=== PATIENT | male | born 1955 | race Caucasian/White ===

== ENCOUNTER 2022-03-12 13:34 | Observation (INO) ==
[2022-03-12] MEDS ORDERED: SODIUM CHLORIDE 0.9% 500 ML IV ONE (14:04)
[2022-03-12 14:09] LABS: Basophils # (auto) 0.02 K/uL (0-0.2); Basophils % (auto) 0.3 %; Eosinophils # (auto) 0.02 K/uL (0-0.50); Eosinophils % (auto) 0.3 %; Hematocrit (blood only) 46.8 % (40.1-51.0); Hemoglobin 16.1 g/dl (14.0-18.0); Immature Granulocytes # (auto) 0.01 K/uL (0.00-0.02); Immature Granulocytes % (auto) 0.2 %; Lymphocytes # (auto) 0.87 K/uL (1.2-3.4); Lymphocytes % (auto) 14.3 %; Mean Corpuscular Hemoglobin 31.1 pg (25.0-34.0); Mean Corpuscular Hgb Conc 34.4 g/dL (32.0-36.0); Mean Corpuscular Volume 90.5 fL (80.0-100.0); Mean Platelet Volume 8.9 fL (9.4-12.4); Monocytes # (auto) 0.75 K/uL (0.24-0.82); Monocytes % (auto) 12.3 %; Neutrophils # (auto) 4.42 K/uL (1.4-6.5); Neutrophils % (auto) 72.6 %; Platelet Count 180 K/uL (130-400); RDW Coefficient of Variation 12.9 % (11.5-14.5); RDW Standard Deviation 43.1 fL (36.4-46.3); Red Blood Count 5.17 M/uL (4.63-6.08); White Blood Count 6.09 K/ul (4.8-10.8)
[2022-03-12 14:43] LABS: Troponin I High Sensitivity 4.8 pg/ml (0-20)
--- NOTE | 2022-03-12 14:47 | Emergency Department Note ---
Impression & Plan Exertional chest pain, Hyperlipidemia, Family history of coronary artery disease ED Provider Note NAME: KOBE KEYES AGE: 66 SEX: M ARRIVES VIA: Walk-In INFORMANT: Patient, ED PROVIDER(S): Daniel Howell MD CHIEF COMPLAINT: Exertional chest pain. PLAN: Disposition: Admit MEDICAL DECISION MAKING: The patient is a pleasant 66-year-old gentleman with a past medical history of hyperlipidemia who presents to the emergency department with increasing pattern of exertional chest pain/heaviness that began approximately 7 weeks ago. He reports he saw his primary care doctor at that time and was not as frequent and had a reassuring EKG and so was scheduled for stress test in April. 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 He reports he felt some chest pressure walking into the hospital today. He denies any cough, congestion, fevers, chills, GI or symptoms. He reports a family history of extensive heart disease. On arrival the patient is no acute distress, afebrile stable vital signs. EKG without overt acute ischemia. CXR negative for acute cardiopulmonary process. WBC, H/H, platelets wnl. Chemistry without acidosis. Electrolytes unremarkable. LFTs without significant abnormality. HS Troponin 4.8, wnl. Lipase wnl. Covid-19 RNA, NAAT negative. Heart score 6, moderate risk. Given patient's worsening pattern of exertional CP agrees with plan for admission for further management. Case was discussed with Shannan YEPEZ with Dr. Lawrence, [facility] hospitalist, who will evaluate the patient for admission. Triage Nursing notes reviewed and agree them. Prior medical records reviewed Vital Signs: reviewed and remarkable for no significant abnormalities Differential diagnosis: Cardiac ischemia, aortic dissection, pulmonary embolism, pneumothorax, pneumonia, pericarditis, myocarditis, esophageal rupture, GERD, cholecystitis, pancreatitis, musculoskeletal, as well as other pathologies. ER treatment provided: See below. Diagnostics interpreted by me: ECG: Normal sinus rhythm, 91 bpm, no ectopy, nonspecific T wave abnormality, no overt ST elevation or depression, QTC 425, qrs 102. Cardiac Monitoring: An order for continuous cardiac monitoring was placed and demonstrated Normal sinus rhythm, 91 bpm, no ectopy. Laboratory studies: See below Imaging studies: See below Consultation(s): Shannan YEPEZ with Dr. Lawrence [facility] hospitalist, HPI: The patient is a pleasant 66-year-old gentleman with a past medical history of hyperlipidemia who presents to the emergency department with increasing pattern of exertional chest pain/heaviness that began approximately 7 weeks ago. He reports he saw his primary care doctor at that time and was not as frequent and had a reassuring EKG and so was scheduled for stress test in April. 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 He reports he felt some chest pressure walking into the hospital today. He denies any cough, congestion, fevers, chills, GI or symptoms. He reports a family history of extensive heart disease. ROS: See above HPI for pertinent positives & negatives. A total of 10 systems reviewed and were otherwise negative. VITALS:See Below PHYSICAL EXAMINATION: GENERAL: Awake, alert, well-appearing, in no distress HENT: Normocephalic, atraumatic. Oropharynx unremarkable. EYES: Normal conjunctiva. Sclera non-icteric. NECK: Supple. No nuchal rigidity. FROM. No JVD. RESPIRATORY: Clear to auscultation. CARDIAC: Regular rate, normal rhythm. Extremities warm and well perfused. Pulses equal. ABDOMEN: Soft, non-distended. No tenderness to palpation. No rebound or guarding. No masses. RECTAL: Deferred. MUSCULOSKELETAL: Chest examination reveals no tenderness. The back is symmetrical on inspection without obvious abnormality. There is no CVA tenderness to palpation. No joint edema. LOWER EXTREMITIES: Calves are equal size bilaterally and non-tender. No edema. No discoloration. NEURO: Normal sensorium. No sensory or motor deficits noted. SKIN: No rash or jaundice noted. Daniel Howell MD Past Med/Surg History Medical History Hx of skin cancer, basal cell S/P SEVERAL MOH'S PROCEDURES Hyperlipidemia Surgical History History of arthroscopic knee surgery R X 2 History of colonoscopy History of inguinal hernia repair pt does not remember having this surgery but does not want me to remove it from his history History of vasectomy Family History Father FHx: diabetes mellitus Mother FHx: heart disease Social History Smoking Status: Never smoker Hx Alcohol Use: No Hx Substance Use: No Preferred Language: Bulgarian Communication Ability: Effective Internal Communications Manager Required: No Beliefs That Will Affect Care: None Current Living Situation: Spouse Other Information That Helps Us Care for You: No Feels Safe at Home: Yes Safety Concerns: Feels Safe At This Time Assistive Devices: None Allergies Allergies Allergy/AdvReac Type Severity Reaction Status Date / Time No Known Allergies Allergy Verified 06/14/20 06:28 Home Meds Home Medications Medication Instructions Recorded Confirmed ascorbic acid (vitamin C) 500 mg 500 mg PO QAM 06/21/18 03/12/22 tablet (Vitamin C) aspirin 81 mg tablet,delayed 81 mg PO HS 06/21/18 03/12/22 release cholecalciferol (vitamin D3) 10 5,000 unit PO QAM 06/21/18 03/12/22 mcg (400 unit) tablet (Vitamin D3) multivitamin 1 tab PO QAM 06/21/18 03/12/22 omega 0-iat-lva-fish oil 1,000 mg 1 cap PO DAILY ##0 06/24/18 03/12/22 (120 mg-180 mg) capsule (Fish Oil) atorvastatin 40 mg tablet 40 mg PO QAM 03/18/20 03/12/22 fluorouracil 5 % topical cream 1 applic topical BID 03/12/22 03/12/22 imiquimod 5 % topical cream packet 1 applic topical DAILY 03/12/22 03/12/22 niacinamide 100 mg tablet 100 mg PO BID 03/12/22 03/12/22 Results & Data (ED) Vital Signs Vital Signs - 24 hr 03/12/22 13:43 03/12/22 13:55 03/12/22 13:55 Temperature 36.5 C Temperature Source Oral Pulse Rate 95 H 87 Pulse Rate [Left Finger] Pulse Rhythm Regular Pulse Rhythm [Left Finger] Pulse Strength Normal Pulse Strength [Left Finger] Respiratory Rate 16 20 Respiratory Effort / Characteristics Non-Labored Spontaneous Respiratory Depth Normal Respiratory Pattern Regular Blood Pressure 136/78 Blood Pressure [Left Arm] Blood Pressure Mean 97 Blood Pressure Mean [Left Arm] Blood Pressure Position Sitting Blood Pressure Position [Left Arm] Pulse Oximetry 94 97 Oxygen Delivery Method Room Air Room Air Room Air Sepsis Recent Fever Within 48 Hours No Sepsis New/Unexplained Change in Mental Status No Sepsis Action Taken by Nursing No Action Required 03/12/22 14:06 03/12/22 14:10 03/12/22 14:20 Temperature Temperature Source Pulse Rate 93 H 93 H 87 Pulse Rate [Left Finger] Pulse Rhythm Pulse Rhythm [Left Finger] Pulse Strength Pulse Strength [Left Finger] Respiratory Rate 20 20 17 Respiratory Effort / Characteristics Respiratory Depth Respiratory Pattern Blood Pressure Blood Pressure [Left Arm] Blood Pressure Mean Blood Pressure Mean [Left Arm] Blood Pressure Position Blood Pressure Position [Left Arm] Pulse Oximetry Oxygen Delivery Method Sepsis Recent Fever Within 48 Hours Sepsis New/Unexplained Change in Mental Status Sepsis Action Taken by Nursing 03/12/22 14:30 03/12/22 14:30 03/12/22 14:40 Temperature Temperature Source Pulse Rate 89 85 Pulse Rate [Left Finger] Pulse Rhythm Pulse Rhythm [Left Finger] Pulse Strength Pulse Strength [Left Finger] Respiratory Rate 20 17 Respiratory Effort / Characteristics Respiratory Depth Respiratory Pattern Blood Pressure 160/93 H Blood Pressure [Left Arm] Blood Pressure Mean 115 Blood Pressure Mean [Left Arm] Blood Pressure Position Blood Pressure Position [Left Arm] Pulse Oximetry Oxygen Delivery Method Sepsis Recent Fever Within 48 Hours Sepsis New/Unexplained Change in Mental Status Sepsis Action Taken by Nursing 03/12/22 14:50 03/12/22 16:00 03/12/22 15:39 Temperature Temperature Source Pulse Rate 87 74 Pulse Rate [Left Finger] 76 Pulse Rhythm Pulse Rhythm [Left Finger] Regular Pulse Strength Pulse Strength [Left Finger] Normal Respiratory Rate 21 20 12 Respiratory Effort / Characteristics Non-Labored Spontaneous Respiratory Depth Normal Respiratory Pattern Regular Blood Pressure Blood Pressure [Left Arm] 134/89 Blood Pressure Mean Blood Pressure Mean [Left Arm] 104 Blood Pressure Position Blood Pressure Position [Left Arm] Sitting Pulse Oximetry 98 Oxygen Delivery Method Room Air Sepsis Recent Fever Within 48 Hours Sepsis New/Unexplained Change in Mental Status Sepsis Action Taken by Nursing 03/12/22 15:40 03/12/22 15:40 03/12/22 15:50 Temperature Temperature Source Pulse Rate 77 78 Pulse Rate [Left Finger] Pulse Rhythm Pulse Rhythm [Left Finger] Pulse Strength Pulse Strength [Left Finger] Respiratory Rate 21 24 Respiratory Effort / Characteristics Respiratory Depth Respiratory Pattern Blood Pressure 140/97 Blood Pressure [Left Arm] Blood Pressure Mean 111 Blood Pressure Mean [Left Arm] Blood Pressure Position Blood Pressure Position [Left Arm] Pulse Oximetry Oxygen Delivery Method Sepsis Recent Fever Within 48 Hours Sepsis New/Unexplained Change in Mental Status Sepsis Action Taken by Nursing 03/12/22 16:00 03/12/22 16:10 Temperature Temperature Source Pulse Rate 76 77 Pulse Rate [Left Finger] Pulse Rhythm Pulse Rhythm [Left Finger] Pulse Strength Pulse Strength [Left Finger] Respiratory Rate 18 18 Respiratory Effort / Characteristics Respiratory Depth Respiratory Pattern Blood Pressure Blood Pressure [Left Arm] Blood Pressure Mean Blood Pressure Mean [Left Arm] Blood Pressure Position Blood Pressure Position [Left Arm] Pulse Oximetry Oxygen Delivery Method Sepsis Recent Fever Within 48 Hours Sepsis New/Unexplained Change in Mental Status Sepsis Action Taken by Nursing Laboratory Data Attestation: I reviewed the patient's lab results. Result diagrams: 03/12/22 13:53 03/12/22 13:53 Lab Results 03/12/22 03/12/22 03/12/22 Range/Units 13:53 13:53 13:53 WBC 6.09 (4.8-10.8) K/ul RBC 5.17 (4.63-6.08) M/uL Hgb 16.1 (14.0-18.0) g/dl Hct 46.8 (40.1-51.0) % MCV 90.5 (80.0-100.0) fL MCH 31.1 (25.0-34.0) pg MCHC 34.4 (32.0-36.0) g/dL RDW Std Deviation 43.1 (36.4-46.3) fL RDW Coeff of Uriel 12.9 (11.5-14.5) % Plt Count 180 (130-400) K/uL MPV 8.9 L (9.4-12.4) fL Immature Gran % (Auto) 0.2 % Neut % (Auto) 72.6 % Lymph % (Auto) 14.3 % Oldham % (Auto) 12.3 % Eos % (Auto) 0.3 % Baso % (Auto) 0.3 % Neut # (Auto) 4.42 (1.4-6.5) K/uL Lymph # (Auto) 0.87 L (1.2-3.4) K/uL Oldham # (Auto) 0.75 (0.24-0.82) K/uL Eos # (Auto) 0.02 (0-0.50) K/uL Baso # (Auto) 0.02 (0-0.2) K/uL Immature Gran # (Auto) 0.01 (0.00-0.02) K/uL D-Dimer (0-500) ug/L FEU Sodium 138 (136-145) mmol/L Potassium 3.7 (3.5-5.1) mmol/L Chloride 104 (98-107) mmol/L Carbon Dioxide 25 (21-32) mmol/L Anion Gap 9 (3-11) BUN 13 (6-23) mg/dl Creatinine 0.94 (0.6-1.4) mg/dl Est Cr Clr Drug Dosing 74.0 ml/min Est GFR ( Amer) 96.2 ml/min Est GFR (Non-Af Amer) 83.0 ml/min BUN/Creatinine Ratio 13.8 (10-20) Glucose 99 (70-99(Fasting)) mg/dl Calcium 9.0 (8.5-10.1) mg/dl Phosphorus 2.8 (2.5-4.9) mg/dl Magnesium 1.9 (1.7-2.4) mg/dl Total Bilirubin 0.7 (0.2-1.0) mg/dl AST 21 (13-39) U/L ALT 26 (7-52) U/L Alkaline Phosphatase 85 (34-104) U/L Troponin I High Sens 4.8 (0-20) pg/ml Total Protein 7.2 (6.0-8.3) gm/dl Albumin 4.1 (3.4-5.0) gm/dl Globulin 3.1 (2.5-4.0) gm/dl Albumin/Globulin Ratio 1.3 (0.9-2) Lipase 41 (11-82) U/L SARS-CoV-2, RNA, NAAT (NEGATIVE) 03/12/22 03/12/22 Range/Units 13:53 14:55 WBC (4.8-10.8) K/ul RBC (4.63-6.08) M/uL Hgb (14.0-18.0) g/dl Hct (40.1-51.0) % MCV (80.0-100.0) fL MCH (25.0-34.0) pg MCHC (32.0-36.0) g/dL RDW Std Deviation (36.4-46.3) fL RDW Coeff of Uriel (11.5-14.5) % Plt Count (130-400) K/uL MPV (9.4-12.4) fL Immature Gran % (Auto) % Neut % (Auto) % Lymph % (Auto) % [place] % (Auto) % Eos % (Auto) % Baso % (Auto) % Neut # (Auto) (1.4-6.5) K/uL Lymph # (Auto) (1.2-3.4) K/uL Oldham # (Auto) (0.24-0.82) K/uL Eos # (Auto) (0-0.50) K/uL Baso # (Auto) (0-0.2) K/uL Immature Gran # (Auto) (0.00-0.02) K/uL D-Dimer 450 (0-500) ug/L FEU Sodium (136-145) mmol/L Potassium (3.5-5.1) mmol/L Chloride (98-107) mmol/L Carbon Dioxide (21-32) mmol/L Anion Gap (3-11) BUN (6-23) mg/dl Creatinine (0.6-1.4) mg/dl Est Cr Clr Drug Dosing ml/min Est GFR ( Amer) ml/min Est GFR (Non-Af Amer) ml/min BUN/Creatinine Ratio (10-20) Glucose (70-99(Fasting)) mg/dl Calcium (8.5-10.1) mg/dl Phosphorus (2.5-4.9) mg/dl Magnesium (1.7-2.4) mg/dl Total Bilirubin (0.2-1.0) mg/dl AST (13-39) U/L ALT (7-52) U/L Alkaline Phosphatase (34-104) U/L Troponin I High Sens (0-20) pg/ml Total Protein (6.0-8.3) gm/dl Albumin (3.4-5.0) gm/dl Globulin (2.5-4.0) gm/dl Albumin/Globulin Ratio (0.9-2) Lipase (11-82) U/L SARS-CoV-2, RNA, NAAT NEGATIVE (NEGATIVE) Administered Medications Enoxaparin Sodium (Enoxaparin Inj 40 Mg/0.4 Ml Syr) 40 mg SQ Q24H JENIFFER Stop: 04/11/22 18:59 Last Admin: 03/12/22 19:24 Dose: 40 mg Documented By: COAL CAGER Discontinued Medications Aspirin (Aspirin Chew 324 Mg) 324 mg PO NOW STA Stop: 03/12/22 14:52 Last Admin: 03/12/22 14:58 Dose: 324 mg Documented By: KIRT Sodium Chloride (Nss) 500 mls @ 999 mls/hr IV .Q31M ONE Stop: 03/12/22 14:34 Last Infusion: 03/12/22 14:47 Dose: 0 mls/hr Documented By: Admin: 03/12/22 14:12 Dose: 999 mls/hr Documented By: KIRT Imaging Data Radiologist's Impression: Chest X-Ray 03/12/22 13:47 XR chest 1V portable CLINICAL HISTORY: Atypical chest pain. COMPARISON STUDY: Chest radiograph February 25, 2010. Chest CT March 18, 2020. FINDINGS: Lung volumes are normal. Lungs are clear. There is no pneumothorax or pleural effusion. Mild cardiomegaly. Mediastinal contours are normal. There is no evidence for pulmonary edema. IMPRESSION: No acute cardiopulmonary findings. ACT 112: Negative or not required by law. Electronically signed by: Servando Bolaños M.D. 03/12/2022 2:45 PM Discharge Plan Visit Data Chief Complaint: Chest Pain Stated Complaint: MILD CHEST PAINS/LIGHTHEADED/TINGLING IN L LEG ED Provider: Daniel Howell Discharge Problem: Exertional chest pain, Hyperlipidemia, Family history of coronary artery disease Patient Disposition: Admitted As Inpatient Discharge Instructions Interventions: ED Discharge Assessment Last Done: 03/12/22 18:08 Risk - HEART Scoring HEART Score for Major Cardiac Events History: Highly Suspicious EKG: Normal Age: > 64 Years of Age Risk Factors: >2 Risk Factors Initial Troponin: Normal Limit Total Points: 6 Risk Level: Moderate Risk for Major Adverse Cardiac Event HEART Score Interpretation: Score interpretation (as per derivation study): HEART Adverse Cardiac Score Event Risk Management 0-3 0.9-1.7% In the HEART Score study, these patients were discharged. 4-6 12-16.6% In the HEART Score study, these patients were admitted to the hospital. 7-10 50-65% In the HEART Score study, these patients were candidates for early invasive measurements. Original Source: 1. Don AJ, Tomasz BE, Ubaldo ELISE. Chest pain in the emergency room: value of the HEART score. Neth Heart J. 2008; 16(6):191-6.
[2022-03-12] MEDS ORDERED: ASPIRIN CHEW 324 MG PO STA (14:51)
[2022-03-12 15:11] LABS: Albumin Globulin Ratio 1.3 (0.9-2); Albumin Level 4.1 gm/dl (3.4-5.0); BUN Creatinine Ratio 13.8 (10-20); Bilirubin,Total 0.7 mg/dl (0.2-1.0); Est GFR (African American) 96.2 ml/min; Globulin 3.1 gm/dl (2.5-4.0); Potassium 3.7 mmol/L (3.5-5.1); Total Protein 7.2 gm/dl (6.0-8.3)
[2022-03-12 15:47] LABS: Magnesium 1.9 mg/dl (1.7-2.4); Phosphorus 2.8 mg/dl (2.5-4.9)
--- NOTE | 2022-03-12 16:17 | History & Physical Report ---
Date of Service March 12, 2022 Assessment & Plan (1) Chest pain: Plan: Admit to telemetry Patient presenting from home with reports of worsening, exertional chest pain, shortness of breath, lightheadedness x 5 weeks CAD risk factors: HLD In the ED, patient is hemodynamically stable. EKG shows T wave flattening in the inferior leads. Initial HS troponin negative. Trend troponin, if remain negative then stress test in the morning Received full dose aspirin in ED, continue with ASA 81 mg daily Check D-dimer Continue home statin (2) Hyperlipidemia: Plan: Continue statin (3) DVT prophylaxis: Plan: SQ Lovenox Plan Attending Addendum: care coordinated with LUCHO Zuñiga please refer to her notes for full details, I agree with her notes patient seen and examined, records reviewed by myself as well Chest pain possible Unstable Angina Troponins x 2 negative EKG no signs of acute ischemia D dimer negative Marketing Services Coordinator consulted continue ASA other diagnoses and plan of care as per LUCOH Zuñiga's notes plan of care discussed with patient in detail and at length all questions answered he is understanding, agreeable, comfortable with the plan of care Lamonte Lawrence MD History of Present Illness Chief Complaint: Chest Pain Primary Care Provider: Jae Denton MD 66 year old male with PMH HLD, skin cancer, and other problems listed below who presents to the ED for evaluation of chest pain. Patient reports chest pain symptoms for the past 5 weeks. Saw PCP last week and had an EKG done that was unremarkable and was schedule for an outpatient stress test for April. Patient describes the pain as mid sternal. States the pain is a mild discomfort. Over the past weeks, discomfort has been happening more frequently and brought on by less activity. Patient also reports associated shortness of breath and lightheadedness. 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 Notes that his exercise tolerance has been reduced since developing chest pain. No abdominal pain, nausea, vomiting, or diarrhea. Denies fever and chills. No urinary symptoms. In the ED, patient is hemodynamically stable. EKG shows T wave flattening in the inferior leads. Initial HS troponin is negative. Patient received full dose aspirin. Allergies Allergy/AdvReac Type Severity Reaction Status Date / Time No Known Allergies Allergy Verified 06/14/20 06:28 Home Medications Medication Instructions Recorded Confirmed Type ascorbic acid (vitamin C) 500 mg 500 mg PO QAM 06/21/18 03/12/22 History tablet (Vitamin C) aspirin 81 mg tablet,delayed 81 mg PO HS 06/21/18 03/12/22 History release cholecalciferol (vitamin D3) 10 5,000 unit PO QAM 06/21/18 03/12/22 History mcg (400 unit) tablet (Vitamin D3) multivitamin 1 tab PO QAM 06/21/18 03/12/22 History omega 5-hwx-llb-fish oil 1,000 mg 1 cap PO DAILY ##0 06/24/18 03/12/22 History (120 mg-180 mg) capsule (Fish Oil) atorvastatin 40 mg tablet 40 mg PO QAM 03/18/20 03/12/22 History fluorouracil 5 % topical cream 1 applic topical BID 03/12/22 03/12/22 History imiquimod 5 % topical cream packet 1 applic topical DAILY 03/12/22 03/12/22 History niacinamide 100 mg tablet 100 mg PO BID 03/12/22 03/12/22 History Past Med/Surg History Medical History Hx of skin cancer, basal cell S/P SEVERAL MOH'S PROCEDURES Hyperlipidemia Surgical History History of arthroscopic knee surgery R X 2 History of colonoscopy History of inguinal hernia repair pt does not remember having this surgery but does not want me to remove it from his history History of vasectomy Family History Father FHx: diabetes mellitus Mother FHx: heart disease Social History Smoking Status: Never smoker Hx Alcohol Use: No Hx Substance Use: No Preferred Language: Prydeinig Communication Ability: Effective Company Marker Required: No Beliefs That Will Affect Care: None Current Living Situation: Spouse Other Information That Helps Us Care for You: No Feels Safe at Home: Yes Safety Concerns: Feels Safe At This Time Assistive Devices: None Review of Systems Review of Systems: ROS per HPI, all other systems reviewed and negative Physical Exam Constitutional: WD/WN, vitals as above Eyes: PERRL, conjunctivae normal, anicteric sclerae ENMT: external ear and nose normal, oropharynx normal Respiratory: normal respiratory effort, lungs clear to auscultation Cardiovascular: Rate/Rhythm: regular rate and regular rhythm Vessels: cammy l peripheral pulses Extremities: no edema Gastrointestinal (Abdomen): normal bowel sounds, soft, nontender, no hepatosplenomegaly Musculoskeletal: no cyanosis or clubbing, extremities motor strength 5/5 Skin: no rashes, warm and dry Neurologic: PERRL, EOMI, accommodation nl, no face palsy, no dysarthria Psychiatric: A+Ox3, euthymic affect Results & Data Results & Data ([facility]) Vital Signs (Past 12 Hours) Vital Signs Temp Pulse Pulse Resp BP BP Pulse Ox 03/12/22 16:00 76 20 134/89 98 03/12/22 14:50 87 21 03/12/22 14:40 85 17 03/12/22 14:30 89 20 03/12/22 14:30 160/93 H 03/12/22 14:20 87 17 03/12/22 14:10 93 H 20 03/12/22 14:06 93 H 20 03/12/22 13:55 87 20 97 03/12/22 13:55 03/12/22 13:43 36.5 C 95 H 16 136/78 94 O2 Del Method 03/12/22 16:00 Room Air 03/12/22 14:50 03/12/22 14:40 03/12/22 14:30 03/12/22 14:30 03/12/22 14:20 03/12/22 14:10 03/12/22 14:06 03/12/22 13:55 Room Air 03/12/22 13:55 Room Air 03/12/22 13:43 Room Air Laboratory Results Short CBC 03/12/22 Range/Units 13:53 WBC 6.09 (4.8-10.8) K/ul Hgb 16.1 (14.0-18.0) g/dl Hct 46.8 (40.1-51.0) % Plt Count 180 (130-400) K/uL BMP 03/12/22 13:53 Sodium 138 Potassium 3.7 Chloride 104 Carbon Dioxide 25 BUN 13 Creatinine 0.94 Glucose 99 Calcium 9.0 Liver Function 03/12/22 Range/Units 13:53 Total Bilirubin 0.7 (0.2-1.0) mg/dl AST 21 (13-39) U/L ALT 26 (7-52) U/L Alkaline Phosphatase 85 (34-104) U/L Albumin 4.1 (3.4-5.0) gm/dl Diagnostic Findings Chest X-Ray 03/12/22 13:47 XR chest 1V portable CLINICAL HISTORY: Atypical chest pain. COMPARISON STUDY: Chest radiograph February 25, 2010. Chest CT March 18, 2020. FINDINGS: Lung volumes are normal. Lungs are clear. There is no pneumothorax or pleural effusion. Mild cardiomegaly. Mediastinal contours are normal. There is no evidence for pulmonary edema. IMPRESSION: No acute cardiopulmonary findings. ACT 112: Negative or not required by law. Electronically signed by: Servando Bolaños M.D. 03/12/2022 2:45 PM Code Status & VTE Plan VTE Prophylaxis Plan VTE Prophylaxis will be ordered: Yes
[2022-03-12 16:57] LABS: D Dimer 450 ug/L FEU (0-500)
[2022-03-12] MEDS ORDERED: ACETAMINOPHEN 325 MG TAB PO PRN (18:40)
[2022-03-12] MEDS ORDERED: NITROGLYCERIN SL 0.4 MG/TAB TAB SL PRN (18:40)
[2022-03-12] MEDS ORDERED: ENOXAPARIN INJ 40 MG/0.4 ML SYR SQ SCH (19:00)
[2022-03-13 02:38] LABS: Hemoglobin 15.2 g/dl (14.0-18.0); Mean Corpuscular Hemoglobin 31.6 pg (25.0-34.0); Mean Corpuscular Hgb Conc 34.5 g/dL (32.0-36.0); Mean Corpuscular Volume 91.5 fL (80.0-100.0); Mean Platelet Volume 8.8 fL (9.4-12.4); Platelet Count 160 K/uL (130-400); RDW Coefficient of Variation 12.9 % (11.5-14.5); RDW Standard Deviation 43.5 fL (36.4-46.3); Red Blood Count 4.81 M/uL (4.63-6.08); White Blood Count 6.78 K/ul (4.8-10.8)
[2022-03-13 02:59] LABS: BUN Creatinine Ratio 19.1 (10-20); Calcium 8.4 mg/dl (8.5-10.1); Chol HDL Ratio 3.4 (0-5); Creatinine Clr Calc Pharmacy 78.1 ml/min; Est GFR (African American) 101.8 ml/min; Est GFR (Non-African American) 87.9 ml/min; Potassium 3.8 mmol/L (3.5-5.1)
[2022-03-13 03:04] LABS: Troponin I High Sensitivity 6.2 pg/ml (0-20)
[2022-03-13] MEDS ORDERED: ATORVASTATIN 40 MG TAB PO SCH (09:00)
[2022-03-13] MEDS ORDERED: ASPIRIN 81 MG ECTAB PO SCH (09:00)
--- NOTE | 2022-03-13 12:35 | Electrocardiogram Report ---
Test Reason : Blood Pressure : / mmHG Vent. Rate : 076 BPM Atrial Rate : 076 BPM P-R Int : 150 ms QRS Dur : 106 ms QT Int : 372 ms P-R-T Axes : 067 026 034 degrees QTc Int : 418 ms Normal sinus rhythm Normal ECG When compared with ECG of 12-MAR-2022 13:39, (unconfirmed) No significant change was found Confirmed by Destin Fowler ([id number]) on 03/13/2022 12:35:30 PM Referred By: REFERRED SELF Confirmed By:Aidan Fowler
--- NOTE | 2022-03-13 12:36 | Cardiology Consultation ---
Date of Consultation March 13, 2022 Assessment & Plan (1) Exertional chest pain: (2) Family history of coronary artery disease: Plan This is a very healthy and athletic 66-year-old patient who has been having some mild chest discomfort with activity. He is concerned because there is a family history of heart disease. He had negative cardiac markers on admission and a normal EKG. This morning he underwent an exercise stress echocardiogram. He was able to complete 3 stages of Joseph protocol without difficulty or symptoms. The EKG and echocardiogram portion of the study was negative for ischemia. Unfortunately, the patient only achieved approximately 79% of his age-predicted maximum heart rate. When I asked him if he could have went further on the treadmill he said yes. He stopped early because he was told that he had to give the nurse and audiovisual lead technician enough time so that they could give IV contrast. He was trying to be helpful. I think this patient can be discharged from the hospital with outpatient follow-up. His chest pain is a little concerning because it does seem to be exertional related. He has been athletic his whole life and he could be 1 of these patients that has a negative study but still has significant coronary artery disease. As an outpatient we can consider a possible cardiac CT angio. I will arrange follow-up with our practice and make sure it is a reasonable timeframe for him to be seen. History of Present Illness Attending Physician: Lamonte Lawrence MD History of Present Illness This is a 66-year-old male patient who has been very active his whole life. 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 Starting about 4 to 5 weeks ago he has noted some mild chest discomfort sometimes with activity sometimes not. He has a family history of heart disease and became concerned and saw his PCP who ordered a stress test. Unfortunately, that study was not scheduled until April. He had some more chest discomfort yesterday and became concerned and decided to come to the hospital. He has had negative cardiac markers and his EKGs are normal. This morning he underwent an exercise stress echocardiogram where he was able to complete 3 stages of a Joseph protocol without difficulty. Unfortunately, the patient only achieved 79% of his age-predicted maximum heart rate. When I asked him if he could have went further he said yes but he was concerned because he was told before the test that he had to notify the tech so they could give him IV contrast. The study was negative including EKG and echocardiogram to that point. Allergies Allergy/AdvReac Type Severity Reaction Status Date / Time No Known Allergies Allergy Verified 06/14/20 06:28 Home Medications Medication Instructions Recorded Confirmed Type ascorbic acid (vitamin C) 500 mg 500 mg PO QAM 06/21/18 03/12/22 History tablet (Vitamin C) aspirin 81 mg tablet,delayed 81 mg PO HS 06/21/18 03/12/22 History release cholecalciferol (vitamin D3) 10 5,000 unit PO QAM 06/21/18 03/12/22 History mcg (400 unit) tablet (Vitamin D3) multivitamin 1 tab PO QAM 06/21/18 03/12/22 History omega 9-qki-vsl-fish oil 1,000 mg 1 cap PO DAILY ##0 06/24/18 03/12/22 History (120 mg-180 mg) capsule (Fish Oil) atorvastatin 40 mg tablet 40 mg PO QAM 03/18/20 03/12/22 History fluorouracil 5 % topical cream 1 applic topical BID 03/12/22 03/12/22 History imiquimod 5 % topical cream packet 1 applic topical DAILY 03/12/22 03/12/22 History niacinamide 100 mg tablet 100 mg PO BID 03/12/22 03/12/22 History Patient History Medical History Hx of skin cancer, basal cell S/P SEVERAL MOH'S PROCEDURES Hyperlipidemia Surgical History History of arthroscopic knee surgery R X 2 History of colonoscopy History of inguinal hernia repair pt does not remember having this surgery but does not want me to remove it from his history History of vasectomy Family History Father FHx: diabetes mellitus Mother FHx: heart disease Social History Smoking Status: Never smoker Hx Alcohol Use: No Hx Substance Use: No Preferred Language: Luxembourger Communication Ability: Effective Heel Curver Required: No Beliefs That Will Affect Care: None Current Living Situation: Spouse Feels Safe at Home: Yes Assistive Devices: None Review of Systems Review of Systems: Review of Systems: See HPI for pertinent positives. All other 10 point review of systems are negative. Physical Exam Physical Exam: General: no acute distress and stated age Head: normocephalic, no masses, lesions, tenderness or abnormalities Eyes: conjunctiva are pink and non-injected, sclera clear Neck: supple, no adenopathy, no bruits, normal jugular venous pulse, no hepatojugular reflux Chest: normal shape and normal respiratory effort Lungs: clear to auscultation and percussion Cardiac Exam: - regular rate & rhythm, no murmurs gallops or rubs - normal S1, normal S2 Pulses: 2(+) throughout Abdomen: abdomen soft, non-tender, no abnormal masses and no hepatosplenomegaly Musculoskeletal: no gait disturbance, no joint inflammation, no deforming arthritis Extremities: no edema and no cyanosis Neuro: grossly normal exam Results & Data ([facility]) Vital Signs (Past 12 Hours) Vital Signs Temp Pulse Pulse Resp BP Pulse Ox O2 Del Method 03/13/22 12:00 36.7 C 74 18 144/88 H 98 Room Air 03/13/22 07:00 82 03/13/22 07:00 37.2 C 77 18 131/75 96 Room Air 03/13/22 04:30 37.5 C 73 19 147/81 H 94 Room Air Laboratory Results Laboratory Results - last 24 hr 03/12/22 03/12/22 03/12/22 13:53 13:53 13:53 WBC 6.09 RBC 5.17 Hgb 16.1 Hct 46.8 MCV 90.5 MCH 31.1 MCHC 34.4 RDW Std Deviation 43.1 RDW Coeff of Uirel 12.9 Plt Count 180 MPV 8.9 L Immature Gran % (Auto) 0.2 Neut % (Auto) 72.6 Lymph % (Auto) 14.3 Upton % (Auto) 12.3 Eos % (Auto) 0.3 Baso % (Auto) 0.3 Neut # (Auto) 4.42 Lymph # (Auto) 0.87 L Upton # (Auto) 0.75 Eos # (Auto) 0.02 Baso # (Auto) 0.02 Immature Gran # (Auto) 0.01 D-Dimer Sodium 138 Potassium 3.7 Chloride 104 Carbon Dioxide 25 Anion Gap 9 BUN 13 Creatinine 0.94 Est Cr Clr Drug Dosing 74.0 Est GFR ( Amer) 96.2 Est GFR (Non-Af Amer) 83.0 BUN/Creatinine Ratio 13.8 Glucose 99 Calcium 9.0 Phosphorus 2.8 Magnesium 1.9 Total Bilirubin 0.7 AST 21 ALT 26 Alkaline Phosphatase 85 Troponin I High Sens 4.8 Total Protein 7.2 Albumin 4.1 Globulin 3.1 Albumin/Globulin Ratio 1.3 Triglycerides Cholesterol LDL Cholesterol, Calc VLDL Cholesterol, Calc HDL Cholesterol Cholesterol/HDL Ratio Lipase 41 SARS-CoV-2, RNA, NAAT 03/12/22 03/12/22 03/12/22 13:53 14:55 19:50 WBC RBC Hgb Hct MCV MCH MCHC RDW Std Deviation RDW Coeff of Uriel Plt Count MPV Immature Gran % (Auto) Neut % (Auto) Lymph % (Auto) Upton % (Auto) Eos % (Auto) Baso % (Auto) Neut # (Auto) Lymph # (Auto) Upton # (Auto) Eos # (Auto) Baso # (Auto) Immature Gran # (Auto) D-Dimer 450 Sodium Potassium Chloride Carbon Dioxide Anion Gap BUN Creatinine Est Cr Clr Drug Dosing Est GFR ( Amer) Est GFR (Non-Af Amer) BUN/Creatinine Ratio Glucose Calcium Phosphorus Magnesium Total Bilirubin AST ALT Alkaline Phosphatase Troponin I High Sens 6.0 Total Protein Albumin Globulin Albumin/Globulin Ratio Triglycerides Cholesterol LDL Cholesterol, Calc VLDL Cholesterol, Calc HDL Cholesterol Cholesterol/HDL Ratio Lipase SARS-CoV-2, RNA, NAAT NEGATIVE 03/13/22 03/13/22 03/13/22 02:29 02:29 02:29 WBC 6.78 RBC 4.81 Hgb 15.2 Hct 44.0 MCV 91.5 MCH 31.6 MCHC 34.5 RDW Std Deviation 43.5 RDW Coeff of Uriel 12.9 Plt Count 160 MPV 8.8 L Immature Gran % (Auto) Neut % (Auto) Lymph % (Auto) Upton % (Auto) Eos % (Auto) Baso % (Auto) Neut # (Auto) Lymph # (Auto) Upton # (Auto) Eos # (Auto) Baso # (Auto) Immature Gran # (Auto) D-Dimer Sodium 135 L Potassium 3.8 Chloride 103 Carbon Dioxide 25 Anion Gap 7 BUN 17 Creatinine 0.89 Est Cr Clr Drug Dosing 78.1 Est GFR ( Amer) 101.8 Est GFR (Non-Af Amer) 87.9 BUN/Creatinine Ratio 19.1 Glucose 98 Calcium 8.4 L Phosphorus Magnesium Total Bilirubin AST ALT Alkaline Phosphatase Troponin I High Sens Cancelled 6.2 Total Protein Albumin Globulin Albumin/Globulin Ratio Triglycerides 104 Cholesterol 141 LDL Cholesterol, Calc 78 VLDL Cholesterol, Calc 21 HDL Cholesterol 42 Cholesterol/HDL Ratio 3.4 Lipase SARS-CoV-2, RNA, NAAT Medications Administered Current Inpatient Medications Acetaminophen (Acetaminophen 325 Mg Tab) 650 mg PO Q4H PRN PRN Reason: Pain or Fever Stop: 04/11/22 18:39 Aspirin (Aspirin 81 Mg Ectab) [facility] Stop: 04/12/22 08:59 Last Admin: 03/13/22 10:35 Dose: 81 mg Atorvastatin Calcium (Atorvastatin 40 Mg Tab) 40 mg PO QAM [facility] Stop: 04/12/22 08:59 Last Admin: 03/13/22 10:35 Dose: 40 mg Enoxaparin Sodium (Enoxaparin Inj 40 Mg/0.4 Ml Syr) 40 mg SQ Q24H [facility] Stop: 04/11/22 18:59 Last Admin: 03/12/22 19:24 Dose: 40 mg Nitroglycerin (Nitroglycerin Sl 0.4 Mg/Tab Tab) 0.4 mg SL UD PRN PRN Reason: Chest Pain Stop: 04/11/22 18:39
--- NOTE | 2022-03-13 12:39 | Electrocardiogram Report ---
Test Reason : Blood Pressure : / mmHG Vent. Rate : 091 BPM Atrial Rate : 091 BPM P-R Int : 148 ms QRS Dur : 102 ms QT Int : 346 ms P-R-T Axes : 075 077 023 degrees QTc Int : 425 ms Normal sinus rhythm Normal ECG When compared with ECG of 18-MAR-2020 10:27, Nonspecific T wave abnormality now evident in Inferior leads Confirmed by Destin Fowler ([id number]) on 03/13/2022 12:39:08 PM Referred By: REFERRED SELF Confirmed By:Aidan Fowler
--- NOTE | 2022-03-13 14:02 | Hospitalist Progress Note ---
Date of Service March 13, 2022 Assessment & Plan (1) Chest pain: Plan: Patient presenting from home with reports of worsening, exertional chest pain, shortness of breath, lightheadedness x 5 weeks CAD risk factors: HLD troponin negative x 2 EKG no signs of acute ischemia D-dimer: negative Dr. Junior- Anesthesiology Technologist consulted s/p Stress Test per Dr. Junior : He was able to complete 3 stages of Joseph protocol without difficulty or symptoms. The EKG and echocardiogram portion of the study was negative for ischemia. Unfortunately, the patient only achieved approximately 79% of his age-predicted maximum heart rate. When I asked him if he could have went further on the treadmill he said yes. He stopped early because he was told that he had to give the nurse and coffee machine technician enough time so that they could give IV contrast. cleared for discharge per Cardiology, ff up with their Clinic in 1-2 weeks, possible outpatient CT angio (2) Hyperlipidemia: Plan: Continue statin (3) DVT prophylaxis: Plan: SQ Lovenox Plan plan of care discussed with patient in detail and at length all questions answered he is understanding, agreeable, comfortable with the plan of care Admission and Anticipated Discharge Date Admission Date: March 12, 2022 Subjective ff up for chest pain, etc seen resting in bed, comfortable states he feels fine overall no recurrence of chest pain while admitted no dyspnea, palpitations, dizziness no other new symptoms states he is ready and would like to be discharged today Review of Systems Review of Systems: all noted and negative except for above Physical Exam Physical Exam: General- oriented x 3, not in distress, speaks in sentences with no effort or accessory muscle use Eyes- anicteric Neck- no JVD Lungs- clear BS BL, no rales/wheezes Heart- normal rate, regular rhythm; no murmurs Abdomen- normal bowel sounds, nondistended, soft, nontender Extremities- no pretibial edema, no calf tenderness Neuro- alert, oriented x 3; no gross focal neurologic deficits Skin- warm & dry Results & Data Results & Data ([facility]) Vital Signs (Past 12 Hours) Vital Signs Temp Pulse Pulse Resp BP Pulse Ox O2 Del Method 03/13/22 12:00 36.7 C 74 18 144/88 H 98 Room Air 03/13/22 07:00 82 03/13/22 07:00 37.2 C 77 18 131/75 96 Room Air 03/13/22 04:30 37.5 C 73 19 147/81 H 94 Room Air all noted and reviewed including below
--- NOTE | 2022-03-13 14:17 | Discharge Summary ---
Date of Service March 13, 2022 Admission HPI Per Admitting Provider 66 year old male with PMH HLD, skin cancer, and other problems listed below who presents to the ED for evaluation of chest pain. Patient reports chest pain symptoms for the past 5 weeks. Saw PCP last week and had an EKG done that was unremarkable and was schedule for an outpatient stress test for April. Patient describes the pain as mid sternal. States the pain is a mild discomfort. Over the past weeks, discomfort has been happening more frequently and brought on by less activity. Patient also reports associated shortness of breath and lightheadedness. 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 Notes that his exercise tolerance has been reduced since developing chest pain. No abdominal pain, nausea, vomiting, or diarrhea. Denies fever and chills. No urinary symptoms. In the ED, patient is hemodynamically stable. EKG shows T wave flattening in the inferior leads. Initial HS troponin is negative. Patient received full dose aspirin. Admission Exam Per Admitting Provider Constitutional: WD/WN, vitals as above Eyes: PERRL, conjunctivae normal, anicteric sclerae ENMT: external ear and nose normal, oropharynx normal Respiratory: normal respiratory effort, lungs clear to auscultation Cardiovascular: Rate/Rhythm: regular rate and regular rhythm Vessels: normal peripheral pulses Extremities: no edema Gastrointestinal (Abdomen): normal bowel sounds, soft, nontender, no hepatosplenomegaly Musculoskeletal: no cyanosis or clubbing, extremities motor strength 5/5 Skin: no rashes, warm and dry Neurologic: PERRL, EOMI, accommodation nl, no face palsy, no dysarthria Psychiatric: A+Ox3, euthymic affect Principal Diagnosis CHEST PAIN Discharge Exam General- oriented x 3, not in distress, speaks in sentences with no effort or accessory muscle use Eyes- anicteric Neck- no JVD Lungs- clear BS BL, no rales/wheezes Heart- normal rate, regular rhythm; no murmurs Abdomen- normal bowel sounds, nondistended, soft, nontender Extremities- no pretibial edema, no calf tenderness Neuro- alert, oriented x 3; no gross focal neurologic deficits Skin- warm & dry Discharge Data Allergies Allergy/AdvReac Type Severity Reaction Status Date / Time No Known Allergies Allergy Verified 06/14/20 06:28 Consultations 03/12/22 15:35 ED Decision to Admit Stat 03/12/22 19:03 Consult Cardiology Routine Hospital Course (1) Chest pain: Patient presenting from home with reports of worsening, exertional chest pain, shortness of breath, lightheadedness x 5 weeks CAD risk factors: HLD troponin negative x 2 EKG no signs of acute ischemia D-dimer: negative Dr. Junior- Certified Income Tax Preparer consulted s/p Stress Test per Dr. Junior : He was able to complete 3 stages of Joseph protocol without diff iculty or symptoms. The EKG and echocardiogram portion of the study was negative for ischemia. Unfortunately, the patient only achieved approximately 79% of his age-predicted maximum heart rate. When I asked him if he could have went further on the treadmill he said yes. He stopped early because he was told that he had to give the nurse and die cast technician enough time so that they could give IV contrast. cleared for discharge per Cardiology, ff up with their Clinic in 1-2 weeks, possible outpatient CT angio (2) Hyperlipidemia: Continue statin (3) DVT prophylaxis: SQ Lovenox Plan plan of care discussed with patient in detail and at length all questions answered he is understanding, agreeable, comfortable with the plan of care Total Time Total Time Spent Total Time Spent (In Minutes): >30 MINUTES Discharge Plan Discharge Items Patient Disposition: Home - Self-Care Reason For Visit: CHEST PAIN Discharge Diagnosis: CHEST PAIN Activity: Resume your previous activity Lifting: Wait until after follow-up appointment Exercise/Sports: Wait until after follow-up appointment Driving/Machine Use: NO DRIVING UNTIL RE-EVALUATED AND ALLOWED BY PRIMARY CARE PHYSICIAN Non-emergency contact: Primary Care Provider Call non-emergency contact if: you have any medication questions, your symptoms worsen, your pain is not controlled, your pain is worsening, your pain is unusual for you, your pain is concerning for you and you have a fever Follow-up/Referrals: Jae Denton MD [Primary Care Provider] - (Date & Time 03/17/2022 11:00 AM Provider Jae Denton III, MD [facility] ) Diet: Heart Healthy Addtl Attending Provider Instructions: YOU CAN TRY MAALOX IF YOU HAVE RECURRENCE OF SYMPTOMS. IF NO IMPROVEMENT, PLEASE CALL YOUR PRIMARY CARE PHYSICIAN IMMEDIATELY. PLEASE CALL YOUR PRIMARY CARE PHYSICIAN OR RETURN TO THE ER IF WITH WORSENING OF SYMPTOMS, INCLUDING CHEST PAIN, SHORTNESS OF BREATH, PALPITATIONS, DIZZINESS, ETC. FOLLOW UP WITH PRIMARY CARE PHYSICIAN OUTLINED. FOLLOW UP WITH [facility] DR. JUNIOR IN 1-2 WEEKS. PLEASE CALL HIS CLINIC FOR AN APPOINTMENT. CONTACT INFORMATION NOTED ABOVE. Pending Studies at Discharge: No Stand-Alone Forms: [facility] [employer], Smoking Cessation Medications and DC Order Prescriptions: Continued atorvastatin 40 mg tablet 40 mg PO QAM multivitamin Tablet 1 tab PO QAM aspirin 81 mg Tablet,Delayed Release (Dr/Ec) 81 mg PO HS ascorbic acid (vitamin C) [Vitamin C] 500 mg Tablet 500 mg PO QAM cholecalciferol (vitamin D3) [Vitamin D3] 400 unit Tablet 5,000 unit PO QAM omega 5-thb-[id number]-fish oil [Fish Oil] 1,000 mg (120 mg-180 mg) Capsule 1 cap PO DAILY Qty: 0 fluorouracil 5 % cream 1 applic TOPICAL BID imiquimod 5 % cream in packet 1 applic TOPICAL DAILY niacinamide 100 mg Tablet 100 mg PO BID Discharge Orders: Discharge Order (Routine); Ordered 03/13/22 Ordered By: Lamonte Lawrence Admission Data Admit Date/Time: 03/12/22 16:13 Attending Provider: Lamonte Lawrence Admit Provider: Lamonte Lawrence Primary Care Provider: Jae Denton Other Providers: Lamonte Lawrence ; Isidro Junior Other Interventions: Discharge Summary Assessment (RN) Last Done: 03/13/22 14:13
== END 2022-03-13 15:25 | disposition home or self-care (01) ==
LOC: ED 13:34 → 2S 13:34

== ENCOUNTER 2022-10-21 09:35 | Inpatient (IN) ==
[2022-10-21] MEDS ORDERED: SODIUM CHLORIDE 0.9% 1000ML 1,000 ML IV SCH ×3 (10:30→17:00)
[2022-10-21] MEDS ORDERED: SODIUM CHLORIDE 0.9% 1000ML 1,000 ML IV ONE (10:36)
[2022-10-21 10:48] LABS: Hematocrit (blood only) 45.5 % (42.0-52.0); Hemoglobin 16.4 g/dl (14.0-18.0); Mean Corpuscular Hemoglobin 31.8 pg (25.0-34.0); Mean Corpuscular Volume 88.2 fL (80.0-100.0); Mean Platelet Volume 9.6 fL (9.4-12.4); Platelet Count 188 K/uL (130-400); RDW Coefficient of Variation 12.6 % (11.5-14.5); RDW Standard Deviation 40.7 fL (36.4-46.3); Red Blood Count 5.16 M/uL (4.70-6.10); White Blood Count 29.74 K/ul (4.8-10.8)
--- NOTE | 2022-10-21 10:54 | XRay Report ---
XR chest 1V portable CLINICAL HISTORY: Sepsis TECHNIQUE: Single frontal radiograph of the chest was obtained. Comparison: Comparison is made to chest radiograph 03/12/2022 FINDINGS: No lines and tubes are seen. The cardiomediastinal silhouette is normal. The lungs are clear. No evid ence of pleural effusion or pneumothorax. IMPRESSION: No acute chest disease. ACT 112: Negative or not required by law. Electronically signed by: Moise Thayer M.D. 10/21/2022 10:52 AM
[2022-10-21] MEDS ORDERED: CEFEPIME 2,000 MG/20 ML VIAL IV STA (10:57)
[2022-10-21 11:04] LABS: Albumin Level 3.6 gm/dl (3.4-5.0); BUN Creatinine Ratio 13.4 (10-20); Bilirubin,Total 2.4 mg/dl (0.2-1.0); Calcium 9.2 mg/dl (8.5-10.1); Creatinine Clr Calc Pharmacy 35.3 ml/min; Est GFR (Non-African American) 34.6 ml/min; Magnesium 1.6 mg/dl (1.7-2.4); Potassium 3.2 mmol/L (3.5-5.1); Total Protein 7.4 gm/dl (6.0-8.3)
[2022-10-21 11:20] LABS: Basophils # (auto) 0.12 K/uL (0-0.2); Basophils % (auto) 0.4 %; Eosinophils % (auto) 0.3 %; Immature Granulocytes % (auto) 3.4 %; Lymphocytes # (auto) 0.77 K/uL (1.2-3.4); Lymphocytes % (auto) 2.6 %; Monocytes # (auto) 0.84 K/uL (0.11-0.59); Monocytes % (auto) 2.8 %; Neutrophils # (auto) 26.91 K/uL (1.40-6.50); Neutrophils % (auto) 90.5 %; Toxic Vacuolation 1+
[2022-10-21 11:39] LABS: Adenovirus PCR Not Detected (NotDetected); Bordetella parapertussis PCR Not Detected (NotDetected); Bordetella pertussis PCR Not Detected (NotDetected); Chlamydia pneumoniae PCR Not Detected (NotDetected); Coronavirus 229E PCR Not Detected (NotDetected); Coronavirus CoV-2 (COVID19)PCR Not Detected (NotDetected); Coronavirus HKU1 PCR Not Detected (NotDetected); Coronavirus NL63 PCR Not Detected (NotDetected); Coronavirus OC43PCR Not Detected (NotDetected); Human Metapneumovirus PCR Not Detected (NotDetected); Influenza A PCR Not Detected (NotDetected); Influenza B PCR Not Detected (NotDetected); Mycoplasma pneumoniae PCR Not Detected (NotDetected); Parainfluenza Virus 1 PCR Not Detected (NotDetected); Parainfluenza Virus 2 PCR Not Detected (NotDetected); Parainfluenza Virus 3 PCR Not Detected (NotDetected); Parainfluenza Virus 4 PCR Not Detected (NotDetected); Respiratory Syncytial VirusPCR Not Detected (NotDetected); Rhinovirus/Enterovirus PCR Not Detected (NotDetected)
--- NOTE | 2022-10-21 11:43 | Emergency Department Note ---
Impression & Plan Sepsis, LOREN (acute kidney injury), Hypomagnesemia, Ureterolithiasis ED Provider Note ED Provider Note NAME: KOBE KEYES AGE:66 SEX: Male : 1955 ARRIVES VIA: Private vehicle INFORMANT: Patient ED PROVIDER(s): Mone Alarcon DO CHIEF COMPLAINT: Fevers and chills HPI: This is a 66-year-old male who presents emergency department due to concern for 5 days of fevers and chills, decreased appetite, increased fatigue and weakness. Patient states he did have 1 mild case of diarrhea. Patient denies any cold-like symptoms. He states he has had some mild intermittent left upper quadrant abdominal pain over the last 2 weeks. He also states 2 weeks ago he had initially noticed some mild dysuria which is unusual for him. No history of urinary tract infections. No known sick contacts. Patient denies any current abdominal pain. No recent vomiting. He denies any blood in his urine or stools. Patient states he has had a difficult time staying hydrated because of feeling so unwell. PAST MEDICAL HISTORY:See Below PAST SURGICAL HISTORY:See Below FAMILY HISTORY:See Below SOCIAL HISTORY:See Below HOME MEDICATIONS:See Below ALLERGIES:See Below VITALS:See Below PHYSICAL EXAMINATION: GENERAL: alert, well appearing, well nourished, no distress, non-toxic EYE EXAM: normal conjunctiva, PERRL and EOM's grossly intact OROPHARYNX: no exudate, no erythema, lips, buccal mucosa, and tongue normal and mucous membranes are moist NECK: supple, no nuchal rigidity, no adenopathy, non-tender, soft c-collar in place due to recent C7 injury LUNGS: Clear to auscultation. Normal chest wall mechanics, no w/r/r HEART: no murmurs, S1 normal and S2 normal ABDOMEN: abdomen soft, non-tender, normo-active bowel sounds, no masses, no rebound or guarding. BACK: Back is symmetrical on inspection and there is no deformity, no midline tenderness, no CVA tenderness. SKIN: no rashes, petechiae, orbruising UPPER EXTREMITIES: upper extremities are grossly normal. FROM, nml pulses b/l. LOWER EXTREMITIES: No pitting edema. FROM, nml pulses b/l. NEURO EXAM: Normal sensorium, cranial nerves II-XII grossly intact, normal speech, no facial droop,nogross weakness of arms, no gross weakness of legs. Gross sensation intact. No ataxia. Vital Signs: reviewed and remarkable Differential Diagnosis: Viral syndrome, otitis, pharyngitis, pneumonia, influenza, meningitis, urinary tract infection, sepsis, bacteremia, as well as other pathologies. MEDICAL DECISION MAKING: This is a 58-year-old male presents emergency department due to concern for 5 days of intermittent fevers and chills, fatigue, decreased appetite, and concern for dehydration. Labs drawn and sent, IV established, EKG performed and interpreted by me at bedside, chest x-ray performed and interpreted initially by me at bedside, patient placed on telemetry. Due to initial hypotension and tachycardia, blood cultures and sepsis evaluation was started. Patient started on IV fluids, and blood pressure did improve. Patient found to have significant leukocytosis and was given empiric IV cefepime while awaiting additional studies. Due to unremarkable chest x-ray and no other accompanying respiratory symptoms, as well as mention of prior dysuria 2 weeks ago and intermittent left upper quadrant abdominal pain, patient was sent for CT of the abdomen pelvis without contrast. CT revealed ureterolithiasis and given finding of accompanying LOREN despite pending UA, case discussed with on-call urology given concern for sepsis and need for urgent intervention. Case discussed with Dr. Mckee and then discussed with the [facility] Hospitalist service. Patient found to have significantly elevated procalcitonin and elevated lactic acid. Patient had no pain during my initial and subsequent exams. Patient and family at bedside updated on all results and plan. Patient did receive greater than 30 mL/KG of IV fluids while in the emergency room in addition to the IV antibiotics. He remained hemodynamically stable. Consultation(s): 1202: Patient updated on results and plan at this time. No prior history of kidney stones or any other kidney injury. No recent increased low back pain. 1228: Discussed with Dr. Mckee. 1245: Discussed with Shannan [facility] Hospitalist service. ER Treatment Provided: See below Diagnostics Interpreted By Me: -ECG: Sinus tachycardia at 107, normal axis, normal intervals, nonspecific ST/T wave changes -Cardiac Monitoring: An order was placed for continuous cardiac monitoring. The monitor shows a rate of 98 with normal sinus rhythm. -Laboratory studies: As stated above and show below. -Imaging studies: X-ray Chest: A single view study of the chest was reviewed and was negative for cardiomegaly, focal infiltrate, effusion, pulmonary edema, or wide mediastinum. Triage Nursing Note Reviewed Prior/Outside Records Reviewed -external records reviewed Procedures: [] Critical Care: Critical care of 48 min performed to assess and manage high likelihood of life- threatening sepsis, involving labs and imaging performed with assessment to lucy luate sepsis diagnosis with frequent reassessment. This time includes bedside time, treatment discussions with patient/family/consultants, documentation time and excludes procedure time. Past Med/Surg History Medical History GERD (gastroesophageal reflux disease) Hx of skin cancer, basal cell S/P SEVERAL MOH'S PROCEDURES Hyperlipidemia Surgical History History of arthroscopic knee surgery R X 2 History of colonoscopy History of inguinal hernia repair pt does not remember having this surgery but does not want me to remove it from his history History of vasectomy Family History Father FHx: diabetes mellitus Mother FHx: heart disease Social History Smoking Status: Never smoker Hx Alcohol Use: Yes Alcohol type: hard liquor Hx Substance Use: No Preferred Language: Ecuadorean Communication Ability: Effective [employer] Supervisor Required: No Beliefs That Will Affect Care: None Current Living Situation: Spouse Feels Safe at Home: Yes Safety Concerns: Feels Safe At This Time Assistive Devices: None Allergies Allergies Allergy/AdvReac Type Severity Reaction Status Date / Time No Known Allergies Allergy Verified 10/21/22 13:00 Home Meds Home Medications Medication Instructions Recorded Confirmed ascorbic acid (vitamin C) 500 mg 500 mg PO QAM 06/21/18 10/21/22 tablet (Vitamin C) aspirin 81 mg tablet,delayed 81 mg PO HS 06/21/18 10/21/22 release cholecalciferol (vitamin D3) 10 5,000 unit PO QAM 06/21/18 10/21/22 mcg (400 unit) tablet (Vitamin D3) multivitamin 1 tab PO QAM 06/21/18 10/21/22 omega 6-ivk-rdq-fish oil 1,000 mg 1 cap PO DAILY ##0 06/24/18 10/21/22 (120 mg-180 mg) capsule (Fish Oil) atorvastatin 40 mg tablet 40 mg PO QAM 03/18/20 10/21/22 fluorouracil 5 % topical cream 1 applic topical BID 03/12/22 10/21/22 imiquimod 5 % topical cream packet 1 applic topical DAILY 03/12/22 10/21/22 niacinamide 100 mg tablet 100 mg PO BID 10/21/22 10/21/22 omeprazole 20 mg capsule,delayed 20 mg PO BID 10/21/22 10/21/22 release vitamins A,C,F-blqc-gnzmbl 2,148 1 tab PO DAILY 10/21/22 10/21/22 mcg-113 mg-45 mg-17.4 mg tablet (PreserVision AREDS) Results & Data (ED) Vital Signs Vital Signs - 24 hr 10/21/22 09:36 10/21/22 09:36 10/21/22 10:12 Temperature 36.7 C 36.7 C Temperature Source Temporal Artery Scan Temporal Artery Scan Pulse Rate 113 H 108 H Pulse Rate [Apical] 113 H Pulse Rate from SpO2 Sensor Respiratory Rate 16 16 Blood Pressure 86/56 L Blood Pressure [Left Arm] 86/56 L Blood Pressure Mean 66 Blood Pressure Mean [Left Arm] 66 Pulse Oximetry 98 96 Sepsis Recent Fever Within 48 Hours No Sepsis New/Unexplained Change in Mental Status N/A Sepsis Action Taken by Nursing Physician Notified 10/21/22 10:06 10/21/22 10:16 10/21/22 10:30 Temperature Temperature Source Pulse Rate 108 H 105 H 99 H Pulse Rate [Apical] Pulse Rate from SpO2 Sensor 108 H 109 H 100 H Respiratory Rate 23 22 Blood Pressure 109/73 102/69 94/68 L Blood Pressure [Left Arm] Blood Pressure Mean 85 80 76 Blood Pressure Mean [Left Arm] Pulse Oximetry 97 96 98 Sepsis Recent Fever Within 48 Hours Sepsis New/Unexplained Change in Mental Status Sepsis Action Taken by Nursing 10/21/22 11:00 10/21/22 11:27 10/21/22 11:27 Temperature Temperature Source Pulse Rate 98 H Pulse Rate [Apical] 98 H Pulse Rate from SpO2 Sensor 95 H Respiratory Rate 22 16 Blood Pressure 97/63 L Blood Pressure [Left Arm] 97/63 L Blood Pressure Mean 74 Blood Pressure Mean [Left Arm] 74 Pulse Oximetry 96 96 96 Sepsis Recent Fever Within 48 Hours Sepsis New/Unexplained Change in Mental Status Sepsis Action Taken by Nursing Laboratory Data 10/21/22 10:08 10/21/22 10:10 Lab Results 10/21/22 10/21/22 10/21/22 Range/Units 10:08 10:08 10:08 WBC 29.74 H (4.8-10.8) K/ul RBC 5.16 (4.70-6.10) M/uL Hgb 16.4 (14.0-18.0) g/dl Hct 45.5 (42.0-52.0) % MCV 88.2 (80.0-100.0) fL MCH 31.8 (25.0-34.0) pg MCHC 36.0 (32.0-36.0) g/dL RDW Std Deviation 40.7 (36.4-46.3) fL RDW Coeff of Uriel 12.6 (11.5-14.5) % Plt Count 188 (130-400) K/uL MPV 9.6 (9.4-12.4) fL Immature Gran % (Auto) 3.4 % Neut % (Auto) 90.5 % Lymph % (Auto) 2.6 % [place] % (Auto) 2.8 % Eos % (Auto) 0.3 % Baso % (Auto) 0.4 % Neut # (Auto) 26.91 H (1.40-6.50) K/uL Lymph # (Auto) 0.77 L (1.2-3.4) K/uL [place] # (Auto) 0.84 H (0.11-0.59) K/uL Eos # (Auto) 0.10 (0-0.50) K/uL Baso # (Auto) 0.12 (0-0.2) K/uL Immature Gran # (Auto) 1.00 H (0.01-0.20) K/uL Toxic Vacuolation 1+ Sodium (136-145) mmol/L Potassium (3.5-5.1) mmol/L Chloride (98-107) mmol/L Carbon Dioxide (21-32) mmol/L Anion Gap (3-11) BUN (6-23) mg/dl Creatinine (0.6-1.4) mg/dl Est Cr Clr Drug Dosing ml/min Est GFR ( Amer) ml/min Est GFR (Non-Af Amer) ml/min BUN/Creatinine Ratio (10-20) Glucose (70-99(Fasting)) mg/dl Lactate (0.4-2.0) mmol/L Calcium (8.5-10.1) mg/dl Magnesium (1.7-2.4) mg/dl Total Bilirubin (0.2-1.0) mg/dl Direct Bilirubin (0-0.2) mg/dl AST (13-39) U/L ALT (7-52) U/L Alkaline Phosphatase (34-104) U/L Troponin I High Sens (0-20) pg/ml Total Protein (6.0-8.3) gm/dl Albumin (3.4-5.0) gm/dl Procalcitonin 60.97 H (0-0.5) ng/ml Urine Color Urine Appearance (Clear) Urine pH (4.5-7.5) Ur Specific Lincoln (1.000-1.030) Urine Protein (Negative) Urine Glucose (UA) (Negative) Urine Ketones (Negative) Urine Blood (Negative) Urine Nitrite (Negative) Urine Bilirubin (Negative) Urine Urobilinogen (Negative) Ur Leukocyte Esterase (Negative) Urine RBC (0-4) /hpf Urine WBC (0-5) /hpf Ur Epithelial Cells (0-5) /lpf Urine Bacteria (Negative) Urine Mucus (None Prsent) Adenovirus (PCR) (NotDetected) B. pertussis DNA (PCR) (NotDetected) B.parapertussis DNA PCR (NotDetected) C. pneumoniae DNA (PCR) (NotDetected) Coronavirus OC43 (PCR) (NotDetected) Coronavirus HKU1 (PCR) (NotDetected) Coronavirus 229E (PCR) (NotDetected) SARS-CoV-2 (PCR) (NotDetected) Coronavirus NL63 (PCR) (NotDetected) Enterobacterales (PCR) DETECTED A (NotDetected) E. coli (PCR) DETECTED A (NotDetected) Human Metapneumovir PCR (NotDetected) Influenza Type A (PCR) (NotDetected) Influenza Type B (PCR) (NotDetected) M. pneumoniae (PCR) (NotDetected) Parainfluenza 1 (PCR) (NotDetected) Parainfluenza 2 (PCR) (NotDetected) Parainfluenza 3 (PCR) (NotDetected) Parainfluenza 4 (PCR) (NotDetected) RSV (PCR) (NotDetected) Entero/Rhino (PCR) (NotDetected) mcr-1 Colistin Res Gene PCR Not Detected (NotDetected) blaIMP Car res Gene PCR Not Detected (NotDetected) KPC-Carbap Res Gene PCR Not Detected (NotDetected) blaNDM Car Res Gene PCR Not Detected (NotDetected) OXA-48 Carbapenem Resis Gene (PCR) Not Detected (NotDetected) blaVIM Car Res Gene PCR Not Detected (NotDetected) CTX-M Gene Resistance (PCR) Not Detected (NotDetected) Bld Cult ID Panel PCR See PCR Comment (NotDetected) 10/21/22 10/21/22 10/21/22 Range/Units 10:10 10:10 10:10 WBC (4.8-10.8) K/ul RBC (4.70-6.10) M/uL Hgb (14.0-18.0) g/dl Hct (42.0-52.0) % MCV (80.0-100.0) fL MCH (25.0-34.0) pg MCHC (32.0-36.0) g/dL RDW Std Deviation (36.4-46.3) fL RDW Coeff of Uriel (11.5-14.5) % Plt Count (130-400) K/uL MPV (9.4-12.4) fL Immature Gran % (Auto) % Neut % (Auto) % Lymph % (Auto) % [place] % (Auto) % Eos % (Auto) % Baso % (Auto) % Neut # (Auto) (1.40-6.50) K/uL Lymph # (Auto) (1.2-3.4) K/uL [place] # (Auto) (0.11-0.59) K/uL Eos # (Auto) (0-0.50) K/uL Baso # (Auto) (0-0.2) K/uL Immature Gran # (Auto) (0.01-0.20) K/uL Toxic Vacuolation Sodium 135 L (136-145) mmol/L Potassium 3.2 L (3.5-5.1) mmol/L Chloride 99 (98-107) mmol/L Carbon Dioxide 23 (21-32) mmol/L Anion Gap 13 H (3-11) BUN 26 H (6-23) mg/dl Creatinine 1.94 H (0.6-1.4) mg/dl Est Cr Clr Drug Dosing 35.3 ml/min Est GFR ( Amer) 40.0 ml/min Est GFR (Non-Af Amer) 34.6 ml/min BUN/Creatinine Ratio 13.4 (10-20) Glucose 137 H (70-99(Fasting)) mg/dl Lactate 3.2 H* (0.4-2.0) mmol/L Calcium 9.2 (8.5-10.1) mg/dl Magnesium 1.6 L (1.7-2.4) mg/dl Total Bilirubin 2.4 H (0.2-1.0) mg/dl Direct Bilirubin 1.0 H (0-0.2) mg/dl AST 87 H (13-39) U/L ALT 85 H (7-52) U/L Alkaline Phosphatase 254 H (34-104) U/L Troponin I High Sens 1273.5 H* (0-20) pg/ml Total Protein 7.4 (6.0-8.3) gm/dl Albumin 3.6 (3.4-5.0) gm/dl Procalcitonin (0-0.5) ng/ml Urine Color Urine Appearance (Clear) Urine pH (4.5-7.5) Ur Specific Lincoln (1.000-1.030) Urine Protein (Negative) Urine Glucose (UA) (Negative) Urine Ketones (Negative) Urine Blood (Negative) Urine Nitrite (Negative) Urine Bilirubin (Negative) Urine Urobilinogen (Negative) Ur Leukocyte Esterase (Negative) Urine RBC (0-4) /hpf Urine WBC (0-5) /hpf Ur Epithelial Cells (0-5) /lpf Urine Bacteria (Negative) Urine Mucus (None Prsent) Adenovirus (PCR) Not Detected (NotDetected) B. pertussis DNA (PCR) Not Detected (NotDetected) B.parapertussis DNA PCR Not Detected (NotDetected) C. pneumoniae DNA (PCR) Not Detected (NotDetected) Coronavirus OC43 (PCR) Not Detected (NotDetected) Coronavirus HKU1 (PCR) Not Detected (NotDetected) Coronavirus 229E (PCR) Not Detected (NotDetected) SARS-CoV-2 (PCR) Not Detected (NotDetected) Coronavirus NL63 (PCR) Not Detected (NotDetected) Enterobacterales (PCR) (NotDetected) E. coli (PCR) (NotDetected) Human Metapneumovir PCR Not Detected (NotDetected) Influenza Type A (PCR) Not Detected (NotDetected) Influenza Type B (PCR) Not Detected (NotDetected) M. pneumoniae (PCR) Not Detected (NotDetected) Parainfluenza 1 (PCR) Not Detected (NotDetected) Parainfluenza 2 (PCR) Not Detected (NotDetected) Parainfluenza 3 (PCR) Not Detected (NotDetected) Parainfluenza 4 (PCR) Not Detected (NotDetected) RSV (PCR) Not Detected (NotDetected) Entero/Rhino (PCR) Not Detected (NotDetected) mcr-1 Colistin Res Gene PCR (NotDetected) blaIMP Car res Gene PCR (NotDetected) KPC-Carbap Res Gene PCR (NotDetected) blaNDM Car Res Gene PCR (NotDetected) OXA-48 Carbapenem Resis Gene (PCR) (NotDetected) blaVIM Car Res Gene PCR (NotDetected) CTX-M Gene Resistance (PCR) (NotDetected) Bld Cult ID Panel PCR (NotDetected) 10/21/22 10/21/22 Range/Units 12:10 12:14 WBC (4.8-10.8) K/ul RBC (4.70-6.10) M/uL Hgb (14.0-18.0) g/dl Hct (42.0-52.0) % MCV (80.0-100.0) fL MCH (25.0-34.0) pg MCHC (32.0-36.0) g/dL RDW Std Deviation (36.4-46.3) fL RDW Coeff of Uriel (11.5-14.5) % Plt Count (130-400) K/uL MPV (9.4-12.4) fL Immature Gran % (Auto) % Neut % (Auto) % Lymph % (Auto) % [place] % (Auto) % Eos % (Auto) % Baso % (Auto) % Neut # (Auto) (1.40-6.50) K/uL Lymph # (Auto) (1.2-3.4) K/uL [place] # (Auto) (0.11-0.59) K/uL Eos # (Auto) (0-0.50) K/uL Baso # (Auto) (0-0.2) K/uL Immature Gran # (Auto) (0.01-0.20) K/uL Toxic Vacuolation Sodium (136-145) mmol/L Potassium (3.5-5.1) mmol/L Chloride (98-107) mmol/L Carbon Dioxide (21-32) mmol/L Anion Gap (3-11) BUN (6-23) mg/dl Creatinine (0.6-1.4) mg/dl Est Cr Clr Drug Dosing ml/min Est GFR ( Amer) ml/min Est GFR (Non-Af Amer) ml/min BUN/Creatinine Ratio (10-20) Glucose (70-99(Fasting)) mg/dl Lactate 2.6 H* (0.4-2.0) mmol/L Calcium (8.5-10.1) mg/dl Magnesium (1.7-2.4) mg/dl Total Bilirubin (0.2-1.0) mg/dl Direct Bilirubin (0-0.2) mg/dl AST (13-39) U/L ALT (7-52) U/L Alkaline Phosphatase (34-104) U/L Troponin I High Sens (0-20) pg/ml Total Protein (6.0-8.3) gm/dl Albumin (3.4-5.0) gm/dl Procalcitonin (0-0.5) ng/ml Urine Color Rhea Urine Appearance Cloudy A (Clear) Urine pH 5.5 (4.5-7.5) Ur Specific Lincoln 1.020 (1.000-1.030) Urine Protein 2+ H (Negative) Urine Glucose (UA) Negative (Negative) Urine Ketones Trace H (Negative) Urine Blood 2+ H (Negative) Urine Nitrite Positive A (Negative) Urine Bilirubin 2+ H (Negative) Urine Urobilinogen Positive H (Negative) Ur Leukocyte Esterase 3+ H (Negative) Urine RBC 5-10 H (0-4) /hpf Urine WBC >30 H (0-5) /hpf Ur Epithelial Cells 20-30 H (0-5) /lpf Urine Bacteria 2+ H (Negative) Urine Mucus Present A (None Prsent) Adenovirus (PCR) (NotDetected) B. pertussis DNA (PCR) (NotDetected) B.parapertussis DNA PCR (NotDetected) C. pneumoniae DNA (PCR) (NotDetected) Coronavirus OC43 (PCR) (NotDetected) Coronavirus HKU1 (PCR) (NotDetected) Coronavirus 229E (PCR) (NotDetected) SARS-CoV-2 (PCR) (NotDetected) Coronavirus NL63 (PCR) (NotDetected) Enterobacterales (PCR) (NotDetected) E. coli (PCR) (NotDetected) Human Metapneumovir PCR (NotDetected) Influenza Type A (PCR) (NotDetected) Influenza Type B (PCR) (NotDetected) M. pneumoniae (PCR) (NotDetected) Parainfluenza 1 (PCR) (NotDetected) Parainfluenza 2 (PCR) (NotDetected) Parainfluenza 3 (PCR) (NotDetected) Parainfluenza 4 (PCR) (NotDetected) RSV (PCR) (NotDetected) Entero/Rhino (PCR) (NotDetected) mcr-1 Colistin Res Gene PCR (NotDetected) blaIMP Car res Gene PCR (NotDetected) KPC-Carbap Res Gene PCR (NotDetected) blaNDM Car Res Gene PCR (NotDetected) OXA-48 Carbapenem Resis Gene (PCR) (NotDetected) blaVIM Car Res Gene PCR (NotDetected) CTX-M Gene Resistance (PCR) (NotDetected) Bld Cult ID Panel PCR (NotDetected) Administered Medications Acetaminophen (Acetaminophen 325 Mg Tab) 650 mg PO Q4H PRN PRN Reason: Pain or Fever Stop: 11/20/22 15:51 Last Admin: 10/22/22 00:05 Dose: 650 mg Documented By: PORTIA Heparin Sodium/Dextrose (Heparin Sodium/Dextrose) 25,000 units in 500 mls @ 26 mls/hr IV .[id number] JENIFFER; Protocol Stop: 11/21/22 12:59 Last Admin: 10/22/22 14:39 Dose: 1,300 units/hr, 26 mls/hr Documented By: MAGDALENO Co-signed By: DANIEL Pantoprazole Sodium (Pantoprazole 40 Mg Tab) 40 mg PO BID JENIFFER Stop: 11/20/22 20:59 Last Admin: 10/22/22 08:27 Dose: 40 mg Documented By: Admin: 10/21/22 20:44 Dose: 40 mg Documented By: CLC Discontinued Medications Acetaminophen (Acetaminophen 1000 Mg/100 Ml Iv) Confirm Administered Dose 1,000 mg IV .STK-MED ONE Stop: 10/21/22 13:10 Last Admin: 10/21/22 13:20 Dose: 1,000 mg Documented By: EDWARD Aspirin (Aspirin 81 Mg Chew) 324 mg PO ONE ONE Stop: 10/22/22 13:32 Last Admin: 10/22/22 14:41 Dose: 324 mg Documented By: MAGDALENO Furosemide (Furosemide Inj 20 Mg/2 Ml Vial) 20 mg IV ONE ONE Stop: 10/22/22 13:30 Last Admin: 10/22/22 14:41 Dose: 20 mg Documented By: MAGDALENO Heparin Sodium/Dextrose (Heparin Iv Adult Wt-Based Standard *No* Bolus Protocol) 1 each IV ONE ONE; Protocol Stop: 10/22/22 12:44 Last Admin: 10/22/22 13:04 Dose: 1 each Documented By: MAGDALENO Sodium Chloride (Nss 1000ml) 1,000 mls @ 999 mls/hr IV .Q1H1M JENIFFER Stop: 10/21/22 11:30 Last Infusion: 10/21/22 15:00 Dose: 0 mls/hr Documented By: Admin: 10/21/22 10:35 Dose: 999 mls/hr Documented By: MARQUIS Sodium Chloride (Nss 1000ml) 1,000 mls @ 999 mls/hr IV .Q1H1M ONE Stop: 10/21/22 11:36 Last Infusion: 10/21/22 15:00 Dose: 0 mls/hr Documented By: Admin: 10/21/22 11:03 Dose: 999 mls/hr Documented By: MARQUIS Cefepime HCl (Maxipime) 2,000 mg in 20 mls @ 5 mls/min IV NOW STA; Protocol Stop: 10/21/22 11:00 Last Admin: 10/21/22 11:03 Dose: 5 mls/min Documented By: MARQUIS Sodium Chloride (Nss 1000ml) 1,000 mls @ 200 mls/hr IV .Q5H JENIFFER Stop: 10/21/22 17:14 Last Infusion: 10/21/22 21:16 Dose: 0 mls/hr Documented By: Admin: 10/21/22 16:05 Dose: 200 mls/hr Documented By: MAGDALENO Magnesium Sulfate/Dextrose (Magnesium Sulfate / D5w) 1 gm in 100 mls @ 100 mls/hr IV NOW STA Stop: 10/21/22 13:04 Last Infusion: 10/21/22 15:00 Dose: 0 mls/hr Documented By: Admin: 10/21/22 12:24 Dose: 100 mls/hr Documented By: EDWARD Acetaminophen (Ofirmev) 1,000 mg in 100 mls @ 400 mls/hr IV NOW STA Stop: 10/21/22 13:16 Last Admin: 10/21/22 17:41 Dose: Not Given Documented By: MAGDALENO Potassium Chloride (K Tony / Wtr) 10 meq in 100 mls @ 100 mls/hr IV Q1H JENIFFER Stop: 10/21/22 17:14 Last Infusion: 10/21/22 20:35 Dose: 0 mls/hr Documented By: Admin: 10/21/22 19:26 Dose: 100 mls/hr Documented By: Infusion: 10/21/22 19:19 Dose: 100 mls/hr Documented By: Admin: 10/21/22 18:19 Dose: 100 mls/hr Documented By: Infusion: 10/21/22 18:05 Dose: 100 mls/hr Documented By: Admin: 10/21/22 17:05 Dose: 100 mls/hr Documented By: Infusion: 10/21/22 17:05 Dose: 100 mls/hr Documented By: Admin: 10/21/22 16:05 Dose: 100 mls/hr Documented By: MAGDALENO Sodium Chloride (Nss 1000ml) 1,000 mls @ 125 mls/hr IV .Q8H JENIFFER Stop: 11/20/22 16:59 Last Admin: 10/21/22 21:48 Dose: Not Given Documented By: CLC Cefepime HCl 1,000 mg/ Syringe 10 mls @ 5 mls/min IV Q12H JENIFFER Stop: 10/31/22 19:59 Last Admin: 10/22/22 08:27 Dose: 5 mls/min Documented By: Admin: 10/21/22 22:40 Dose: 5 mls/min Documented By: CLC Lactated Ringer's (Lr) 1,000 mls @ 250 mls/hr IV .Q4H ONE Stop: 10/22/22 00:49 Last Infusion: 10/22/22 01:16 Dose: 0 mls/hr Documented By: Admin: 10/21/22 21:14 Dose: 250 mls/hr Documented By: CLC Magnesium Sulfate/Dextrose (Magnesium Sulfate / D5w) 1 gm in 100 mls @ 50 mls/hr IV Q2H JENIFFER Stop: 10/21/22 22:59 Last Infusion: 10/22/22 00:01 Dose: 0 mls/hr Documented By: Admin: 10/21/22 21:57 Dose: 50 mls/hr Documented By: CLC Lactated Ringer's (Lr) 1,000 mls @ 100 mls/hr IV .Q10H ONE Stop: 10/22/22 10:59 Last Infusion: 10/22/22 03:47 Dose: 0 mls/hr Documented By: Admin: 10/22/22 01:16 Dose: 100 mls/hr Documented By: PORTIA Ipratropium Superior (Ipratropium Superior Neb Soln 0.02% 2.5 Ml Vial) 0.5 mg INH ONE STA Stop: 10/22/22 03:52 Last Admin: 10/22/22 04:23 Dose: 0.5 mg Documented By: DONNIE Levalbuterol HCl (Levalbuterol 1.25mg/0.5ml Neb) 1.25 mg INH ONE STA Stop: 10/22/22 03:52 Last Admin: 10/22/22 04:23 Dose: 1.25 mg Documented By: MA Potassium Chloride (Potassium Chloride Pwd 20 Meq Pack) 40 meq PO NOW STA Stop: 10/21/22 20:53 Last Admin: 10/21/22 21:55 Dose: 40 meq Documented By: CLC Potassium Chloride (Potassium Chloride Pwd 20 Meq Pack) 40 meq PO ONE ONE Stop: 10/21/22 23:01 Last Admin: 10/21/22 22:40 Dose: 40 meq Documented By: CLC Imaging Data Radiologist's Impression: Chest X-Ray 10/21/22 10:25 XR chest 1V portable CLINICAL HISTORY: Sepsis TECHNIQUE: Single frontal radiograph of the chest was obtained. Comparison: Comparison is made to chest radiograph 03/12/2022 FINDINGS: No lines and tubes are seen. The cardiomediastinal silhouette is normal. The lungs are clear. No evidence of pleural effusion or pneumothorax. IMPRESSION: No acute chest disease. ACT 112: Negative or not required by law. Electronically signed by: Moise Thayer M.D. 10/21/2022 10:52 AM Abdomen/Pelvis CT 10/21/22 11:07 CT abd pelvis wo con CLINICAL HISTORY: fever, LUQ pain TECHNIQUE: Helical axial images of the abdomen and pelvis were obtained. Automated dose lowering techniques and/or adjustment according to patient size were utilized for this exam. This exam was performed without intravenous contrast. CT DOSE: 327.08 mGy.cm COMPARISON: Comparison is made to CT abdomen pelvis 03/18/2020 FINDINGS: Lower chest: Bibasilar atelectasis versus scarring is seen. Liver: Unremarkable. No focal lesions are seen. Gallbladder and biliary tree: No calcified gallstones. Normal caliber wall. No intra- or extrahepatic biliary ductal dilation. Pancreas: Unremarkable, no focal lesions. Spleen: Unremarkable. Adrenals: Unremarkable. Kidneys and ureters: Nonobstructive nephrolithiasis is seen. Obstructive stone is in the right mid ureter with hydronephrosis/hydroureter. Partial visualization of a right renal cyst. Bladder: Unremarkable. Reproductive organs: Prostatic calcifications are seen which may represent prior hemorrhage or granulomatous disease. Bowel: Unremarkable. Lymph nodes Retroperitoneal: Unremarkable. Pelvic: Unremarkable. Mesenteric: Unremarkable. Peritoneum: Normal. Vessels: Unremarkable. Abdominal wall: Unremarkable. Bones: Degenerative changes in the visualized spine. IMPRESSION: Obstructive stone in the right mid ureter with resulting hydronephrosis/hydroureter. ACT 112: Negative or not required by law. Electronically signed by: Moise Thayer M.D. 10/21/2022 12:[address] 10/21/22 11:43 CT chest diagnostic wo con CLINICAL HISTORY: fever TECHNIQUE: Multidetector row helical CT of the chest was performed. Coronal and sagittal reformations were obtained. Automated dose lowering techniques and/or adjustment according to patient size were utilized for this exam. CT DOSE: 288.37 mGy.cm Comparison: Comparison is made to chest radiograph 10/21/2022 FINDINGS: Lungs and pleura: There is minimal atelectasis in the right lower lung. No consolidation is in. There is an 8 mm nodule in the right lower lobe superior segment containing intralesional fat compatible with hamartoma. Heart and pericardium: Heart size is normal. No pericardial effusion. Vessels: Severe atherosclerotic changes in the aorta and coronary arteries. Mediastinum and faby: Unremarkable. Chest wall and lower neck: Unremarkable. Abdomen: A hiatal hernia is seen. Partial visualization of nonobstructive stones. Bones: Degenerative changes are seen in the spine. 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 IMPRESSION: No acute abnormalities. In particular no evidence of pneumonia. Stable hamartoma. ACT 112: Negative or not required by law. Electronically signed by: Moise Thayer M.D. 10/21/2022 12:16 PM Discharge Plan Visit Data Chief Complaint: Illness Stated Complaint: FEVER,VOMITING,CHILLS ED Provider: Mone Alarcon Discharge Problem: Sepsis, LOREN (acute kidney injury), Hypomagnesemia, Ureterolithiasis Patient Disposition: Admitted As Inpatient Discharge Instructions Interventions: ED Discharge Assessment Last Done: 10/21/22 13:32
[2022-10-21 11:44] LABS: Troponin I High Sensitivity 1273.5 pg/ml (0-20)
[2022-10-21] MEDS ORDERED: MAGNESIUM SULFATE / D5W 1 GM/100 ML BAG IV STA (12:05)
--- NOTE | 2022-10-21 12:07 | CT Scan Report ---
CT abd pelvis wo con CLINICAL HISTORY: fever, LUQ pain TECHNIQUE: Helical axial images of the abdomen and pelvis were obtained. Automated dose lowering tech niques and/or adjustment according to patient size were utilized for this exam. This exam was perfor med without intravenous contrast. CT DOSE: 327.08 mGy.cm COMPARISON: Comparison is made to CT abdomen pelvis 03/18/2020 FINDINGS: Lower chest: Bibasilar atelectasis versus scarring is seen. Liver: Unremarkable. No focal lesions are seen. Gallbladder and biliary tree: No calcified gallstones. Normal caliber wall. No intra- or extrahepatic biliary ductal dilation. Pancreas: Unremarkable, no focal lesions. Spleen: Unremarkable. Adrenals: Unremarkable. Kidneys and ureters: Nonobstructive nephrolithiasis is seen. Obstructive stone is in the right mid ur eter with hydronephrosis/hydroureter. Partial visualization of a right renal cyst. Bladder: Unremarkable. Reproductive organs: Prostatic calcifications are seen which may represent prior hemorrhage or granul omatous disease. Bowel: Unremarkable. Lymph nodes Retroperitoneal: Unremarkable. Pelvic: Unremarkable. Mesenteric: Unremarkable. Peritoneum: Normal. Vessels: Unremarkable. Abdominal wall: Unremarkable. Bones: Degenerative changes in the visualized spine. IMPRESSION: Obstructive stone in the right mid ureter with resulting hydronephrosis/hydroureter. ACT 112: Negative or not required by law. Electronically signed by: Moise Thayer M.D. 10/21/2022 12:05 PM
--- NOTE | 2022-10-21 12:18 | CT Scan Report ---
CT chest diagnostic wo con CLINICAL HISTORY: fever TECHNIQUE: Multidetector row helical CT of the chest was performed. Coronal and sagittal reformations were obtained. Automated dose lowering techniques and/or adjustment according to patient size were u tilized for this exam. CT DOSE: 288.37 mGy.cm Comparison: Comparison is made to chest radiograph 10/21/2022 FINDINGS: Lungs and pleura: There is minimal atelectasis in the right lower lung. No consolidation is in. There is an 8 mm nodule in the right lower lobe superior segment containing intralesional fat compatible w ith hamartoma. Heart and pericardium: Heart size is normal. No pericardial effusion. Vessels: Severe atherosclerotic changes in the aorta and coronary arteries. Mediastinum and faby: Unremarkable. Chest wall and lower neck: Unremarkable. Abdomen: A hiatal hernia is seen. Partial visualization of nonobstructive stones. Bones: Degenerative changes are seen in the spine. 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 IMPRESSION: No acute abnormalities. In particular no evidence of pneumonia. Stable hamartoma. ACT 112: Negative or not required by law. Electronically signed by: Moise Thayer M.D. 10/21/2022 12:16 PM
--- NOTE | 2022-10-21 12:51 | Anesthesiology Consultation ---
Date of Service October 21, 2022 Assessment & Plan Chart Review Chart Review: Acceptable Risk for Surgery and Patient NOT seen in Pre Admission Testing Consults Requested none ASA [id number] Proposed Anesthesia Anesthesia Type: MAC History Surgery Operation Date: 10/21/22 13:30 Proposed Procedures p Cystoscopy, left ureteral stent insertion, retrograde pyelogram - Destin Mckee MD Height/Weight Height: 5 ft 8 in Weight: 74.6 kg Allergies Allergy/AdvReac Type Severity Reaction Status Date / Time No Known Allergies Allergy Verified 06/14/20 06:28 Medications Home Medications Medication Instructions Recorded Confirmed Last Taken ascorbic acid (vitamin C) 500 mg 500 mg PO QAM 06/21/18 03/12/22 06/13/20 tablet (Vitamin C) aspirin 81 mg tablet,delayed 81 mg PO HS 06/21/18 03/12/22 06/13/20 release cholecalciferol (vitamin D3) 10 5,000 unit PO QAM 06/21/18 03/12/22 06/13/20 mcg (400 unit) tablet (Vitamin D3) multivitamin 1 tab PO QAM 06/21/18 03/12/22 06/13/20 omega 7-yys-vnm-fish oil 1,000 mg 1 cap PO DAILY ##0 06/24/18 03/12/22 06/13/20 (120 mg-180 mg) capsule (Fish Oil) atorvastatin 40 mg tablet 40 mg PO QAM 03/18/20 03/12/22 06/13/20 fluorouracil 5 % topical cream 1 applic topical BID 03/12/22 03/12/22 Unknown imiquimod 5 % topical cream packet 1 applic topical DAILY 03/12/22 03/12/22 Unknown niacinamide 100 mg tablet 100 mg PO BID 03/12/22 03/12/22 Unknown Active Medications Generic Name Dose Route Start Last Admin Trade Name Freq PRN Reason Stop Dose Admin Magnesium Sulfate/Dextrose 1 gm in 100 mls @ 100 mls/hr 10/21/22 12:05 10/21/22 12:24 Magnesium Sulfate / D5w IV 10/21/22 13:04 100 mls/hr NOW STA Administration Past Medical History Medical History Hx of skin cancer, basal cell S/P SEVERAL MOH'S PROCEDURES Hyperlipidemia Exercise / Class Metabolic Activity II 4-5 Yardwork/Stairs/Walk up hill Past Family History Family History Father FHx: diabetes mellitus Mother FHx: heart disease Past Surgical History Surgical History History of arthroscopic knee surgery R X 2 History of colonoscopy History of inguinal hernia repair pt does not remember having this surgery but does not want me to remove it from his history History of vasectomy Past Anesthesia History No Hx of Anesthesia Complications and No Family Hx of Anesthesia Complications History of PONV No Hx of PONV and No Hx of Motion Sickness Social History Smoking Status: Never smoker Hx Alcohol Use: No Hx Substance Use: No substance use type: does not use Physical Exam Vital Signs Last Vital Signs Temp 36.7 C 10/21/22 09:36 Pulse 98 H 10/21/22 11:27 Resp 16 10/21/22 11:27 BP 97/63 L 10/21/22 11:27 Pulse Ox 96 10/21/22 11:27 Testing Laboratory Results 10/21/22 10:08 10/21/22 10:10 Electrocardiogram Date: 03/13/22 Findings: + NSR @ (@ 76) Chest X-Ray Date: 10/21/22 Findings: + NAD Echocardiogram Date: 03/13/22 EF: 55% LV Function: normal RWMA: + none Other Findings: + diastolic dysfunction (grade 1) Valvular Disease: + no significant valvular disease
--- NOTE | 2022-10-21 13:00 | Urology Consultation ---
Date of Consultation October 21, 2022 Assessment & Plan (1) Ureterolithiasis: Obstructing right ureteral calculus with suspected urosepsis Currently afebrile but was substantially hypotensive on arrival Tachycardic Substantial leukocytosis Cultures pending Cefepime delivered in the ER CT performed and reviewed personally I recommended immediate intervention in the form of cystoscopy right ureteral stent placement We will require an overnight hospital stay at least as we await culture results Discussed alternatives, expectations, consent on the chart, patient marked (2) Sepsis: History of Present Illness History of Present Illness Healthy 66-year-old male who has had several days of intermittent chills, fevers, nausea Presented to the emergency room today and had a CT which shows a 3 mm obstructing right proximal ureteral calculus with substantial leukocytosis of 29,000 and acute kidney injury with a creatinine of 1.9 He has not had classical symptoms of severe right flank pain or back pain He was hypotensive on arrival but has improved with resuscitation No prior history of kidney stones Currently wearing a neck brace secondary to a recent neck injury but no fractures 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 Allergies Allergy/AdvReac Type Severity Reaction Status Date / Time No Known Allergies Allergy Verified 06/14/20 06:28 Home Medications Medication Instructions Recorded Confirmed Type ascorbic acid (vitamin C) 500 mg 500 mg PO QAM 06/21/18 03/12/22 History tablet (Vitamin C) aspirin 81 mg tablet,delayed 81 mg PO HS 06/21/18 03/12/22 History release cholecalciferol (vitamin D3) 10 5,000 unit PO QAM 06/21/18 03/12/22 History mcg (400 unit) tablet (Vitamin D3) multivitamin 1 tab PO QAM 06/21/18 03/12/22 History omega 4-mhg-wxr-fish oil 1,000 mg 1 cap PO DAILY ##0 06/24/18 03/12/22 History (120 mg-180 mg) capsule (Fish Oil) atorvastatin 40 mg tablet 40 mg PO QAM 03/18/20 03/12/22 History fluorouracil 5 % topical cream 1 applic topical BID 03/12/22 03/12/22 History imiquimod 5 % topical cream packet 1 applic topical DAILY 03/12/22 03/12/22 History omeprazole 20 mg capsule,delayed 20 mg PO BID 10/21/22 10/21/22 History release Patient History Medical History Hx of skin cancer, basal cell S/P SEVERAL MOH'S PROCEDURES Hyperlipidemia Surgical History History of arthroscopic knee surgery R X 2 History of colonoscopy History of inguinal hernia repair pt does not remember having this surgery but does not want me to remove it from his history History of vasectomy Family History Father FHx: diabetes mellitus Mother FHx: heart disease Social History Smoking Status: Never smoker Hx Alcohol Use: No Hx Substance Use: No Preferred Language: Mauritanian Communication Ability: Effective Senior Backup Administrator Required: No Beliefs That Will Affect Care: None Current Living Situation: Spouse Feels Safe at Home: Yes Assistive Devices: None Review of Systems Constitutional: + fever, + chills and + fatigue Eyes: no worsening vision Ear, Nose, Mouth, Throat: no facial pain and no pain with swallowing Respiratory: no cough and no dyspnea Cardiovascular: no chest pain and no palpitations Gastrointestinal: no abdominal pain, no nausea and no vomiting Genitourinary: + as per Subjective / HPI Musculoskeletal: no back pain Integumentary: no rash and no urticaria Neurologic: no gait abnormality and no unsteadiness Psychiatric: no behavioral changes and no depression Endocrine: no fatigue Physical Exam Physical Exam: Padded neck collar in place No severe CVA tenderness to palpation Constitutional: well developed and well nourished Neck: neck nontender Respiratory: normal respiratory effort; no respiratory distress and does not use accessory muscles Cardiovascular: Rate/Rhythm: regular rate Vessels: radial pulses present Extremities: no edema Gastrointestinal (Abdomen): Inspection/Auscultation: abdomen normal to inspection Percussion/Palpation: abdomen soft; abdomen nontender and no guarding Musculoskeletal: Head/Neck/Chest: normocephalic and head atraumatic Extremities: extremities normal to inspection Skin: no rashes and no lesions Trauma: no evidence of skin trauma Neurologic: awake; not obtunded Speech / Cognition: normal speech Motor/Sensory: no tremor Psychiatric: Orientation: alert and oriented x 3 Genitourinary: no CVA tenderness Lymphatic: no lymphadenopathy Results & Data ([facility]) Vital Signs (Past 12 Hours) Vital Signs Temp Pulse Pulse Resp BP BP Pulse Ox 10/21/22 11:27 96 10/21/22 11:27 98 H 16 97/63 L 96 10/21/22 11:00 98 H 22 97/63 L 96 10/21/22 10:30 99 H 22 94/68 L 98 10/21/22 10:16 105 H 23 102/69 96 10/21/22 10:06 108 H 22 109/73 97 10/21/22 10:12 108 H 10/21/22 09:36 36.7 C 113 H 16 86/56 L 96 10/21/22 09:36 36.7 C 113 H 16 86/56 L 98 PG Care Time/CCT Total # of Minutes Spent Total Time Spent with Patient: Total time spent is greater than 50% in coordination of care (as documented) at patient's floor/unit and/or counseling patient: Coding Level of Care Code 43522 OFFICE CONSULT LVL Diagnoses Ureterolithiasis N20.1 Sepsis A41.9
[2022-10-21] MEDS ORDERED: ACETAMINOPHEN 1,000 MG/100 ML VIAL IV STA (13:02)
[2022-10-21] MEDS ORDERED: ACETAMINOPHEN 1000 MG/100 ML IV IV ONE (13:09)
[2022-10-21] MEDS ORDERED: fentaNYL citrate 100 MCG/2 ML VIAL ONE (13:21)
[2022-10-21] MEDS ORDERED: LIDOCAINE 2% MPF LOCAL 5 ML VIAL INFIL ONE (13:21)
[2022-10-21] MEDS ORDERED: ONDANSETRON INJ 2 MG/ML 2 ML VIAL ONE (13:21)
[2022-10-21] MEDS ORDERED: PROPOFOL IV EMULSION 10 MG/ML 20 ML VIAL IV ONE ×2 (13:21→13:45)
[2022-10-21] MEDS ORDERED: MIDAZOLAM HCL 1 MG/ML 2ML VIAL ONE ×2 (13:21→13:45)
[2022-10-21 13:55] LABS: Appearance Urine Cloudy (Clear); Bilirubin Urine 2+ (Negative); Blood Urine 2+ (Negative); Color Urine Amber; Glucose Urine UA Negative (Negative); Ketones Urine Trace (Negative); Leukocyte Esterase Urine 3+ (Negative); Nitrite Urine Positive (Negative); Protein Urine 2+ (Negative); Urobilinogen Urine Positive (Negative); pH Urine 5.5 (4.5-7.5)
[2022-10-21 13:57] LABS: Mucus Urine Present (None Prsent)
[2022-10-21 13:58] LABS: Bacteria Urine 2+ (Negative); WBC Urine >30 /hpf (0-5)
--- NOTE | 2022-10-21 13:58 | Operative Report ---
PG Post Operative Report Pre & Post Diagnosis Operation Date: 10/21/22 13:30 <No data on this case meets the specified criteria> Pre: Right ureteral calculus Post: Right ureteral calculus I identified the patient and participated in the time-out.: Yes Procedure Operation Date: 10/21/22 13:30 Actual Procedures p Cystoscopy, left ureteral stent insertion, retrograde pyelogram(Left) - Destin Mckee MD Surgeon Destin Mckee MD Director Hematology none Estimated Blood Loss 0 Findings Consistent with Post-Op Diagnosis Specimens none Description of Procedure The patient was identified in the preoperative holding area, appropriate informed consents were reviewed and completed and the patient was transferred to the operative suite. Upon arrival, appropriate antibiotics and anesthesia were administered and the patient was placed in dorsal lithotomy position and prepped and draped in sterile fashion. Of note, the patient has a distal hypospadias but a widely patent urethra there is no difficulty passing the scope. He has a moderate size prostate with a relatively high bladder neck. Inspection of the bladder was unremarkable. He did have Pyridium stained urine. Ureteral orifices were in orthotopic position after my attention to the right UO which was cannulated with a sensor wire and a 5 Syrian open-ended catheter. The wire advanced the kidney without difficulty and I proceeded to place a 6 Syrian by 26 cm double-J stent. There was good drainage through and around the stent of murky/cloudy urine. The case was concluded and he was reversed of anesthesia and taken to the recovery room in stable condition. There were no complications. I attest to the content of the Intraoperative Record and any orders documented therein. Any exceptions are noted below.
[2022-10-21] MEDS ORDERED: LABETALOL HCL IV 5 MG/ML 20ML IV PRN (14:01)
[2022-10-21] MEDS ORDERED: PROMETHAZINE HCL 12.5 MG in SODIUM CHLORIDE 0.9% 50 ML IV PRN (14:01)
[2022-10-21] MEDS ORDERED: ePHEDrine sulfate 50 MG/ML AMP IV PRN (14:01)
[2022-10-21] MEDS ORDERED: ONDANSETRON INJ 2 MG/ML 2 ML VIAL IV PRN ×2 (14:01→15:52)
[2022-10-21] MEDS ORDERED: NALOXONE HCL 0.4 MG/1 ML VIAL/CARP IV PRN (14:01)
[2022-10-21] MEDS ORDERED: ATROPINE SULFATE 0.1 MG/ML 10ML SYR IV PRN (14:01)
[2022-10-21] MEDS ORDERED: FLUMAZENIL 0.1 MG/1 ML 10 ML VIAL IV PRN (14:01)
[2022-10-21] MEDS ORDERED: fentaNYL citrate 100 MCG/2 ML VIAL IV PRN (14:01)
[2022-10-21 14:06] LABS: Epithelial Cell Urine 20-30 /lpf (0-5)
--- NOTE | 2022-10-21 14:33 | Electrocardiogram Report ---
Test Reason : Blood Pressure : / mmHG Vent. Rate : 107 BPM Atrial Rate : 107 BPM P-R Int : 146 ms QRS Dur : 106 ms QT Int : 352 ms P-R-T Axes : 067 024 063 degrees QTc Int : 469 ms Sinus tachycardia Possible Left atrial enlargement Ede Septal infarct , age undetermined Abnormal ECG When compared with ECG of 13-MAR-2022 05:57, Ede Septal infarct is now Present vs lead placement Confirmed by Joe Porter ([id number]) on 10/21/2022 2:33:34 PM Referred By: REFERRED SELF Confirmed By:Joe Porter
--- NOTE | 2022-10-21 14:41 | Anesthesiology Progress Note ---
Date of Service October 21, 2022 Anesthesia Post Procedure Vital Signs Vital Signs: Temp Pulse Pulse Resp BP BP Pulse Ox 10/21/22 14:20 37.0 C 96 H 34 H 93/57 L 96 10/21/22 14:10 96 H 27 H 91/58 L 92 10/21/22 14:03 36.9 C 99 H 12 93/58 L 90 10/21/22 11:27 96 10/21/22 11:27 98 H 16 97/63 L 96 10/21/22 11:00 98 H 22 97/63 L 96 10/21/22 10:30 99 H 22 94/68 L 98 10/21/22 10:16 105 H 23 102/69 96 10/21/22 10:06 108 H 22 109/73 97 10/21/22 10:12 108 H 10/21/22 09:36 36.7 C 113 H 16 86/56 L 96 10/21/22 09:36 36.7 C 113 H 16 86/56 L 98 O2 Del Method O2 Flow Rate 10/21/22 14:20 Oxymask 5 10/21/22 14:10 Oxymask 7 10/21/22 14:03 Oxymask 9 10/21/22 11:27 10/21/22 11:27 10/21/22 11:00 10/21/22 10:30 10/21/22 10:16 10/21/22 10:06 10/21/22 10:12 10/21/22 09:36 10/21/22 09:36 Transfer of Care Handoff Completed per policy Notes Mental Status: alert / awake / arousable Patient Amnestic to Procedure: Yes Nausea / Vomiting: adequately controlled Pain: adequately controlled Airway Patency, RR, SpO2: stable & adequate BP & HR: stable & adequate Hydration State: stable & adequate Anesthetic Complications: no major complications apparent
--- NOTE | 2022-10-21 15:32 | History & Physical Report ---
Date of Service October 21, 2022 Assessment & Plan (1) Severe sepsis: (2) Hydronephrosis with renal calculous obstruction: (3) UTI (urinary tract infection): Plan: Admit to telemetry Patient presenting from home with reports of fever, chills, nausea, vomiting, lower abdominal pain x 5 days. Upon arrival to the ED, patient was hypotensive with systolic BPs in the 80s and tachycardic. Labs show WBC 29 K, procalcitonin 60, LOREN with creatinine 1.9. Lactate 3.2 --> 2.6. BP improved with IVF resuscitation. CT ABD/pelvis shows obstructive stone in the right mid ureter with resulting hydronephrosis/hydroureter. Urology has evaluated the patient in the ED and will be taking him emergently to the OR S/p cefepime in the ED, continue with Continue to trend lactate Continue IVF Follow urine and blood cultures (4) Elevated troponin: Plan: HS trop 1200, no reports of chest pain EKG shows sinus tachycardia without acute ST changes Likely demand ischemia in the setting of severe sepsis Continue to trend troponin (5) LOREN (acute kidney injury): Plan: Creatinine 1.9 (baseline ~0.8) Multifactorial due to severe sepsis and obstructing renal calculi IVF resuscitation, follow renal functions (6) Elevated LFTs: Plan: Likely shock liver due to severe sepsis and hypotension Continue to trend (7) Hypomagnesemia: (8) Hypokalemia: Plan: K+ 3.2, Mg+ 1.6 Replace, follow electrolytes (9) GERD (gastroesophageal reflux disease): Plan: Continue PPI (10) Hyperlipidemia: Plan: Hold statin due to elevated LFTs (11) DVT prophylaxis: Plan: SCDs due to invasive procedure I spent a total of 75 minutes coordinating, documenting, and providing care for this patient excluding time spent in the performance of separately billed services. This included personally reviewing all current laboratories and imaging studies, medication reconciliation, outpatient chart review, and discussion with specialists. History of Present Illness Chief Complaint: Fever, chills, nausea Primary Care Provider: Jae Denton MD 66-year-old male with PMH hyperlipidemia, prediabetes, GERD, basal cell carcinoma s/p multiple MOHs procedures, and other problems listed below who presents the ED for evaluation of fever, chills, nausea. History obtained from the patient by Dr. Nolen and my personal review of outpatient PCP records. Patient reports he has been feeling sick for the past 5 days. Reports ongoing episodes of fevers, chills, nausea, vomiting, lower abdominal pain. Patient denies dysuria and hematuria. No chest pain or shortness of breath. Denies lightheadedness, dizziness, diaphoresis, syncopal events. In the ED, patient was hypotensive with systolic BPs in the 80s and tachycardic. Labs show WBC 29 K, creatinine 1.9, initial lactate 3.2 --> 2.6, elevated LFTs, HS troponin 1200, procalcitonin 60, UA suggestive of UTI. CT ABD/pelvis shows obstructive stone in the right mid ureter with resulting hydronephrosis/hydroureter. Patient's BP improved with IVF. He also received IV cefepime. Urology urgently evaluated the patient in the ED and will be taking him to the OR emergently. Allergies Allergy/AdvReac Type Severity Reaction Status Date / Time No Known Allergies Allergy Verified 10/21/22 13:00 Home Medications Medication Instructions Recorded Confirmed Type ascorbic acid (vitamin C) 500 mg 500 mg PO QAM 06/21/18 10/21/22 History tablet (Vitamin C) aspirin 81 mg tablet,delayed 81 mg PO HS 06/21/18 10/21/22 History release cholecalciferol (vitamin D3) 10 5,000 unit PO QAM 06/21/18 10/21/22 History mcg (400 unit) tablet (Vitamin D3) multivitamin 1 tab PO QAM 06/21/18 10/21/22 History omega 2-oyb-mfm-fish oil 1,000 mg 1 cap PO DAILY ##0 06/24/18 10/21/22 History (120 mg-180 mg) capsule (Fish Oil) atorvastatin 40 mg tablet 40 mg PO QAM 03/18/20 10/21/22 History fluorouracil 5 % topical cream 1 applic topical BID 03/12/22 10/21/22 History imiquimod 5 % topical cream packet 1 applic topical DAILY 03/12/22 10/21/22 History niacinamide 100 mg tablet 100 mg PO BID 10/21/22 10/21/22 History omeprazole 20 mg capsule,delayed 20 mg PO BID 10/21/22 10/21/22 History release vitamins A,C,P-ljbe-nfgcxo 2,148 1 tab PO DAILY 10/21/22 10/21/22 History mcg-113 mg-45 mg-17.4 mg tablet (PreserVision AREDS) Past Med/Surg History Medical History GERD (gastroesophageal reflux disease) Hx of skin cancer, basal cell S/P SEVERAL MOH'S PROCEDURES Hyperlipidemia Surgical History History of arthroscopic knee surgery R X 2 History of colonoscopy History of inguinal hernia repair pt does not remember having this surgery but does not want me to remove it from his history History of vasectomy Family History Father FHx: diabetes mellitus Mother FHx: heart disease Social History Smoking Status: Never smoker Hx Alcohol Use: Yes Alcohol type: hard liquor Hx Substance Use: No Preferred Language: Spanish Communication Ability: Effective Communications Intern Required: No Beliefs That Will Affect Care: None Current Living Situation: Spouse Feels Safe at Home: Yes Safety Concerns: Feels Safe At This Time Assistive Devices: None Review of Systems Review of Systems: ROS per HPI, all other systems reviewed and negative Physical Exam Physical Exam: please refer to Dr. Nolen's addendum for physical exam Results & Data Results & Data ([facility]) Vital Signs (Past 12 Hours) Vital Signs Temp Pulse Pulse Resp BP BP Pulse Ox 10/21/22 14:20 37.0 C 96 H 34 H 93/57 L 96 10/21/22 14:10 96 H 27 H 91/58 L 92 10/21/22 14:03 36.9 C 99 H 12 93/58 L 90 10/21/22 11:27 96 10/21/22 11:27 98 H 16 97/63 L 96 10/21/22 11:00 98 H 22 97/63 L 96 10/21/22 10:30 99 H 22 94/68 L 98 10/21/22 10:16 105 H 23 102/69 96 10/21/22 10:06 108 H 22 109/73 97 10/21/22 10:12 108 H 10/21/22 09:36 36.7 C 113 H 16 86/56 L 96 10/21/22 09:36 36.7 C 113 H 16 86/56 L 98 O2 Del Method O2 Flow Rate 10/21/22 14:20 Oxymask 5 10/21/22 14:10 Oxymask 7 10/21/22 14:03 Oxymask 9 10/21/22 11:27 10/21/22 11:27 10/21/22 11:00 10/21/22 10:30 10/21/22 10:16 10/21/22 10:06 10/21/22 10:12 10/21/22 09:36 10/21/22 09:36 Laboratory Results Short CBC 10/21/22 Range/Units 10:08 WBC 29.74 H (4.8-10.8) K/ul Hgb 16.4 (14.0-18.0) g/dl Hct 45.5 (42.0-52.0) % Plt Count 188 (130-400) K/uL BMP 10/21/22 10:10 Sodium 135 L Potassium 3.2 L Chloride 99 Carbon Dioxide 23 BUN 26 H Creatinine 1.94 H Glucose 137 H Calcium 9.2 Liver Function 10/21/22 Range/Units 10:10 Total Bilirubin 2.4 H (0.2-1.0) mg/dl Direct Bilirubin 1.0 H (0-0.2) mg/dl AST 87 H (13-39) U/L ALT 85 H (7-52) U/L Alkaline Phosphatase 254 H (34-104) U/L Albumin 3.6 (3.4-5.0) gm/dl Urine 10/21/22 Range/Units 12:14 Urine Color Rhea Urine Appearance Cloudy A (Clear) Urine pH 5.5 (4.5-7.5) Ur Specific [place] 1.020 (1.000-1.030) Urine Protein 2+ H (Negative) Urine Glucose (UA) Negative (Negative) Diagnostic Findings Chest X-Ray 10/21/22 10:25 XR chest 1V portable CLINICAL HISTORY: Sepsis TECHNIQUE: Single frontal radiograph of the chest was obtained. Comparison: Comparison is made to chest radiograph 03/12/2022 FINDINGS: No lines and tubes are seen. The cardiomediastinal silhouette is normal. The lungs are clear. No evidence of pleural effusion or pneumothorax. IMPRESSION: No acute chest disease. ACT 112: Negative or not required by law. Electronically signed by: Moise Thayer M.D. 10/21/2022 10:52 AM Abdomen/Pelvis CT 10/21/22 11:07 CT abd pelvis wo con CLINICAL HISTORY: fever, LUQ pain TECHNIQUE: Helical axial images of the abdomen and pelvis were obtained. Automated dose lowering techniques and/or adjustment according to patient size were utilized for this exam. This exam was performed without intravenous contrast. CT DOSE: 327.08 mGy.cm COMPARISON: Comparison is made to CT abdomen pelvis 03/18/2020 FINDINGS: Lower chest: Bibasilar atelectasis versus scarring is seen. Liver: Unremarkable. No focal lesions are seen. Gallbladder and biliary tree: No calcified gallstones. Normal caliber wall. No intra- or extrahepatic biliary ductal dilation. Pancreas: Unremarkable, no focal lesions. Spleen: Unremarkable. Adrenals: Unremarkable. Kidneys and ureters: Nonobstructive nephrolithiasis is seen. Obstructive stone i s in the right mid ureter with hydronephrosis/hydroureter. Partial visualization of a right renal cyst. Bladder: Unremarkable. Reproductive organs: Prostatic calcifications are seen which may represent prior hemorrhage or granulomatous disease. Bowel: Unremarkable. Lymph nodes Retroperitoneal: Unremarkable. Pelvic: Unremarkable. Mesenteric: Unremarkable. Peritoneum: Normal. Vessels: Unremarkable. Abdominal wall: Unremarkable. Bones: Degenerative changes in the visualized spine. IMPRESSION: Obstructive stone in the right mid ureter with resulting hydronephrosis/hydroureter. ACT 112: Negative or not required by law. Electronically signed by: Moise Thayer M.D. 10/21/2022 12:[address] 10/21/22 11:43 CT chest diagnostic wo con CLINICAL HISTORY: fever TECHNIQUE: Multidetector row helical CT of the chest was performed. Coronal and sagittal reformations were obtained. Automated dose lowering techniques and/or adjustment according to patient size were utilized for this exam. CT DOSE: 288.37 mGy.cm Comparison: Comparison is made to chest radiograph 10/21/2022 FINDINGS: Lungs and pleura: There is minimal atelectasis in the right lower lung. No consolidation is in. There is an 8 mm nodule in the right lower lobe superior segment containing intralesional fat compatible with hamartoma. Heart and pericardium: Heart size is normal. No pericardial effusion. Vessels: Severe atherosclerotic changes in the aorta and coronary arteries. Mediastinum and faby: Unremarkable. Chest wall and lower neck: Unremarkable. Abdomen: A hiatal hernia is seen. Partial visualization of nonobstructive stones. Bones: Degenerative changes are seen in the spine. 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 IMPRESSION: No acute abnormalities. In particular no evidence of pneumonia. Stable hamartoma. ACT 112: Negative or not required by law. Electronically signed by: Moise Thayer M.D. 10/21/2022 12:16 PM Code Status & VTE Plan Code Status Patient is a full code as per Dr. Nolen's discussion with him. VTE Prophylaxis Plan VTE Prophylaxis will be ordered: Yes Supervising Physician Co-Signing Physician Notes Pt is a 66y/o M with hx of HLD, prediabetes, GERD, BCC admitted for sepsis 2/2 Obstructive uropathy causing potential pyelonephritis. PE: In acute distress due to pain, well developed HEENT: dry oral mucus membrane Cardiac: Normal S1/S2, no murmur Lungs: CTA, no wheezing or crackles Abd: ND, diffuse TTP, soft MSK: no edema Psych: AAOx3, normal affect A/P: Sepsis 2/2 obstructive uropathy with ?pyelo: -pt was started on cefepime -urology consulted: sched to undergo urological procedure -will continue cefepime after the procedure - CT abd: Obstructive stone in the right mid ureter with resulting hydronephrosis/hydroureter. LOREN with hydronephrosis: -s/p 2L bolus and receiving maintenance fluids -will monitor BMP Elevated trop: -likely demand ischemia - cardiac stress test from 2021: no ischemic changes -will admit to tele - trend trop Agree with A/P by LUCHO Willams
[2022-10-21] MEDS ORDERED: CEFEPIME 2,000 MG in SYRINGE 0 ML IV SCH (15:52)
[2022-10-21] MEDS ORDERED: ACETAMINOPHEN 325 MG TAB PO PRN (15:52)
[2022-10-21] MEDS: POTASSIUM CHLORIDE / WTR 10 MEQ/100 ML PLCT IV SCH ×4 (16:05→19:26)
--- NOTE | 2022-10-21 18:52 | Fluoroscopy Report ---
SEKOU DAVEY CLINICAL HISTORY: STENT PLACEMENT TECHNIQUE: 2 views were obtained with the C-arm in the OR with the above procedure. Total fluoroscopy time was 2.9 seconds. Radiation dose was 0.53 mGy. Comparison: Comparison is made to CT abdomen pelvis 10/21/2022 FINDINGS/IMPRESSION: Intraoperative images were obtained of right stent insertion. Please correlate with intraoperative fluoroscopy and operative report. ACT 112: Negative or not required by law. Electronically signed by: Moise Thayer M.D. 10/21/2022 6:50 PM
[2022-10-21] MEDS ORDERED: CEFEPIME 1,000 MG in SYRINGE 0 ML IV SCH (19:00)
[2022-10-21] MEDS: PANTOprazole 40 MG TAB PO SCH (20:44)
[2022-10-21] MEDS ORDERED: LACTATED RINGER'S 1,000 ML IV ONE (20:50)
[2022-10-21] MEDS ORDERED: POTASSIUM CHLORIDE PWD 20 MEQ PACK PO STA (20:52)
[2022-10-21] MEDS ORDERED: MAGNESIUM SULFATE / D5W 1 GM/100 ML BAG IV SCH (21:00)
[2022-10-21 21:22] LABS: A calco-baum cmplx NotReported Not Detected (NotDetected); Bact fragilis Not Reported Not Detected (NotDetected); C auris Not Reported Not Detected (NotDetected); CTX-M Resistant Gene Not Detected (NotDetected); Calbicans Not Reported Not Detected (NotDetected); Candida glabrata Not Reported Not Detected (NotDetected); Candida krusei Not Reported Not Detected (NotDetected); Cneoformans/gatti Not Reported Not Detected (NotDetected); Cparapsilosis Not Reported Not Detected (NotDetected); Ctropicalis Not Reported Not Detected (NotDetected); E cloacae compx Not Reported Not Detected (NotDetected); Efaecalis Not Reported Not Detected (NotDetected); Efaecium Not Reported Not Detected (NotDetected); Enterobacterales DETECTED (NotDetected); Enterobacterales Not Reported DETECTED (NotDetected); Escherichia coli Not Reported DETECTED (NotDetected); H influenzae Not Reported Not Detected (NotDetected); IMP Resistant Gene Not Detected (NotDetected); K aerogenes Not Reported Not Detected (NotDetected); KPC Resistant Gene Not Detected (NotDetected); Koxytoca Not Reported Not Detected (NotDetected); Kpneumoniae grp Not Reported Not Detected (NotDetected); Lmonocyt Not Reported Not Detected (NotDetected); N meningitidis Not Reported Not Detected (NotDetected); NDM Resistant Gene Not Detected (NotDetected); OXA 48 Like Resistant Gene Not Detected (NotDetected); P aeruginosa Not Reported Not Detected (NotDetected); Proteus spp Not Reported Not Detected (NotDetected); Salmonella spp Not Reported Not Detected (NotDetected); Smarcescens Not Reported Not Detected (NotDetected); Staph lugdunensis Not Reported Not Detected (NotDetected); Staph spp. Not Reported Not Detected (NotDetected); Staphaureus Not Reported Not Detected (NotDetected); Staphepi Not Reported Not Detected (NotDetected); Stenmaltophilia Not Reported Not Detected (NotDetected); Strep agal(GrpB) Not Reported Not Detected (NotDetected); Strep pneum Not Reported Not Detected (NotDetected); Strep pyog (GrpA) Not Reported Not Detected (NotDetected); Strep spp Not Reported Not Detected (NotDetected); VIM Resistant Gene Not Detected (NotDetected); mcr-1 Colistin Resistant Gene Not Detected (NotDetected)
[2022-10-21] MEDS: CEFEPIME 1,000 MG in SYRINGE 0 ML IV SCH (22:40)
[2022-10-21] MEDS ORDERED: POTASSIUM CHLORIDE PWD 20 MEQ PACK PO ONE (23:00)
[2022-10-22] MEDS ORDERED: LACTATED RINGER'S 1,000 ML IV ONE (01:00)
[2022-10-22] MEDS ORDERED: XOPENEX/ATROVENT 1.25mg/0.5MG NEB COMBO NEB STA (03:43)
[2022-10-22] MEDS ORDERED: IPRATROPIUM BROMIDE NEB SOLN 0.02% 2.5 ML VIAL INH STA (03:51)
[2022-10-22] MEDS ORDERED: LEVALBUTEROL 1.25MG/0.5ML NEB INH STA (03:51)
[2022-10-22 04:36] LABS: Albumin Globulin Ratio 0.9 (0.9-2); Albumin Level 2.7 gm/dl (3.4-5.0); BUN Creatinine Ratio 18.7 (10-20); Bilirubin,Total 2.9 mg/dl (0.2-1.0); Calcium 7.8 mg/dl (8.5-10.1); Est GFR (African American) 62.6 ml/min; Est GFR (Non-African American) 54.1 ml/min; Globulin 3.1 gm/dl (2.5-4.0); Hematocrit (blood only) 37.8 % (42.0-52.0); Hemoglobin 13.1 g/dl (14.0-18.0); Magnesium 2.2 mg/dl (1.7-2.4); Mean Corpuscular Hemoglobin 31.9 pg (25.0-34.0); Mean Corpuscular Hgb Conc 34.7 g/dL (32.0-36.0); Mean Platelet Volume 9.9 fL (9.4-12.4); Platelet Count 143 K/uL (130-400); Potassium 5.2 mmol/L (3.5-5.1); RDW Coefficient of Variation 13.3 % (11.5-14.5); RDW Standard Deviation 44.9 fL (36.4-46.3); Red Blood Count 4.11 M/uL (4.70-6.10); Total Protein 5.8 gm/dl (6.0-8.3); White Blood Count 39.03 K/ul (4.8-10.8)
[2022-10-22] MEDS: PANTOprazole 40 MG TAB PO SCH ×2 (08:27→20:55)
[2022-10-22] MEDS: CEFEPIME 1,000 MG in SYRINGE 0 ML IV SCH (08:27)
--- NOTE | 2022-10-22 08:53 | XRay Report ---
SINGLE VIEW CHEST CLINICAL HISTORY: Wheezing FINDINGS: An AP, portable, upright chest radiograph is compared to chest x-ray and chest CT dated 10/11. The heart is enlarged noting atherosclerotic calcification of the thoracic aorta. There is pu lmonary vascular congestion. Increasing opacities at both lung bases likely represent atelectasis. Tr samir right pleural effusion is suspected. No pneumothorax is seen. The skeletal structures appear oste openic. The bony thorax is grossly intact. Surgical clips project over the stomach. IMPRESSION: 1. Cardiomegaly with pulmonary vascular congestion. This is new from yesterday. 2. Suspect a small right pleural effusion. 3. Increasing bibasilar opacities likely represent atelectasis. Correlate clinically for evidence of a superimposed infectious/inflammatory pneumonitis. Radiographic follow-up to resolution is recommend ed. ACT 112: Negative or not required by law. Electronically signed by: Kenton Bailon M.D. 10/22/2022 8:52 AM
--- NOTE | 2022-10-22 11:06 | Urology Progress Note ---
Date of Service October 22, 2022 Assessment & Plan (1) Hydronephrosis with renal calculous obstruction: (2) Severe sepsis: Plan Urosepsis; obstructing right ureteral calculus Now status post stent Afebrile Leukocytosis worsened Cultures still pending Overall, hemodynamics have improved Hope to see improvement in leukocytosis overnight Hope for discharge home on 14 days of antibioticsoutpatient follow-up for stone treatment Admission and Anticipated Discharge Date Admission Date: October 21, 2022 Subjective Challenging night last night Continues to have intermittent feelings of chills and fevers Did not demonstrate fevers objectively Did not sleep well White blood cell count elevated further overnight Pulse has improved, blood pressure stable Now off of oxygen supplementation Had 3 bowel movements yesterdayno diarrhea Still some shortness of breath and tachypnea Physical Exam Constitutional: well developed and well nourished Respiratory: no respiratory distress Cardiovascular: Extremities: no pedal edema Gastrointestinal (Abdomen): Inspection/Auscultation: abdomen normal to inspection Results & Data ([facility]) Vital Signs (Past 12 Hours) Vital Signs Temp Pulse Pulse Resp BP Pulse Ox O2 Del Method 10/22/22 10:51 82 10/22/22 09:54 Nasal Cannula 10/22/22 07:51 36.6 C 79 20 123/78 97 Nasal Cannula 10/22/22 04:23 91 H 16 92 Room Air 10/22/22 03:19 36.6 C 90 18 117/80 92 Nasal Cannula 10/22/22 01:17 92 H 10/21/22 22:36 36.5 C 99 H 18 102/70 94 Nasal Cannula 10/22/22 00:04 36.6 C O2 Flow Rate 10/22/22 10:51 10/22/22 09:54 2.5 10/22/22 07:51 4.0 10/22/22 04:23 10/22/22 03:19 10/22/22 01:17 10/21/22 22:36 10/22/22 00:04 PG Care Time/CCT Total # of Minutes Spent Total Time Spent with Patient: Total time spent is greater than 50% in coordination of care (as documented) at patient's floor/unit and/or counseling patient: Coding Level of Care Code 75384 SUB INP/OBS CARE 09/06MIN Diagnoses Hydronephrosis with renal calculous obstruction N13.2 Severe sepsis A41.9; R65.20
[2022-10-22] MEDS ORDERED: Heparin IV Adult Wt-Based Standard *NO* Bolus Protocol IV ONE (12:43)
[2022-10-22] MEDS ORDERED: FUROSEMIDE INJ 20 MG/2 ML VIAL IV ONE (13:29)
[2022-10-22] MEDS ORDERED: ASPIRIN 81 MG CHEW PO ONE (13:31)
--- NOTE | 2022-10-22 13:52 | Cardiology Consultation ---
Date of Consultation October 22, 2022 Assessment & Plan (1) Left ventricular thrombus: (2) Acute heart failure with reduced ejection fraction and diastolic dysfunction: (3) Non-ST elevation (NSTEMI) myocardial infarction: (4) Severe sepsis: (5) Hydronephrosis with renal calculous obstruction: (6) UTI (urinary tract infection): Plan I had a long discussion with the patient regarding echocardiographic findings of moderate LV dysfunction and apical thrombus. Findings suggests underlying ischemic heart disease with evidence of myocardial infarction. Elevated troponin on admission possibly related to demand ischemia versus recent plaque rupture event. Recommend intravenous heparin and antiplatelet therapy with aspirin. Ultimately patient will require cardiac catheterization when he is stabilized medically and sepsis has resolved. Currently volume overloaded secondary to appropriately treated sepsis/hypotension with more than 5 L of IVF. Recommend furosemide 20 mg x 1 now. He may receive an additional dose this evening to improve respiratory status pending review of urinary output and follow-up lab studies. Other evidence-based heart failure therapy is limited at this time due to hypotension. Consider addition of low-dose beta-tashi in the next 24 to 48 hours pending ongoing assessment of blood pressure. History of Present Illness Reason for Consultation: Left ventricular thrombus Requesting Physician: Dr. Hawk Attending Physician: Flo Hawk MD History of Present Illness 66-year-old patient presented to the emergency department with abdominal discomfort, fever, chills, and dysuria. Diagnosed with nephrolithiasis and septicemia (blood cultures positive for gram-negative bacilli). He was taken for ureteral stent yesterday. Volume resuscitated with more than 5 L of intravenous fluids due to hypotension related to sepsis. An echocardiogram was performed today demonstrating moderate reduced LV systolic function and evidence of left ventricular apical thrombus. Patient reports episode of chest discomfort on Sunday. Discomfort lasted nearly 1 hour. He took 2 ibuprofen which seemed to improve his symptoms. He had been previously evaluated in the cardiology clinic regarding exertional chest pain, coronary calcifications, family history of coronary disease, and dyslipidemia. Stress testing performed in March 2022 negative for inducible ischemia. Patient seen and examined at the bedside. Denies any chest discomfort since admission. Notes orthopnea and shortness of breath with minimal exertion. No edema. Telemetry reveals sinus rhythm and sinus tachycardia. No dysrhythmias. Allergies Allergy/AdvReac Type Severity Reaction Status Date / Time No Known Allergies Allergy Verified 10/21/22 13:00 Home Medications Medication Instructions Recorded Confirmed Type ascorbic acid (vitamin C) 500 mg 500 mg PO QAM 06/21/18 10/21/22 History tablet (Vitamin C) aspirin 81 mg tablet,delayed 81 mg PO HS 06/21/18 10/21/22 History release cholecalciferol (vitamin D3) 10 5,000 unit PO QAM 06/21/18 10/21/22 History mcg (400 unit) tablet (Vitamin D3) multivitamin 1 tab PO QAM 06/21/18 10/21/22 History omega 2-fsw-smp-fish oil 1,000 mg 1 cap PO DAILY ##0 06/24/18 10/21/22 History (120 mg-180 mg) capsule (Fish Oil) atorvastatin 40 mg tablet 40 mg PO QAM 03/18/20 10/21/22 History fluorouracil 5 % topical cream 1 applic topical BID 03/12/22 10/21/22 History imiquimod 5 % topical cream packet 1 applic topical DAILY 03/12/22 10/21/22 History niacinamide 100 mg tablet 100 mg PO BID 10/21/22 10/21/22 History omeprazole 20 mg capsule,delayed 20 mg PO BID 10/21/22 10/21/22 History release vitamins A,C,L-aiod-noupga 2,148 1 tab PO DAILY 10/21/22 10/21/22 History mcg-113 mg-45 mg-17.4 mg tablet (PreserVision AREDS) Patient History Medical History GERD (gastroesophageal reflux disease) Hx of skin cancer, basal cell S/P SEVERAL MOH'S PROCEDURES Hyperlipidemia Surgical History History of arthroscopic knee surgery R X 2 History of colonoscopy History of inguinal hernia repair pt does not remember having this surgery but does not want me to remove it from his history History of vasectomy Family History Father FHx: diabetes mellitus Mother FHx: heart disease Social History Smoking Status: Never smoker Hx Alcohol Use: Yes Alcohol type: hard liquor Hx Substance Use: No Preferred Language: Macedonian Communication Ability: Effective Reading Aide Required: No Beliefs That Will Affect Care: None Current Living Situation: Spouse Feels Safe at Home: Yes Safety Concerns: Feels Safe At This Time Assistive Devices: None Review of Systems Review of Systems: All systems reviewed & are unremarkable except as noted in Subjective Physical Exam Constitutional: + ill appearing; no acute distress Respiratory: + labored breathing; no retractions Auscultation: + rales (Base and midlung riley bilaterally); no rhonchi and no wheezes Cardiovascular: Rate/Rhythm: regular rate and regular rhythm Heart Sounds: normal S1 and normal S2; no murmur Vessels: + JVD and radial pulses present; no carotid bruit Extremities: no edema Gastrointestinal (Abdomen): Inspection/Auscultation: abdomen normal to inspection and normal bowel sounds; abdomen not distended Percussion/Palpation: abdomen soft; abdomen nontender, no guarding and abdomen not rigid Neurologic: CN's II-XI intact bilaterally and moves all extremities; no focal motor deficits Psychiatric: A+Ox3, euthymic affect Results & Data ([facility]) Vital Signs (Past 12 Hours) Vital Signs Temp Pulse Pulse Resp BP Pulse Ox O2 Del Method 10/22/22 11:46 36.5 C 85 19 118/76 96 Nasal Cannula 10/22/22 10:51 82 10/22/22 09:54 Nasal Cannula 10/22/22 07:51 36.6 C 79 20 123/78 97 Nasal Cannula 10/22/22 04:23 91 H 16 92 Room Air 10/22/22 03:19 36.6 C 90 18 117/80 92 Nasal Cannula 10/22/22 01:17 92 H O2 Flow Rate 10/22/22 11:46 2.0 10/22/22 10:51 10/22/22 09:54 2.5 10/22/22 07:51 4.0 10/22/22 04:23 10/22/22 03:19 10/22/22 01:17
[2022-10-22 14:09] LABS: Hematocrit (blood only) 40.7 % (42.0-52.0); Hemoglobin 14.3 g/dl (14.0-18.0); Mean Corpuscular Hgb Conc 35.1 g/dL (32.0-36.0); Mean Corpuscular Volume 91.1 fL (80.0-100.0); Mean Platelet Volume 10.1 fL (9.4-12.4); Platelet Count 155 K/uL (130-400); RDW Coefficient of Variation 13.2 % (11.5-14.5); RDW Standard Deviation 44.8 fL (36.4-46.3); Red Blood Count 4.47 M/uL (4.70-6.10); White Blood Count 30.89 K/ul (4.8-10.8)
[2022-10-22 14:12] LABS: Basophils # (auto) 0.09 K/uL (0-0.2); Basophils % (auto) 0.3 %; Eosinophils # (auto) 0.04 K/uL (0-0.50); Eosinophils % (auto) 0.1 %; Immature Granulocytes # (auto) 1.41 K/uL (0.01-0.20); Immature Granulocytes % (auto) 4.6 %; Lymphocytes # (auto) 1.04 K/uL (1.2-3.4); Lymphocytes % (auto) 3.4 %; Monocytes # (auto) 0.82 K/uL (0.11-0.59); Monocytes % (auto) 2.7 %; Neutrophils # (auto) 27.49 K/uL (1.40-6.50); Neutrophils % (auto) 88.9 %
[2022-10-22 14:13] LABS: INR 1.3 (0.9-1.1); Partial Thromboplastin Time 28.6 Seconds (21.0-31.0); Prothrombin Time 13.6 Seconds (9.0-12.0)
[2022-10-22] MEDS: HEPARIN SODIUM/DEXTROSE 25,000 UNITS/500 ML BAG IV SCH (14:39)
[2022-10-22 15:07] LABS: BUN Creatinine Ratio 24.4 (10-20); Calcium 8.3 mg/dl (8.5-10.1); Creatinine Clr Calc Pharmacy 55.6 ml/min; Est GFR (African American) 69.5 ml/min; Est GFR (Non-African American) 59.9 ml/min; Magnesium 2.3 mg/dl (1.7-2.4); Potassium 4.2 mmol/L (3.5-5.1)
--- NOTE | 2022-10-22 15:37 | Hospitalist Progress Note ---
Date of Service October 22, 2022 Assessment & Plan (1) Severe sepsis: Plan: Severe sepsis Complicated urinary tract infection Gram-negative bacteremia Hydronephrosis with renal calculus obstruction --CT ABD:Obstructive stone in the right mid ureter with resulting hydronephrosis/hydroureter -- Blood, urine culture growing gram-negative bacilli --S/P cystoscopy, left ureteral stent insertion, retrograde pyelogram by on 10/21/2022 --Lactic acidosis: Lactic acid levels normalized with IV twice --Received aggressive IV fluids --Continue cefepime --Appreciate Urology Input Acute systolic heart failure NSTEMI-POA Hypoxia--secondary to above --CXR:Cardiomegaly with pulmonary vascular congestion. This is new from yesterday. Suspect a small right pleural effusion. Increasing bibasilar opacities likely represent atelectasis. Correlate clinically for evidence of a superimposed infectious/inflammatory pneumonitis. Radiographic follow-up to resolution is recommended. --Elevated troponin --ECHO: Moderate size apical thrombus. Left ventricle systolic function is moderately reduced. EF 35 to 40%. Diffuse moderate hypokinesis with severe hypokinesis to akinesis of the apex. Mild mitral regurgitation. -- Received IV Lasix Closely monitor volume status in setting of severe sepsis, CHF Appreciate cardiology input Monitor I's and O's, daily weight Started on aspirin Will need cardiac catheterization eventually Consider beta-tashi when blood pressure more stable Resume Lipitor when LFTs improve Continue IV heparin for now Apical Thrombus-POA --ECHO as above Started on IV heparin Patient understands the risk for anticoagulation in setting of recent ureteral stent. Agrees with current management LOREN (acute kidney injury): Secondary to obstructive uropathy Cr 1.9>> 1.2 Received IV fluids Monitor renal function Avoid nephrotoxic agents as able Hypokalemia Hypomagnesemia Replace electrolytes as needed Monitor Pulmonary nodule Incidental finding on CT No known history of smoking --CT chest:There is minimal atelectasis in the right lower lung. No consolidation is in. There is an 8 mm nodule in the right lower lobe superior segment containing intralesional fat compatible with hamartoma. -- Advised to follow-up with pulmonology as outpatient H/O hyperlipidemia Resume statin as able Transaminitis Likely secondary to sepsis Monitor LFTs Recent C7 Fracture Continue neck collar Scheduled for orthopedic follow-up as outpatient H/O Prediabetes Check HbA1C GERD (gastroesophageal reflux disease): Continue PPI Follows with GI as outpatient DVT Px: IV Heparin Code Status Full code Admission and Anticipated Discharge Date Admission Date: October 21, 2022 Subjective Patient is seen and examined at bedside States having dyspnea, dysuria and generalized weakness Denies any chest pain, hematuria, dizziness, abdominal pain No other complaints Discussed with cardiology today Review of Systems Review of Systems: All systems reviewed & are unremarkable except as noted in Subjective Physical Exam Physical Exam: Physical Exam: Vitals signs as noted above General Appearance:Moderately built and nourished, no apparent distress, + ill- appearing Head: normocephalic, Atraumatic, + neck collar Eyes: normal inspection, EOMI Neck: supple, Trachea midline Respiratory/Chest: Normal breath sounds, basal rales, No accessory muscle use Cardiovascular: S1, S2, No murmur Abdomen/GI:Soft, Non tender, Bowel sounds present Extremities/Musculoskeletal:normal inspection, no edema Neurologic/Psych:AAOX3, grossly no focal neurological deficits Skin: normal color, warm Results & Data Results & Data ([facility]) Vital Signs (Past 12 Hours) Vital Signs Temp Pulse Pulse Resp BP Pulse Ox O2 Del Method 10/22/22 11:46 36.5 C 85 19 118/76 96 Nasal Cannula 10/22/22 10:51 82 10/22/22 09:54 Nasal Cannula 10/22/22 07:51 36.6 C 79 20 123/78 97 Nasal Cannula 10/22/22 04:23 91 H 16 92 Room Air 10/22/22 03:19 36.6 C 90 18 117/80 92 Nasal Cannula O2 Flow Rate 10/22/22 11:46 2.0 10/22/22 10:51 10/22/22 09:54 2.5 10/22/22 07:51 4.0 10/22/22 04:23 10/22/22 03:19 Laboratory Results Short CBC 10/22/22 10/22/22 Range/Units 03:48 13:33 WBC 39.03 H* 30.89 H* (4.8-10.8) K/ul Hgb 13.1 L D 14.3 (14.0-18.0) g/dl Hct 37.8 L 40.7 L (42.0-52.0) % Plt Count 143 155 (130-400) K/uL BMP 10/22/22 10/22/22 03:48 14:17 Sodium 137 137 Potassium 5.2 H D 4.2 Chloride 110 H 109 H Carbon Dioxide 21 23 BUN 25 H 30 H Creatinine 1.34 D 1.23 Glucose 125 H 146 H Calcium 7.8 L 8.3 L Liver Function 10/22/22 Range/Units 03:48 Total Bilirubin 2.9 H (0.2-1.0) mg/dl AST 62 H (13-39) U/L ALT 62 H (7-52) U/L Alkaline Phosphatase 181 H (34-104) U/L Albumin 2.7 L (3.4-5.0) gm/dl
[2022-10-22] MEDS: CEFEPIME 2,000 MG in SYRINGE 0 ML IV SCH (20:55)
[2022-10-22 21:55] LABS: Partial Thromboplastin Ratio 1.4; Partial Thromboplastin Time 39.3 Seconds (21.0-31.0)
[2022-10-23 04:16] LABS: Hematocrit (blood only) 38.2 % (42.0-52.0); Hemoglobin 13.3 g/dl (14.0-18.0); Mean Corpuscular Hemoglobin 31.1 pg (25.0-34.0); Mean Corpuscular Hgb Conc 34.8 g/dL (32.0-36.0); Mean Corpuscular Volume 89.5 fL (80.0-100.0); Mean Platelet Volume 10.2 fL (9.4-12.4); Platelet Count 155 K/uL (130-400); RDW Coefficient of Variation 13.3 % (11.5-14.5); RDW Standard Deviation 43.6 fL (36.4-46.3); Red Blood Count 4.27 M/uL (4.70-6.10); White Blood Count 25.61 K/ul (4.8-10.8)
[2022-10-23 04:54] LABS: Basophils # (auto) 0.04 K/uL (0-0.2); Basophils % (auto) 0.2 %; Echinocytes 2+; Eosinophils # (auto) 0.05 K/uL (0-0.50); Eosinophils % (auto) 0.2 %; Immature Granulocytes # (auto) 0.45 K/uL (0.01-0.20); Immature Granulocytes % (auto) 1.8 %; Lymphocytes % (auto) 4.3 %; Monocytes # (auto) 1.01 K/uL (0.11-0.59); Monocytes % (auto) 3.9 %; Neutrophils # (auto) 22.96 K/uL (1.40-6.50); Neutrophils % (auto) 89.6 %
[2022-10-23 04:56] LABS: Albumin Level 2.6 gm/dl (3.4-5.0); Bilirubin Direct 0.5 mg/dl (0-0.2); Bilirubin,Total 1.3 mg/dl (0.2-1.0)
[2022-10-23 05:28] LABS: Partial Thromboplastin Ratio 1.7
[2022-10-23 06:01] LABS: Partial Thromboplastin Time 47.5 Seconds (21.0-31.0)
[2022-10-23 06:33] LABS: Estimated Average Glucose 123 mg/dl; Hemoglobin A1C 5.9 % (4.5-5.6)
--- NOTE | 2022-10-23 09:03 | Urology Progress Note ---
Date of Service October 23, 2022 Assessment & Plan (1) Ureterolithiasis: (2) Sepsis: Plan: Sepsis; obstructing right ureteral calculus Pt POD #2 status post right ureteral stent Afebrile, hemodynamically stable Labs reviewed - Leukocytosis trending down (25.61) Urine culture no growth; Blood cultures prelim E. coli Continue antibiotics and supportive care per primary service Plan for discharge home on 14 days of antibiotics when medically stable Recommend Tamsulosin, prn Pyridium, prn Oxybutynin for stent management Will arrange outpatient follow-up with our service for definitive stone management will sign off Admission and Anticipated Discharge Date Admission Date: October 21, 2022 Subjective Patient seen and examined at bedside this morning. He is awake and resting in bed. No acute issues overnight. Reports he slept better last night. Reports mild right flank discomfort with voiding. Notes some urinary frequency, dysuria, and intermittent hematuria. No fever or chills. No nausea or vomiting. Reports dyspnea. Review of Systems Constitutional: as per Subjective / HPI Gastrointestinal: as per Subjective / HPI Genitourinary: + as per Subjective / HPI Physical Exam Constitutional: no acute distress Respiratory: no respiratory distress and no labored breathing Gastrointestinal (Abdomen): Inspection/Auscultation: abdomen normal to inspection; abdomen not distended Musculoskeletal: brace on neck Neurologic: moves all extremities and awake Psychiatric: Orientation: alert and oriented x 3 Results & Data ([facility]) Vital Signs (Past 12 Hours) Vital Signs Temp Pulse Pulse Resp BP Pulse Ox O2 Del Method 10/23/22 08:04 37.0 C 88 18 117/78 96 Nasal Cannula 10/23/22 02:25 36.9 C 88 18 109/72 94 Nasal Cannula 10/22/22 22:05 98 H 10/22/22 22:03 36.9 C 96 H 18 117/79 97 Nasal Cannula O2 Flow Rate 10/23/22 08:04 2.0 10/23/22 02:25 10/22/22 22:05 10/22/22 22:03 PG Care Time/CCT Total # of Minutes Spent Total Time Spent with Patient: Total time spent is greater than 50% in coordination of care (as documented) at patient's floor/unit and/or counseling patient: Coding Level of Care Code 03209 SUB INP/OBS CARE 2/35MIN Diagnoses Ureterolithiasis N20.1 Sepsis A41.9
[2022-10-23] MEDS: HEPARIN SODIUM/DEXTROSE 25,000 UNITS/500 ML BAG IV SCH (09:07)
[2022-10-23] MEDS: CEFEPIME 2,000 MG in SYRINGE 0 ML IV SCH (09:07)
[2022-10-23] MEDS: PANTOprazole 40 MG TAB PO SCH ×2 (09:08→21:42)
[2022-10-23] MEDS: ASPIRIN 81 MG CHEW PO SCH (09:08)
[2022-10-23 10:25] LABS: BUN Creatinine Ratio 22.1 (10-20); Calcium 8.7 mg/dl (8.5-10.1); Creatinine Clr Calc Pharmacy 60.5 ml/min; Est GFR (Non-African American) 66.4 ml/min; Potassium 4.1 mmol/L (3.5-5.1)
[2022-10-23] MEDS: FUROSEMIDE INJ 20 MG/2 ML VIAL IV SCH ×2 (10:59→21:42)
[2022-10-23] MEDS: METOPROLOL TARTRATE 25 MG TAB PO SCH ×2 (10:59→21:42)
--- NOTE | 2022-10-23 11:37 | Cardiology Progress Note ---
Date of Service October 23, 2022 Assessment & Plan (1) Left ventricular thrombus: (2) Acute heart failure with reduced ejection fraction and diastolic dysfunction: (3) Non-ST elevation (NSTEMI) myocardial infarction: (4) Severe sepsis: (5) Hydronephrosis with renal calculous obstruction: (6) UTI (urinary tract infection): Plan I had a long discussion with the patient regarding natural history and pathophysiology of ischemic heart disease, left ventricular apical thrombus, and acute decompensated heart failure. Recommend furosemide, 20 mg IV x1 now then an additional dose this afternoon. Blood pressure improved. Will initiate low- dose beta-tashi therapy today. Elevated troponin related to demand ischemia versus recent plaque rupture event. Continue intravenous heparin and antiplatelet therapy with aspirin. Ultimately patient will require cardiac catheterization when he is stabilized medically and sepsis has resolved. Case discussed with urologist who believes dual antiplatelet therapy can be continued uninterrupted for upcoming urologic procedures (stent/stone removal). Admission and Anticipated Discharge Date Admission Date: October 21, 2022 Subjective Patient seen examined the bedside. Respiratory status improved, however, orthopnea persist. No conversational dyspnea. Oxygen saturation 96% on 2 L. Fluid balance negative with 20 mg of intravenous Lasix yesterday. Renal function continues to improve. Patient denies chest discomfort or heaviness. Has many questions today regarding his complex cardiovascular issues as well as urologic concerns. Review of Systems Review of Systems: All systems reviewed & are unremarkable except as noted in Subjective Physical Exam Constitutional: + ill appearing; no acute distress Respiratory: + labored breathing; no retractions Auscultation: + rales (Bases bilaterally); no rhonchi and no wheezes Cardiovascular: Rate/Rhythm: regular rate and regular rhythm Heart Sounds: normal S1 and normal S2; no murmur Vessels: + JVD and radial pulses present; no carotid bruit Extremities: no edema Gastrointestinal (Abdomen): Inspection/Auscultation: abdomen normal to inspection and normal bowel sounds; abdomen not distended Percussion/Palpation: abdomen soft; abdomen nontender, no guarding and abdomen not rigid Neurologic: CN's II-XI intact bilaterally and moves all extremities; no focal motor deficits Psychiatric: A+Ox3, euthymic affect Results & Data ([facility]) Vital Signs (Past 12 Hours) Vital Signs Temp Pulse Pulse Resp BP Pulse Ox O2 Del Method 10/23/22 09:34 Nasal Cannula 10/23/22 09:29 89 10/23/22 08:04 37.0 C 88 18 117/78 96 Nasal Cannula 10/23/22 02:25 36.9 C 88 18 109/72 94 Nasal Cannula O2 Flow Rate 10/23/22 09:34 2 10/23/22 09:29 10/23/22 08:04 2.0 10/23/22 02:25
--- NOTE | 2022-10-23 14:39 | Hospitalist Progress Note ---
Date of Service October 23, 2022 Assessment & Plan (1) Severe sepsis: Plan: Severe sepsis Complicated urinary tract infection E. coli bacteremia Hydronephrosis with renal calculus obstruction --CT ABD:Obstructive stone in the right mid ureter with resulting hydronephrosis/hydroureter -- Blood, urine culture growing E. coli --S/P cystoscopy, left ureteral stent insertion, retrograde pyelogram by on 10/21/2022 --Lactic acidosis: Lactic acid levels normalized with IV twice --Received aggressive IV fluids --Continue cefepime>> transition to Rocephin --Appreciate Urology Input Needs follow-up with urology upon discharge Acute systolic heart failure NSTEMI-POA Hypoxia--secondary to above --CXR:Cardiomegaly with pulmonary vascular congestion. This is new from yesterday. Suspect a small right pleural effusion. Increasing bibasilar opa cities likely represent atelectasis. Correlate clinically for evidence of a superimposed infectious/inflammatory pneumonitis. Radiographic follow-up to resolution is recommended. --Elevated troponin --ECHO: Moderate size apical thrombus. Left ventricle systolic function is moderately reduced. EF 35 to 40%. Diffuse moderate hypokinesis with severe hypokinesis to akinesis of the apex. Mild mitral regurgitation. Closely monitor volume status in setting of severe sepsis, CHF Appreciate cardiology input Monitor I's and O's, daily weight Continue aspirin, Metoprolol Will need cardiac catheterization eventually Resume Lipitor when LFTs improve Continue IV heparin Started on Lasix 20 mg IV twice daily Apical Thrombus-POA --ECHO as above Patient understands the risk for anticoagulation in setting of recent ureteral stent. Agrees with current management Continue IV heparin LOREN (acute kidney injury): Secondary to obstructive uropathy Cr 1.9>> 1.2>1.1 Received IV fluids Monitor renal function Avoid nephrotoxic agents as able Hypokalemia Hypomagnesemia Replace electrolytes as needed Monitor Pulmonary nodule Incidental finding on CT No known history of smoking --CT chest:There is minimal atelectasis in the right lower lung. No consolidation is in. There is an 8 mm nodule in the right lower lobe superior segment containing intralesional fat compatible with hamartoma. -- Advised to follow-up with pulmonology as outpatient H/O hyperlipidemia Resume statin as able Transaminitis Likely secondary to sepsis Monitor LFTs Recent C7 Fracture Continue neck collar Scheduled for orthopedic follow-up as outpatient H/O Prediabetes HbA1C: 5.9 GERD (gastroesophageal reflux disease): Continue PPI Follows with GI as outpatient DVT Px: IV Heparin Code Status Full code Admission and Anticipated Discharge Date Admission Date: October 21, 2022 Subjective Patient is seen and examined at bedside States feeling better today Still has dyspnea, orthopnea Also reports blood-tinged urine intermittently Had mild flank pain with micturition Denies any chest pain, hematuria, dizziness, abdominal pain Review of Systems Review of Systems: All systems reviewed & are unremarkable except as noted in Subjective Physical Exam Physical Exam: Physical Exam: Vitals signs as noted above General Appearance:Moderately built and nourished, no apparent distress, + ill- appearing Head: normocephalic, Atraumatic, + neck collar Eyes: normal inspection, EOMI Neck: supple, Trachea midline Respiratory/Chest: Normal breath sounds, basal rales, No accessory muscle use Cardiovascular: S1, S2, No murmur Abdomen/GI:Soft, Non tender, Bowel sounds present Extremities/Musculoskeletal:normal inspection, no edema Neurologic/Psych:AAOX3, grossly no focal neurological deficits Skin: normal color, warm Results & Data Results & Data ([facility]) Vital Signs (Past 12 Hours) Vital Signs Temp Pulse Pulse Resp BP Pulse Ox O2 Del Method 10/23/22 11:58 37.0 C 93 H 18 115/77 94 Room Air 10/23/22 09:34 Nasal Cannula 10/23/22 09:29 89 10/23/22 08:04 37.0 C 88 18 117/78 96 Nasal Cannula O2 Flow Rate 10/23/22 11:58 10/23/22 09:34 2 10/23/22 09:29 10/23/22 08:04 2.0 Laboratory Results Short CBC 10/23/22 Range/Units 03:59 WBC 25.61 H (4.8-10.8) K/ul Hgb 13.3 L (14.0-18.0) g/dl Hct 38.2 L (42.0-52.0) % Plt Count 155 (130-400) K/uL BMP 10/22/22 10/23/22 14:17 09:52 Sodium 137 136 Potassium 4.2 4.1 Chloride 109 H 104 Carbon Dioxide 23 27 BUN 30 H 25 H Creatinine 1.23 1.13 Glucose 146 H 132 H Calcium 8.3 L 8.7 Liver Function 10/23/22 Range/Units 03:59 Total Bilirubin 1.3 H D (0.2-1.0) mg/dl Direct Bilirubin 0.5 H (0-0.2) mg/dl AST 39 (13-39) U/L ALT 48 (7-52) U/L Alkaline Phosphatase 218 H (34-104) U/L Albumin 2.6 L (3.4-5.0) gm/dl
[2022-10-23] MEDS ORDERED: PHENAZOPYRIDINE HCL 100 MG TAB PO PRN (15:05)
[2022-10-23] MEDS: cefTRIAXone SODIUM 2,000 MG in DEXTROSE 5% 50 ML IV SCH (17:24)
[2022-10-24] MEDS: HEPARIN SODIUM/DEXTROSE 25,000 UNITS/500 ML BAG IV SCH ×4 (03:40→21:59)
[2022-10-24 07:20] LABS: Basophils % (auto) 0.2 %; Eosinophils % (auto) 0.5 %; Hematocrit (blood only) 38.3 % (42.0-52.0); Hemoglobin 13.4 g/dl (14.0-18.0); Immature Granulocytes % (auto) 1.5 %; Lymphocytes % (auto) 9.1 %; Mean Corpuscular Volume 88.7 fL (80.0-100.0); Mean Platelet Volume 10.8 fL (9.4-12.4); Monocytes % (auto) 6.9 %; Neutrophils % (auto) 81.8 %; Platelet Count 190 K/uL (130-400); RDW Coefficient of Variation 13.1 % (11.5-14.5); RDW Standard Deviation 42.6 fL (36.4-46.3); Red Blood Count 4.32 M/uL (4.70-6.10)
[2022-10-24 07:21] LABS: Basophils # (auto) 0.04 K/uL (0-0.2); Eosinophils # (auto) 0.09 K/uL (0-0.50); Immature Granulocytes # (auto) 0.24 K/uL (0.01-0.20); Monocytes # (auto) 1.14 K/uL (0.11-0.59); Neutrophils # (auto) 13.49 K/uL (1.40-6.50)
[2022-10-24 07:35] LABS: BUN Creatinine Ratio 23.6 (10-20); Calcium 8.2 mg/dl (8.5-10.1); Creatinine Clr Calc Pharmacy 64.5 ml/min; Est GFR (African American) 83.2 ml/min; Est GFR (Non-African American) 71.8 ml/min; Potassium 3.5 mmol/L (3.5-5.1)
[2022-10-24 08:16] LABS: Partial Thromboplastin Ratio 1.3; Partial Thromboplastin Time 35.6 Seconds (21.0-31.0)
[2022-10-24] MEDS: METOPROLOL TARTRATE 25 MG TAB PO SCH ×2 (08:18→20:56)
[2022-10-24] MEDS: PANTOprazole 40 MG TAB PO SCH ×2 (08:18→20:50)
[2022-10-24] MEDS: FUROSEMIDE INJ 20 MG/2 ML VIAL IV SCH (08:18)
[2022-10-24] MEDS: ASPIRIN 81 MG CHEW PO SCH (08:18)
[2022-10-24] MEDS ORDERED: Nursing to Pharmacy Communication SCH (09:00)
[2022-10-24] MEDS ORDERED: HEPARIN IV BOLUS 3,000 UNITS in SYRINGE 0 ML IV ONE (09:30)
[2022-10-24] MEDS: POTASSIUM CHLORIDE CRTAB 20 MEQ TABCR PO SCH ×2 (11:17→20:50)
[2022-10-24] MEDS ORDERED: POLYETHYLENE (MIRALAX) 17 GM PACK PO PRN (11:58)
--- NOTE | 2022-10-24 12:39 | Cardiology Progress Note ---
Date of Service October 24, 2022 Assessment & Plan (1) Left ventricular thrombus: (2) Acute heart failure with reduced ejection fraction and diastolic dysfunction: (3) Non-ST elevation (NSTEMI) myocardial infarction: (4) Severe sepsis: (5) Hydronephrosis with renal calculous obstruction: (6) UTI (urinary tract infection): Plan Natural history and pathophysiology of ischemic heart disease, left ventricular apical thrombus, and acute decompensated heart failure discussed. Recommend 40 mg of IV furosemide this afternoon with repeat basic metabolic panel in a.m. If patient appears compensated and renal function is stable, will proceed with cardiac catheterization in a.m. Risk, benefits, alternatives to procedure discussed. Case discussed with urologist who believes dual antiplatelet therapy can be continued uninterrupted for upcoming urologic procedures (stent/stone r emoval). Titrate metoprolol to 25 mg twice daily. Consider addition of angiotensin receptor tashi in the next 24-48 hours. Continue intravenous heparin and antiplatelet therapy with aspirin. Add statin therapy. Admission and Anticipated Discharge Date Admission Date: October 21, 2022 Subjective Patient seen and examined at the bedside. Respiratory status improved. No conversational dyspnea. Denies lightheadedness or dizziness. Telemetry demonstrates sinus rhythm. Tolerating low-dose beta-tashi therapy. Renal function improving. Anxious for discharge when possible. No recurrent fevers or chills. Review of Systems Review of Systems: All systems reviewed & are unremarkable except as noted in Subjective Physical Exam Constitutional: + ill appearing; no acute distress Respiratory: + labored breathing; no retractions Auscultation: + rales (Bas es bilaterally); no rhonchi and no wheezes Cardiovascular: Rate/Rhythm: regular rate and regular rhythm Heart Sounds: normal S1 and normal S2; no murmur Vessels: + JVD and radial pulses present; no carotid bruit Extremities: no edema Gastrointestinal (Abdomen): Inspection/Auscultation: abdomen normal to inspection and normal bowel sounds; abdomen not distended Percussion/Palpation: abdomen soft; abdomen nontender, no guarding and abdomen not rigid Neurologic: CN's II-XI intact bilaterally and moves all extremities; no focal motor deficits Psychiatric: A+Ox3, euthymic affect Results & Data ([facility]) Vital Signs (Past 12 Hours) Vital Signs Temp Pulse Pulse Resp BP Pulse Ox O2 Del Method 10/24/22 08:27 36.6 C 85 16 117/75 93 Room Air 10/24/22 07:00 81 10/24/22 03:27 37.1 C 89 20 122/79 92 Room Air
[2022-10-24] MEDS: ATORVASTATIN 40 MG TAB PO SCH (14:33)
--- NOTE | 2022-10-24 14:34 | Hospitalist Progress Note ---
Date of Service October 24, 2022 Assessment & Plan (1) Severe sepsis: Plan: Severe sepsis Complicated urinary tract infection E. coli bacteremia Hydronephrosis with renal calculus obstruction --CT ABD:Obstructive stone in the right mid ureter with resulting hydronephrosis/hydroureter -- Blood Culture: E. coli --Urine Culture:No growth --S/P cystoscopy, left ureteral stent insertion, retrograde pyelogram by on 10/21/2022 --Lactic acidosis: Lactic acid levels normalized with IV twice --Received aggressive IV fluids --Continue cefepime>> transition to Rocephin --Appreciate Urology Input Needs follow-up with urology upon discharge Leukocytosis trending down Clinically improving Acute systolic heart failure NSTEMI-POA Hypoxia--secondary to above --CXR:Cardiomegaly with pulmonary vascular congestion. This is new from yesterday. Suspect a small right pleural effusion. Increasing bibasilar opacities likely represent atelectasis. Correlate clinically for evidence of a superimposed infectious/inflammatory pneumonitis. Radiographic follow-up to resolution is recommended. --Elevated troponin --ECHO: Moderate size apical thrombus. Left ventricle systolic function is moderately reduced. EF 35 to 40%. Diffuse moderate hypokinesis with severe hypokinesis to akinesis of the apex. Mild mitral regurgitation. Closely monitor volume status in setting of severe sepsis, CHF Appreciate cardiology input Monitor I's and O's, daily weight Continue aspirin, Metoprolol Resumed Lipitor Continue IV heparin IV Lasix per Cardiology Plan to start on AGUSTÍN inhibitor when blood pressure more stable N.p.o. after midnight for cardiac cath tomorrow Apical Thrombus-POA --ECHO as above Patient understands the risk for anticoagulation in setting of recent ureteral stent. Agrees with current management Continue IV heparin LOREN (acute kidney injury): Secondary to obstructive uropathy Cr 1.9>> 1.2>1.06 Received IV fluids Monitor renal function Avoid nephrotoxic agents as able Hypokalemia Hypomagnesemia Replace electrolytes as needed Monitor Pulmonary nodule Incidental finding on CT No known history of smoking --CT chest:There is minimal atelectasis in the right lower lung. No consolidation is in. There is an 8 mm nodule in the right lower lobe superior segment containing intralesional fat compatible with hamartoma. -- Advised to follow-up with pulmonology as outpatient H/O hyperlipidemia on statin Transaminitis Likely secondary to sepsis Monitor LFTs Recent C7 Fracture--As perorted by Patient Continue neck collar Scheduled for orthopedic follow-up as outpatient H/O Prediabetes HbA1C: 5.9 GERD (gastroesophageal reflux disease): Continue PPI Follows with GI as outpatient DVT Px: IV Heparin Code Status Full code Admission and Anticipated Discharge Date Admission Date: October 21, 2022 Subjective Patient is seen and examined at bedside Less dyspnea today Intermittent dysuria No new complaints Blood-tinged urine resolved Denies any chest pain, hematuria, dizziness, abdominal pain On IV heparin Review of Systems Review of Systems: All systems reviewed & are unremarkable except as noted in Subjective Physical Exam Physical Exam: Physical Exam: Vitals signs as noted above General Appearance:Moderately built and nourished, no apparent distress, + ill- appearing Head: normocephalic, Atraumatic, + neck collar Eyes: normal inspection, EOMI Neck: supple, Trachea midline Respiratory/Chest: Normal breath sounds,CTA, No accessory muscle use Cardiovascular: S1, S2, No murmur Abdomen/GI:Soft, Non tender, Bowel sounds present Extremities/Musculoskeletal:normal inspection, no edema Neurologic/Psych:AAOX3, grossly no focal neurological deficits Skin: normal color, warm Results & Data Results & Data ([facility]) Vital Signs (Past 12 Hours) Vital Signs Temp Pulse Pulse Resp BP Pulse Ox O2 Del Method 10/24/22 13:05 36.9 C 78 18 111/72 95 Room Air 10/24/22 08:27 36.6 C 85 16 117/75 93 Room Air 10/24/22 07:00 81 10/24/22 03:27 37.1 C 89 20 122/79 92 Room Air Laboratory Results Short CBC 10/24/22 Range/Units 06:29 WBC 16.50 H (4.8-10.8) K/ul Hgb 13.4 L (14.0-18.0) g/dl Hct 38.3 L (42.0-52.0) % Plt Count 190 (130-400) K/uL BMP 10/24/22 06:29 Sodium 136 Potassium 3.5 Chloride 101 Carbon Dioxide 27 BUN 25 H Creatinine 1.06 Glucose 111 H Calcium 8.2 L
[2022-10-24 15:47] LABS: Partial Thromboplastin Ratio 1.5; Partial Thromboplastin Time 41.9 Seconds (21.0-31.0)
[2022-10-24] MEDS ORDERED: FUROSEMIDE 40 MG/4 ML VIAL IV ONE (16:00)
[2022-10-24] MEDS: cefTRIAXone SODIUM 2,000 MG in DEXTROSE 5% 50 ML IV SCH (16:05)
[2022-10-25] LABS: Partial Thromboplastin Ratio 1.4; Partial Thromboplastin Time 37.3 Seconds (21.0-31.0)
[2022-10-25] MEDS ORDERED: HEPARIN SOD (PORCINE) 1000 UNIT/ML IV ONE (00:04)
[2022-10-25] MEDS: HEPARIN SODIUM/DEXTROSE 25,000 UNITS/500 ML BAG IV SCH ×3 (00:41→20:49)
[2022-10-25 06:59] LABS: Basophils # (auto) 0.05 K/uL (0-0.2); Basophils % (auto) 0.4 %; Eosinophils # (auto) 0.12 K/uL (0-0.50); Hematocrit (blood only) 39.2 % (42.0-52.0); Hemoglobin 13.6 g/dl (14.0-18.0); Immature Granulocytes # (auto) 0.17 K/uL (0.01-0.20); Immature Granulocytes % (auto) 1.4 %; Lymphocytes # (auto) 1.58 K/uL (1.2-3.4); Lymphocytes % (auto) 12.7 %; Mean Corpuscular Hemoglobin 31.1 pg (25.0-34.0); Mean Corpuscular Hgb Conc 34.7 g/dL (32.0-36.0); Mean Corpuscular Volume 89.7 fL (80.0-100.0); Mean Platelet Volume 10.2 fL (9.4-12.4); Monocytes # (auto) 1.28 K/uL (0.11-0.59); Monocytes % (auto) 10.3 %; Neutrophils # (auto) 9.26 K/uL (1.40-6.50); Neutrophils % (auto) 74.2 %; Platelet Count 235 K/uL (130-400); RDW Coefficient of Variation 13.1 % (11.5-14.5); RDW Standard Deviation 42.9 fL (36.4-46.3); Red Blood Count 4.37 M/uL (4.70-6.10); White Blood Count 12.46 K/ul (4.8-10.8)
[2022-10-25 07:05] LABS: BUN Creatinine Ratio 25.2 (10-20); Calcium 8.3 mg/dl (8.5-10.1); Creatinine Clr Calc Pharmacy 66.4 ml/min; Est GFR (African American) 86.1 ml/min; Est GFR (Non-African American) 74.3 ml/min; Magnesium 1.7 mg/dl (1.7-2.4); Potassium 3.8 mmol/L (3.5-5.1)
[2022-10-25] MEDS ORDERED: MAGNESIUM SULFATE / D5W 1 GM/100 ML BAG IV ONE (07:14)
[2022-10-25 07:27] LABS: Partial Thromboplastin Ratio 2.1
[2022-10-25] MEDS: ASPIRIN 81 MG CHEW PO SCH (07:39)
[2022-10-25] MEDS: METOPROLOL TARTRATE 25 MG TAB PO SCH ×2 (07:40→22:01)
[2022-10-25] MEDS: PANTOprazole 40 MG TAB PO SCH ×2 (07:40→22:01)
[2022-10-25] MEDS: ATORVASTATIN 40 MG TAB PO SCH (07:40)
[2022-10-25] MEDS: POTASSIUM CHLORIDE CRTAB 20 MEQ TABCR PO SCH ×2 (07:40→21:59)
[2022-10-25] MEDS ORDERED: HEPARIN (PORCINE) 1000 UNIT/ML 10 ML (CATH LAB USE ONLY) ONE ×2 (07:52→09:53)
[2022-10-25] MEDS ORDERED: MIDAZOLAM HCL 1 MG/ML 2ML VIAL ONE ×2 (07:52→09:42)
[2022-10-25] MEDS ORDERED: fentaNYL citrate 100 MCG/2 ML VIAL ONE (07:52)
[2022-10-25] MEDS ORDERED: niCARdipine HCL INJ 2.5 MG/ML 10 ML AMP ONE (07:52)
[2022-10-25] MEDS ORDERED: NITROGLYCERIN/D5W 100MCG/ML 20ML SYR ONE (07:53)
--- NOTE | 2022-10-25 08:11 | Pre Anesthesia Assessment ---
Date of Service October 25, 2022 Pre Sedation Assessment Vital Signs Temp Pulse Pulse Pulse Resp BP Pulse Ox 10/25/22 07:50 80 16 125/83 98 10/25/22 06:21 36.8 C 77 18 115/70 94 10/25/22 03:01 36.9 C 82 16 111/74 94 10/24/22 22:03 88 10/24/22 19:15 10/24/22 22:34 37.0 C 84 18 117/75 94 10/24/22 20:55 90 115/77 10/24/22 19:00 36.9 C 87 18 130/81 95 10/24/22 15:00 10/24/22 15:38 37.0 C 80 18 117/71 93 10/24/22 13:05 36.9 C 78 18 111/72 95 Pulse Ox O2 Del Method O2 Del Method 10/25/22 07:50 Room Air 10/25/22 06:21 Room Air 10/25/22 03:01 Room Air 10/24/22 22:03 10/24/22 19:15 Room Air 10/24/22 22:34 Room Air 10/24/22 20:55 10/24/22 19:00 Room Air 10/24/22 15:00 95 Room Air 10/24/22 15:38 Room Air 10/24/22 13:05 Room Air Cardiovascular + regular rate and + regular rhythm + S1 normal and + S2 normal; no murmur + femoral pulses present and + radial pulses present; no JVD Respiratory no respiratory distress no crackles, no rhonchi and no wheezes Pre-Sedation Airway Assessment Smoking Status: Never smoker Thyromental Distance: > or= 3.5 Finger Breadths Mallampati Class: II ASA: ASA3 NPO Status Date of Last Intake of Fluids: 10/24/22 Date of Last Intake of Solid Food: 10/24/22 Procedure Planning Contraindications for Sedation: none Current Medications Reviewed: Yes Notes The planned sedation has been discussed with the patient. Informed Consent was obtained. I have identified the patient, determined the appropriateness of sedation and have assessed the patient immediately prior to the procedure. All medicine(s) and interventions are by my order.
--- NOTE | 2022-10-25 09:09 | Post Anesthesia Assessment ---
Date of Service October 25, 2022 Post Sedation Assessment Vital Signs Temp Pulse Pulse Pulse Resp BP BP 10/25/22 11:25 36.9 C 73 16 128/77 10/25/22 11:04 86 20 108/77 10/25/22 10:50 82 20 114/75 10/25/22 07:50 80 16 125/83 10/25/22 06:21 36.8 C 77 18 115/70 10/25/22 03:01 36.9 C 82 16 111/74 10/24/22 22:03 88 10/24/22 19:15 10/24/22 22:34 37.0 C 84 18 117/75 10/24/22 20:55 90 115/77 10/24/22 19:00 36.9 C 87 18 130/81 10/24/22 15:00 10/24/22 15:38 37.0 C 80 18 117/71 10/24/22 13:05 36.9 C 78 18 111/72 Pulse Ox Pulse Ox O2 Del Method O2 Del Method 10/25/22 11:25 97 Room Air 10/25/22 11:04 96 Room Air 10/25/22 10:50 92 Room Air 10/25/22 07:50 98 Room Air 10/25/22 06:21 94 Room Air 10/25/22 03:01 94 Room Air 10/24/22 22:03 10/24/22 19:15 Room Air 10/24/22 22:34 94 Room Air 10/24/22 20:55 10/24/22 19:00 95 Room Air 10/24/22 15:00 95 Room Air 10/24/22 15:38 93 Room Air 10/24/22 13:05 95 Room Air Recovery Score Activity: Moves 4 extremities Respiration: Deep Breath/Cough Circulation: +/-20% PreAnes Value Consciousness: Arouseable (by name) Oxygen Saturation: <90% w/ supp O2 Post Anesthesia Score: 8 Discharge Sedation Level of Care: Phase I Post Sedation Plan On clinical assessment, the patient appears to have tolerated the sedation without complications. Patient is recovering as anticipated. Patient will continue to be monitored by nursing and may be discharged when sedation discharge criteria are met per below protocol. Upon Completions of procedure up to 15 minutes continue every 5 minute vital signs and the P.A.R. score; then discharge to a Phase I or Fast Track to Phase II per the following guidelines: * Discharge Patient to appropriate Phase II area if PAR is 8 or greater or return to pre- procedure baseline. The post - procedure orders will be as directed. * If PAR score is less than 8 or not return to pre-procedure baseline then patient will follow Phase I monitoring till PAR is reached for Phase II. The Phase I may be done in procedure room or may call to secure a Phase I area. * If naloxone or flumazenil are used for reversal, hold in Phase I for continued monitoring from when last reversal dose was given for a minimum of 60 minutes or longer pending the nurse and/or physician discretion of patient condition before discharge to Phase II. Please call the Sedation Physician to re-evaluate and complete post-note for discharge to Phase II area. Do NOT discharge from procedure sedation or Phase 1 until post- sedation evaluation note is complete by procedure /sedation MD Sedation Discharge Instructions to be given to the patient at discharge to home.
--- NOTE | 2022-10-25 09:22 | Cardiac Catheterization ---
Cardiac Cath Procedure Full Procedure Date October 25, 2022 Pre-Procedure Diagnosis Pre-Procedure Diagnosis: Non STEMI, CHF and Cardiomyopathy AUC Score AUC Score: 8 Post-Procedure Diagnosis Post-Procedure Diagnosis: Severe CAD Procedure(s) Performed Procedure(s) Performed: Coronary Angiography Tromper Mo Milton DO Police Guard(s) Memo CARPENTRY FOREMAN Estimated Blood Loss Estimated Blood Loss: 3cc Medication(s) Medication(s): Heparin, Lidocaine 1%, Nicardipine, Nitroglycerin and Versed Summary of Findings 95% proximal LAD 80% ostial OM1 Hemodynamics Rest Ao:: 104//88 Final Ao: 117/62/83 LV: N/A Recommendations Recommendations: PCI without planned CABG Specimens Specimens: None Radiation Exposure (mGy) 673 Contrast (mls) 35 Fluids (cc crystalloids) Fluids (cc crystalloids): 200 nss Drains Drains: N/A Anesthesia Moderate sedation. Start 0839. End 0855. Sedation monitor: Bushra MENJIVAR Disposition Patient remained in Garage Door Technician for PCI I attest to the content of the Intraoperative Record and any orders documented therein. Any exceptions are noted below. [facility] Data: Garage Door Technician Cardiac Status Clinical evaluation leading to the procedure 66-year-old male presented to the hospital with urosepsis, E. coli bacteremia. Echocardiogram demonstrating moderate LV systolic dysfunction with ejection fraction 35-40%, apical LV thrombus, apical wall motion abnormality. Elevated troponin suggesting NSTEMI. CAD Presenation: Non STEMI Anginal Classification: CCS III Heart Failure: NYHA Class: CCS III Cardiogenic Shock within 24 Hours: No Cardiac Arrest within 24 Hours: No Imaging Studies Past 6 Months: Yes Stress Studies Past 6 Months: No STEMI OR Non-STEMI Symptom Onset Date: 10/21/22 Thrombolytics: No Coronary Anatomy Dominant: Right Left Main (% Stenosis): Ostial (30%) and Mid (30%) LAD (% Stenosis): Ostial (30%), Proximal (95%) and Mid (50%) D1 (% Stenosis): Proximal (10%) D2 (% Stenosis): Proximal (20%) D3 (% Stenosis): Normal (small vessel) Circumflex (% Stenosis): Ostial (20%) and Proximal (10%) OM1 (% Stenosis): Ostial (80%) and Proximal (30%) L PL1 (% Stenosis): Normal RCA (% Stenosis): Proximal (20%), Mid (Diffuse luminal irregularities, 20%) and Distal (40%) R PDA (% Stenosis): Ostial (30%), Proximal (10%), Mid (Luminal irregularities, 20-30%) and Distal (right to left collaterals supplying LAD territory.) R PL1 (% Stenosis): Proximal (30%) Diagnostic Physicians Name: Mo Milton DO Closure Device Percutaneous Entry Location: Radial Closure Device: Radial Band Recommendations: PCI without planned CABG Intraprocedure Events Significant Disection: No Perforation: No
--- NOTE | 2022-10-25 09:41 | Cardiology Progress Note ---
Date of Service October 25, 2022 Assessment & Plan (1) Acute heart failure with reduced ejection fraction and diastolic dys function: (2) Non-ST elevation (NSTEMI) myocardial infarction: (3) Left ventricular thrombus: (4) Severe sepsis: (5) Hydronephrosis with renal calculous obstruction: (6) UTI (urinary tract infection): Plan Natural history and pathophysiology of ischemic heart disease, left ventricular apical thrombus, and acute decompensated heart failure discussed. Recommend coronary angiography. Risk, benefits, alternatives to procedure discussed. Patient agreeable. Case discussed with urologist who believes dual antiplatelet therapy can be continued uninterrupted for upcoming urologic procedures (stent/stone removal). Continue metoprolol 25 mg twice daily, aspirin and statin therapy. Add losartan 25 mg daily. IV heparin held at 7 AM. Further recommendations pending result of cardiac catheterization. Admission and Anticipated Discharge Date Admission Date: October 21, 2022 Subjective Patient seen and examined at the bedside. Fluid balance negative approximately 1 L. Renal function remains stable. Orthopnea has resolved. Denies chest discomfort. Mild dyspnea on exertion. No dysrhythmias on telemetry. Review of Systems Review of Systems: All systems reviewed & are unremarkable except as noted in Subjective Physical Exam Constitutional: + ill appearing; no acute distress ENMT: Mallampati Class: II Respiratory: no respiratory distress, no labored breathing and no retractions Auscultation: no crackles, no rales (Bases bilaterally), no rhonchi and no wheezes Cardiovascular: Rate/Rhythm: regular rate and regular rhythm Heart Sounds: normal S1 and normal S2; no murmur Vessels: femoral pulses present and radial pulses present; no JVD and no carotid bruit Extremities: no edema Gastrointestinal (Abdomen): Inspection/Auscultation: abdomen normal to inspection and normal bowel sounds; abdomen not distended Percussion/Palpation: abdomen soft; abdomen nontender, no guarding and abdomen not rigid Neurologic: CN's II-XI intact bilaterally and moves all extremities; no focal motor deficits Psychiatric: A+Ox3, euthymic affect Results & Data ([facility]) Vital Signs (Past 12 Hours) Vital Signs Temp Pulse Pulse Resp BP Pulse Ox O2 Del Method 10/25/22 07:50 80 16 125/83 98 Room Air 10/25/22 06:21 36.8 C 77 18 115/70 94 Room Air 10/25/22 03:01 36.9 C 82 16 111/74 94 Room Air 10/24/22 22:03 88 10/24/22 22:34 37.0 C 84 18 117/75 94 Room Air Laboratory Results Laboratory Results - last 24 hr 10/22/22 10/24/22 10/24/22 03:48 15:03 22:49 WBC RBC Hgb Hct MCV MCH MCHC RDW Std Deviation RDW Coeff of Uriel Plt Count MPV Immature Gran % (Auto) Neut % (Auto) Lymph % (Auto) Schley % (Auto) Eos % (Auto) Baso % (Auto) Neut # (Auto) Lymph # (Auto) Schley # (Auto) Eos # (Auto) Baso # (Auto) Immature Gran # (Auto) APTT 41.9 H 37.3 H PTT Ratio 1.5 1.4 Sodium Potassium Chloride Carbon Dioxide Anion Gap BUN Creatinine Est Cr Clr Drug Dosing Est GFR ( Amer) Est GFR (Non-Af Amer) BUN/Creatinine Ratio Glucose Calcium Magnesium Hepatitis C Ab (EIA) NON-REACTIVE Hep C Ab Signal/Cutoff <0.02 10/25/22 10/25/22 10/25/22 06:30 06:30 06:30 WBC 12.46 H RBC 4.37 L Hgb 13.6 L Hct 39.2 L MCV 89.7 MCH 31.1 MCHC 34.7 RDW Std Deviation 42.9 RDW Coeff of Uriel 13.1 Plt Count 235 MPV 10.2 Immature Gran % (Auto) 1.4 Neut % (Auto) 74.2 Lymph % (Auto) 12.7 Schley % (Auto) 10.3 Eos % (Auto) 1.0 Baso % (Auto) 0.4 Neut # (Auto) 9.26 H Lymph # (Auto) 1.58 Schley # (Auto) 1.28 H Eos # (Auto) 0.12 Baso # (Auto) 0.05 Immature Gran # (Auto) 0.17 APTT 57.0 H* PTT Ratio 2.1 Sodium 137 Potassium 3.8 Chloride 101 Carbon Dioxide 30 Anion Gap 6 BUN 26 H Creatinine 1.03 Est Cr Clr Drug Dosing 66.4 Est GFR ( Amer) 86.1 Est GFR (Non-Af Amer) 74.3 BUN/Creatinine Ratio 25.2 H Glucose 112 H Calcium 8.3 L Magnesium 1.7 Hepatitis C Ab (EIA) Hep C Ab Signal/Cutoff
[2022-10-25] MEDS ORDERED: CLOPIDOGREL BISULFATE 300 MG TAB ONE (10:44)
--- NOTE | 2022-10-25 11:18 | Post Anesthesia Assessment ---
Date of Service October 25, 2022 Post Sedation Assessment Vital Signs Temp Pulse Pulse Pulse Resp BP BP 10/25/22 11:04 86 20 108/77 10/25/22 10:50 82 20 114/75 10/25/22 07:50 80 16 125/83 10/25/22 06:21 98.2 F 77 18 115/70 10/25/22 03:01 98.4 F 82 16 111/74 10/24/22 22:03 88 10/24/22 19:15 10/24/22 22:34 98.6 F 84 18 117/75 10/24/22 20:55 90 115/77 10/24/22 19:00 98.4 F 87 18 130/81 10/24/22 15:00 10/24/22 15:38 98.6 F 80 18 117/71 10/24/22 13:05 98.4 F 78 18 111/72 Pulse Ox Pulse Ox O2 Del Method O2 Del Method 10/25/22 11:04 96 Room Air 10/25/22 10:50 92 Room Air 10/25/22 07:50 98 Room Air 10/25/22 06:21 94 Room Air 10/25/22 03:01 94 Room Air 10/24/22 22:03 10/24/22 19:15 Room Air 10/24/22 22:34 94 Room Air 10/24/22 20:55 10/24/22 19:00 95 Room Air 10/24/22 15:00 95 Room Air 10/24/22 15:38 93 Room Air 10/24/22 13:05 95 Room Air Recovery Score Activity: Moves 4 extremities Respiration: Deep Breath/Cough Circulation: +/-20% PreAnes Value Consciousness: Fully Awake Oxygen Saturation: > 92% On Room Air Post Anesthesia Score: 10 Discharge Sedation Level of Care: Fast Track Phase II Post Sedation Plan On clinical assessment, the patient appears to have tolerated the sedation without complications. Patient is recovering as anticipated. Patient will continue to be monitored by nursing and may be discharged when sedation discharge criteria are met per below protocol. Upon Completions of procedure up to 15 minutes continue every 5 minute vital signs and the P.A.R. score; then discharge to a Phase I or Fast Track to Phase II per the following guidelines: * Discharge Patient to appropriate Phase II area if PAR is 8 or greater or return to pre- procedure baseline. The post - procedure orders will be as directed. * If PAR score is less than 8 or not return to pre-procedure baseline then patient will follow Phase I monitoring till PAR is reached for Phase II. The Phase I may be done in procedure room or may call to secure a Phase I area. * If naloxone or flumazenil are used for reversal, hold in Phase I for continued monitoring from when last reversal dose was given for a minimum of 60 minutes or longer pending the nurse and/or physician discretion of patient condition before discharge to Phase II. Please call the Sedation Physician to re-evaluate and complete post-note for discharge to Phase II area. Do NOT discharge from procedure sedation or Phase 1 until post- sedation evaluation note is complete by procedure /sedation MD Sedation Discharge Instructions to be given to the patient at discharge to home.
--- NOTE | 2022-10-25 11:24 | Cardiac Catheterization ---
[facility] Data: Tour Agent Cardiac Status Clinical evaluation leading to the procedure CAD Presenation: Non STEMI Anginal Classification: CCS IV Diagnostic Physicians Name: Destin Aguirre MD Closure Device Recommendations: PCI without planned CABG Cardiac Cath Procedure Full Procedure Date October 25, 2022 Pre-Procedure Diagnosis Pre-Procedure Diagnosis: Non STEMI and Cardiomyopathy AUC Score AUC Score: 8 Post-Procedure Diagnosis Post-Procedure Diagnosis: Severe CAD and Successful PCI Procedure(s) Performed Procedure(s) Performed: Coronary Angiography, Drug Eluting Stent and IVUS Disc Pad Knockout Worker Destin Aguirre MD Innovation Analyst(s) Memo MORALES Estimated Blood Loss Estimated Blood Loss: None Medication(s) Medication(s): Clopidogrel, Fentanyl, Heparin, Nicardipine, Nitroglycerin and Versed Summary of Findings Indication: NSTEMI, cardiomyopathy Access: 6 Fr right radial artery Catheters: EBU 3.5 guide Findings: For full details of patient's coronary angiography please see cath report dictated by Dr. Milton. Briefly, patient found to have severe calcified mid LAD disease up to 95%. Decision to proceed with PCI. -- PCI -- Antithrombotic therapy: Heparin, clopidogrel Procedure: Left main cannulated with EBU 3.5 guide Pre-procedure flow DOMINIQUE 2 Slat Basket Maker 50 wire passed across lesion into distal LAD Mid LAD dilated with 2.5 balloon Second fuel pilot engineer 50 wire placed into second diagonal [place] IVUS catheter placed into mid LAD. Pullback revealed severe heavily calcified disease extending across mid segment with moderate disease back to LAD ostium. Patient also with moderate, calcified mid/distal left main disease (MLA 6.7 mm). Eccentric calcified plaque at left main ostium. LAD stented from ostium to mid segment with 3.0 x 23 mm Xience drug-eluting stent Stent post-dilated with 3.5 noncompliant balloon After post dilation sluggish flow in D2. Multiple attempts made to rewire across stent struts into D2 but unable to pass wire. IC vasodilators administered for spasm With time, additional IC vasodilators improved flow in D2 with DOMINIQUE II-III flow at completion of case Post procedure DOMINIQUE 3 flow in stent, LAD. Stent well expanded with minimal residual stenosis. Jailed D2 with severe ostial disease but DOMINIQUE II-III flow. Patient chest pain free. Arterial Closure: TR band Summary: 1. Successful PCI of ostial to mid LAD with single drug-eluting stent (3.0 x 23 mm Xience; postdilated with 3.5 NC). 2. Moderate, diffuse, calcified left main disease by IVUS (MLA 6.7 mm) Recommendations: To PCU for continued monitoring Loaded with clopidogrel 600 mg in Tour Agent Continue P2 Y12 for at least 1 year. Dual therapy with anticoagulation for at least 3 months in the setting of LV thrombus Continue statin, and ASCVD risk factor modification Consult cardiac Rehab Hemodynamics Rest Ao:: 103/62/83 Final Ao: 100/63/79 LV: -- Recommendations Recommendations: PCI without planned CABG Specimens Specimens: None Radiation Exposure (mGy) 5369 Contrast (mls) 160 Anesthesia Moderate sedation. Start 09. End 1043. Sedation monitor: Bushra MENJIVAR Procedural Complication(s) None Disposition PCU I attest to the content of the Intraoperative Record and any orders documented therein. Any exceptions are noted below. [facility] Card Cath Procedure Codes Therapeutic Services & Ancillary Procedure 1: Cardiovascular Tx and Anc Procedures: 25577 IV Ultrasound (Coronary or Graft) Moderate Sedation Procedure 1: Sedation/Anesthesia: 15759 Mod Sedation by the same physician; Ea [id number] Minutes Stenting Procedure 1: Cardiovascular Stent Procedures: 92253 Perc transcatheter placement of intracoronary stent(s), with ang PG Care Time/CCT Total # of Minutes Spent Total Time Spent with Patient: Total time spent is greater than 50% in coordination of care (as documented) at patient's floor/unit and/or counseling patient:
[2022-10-25] MEDS: LOSARTAN POTASSIUM 25 MG TAB PO SCH (12:14)
[2022-10-25] MEDS: cefTRIAXone SODIUM 2,000 MG in DEXTROSE 5% 50 ML IV SCH (16:00)
--- NOTE | 2022-10-25 21:19 | Hospitalist Progress Note ---
Date of Service October 25, 2022 Assessment & Plan (1) Non-ST elevation (NSTEMI) myocardial infarction: (2) Acute heart failure with reduced ejection fraction and diastolic dysfunction: (3) Left ventricular thrombus: (4) Elevated LFTs: (5) UTI (urinary tract infection): (6) Hydronephrosis with renal calculous obstruction: (7) Severe sepsis: (8) LOREN (acute kidney injury): Plan Severe sepsis Complicated urinary tract infection with E. coli bacteremia Hydronephrosis with renal calculus obstruction s/p right ureteral stent --S/P cystoscopy, left ureteral stent insertion, retrograde pyelogram by on 10/21/2022 --Received aggressive IV fluids --Continue cefepime>> transition to Rocephin Leukocytosis trending down Clinically improved Acute systolic heart failure NSTEMI-POA Hypoxia--secondary to above --Elevated troponin --ECHO: Moderate size apical thrombus. Left ventricle systolic function is moderately reduced. EF 35 to 40%. Diffuse moderate hypokinesis with severe hypokinesis to akinesis of the apex. Mild mitral regurgitation. Closely monitor volume status in setting of severe sepsis, CHF Appreciate cardiology input Monitor I's and O's, daily weight Continue aspirin, Metoprolol Resumed Lipitor Continue IV heparin with transition to apixaban at discharge. IV Lasix per Cardiology-held at this time and no standing diuretic being given He appears euvlemic and want to avoid diuretics wt recent IV contrast administration. Cont metoprolol. ASA and statin therapy. Losartan 25mg PO daily started. Apical Thrombus-POA Continue IV heparin with transition to apixaban in am. LOREN (acute kidney injury): Secondary to obstructive uropathy-resolved with IVF Pulmonary nodule Incidental finding on CT No known history of smoking --CT chest:There is minimal atelectasis in the right lower lung. No consolidation is in. There is an 8 mm nodule in the right lower lobe superior segment containing intralesional fat compatible with hamartoma. -- Advised to follow-up with pulmonology/PCP as outpatient Transaminitis Likely secondary to sepsis-improved/resolved Recent C7 Fracture 2/2 trauma from tree branch hitting back of nex 1- Managed conservatively with a collar No neurologic deficits present Follow-up [facility] orthopedics in a couple of weeks as planned. H/O Prediabetes HbA1C: 5.9 GERD (gastroesophageal reflux disease): Continue PPI Follows with GI as outpatient DVT Px: IV Heparin Code Status Full code Dispo-to home in am. Moriah Rico DO [facility] Hospitalist Admission and Anticipated Discharge Date Admission Date: October 21, 2022 Subjective 66-year-old man admitted with severe sepsis secondary to a urinary tract infection complicated with renal calculus obstruction. Urology took him emergently to the OR to place a right ureteral stent on 10/21. He was continued on IV antibiotics that were broad-spectrum. Demand ischemia was suspected given elevated troponin without evidence of ACS. This was likely secondary to severe sepsis. Renal failure was present with a creatinine of 1.9 and LFTs were elevated likely related to sepsis and hypotension. Cardiology was consulted given the elevated troponin and an echo revealed an ejection fraction of 35 to 40% with diffuse moderate hypokinesis. There was a moderate-sized apical thrombus present. The findings suggested underlying ischemic heart disease with evidence of myocardial infarction. Therefore the elevated troponin on admission may have been related to recent plaque rupture event. Intravenous heparin was started along with antiplatelet therapy and aspirin. Intravenous Lasix was also started for hypervolemia. Continues on antibiotics for gram-negative bacteremia with E. coli. He has been afebrile and leukocytosis has resolved to almost normal. He underwent cardiac catheterization today receiving drug-eluting stent to the mid LAD. Moderate diffuse calcified left main disease by IVUS was also seen. Cardiac rehabilitation is recommended in addition with dual antiplatelet therapy with anticoagulation for at least 3 months in the setting of LV thrombus. The patient was able to verbalize back the plan for all active issues. He also has a soft collar in place after sustaining a cervical spine fracture several weeks ago. He is doing well despite multiple active issues. Review of Systems Review of Systems: All systems reviewed negative except as indicated above. Physical Exam Physical Exam: CONSTITUTIONAL: WNWD, vitals as above, generally well-appearing, NAD EYES: normal conjunctivae, no scleral icterus ENT: external ear and nose normal, MMM NECK: trachea midline RESPIRATORY: clear to auscultation bilaterally, no crackles, rales or wheezes, normal respiratory effort CARDIOVASCULAR: regular rate and rhythm, S1 and 2 heard without murmurs, gallops or rubs, no JVD, no peripheral edema CHEST: inspection of chest was normal GASTROINTESTINAL: soft, nontender, ND, no guarding MUSCULOSKELETAL: strength 5/5 throughout, head is normocephalic and atraumatic, right wrist arterial puncture is wrapped and right hand is warm and well perfused. No complications of the right wrist site. SKIN: warm and dry NEUROLOGIC: CN 2-12 grossly intact, no sensory deficit, normal cognition, normal speech, no tremor PSYCHIATRIC: alert cooperative and oriented to person, place and time. Results & Data Results & Data Vital Signs (Past 12 Hours) Vital Signs Temp Pulse Pulse Resp BP BP Pulse Ox 10/25/22 20:32 36.8 C 81 18 119/75 94 10/25/22 17:37 37.1 C 10/25/22 16:37 37 C 10/25/22 15:37 37 C 70 14 138/71 10/25/22 15:00 10/25/22 14:37 37 C 10/25/22 13:37 36.8 C 68 14 10/25/22 13:07 37.1 C 70 16 127/71 95 10/25/22 12:37 37 C 72 140/77 10/25/22 12:22 37 C 10/25/22 12:05 36.9 C 72 10/25/22 11:52 36.9 C 73 16 10/25/22 11:49 36.6 C 74 20 121/81 94 10/25/22 11:25 36.9 C 73 16 128/77 97 10/25/22 11:04 86 20 108/77 96 10/25/22 10:50 82 20 114/75 92 Pulse Ox O2 Del Method O2 Del Method 10/25/22 20:32 Room Air 10/25/22 17:37 10/25/22 16:37 10/25/22 15:37 10/25/22 15:00 95 Room Air 10/25/22 14:37 10/25/22 13:37 10/25/22 13:07 Room Air 10/25/22 12:37 10/25/22 12:22 10/25/22 12:05 10/25/22 11:52 10/25/22 11:49 Room Air 10/25/22 11:25 Room Air 10/25/22 11:04 Room Air 10/25/22 10:50 Room Air Laboratory Results Short CBC 10/25/22 Range/Units 06:30 WBC 12.46 H (4.8-10.8) K/ul Hgb 13.6 L (14.0-18.0) g/dl Hct 39.2 L (42.0-52.0) % Plt Count 235 (130-400) K/uL [facility] 10/25/22 06:30 Sodium 137 Potassium 3.8 Chloride 101 Carbon Dioxide 30 BUN 26 H Creatinine 1.03 Glucose 112 H Calcium 8.3 L Medications Administered Current Inpatient Medications Acetaminophen (Acetaminophen 325 Mg Tab) 650 mg PO Q4H PRN PRN Reason: Pain or Fever Stop: 11/20/22 15:51 Last Admin: 10/22/22 00:05 Dose: 650 mg Aspirin (Aspirin 81 Mg Chew) 81 mg PO DAILY [facility] Stop: 11/22/22 08:59 Last Admin: 10/25/22 07:39 Dose: 81 mg Atorvastatin Calcium ([facility]vastatin 40 Mg Tab) [facility] Stop: 11/23/22 12:44 Last Admin: 10/25/22 07:40 Dose: 80 mg Clopidogrel Bisulfate (Clopidogrel Bisulfate 75 Mg Tab) 75 [facility] Stop: 11/25/22 08:59 Heparin Sodium/Dextrose (Heparin Sodium/Dextrose) 25,000 units in 500 mls @ 34 mls/hr IV .[id number] [facility]; Protocol Stop: 11/21/22 12:59 Last Admin: 10/25/22 20:49 Dose: 1,700 units/hr, 34 mls/hr Ceftriaxone Sodium 2,000 mg/ (Dextrose) 70 mls @ 140 mls/hr IV Q24H [facility]; Protocol Stop: 11/06/22 15:59 Last Infusion: 10/25/22 17:54 Dose: Infused Losartan Potassium (Losartan Potassium 25 Mg Tab) 25 mg PO QAM [facility] Stop: 11/24/22 09:44 Last Admin: 10/25/22 12:14 Dose: 25 mg Metoprolol Tartrate (Metoprolol Tartrate 25 Mg Tab) 25 mg PO BID [facility] Stop: 11/23/22 20:59 Last Admin: 10/25/22 07:40 Dose: 25 mg Ondansetron HCl (Ondansetron Inj 2 Mg/Ml 2 Ml Vial) 4 mg IV Q6H PRN PRN Reason: Nausea And Vomiting Stop: 11/20/22 15:51 Pantoprazole Sodium (Pantoprazole 40 Mg Tab) 40 mg PO BID [facility] Stop: 11/20/22 20:59 Last Admin: 10/25/22 07:40 Dose: 40 mg Phenazopyridine HCl (Phenazopyridine Hcl 100 Mg Tab) 100 mg PO TID PRN PRN Reason: Dysuria Stop: 11/22/22 15:04 Polyethylene Glycol (Polyethylene (Miralax) 17 Gm Pack) 17 gm PO DAILY PRN PRN Reason: Constipation Stop: 11/23/22 11:57 Potassium Chloride (Potassium Chloride Crtab 20 Meq Tabcr) 20 meq PO BID [facility] Stop: 11/23/22 09:29 Last Admin: 10/25/22 07:40 Dose: 20 meq
[2022-10-25 22:37] LABS: Partial Thromboplastin Ratio 1.5; Partial Thromboplastin Time 41.4 Seconds (21.0-31.0)
[2022-10-25] MEDS: APIXABAN 5 MG TABLET PO SCH (23:04)
[2022-10-26 06:58] LABS: Hematocrit (blood only) 39.6 % (42.0-52.0); Hemoglobin 13.6 g/dl (14.0-18.0); Mean Corpuscular Hgb Conc 34.3 g/dL (32.0-36.0); Mean Corpuscular Volume 90.2 fL (80.0-100.0); Mean Platelet Volume 10.2 fL (9.4-12.4); Platelet Count 268 K/uL (130-400); RDW Coefficient of Variation 13.2 % (11.5-14.5); RDW Standard Deviation 43.8 fL (36.4-46.3); Red Blood Count 4.39 M/uL (4.70-6.10); White Blood Count 13.87 K/ul (4.8-10.8)
[2022-10-26 07:26] LABS: BUN Creatinine Ratio 29.8 (10-20); Calcium 8.3 mg/dl (8.5-10.1); Creatinine Clr Calc Pharmacy 81.4 ml/min; Est GFR (African American) 104.3 ml/min; Potassium 4.3 mmol/L (3.5-5.1)
[2022-10-26] MEDS ORDERED: SPIRONOLACTONE 12.5 MG TAB PO SCH (09:00)
[2022-10-26] MEDS ORDERED: CLOPIDOGREL BISULFATE 75 MG TAB PO SCH (09:00)
[2022-10-26] MEDS: APIXABAN 5 MG TABLET PO SCH (09:12)
[2022-10-26] MEDS: ATORVASTATIN 40 MG TAB PO SCH (09:12)
[2022-10-26] MEDS: ASPIRIN 81 MG CHEW PO SCH (09:12)
[2022-10-26] MEDS: PANTOprazole 40 MG TAB PO SCH (09:12)
[2022-10-26] MEDS: METOPROLOL TARTRATE 25 MG TAB PO SCH (09:13)
[2022-10-26] MEDS: LOSARTAN POTASSIUM 25 MG TAB PO SCH (09:13)
[2022-10-26] MEDS: POTASSIUM CHLORIDE CRTAB 20 MEQ TABCR PO SCH (09:13)
[2022-10-26] MEDS ORDERED: FUROSEMIDE 20 MG TAB PO SCH (09:30)
--- NOTE | 2022-10-26 10:11 | Cardiology Progress Note ---
Date of Service October 26, 2022 Assessment & Plan (1) Acute heart failure with reduced ejection fraction and diastolic dys function: (2) Non-ST elevation (NSTEMI) myocardial infarction: (3) Left ventricular thrombus: (4) Severe sepsis: (5) Hydronephrosis with renal calculous obstruction: (6) UTI (urinary tract infection): Plan Natural history and pathophysiology of ischemic heart disease, left ventricular apical thrombus, and ischemic cardiomyopathy, and chronic heart failure discussed. Discontinue IV heparin. Transition to Eliquis. Aspirin may be discontinued at this time. Continue oral anticoagulant and single antiplatelet therapy with clopidogrel. Add low-dose spironolactone and oral furosemide 20 mg daily. Discontinue potassium supplementation. Transition metoprolol to tartrate to succinate formulation. Continue losartan 25 mg daily. Patient will ambulate with assistance today. Potential discharge later today or in 24 hours pending reassessment. Close outpatient cardiology follow-up in 1 week. Repeat echocardiogram in 8 to 12 weeks after evidence-based heart failure therapy optimized. Admission and Anticipated Discharge Date Admission Date: October 21, 2022 Subjective Patient seen and examined at the bedside. Reports fatigue today. Denies orthopnea or PND, however, sleeping with the bed at approximately 20 degrees. Does not lie completely flat. Tolerated cardiac catheterization yesterday. PCI implanted to the proximal LAD without complication. Ostial obtuse marginal branch vessel disease, and left main disease managed medically. Denies palpitations, lightheadedness, or dizziness. Blood pressure remains borderline hypotensive. Offers no other concerns/complaints. Review of Systems Review of Systems: All systems reviewed & are unremarkable except as noted in Subjective Physical Exam Constitutional: + ill appearing; no acute distress ENMT: Mallampati Class: II Respiratory: no respiratory distress, no labored breathing and no retractions Auscultation: no crackles, no rales, no rhonchi and no wheezes Cardiovascular: Rate/Rhythm: regular rate and regular rhythm Heart Sounds: normal S1 and normal S2; no murmur Vessels: femoral pulses present and radial pulses present; no JVD and no carotid bruit Extremities: no edema Gastrointestinal (Abdomen): Inspection/Auscultation: abdomen normal to inspection and normal bowel sounds; abdomen not distended Percussion/Palpation: abdomen soft; abdomen nontender, no guarding and abdomen not rigid Neurologic: CN's II-XI intact bilaterally and moves all extremities; no focal motor deficits Psychiatric: A+Ox3, euthymic affect Results & Data Vital Signs (Past 12 Hours) Vital Signs Temp Pulse Pulse Resp BP BP Pulse Ox 10/26/22 09:14 87 111/74 10/26/22 07:56 78 10/26/22 07:06 37.2 C 67 18 107/69 92 10/26/22 04:31 37.2 C 76 18 108/74 92 10/25/22 22:09 90 10/25/22 23:00 36.9 C 80 18 112/74 96 O2 Del Method 10/26/22 09:14 10/26/22 07:56 10/26/22 07:06 Room Air 10/26/22 04:31 Room Air 10/25/22 22:09 10/25/22 23:00 Room Air
--- NOTE | 2022-10-26 12:28 | Discharge Summary ---
Discharge Summary Date of Service October 26, 2022 Principal Dx & Hospital Course #1 = Principal Diagnosis (1) Non-ST elevation (NSTEMI) myocardial infarction: (2) Acute heart failure with reduced ejection fraction and diastolic dysfunction: (3) Left ventricular thrombus: (4) Elevated LFTs: (5) UTI (urinary tract infection): (6) Hydronephrosis with renal calculous obstruction: (7) Severe sepsis: (8) LOREN (acute kidney injury): Plan Severe sepsis Complicated urinary tract infection with E. coli bacteremia Hydronephrosis with renal calculus obstruction s/p right ureteral stent --S/P cystoscopy, left ureteral stent insertion, retrograde pyelogram by on 10/21/2022 --Received aggressive IV fluids --Continue cefepime>> transition to Rocephin Leukocytosis trending down Clinically improved Acute systolic heart failure NSTEMI-POA Hypoxia--secondary to above --Elevated troponin --ECHO: Moderate size apical thrombus. Left ventricle systolic function is moderately reduced. EF 35 to 40%. Diffuse moderate hypokinesis with severe hypokinesis to akinesis of the apex. Mild mitral regurgitation. Closely monitor volume status in setting of severe sepsis, CHF Appreciate cardiology input Monitor I's and O's, daily weight Continue aspirin, Metoprolol Resumed Lipitor Continue IV heparin with transition to apixaban at discharge. IV Lasix per Cardiology-held at this time and no standing diuretic being given He appears euvlemic and want to avoid diuretics wt recent IV contrast administration. Cont metoprolol. ASA and statin therapy. Losartan 25mg PO daily started. Apical Thrombus-POA Continue IV heparin with transition to apixaban in am. LOREN (acute kidney injury): Secondary to obstructive uropathy-resolved with IVF Pulmonary nodule Incidental finding on CT No known history of smoking --CT chest:There is minimal atelectasis in the right lower lung. No consolidation is in. There is an 8 mm nodule in the right lower lobe superior segment containing intralesional fat compatible with hamartoma. -- Advised to follow-up with pulmonology/PCP as outpatient Transaminitis Likely secondary to sepsis-improved/resolved Recent C7 Fracture 2/2 trauma from tree branch hitting back of nex 1- Managed conservatively with a collar No neurologic deficits present Follow-up [facility] orthopedics in a couple of weeks as planned. H/O Prediabetes HbA1C: 5.9 GERD (gastroesophageal reflux disease): Continue PPI Follows with GI as outpatient DVT Px: IV Heparin Code Status Full code Dispo-to home in am. DO Adelso Zeng Hospitalist Discharge Exam CONSTITUTIONAL: WNWD, vitals as above, generally well-appearing, NAD EYES: normal conjunctivae, no scleral icterus ENT: external ear and nose normal, MMM NECK: trachea midline RESPIRATORY: clear to auscultation bilaterally, no crackles, rales or wheezes, normal respiratory effort CARDIOVASCULAR: regular rate and rhythm, S1 and 2 heard without murmurs, gallops or rubs, no JVD, no peripheral edema CHEST: inspection of chest was normal GASTROINTESTINAL: soft, nontender, ND, no guarding MUSCULOSKELETAL: strength 5/5 throughout, head is normocephalic and atraumatic, right wrist arterial puncture is wrapped and right hand is warm and well perfused. No complications of the right wrist site. SKIN: warm and dry NEUROLOGIC: CN 2-12 grossly intact, no sensory deficit, normal cognition, normal speech, no tremor PSYCHIATRIC: alert cooperative and oriented to person, place and time. Updated Medication List Medication Instructions Recorded Confirmed Type ascorbic acid (vitamin C) 500 mg 500 mg PO QAM 06/21/18 10/21/22 History tablet (Vitamin C) aspirin 81 mg tablet,delayed 81 mg PO HS 06/21/18 10/21/22 History release cholecalciferol (vitamin D3) 10 5,000 unit PO QAM 06/21/18 10/21/22 History mcg (400 unit) tablet (Vitamin D3) multivitamin 1 tab PO QAM 06/21/18 10/21/22 History omega 8-nie-vdx-fish oil 1,000 mg 1 cap PO DAILY ##0 06/24/18 10/21/22 History (120 mg-180 mg) capsule (Fish Oil) atorvastatin 40 mg tablet 40 mg PO QAM 03/18/20 10/21/22 History fluorouracil 5 % topical cream 1 applic topical BID 03/12/22 10/21/22 History imiquimod 5 % topical cream packet 1 applic topical DAILY 03/12/22 10/21/22 History niacinamide 100 mg tablet 100 mg PO BID 10/21/22 10/21/22 History omeprazole 20 mg capsule,delayed 20 mg PO BID 10/21/22 10/21/22 History release vitamins A,C,Q-vboi-hkbmln 2,148 1 tab PO DAILY 10/21/22 10/21/22 History mcg-113 mg-45 mg-17.4 mg tablet (PreserVision AREDS) apixaban 5 mg tablet (Eliquis) 10 mg PO BID #74 tabs 10/26/22 Rx atorvastatin 80 mg tablet (Lipitor) 80 mg PO DAILY #30 tabs 10/26/22 Rx cefdinir 300 mg capsule 300 mg PO BID 10 days #20 caps 10/26/22 Rx clopidogrel 75 mg tablet 75 mg PO QAM #30 tabs 10/26/22 Rx furosemide 20 mg tablet 20 mg PO QAM #30 tabs 10/26/22 Rx losartan 25 mg tablet 25 mg PO QAM #30 tabs 10/26/22 Rx metoprolol succinate 25 mg 25 mg PO BID #60 tabs 10/26/22 Rx tablet,extended release 24 hr phenazopyridine 100 mg tablet 100 mg PO TID PRN bladder pain #30 10/26/22 Rx (Pyridium) tabs spironolactone 25 mg tablet 12.5 mg PO DAILY #30 tabs 10/26/22 Rx Hospital Stay Data Consultations 10/21/22 12:36 Consult Urology Stat 10/21/22 12:46 ED Decision to Admit Stat 10/22/22 12:44 Consult Cardiology Routine 10/25/22 07:00 Consult Cardiac Catheterization Routine Procedures Performed Operation Date: 10/25/22 08:00 Actual Procedures s Cineradiography w/Routine Exam - Mo Milton DO p Cath, Coronaries ONLY (no LV) - Mo Milton, DO s IVUS Coronary Single Vessel - Jovani Aguirre MD s Drug Eluting Stent SGl Vessel - Jovani Aguirre MD Diagnostic Imagining Performed 10/21/22 FL KUB Routine 10/21/22 11:07 CT abd pelvis wo con Stat 10/21/22 11:43 CT chest diagnostic wo con Stat 10/25/22 06:31 CL Cath Imgs for PACS use only Routine Pending Results Patient Have Any Pending Studies at Discharge: Yes Discharge Instructions Given to Patient (Per Discharging Provider) UPCOMING APPOINTMENTS: 10/31/22 @ 1300 LUCHO Moreno [facility] Urology (discuss indwelling stent and next steps) 10/27/22 @ 1300 Asuncion Buchanan PA-C Orthopedics Spine Surgery, [facility] [place] (follow-up for spine fracure) 10/31 @ 1100 Jae Denton MD [facility] office (follow-up of your hospitalization; obtain refills for new meds; check labs) Please follow all patient instructions per discharge list below. Please stop aspirin and continue Plavix and apixaban for at least 3 months. You will continue with these meds as directed per cardiology after this time. Please note your atorvastatin dose has been doubled. You are being given an additional 10 days of antibiotics to take to complete the course of your blood infection. You have new medications that will require follow-up lab work to check your kidney function and electrolytes in the next couple of weeks. This can be ordered by your primary care doctor on follow-up in the next week. Please follow-up with [facility] cardiology in 1 week's time. You will need an echocardiogram to follow-up on your heart function as a response to the new medications in 8 to 12 weeks. Please ensure appropriate follow-up with urology regarding your stone and with orthopedic spine regarding your cervical fracture. Appointments are listed above. Activity restrictions are spelled out below postprocedure after heart catheterization. Please be advised that your heart pump function is decreased. As a result you need to monitor your weight daily and follow the "CHF instructions" as listed below. Please ensure to keep your salt (sodium) intake to a minimum, ideally around 2000 mg or less daily. It was a pleasure taking care of you! Please call if you have any questions or problems. You can reach a [facility] hospitalist on duty at [facility] 24 hours a day by calling [phone]. Take care of yourself. Moriah Rico, [facility]
[2022-10-26] MEDS ORDERED: METOPROLOL SUCC 25MG EXT REL TAB PO SCH (21:00)
--- NOTE | 2022-10-27 23:30 | Electrocardiogram Report ---
Test Reason : Blood Pressure : / mmHG Vent. Rate : 072 BPM Atrial Rate : 072 BPM P-R Int : 148 ms QRS Dur : 098 ms QT Int : 416 ms P-R-T Axes : 067 007 039 degrees QTc Int : 455 ms Normal sinus rhythm Anterior infarct (cited on or before 21-OCT-2022) Abnormal ECG When compared with ECG of 21-OCT-2022 10:02, Vent. rate has decreased BY 35 BPM Questionable change in initial forces of Septal leads Confirmed by Miky Figueroa ([id number]) on 10/27/2022 11:29:37 PM Referred By: REFERRED SELF Confirmed By:Miky Figueroa
== END 2022-10-26 14:52 | disposition home or self-care (01) | DRG 853 ==
LOC: ED 09:35 → 2S 13:02 → SUATTDRO 13:02 → 2S 13:32
PROC: CLB.CCO (2022-10-25 08:00)
DX: I82.90 Acute embolism and thrombosis of unspecified vein; R74.01 Elevation of levels of liver transaminase levels; B96.20 Unspecified Escherichia coli [E. coli] as the cause of diseases classified elsewhere; R65.20 Severe sepsis without septic shock; A41.9 Sepsis, unspecified organism; I21.4 Non-ST elevation (NSTEMI) myocardial infarction; K72.00 Acute and subacute hepatic failure without coma; I50.41 Acute combined systolic (congestive) and diastolic (congestive) heart failure; I24.8 Other forms of acute ischemic heart disease; K21.9 Gastro-esophageal reflux disease without esophagitis; E87.20 Acidosis, unspecified; E87.6 Hypokalemia; J18.9 Pneumonia, unspecified organism; Z79.899 Other long term (current) drug therapy; N13.2 Hydronephrosis with renal and ureteral calculous obstruction; Z79.82 Long term (current) use of aspirin; N13.9 Obstructive and reflux uropathy, unspecified; E83.42 Hypomagnesemia; N39.0 Urinary tract infection, site not specified; N17.9 Acute kidney failure, unspecified

== ENCOUNTER 2022-11-04 14:06 | Observation (INO) ==
[2022-11-04] MEDS ORDERED: ASPIRIN CHEW 324 MG PO STA (14:35)
--- NOTE | 2022-11-04 14:40 | Emergency Department Note ---
Impression & Plan Chest pain, Abnormal EKG ED Provider Note NAME: KOBE KEYES AGE: 66 SEX: M : 1955 ARRIVES VIA: Walk-In INFORMANT: Patient, ED PROVIDER(S): Scott Smith DO CHIEF COMPLAINT: Chest pain HPI: The patient is a 66-year-old male who presented to the emergency department for an evaluation of chest pain. The patient noticed tingling in his left arm as well as chest pain over the course the last few days. The patient was recently at our facility for sepsis. This was complicated by an NSTEMI. The patient went to the [facility] and was found to have a coronary lesion which required a stent. He had a drug-eluting stent placed. The patient states he was sent home and was doing much better. He has been taking all his medications the way they have been prescribed. The patient states that he was supposed to have a follow-up appointment with cardiology this upcoming week. He denies having any shortness of breath or leg swelling. He states has been compliant with his outpatient medications. He states the chest discomfort is intermittent and mild but does appear to be worsened with exertion. ROS: See above HPI for pertinent positives & negatives. A total of 10 systems reviewed and were otherwise negative. PAST MEDICAL HISTORY: See Below PAST SURGICAL HISTORY: See Below FAMILY HISTORY: See Below SOCIAL HISTORY: See Below HOME MEDICATIONS: See Below ALLERGIES: See Below VITALS: See Below PHYSICAL EXAMINATION: GENERAL: Patient is awake alert in no acute distress patient is resting comfortably and showing no signs of anxiety EYES: The conjunctivae are clear. The pupils are round and reactive. EARS, NOSE, MOUTH AND THROAT: The nose is without any evidence of any deformity. NECK: Soft cervical collar was in place. The patient wears this on his own volition RESPIRATORY: Normal respiratory effort is noted there is no evidence of wheezing rhonchi or rales CARDIOVASCULAR: Regular rate and rhythm noted there no murmurs rubs or gallops normal S1 normal S2. GASTROINTESTINAL: The abdomen is soft. Abdomen is nontender. MUSCULOSKELETAL/EXTREMITIES: There is no evidence of gross deformity full range of motion is noted in the hips and shoulders. SKIN: There is no obvious evidence of any rash. There is no significant pedal edema. NEUROLOGIC: Patient is awake alert and oriented x3 MEDICAL DECISION MAKING: The patient is a 66-year-old male who presented to the emergency department for an evaluation of chest pain. The patient describes anterior chest pain with some tingling in his left arm. The patient was recently in our facility and had cardiac catheterization which resulted in a stent. The patient presented back to the emergency department today because of the symptoms. Initial troponin was elevated but only slightly so. CK was negative. The patient was treated with aspirin in the emergency department. I discussed the patient's laboratory and radiographic studies with him. I also discussed the limitations of the [facility] department work-up for chest pain with him. The patient was found to have nonspecific changes on his EKG compared to previous. Ultimately I discussed his condition with the on-call [facility] afloat cryptologic manager. Given his recent cardiac catheterization, they recommended inpatient management. I discussed the patient's condition with the on-call [facility] hospitalist. Triage Nursing notes reviewed. Prior medical records reviewed Vital Signs: reviewed and remarkable for no significant abnormalities Differential diagnosis: Cardiac ischemia, aortic dissection, pulmonary embolism, pneumothorax, pneumo varun, pericarditis, myocarditis, esophageal rupture, GERD, cholecystitis, pancreatitis, musculoskeletal, as well as other pathologies. ER treatment provided: See below Diagnostics interpreted by me: ECG: EKG was obtained in the emergency department. My interpretation is normal sinus rhythm at 80 bpm. There is no ectopy. Poor R wave progression with anterior Q waves were noted. High lateral T wave inversions were noted. This was compared to a tracing from October 25, 2022. The lateral changes are new compared to the previous tracing. Cardiac Monitoring: An order was placed for continuous cardiac monitoring. The monitor shows a rate of 72 bpm with sinus rhythm. Laboratory studies: As stated above and show below. Imaging studies: See below. Radiographic imaging was reviewed by myself Consultation(s): I discussed this case with Dr. Self who is on-call for the [place] [facility]. 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 S/P cystoscopy, left ureteral stent insertion, retrograde pyelogram by on 10/21/2022 UTI (urinary tract infection) being treated for at present Surgical History History of adenoidectomy History of arthroscopic knee surgery R X 2 History of cardiac cath 10/25/22 [facility] > with drug-eluting stent History of colonoscopy History of cystoscopy Cystoscopy, left ureteral stent insertion, retrograde pyelogram History of esophagogastroduodenoscopy (EGD) History of heart artery stent 10/25/22 [facility] > drug-eluting stent History of inguinal hernia repair History of tonsillectomy History of vasectomy Family History Father FHx: diabetes mellitus Mother FHx: heart disease Social History Smoking Status: Never smoker Second Hand Exposure: No; Hx Alcohol Use: No Hx Substance Use: No Preferred Language: Chadian Communication Ability: Effective Election Clerk Required: No Beliefs That Will Affect Care: None Current Living Situation: Spouse Feels Safe at Home: Yes Assistive Devices: Glasses Allergies Allergies Allergy/AdvReac Type Severity Reaction Status Date / Time No Known Allergies Allergy Verified 11/03/22 14:36 Home Meds Home Medications Medication Instructions Recorded Confirmed multivitamin 1 tab PO QAM 06/21/18 11/03/22 omega 5-jhn-str-fish oil 1,000 mg 1 cap PO QAM ##0 06/24/18 11/03/22 (120 mg-180 mg) capsule (Fish Oil) fluorouracil 5 % topical cream 1 applic topical BID 03/12/22 11/03/22 imiquimod 5 % topical cream packet 1 applic topical DAILY 03/12/22 11/03/22 niacinamide 100 mg tablet 100 mg PO BID 10/21/22 11/03/22 omeprazole 20 mg capsule,delayed 20 mg PO BID 10/21/22 11/03/22 release vitamins A,C,V-cpaj-sbmlkl 2,148 1 tab PO QAM 10/21/22 11/03/22 mcg-113 mg-45 mg-17.4 mg tablet (PreserVision AREDS) apixaban 5 mg tablet (Eliquis) 5 mg PO BID 11/03/22 11/03/22 atorvastatin 80 mg tablet (Lipitor) 80 mg PO QAM 11/03/22 11/03/22 spironolactone 25 mg tablet 25 mg PO QAM 11/03/22 11/03/22 Previous Rx's Medication Instructions Recorded cefdinir 300 mg capsule 300 mg PO BID 10 days #20 caps 10/26/22 clopidogrel 75 mg tablet 75 mg PO QAM #30 tabs 10/26/22 furosemide 20 mg tablet 20 mg PO QAM #30 tabs 10/26/22 losartan 25 mg tablet 25 mg PO QAM #30 tabs 10/26/22 metoprolol succinate 25 mg 25 mg PO BID #60 tabs 10/26/22 tablet,extended release 24 hr phenazopyridine 100 mg tablet 100 mg PO TID PRN bladder pain #30 10/26/22 (Pyridium) tabs Results & Data (ED) Vital Signs Vital Signs - 24 hr 11/04/22 14:23 11/04/22 14:47 11/04/22 15:58 Temperature 36.7 C Temperature Source Temporal Artery Scan Pulse Rate 84 81 Pulse Rate [Right Finger] 76 Pulse Rate from SpO2 Sensor Pulse Rhythm [Right Finger] Regular Pulse Strength [Right Finger] Normal Respiratory Rate 18 14 Respiratory Effort / Characteristics Non-Labored Spontaneous Non-Labored Spontaneous Respiratory Depth Normal Normal Respiratory Pattern Regular Regular Blood Pressure 102/71 Blood Pressure [Left Arm] 102/71 Blood Pressure Mean 81 Blood Pressure Mean [Left Arm] 81 Blood Pressure Position Sitting Blood Pressure Position [Left Arm] Lying Pulse Oximetry 97 96 Oxygen Delivery Method Room Air Room Air Sepsis Recent Fever Within 48 Hours No Sepsis New/Unexplained Change in Mental Status No Sepsis Action Taken by Nursing No Action Required 11/04/22 14:47 11/04/22 14:48 11/04/22 14:48 Temperature Temperature Source Pulse Rate 83 78 Pulse Rate [Right Finger] Pulse Rate from SpO2 Sensor 77 Pulse Rhythm [Right Finger] Pulse Strength [Right Finger] Respiratory Rate 17 23 Respiratory Effort / Characteristics Respiratory Depth Respiratory Pattern Blood Pressure 101/67 Blood Pressure [Left Arm] Blood Pressure Mean 78 Blood Pressure Mean [Left Arm] Blood Pressure Position Blood Pressure Position [Left Arm] Pulse Oximetry 98 Oxygen Delivery Method Sepsis Recent Fever Within 48 Hours Sepsis New/Unexplained Change in Mental Status Sepsis Action Taken by Nursing 11/04/22 14:50 11/04/22 15:00 11/04/22 15:00 Temperature Temperature Source Pulse Rate 80 76 Pulse Rate [Right Finger] Pulse Rate from SpO2 Sensor 81 77 Pulse Rhythm [Right Finger] Pulse Strength [Right Finger] Respiratory Rate 17 16 Respiratory Effort / Characteristics Respiratory Depth Respiratory Pattern Blood Pressure 94/67 L Blood Pressure [Left Arm] Blood Pressure Mean 76 Blood Pressure Mean [Left Arm] Blood Pressure Position Blood Pressure Position [Left Arm] Pulse Oximetry 98 95 Oxygen Delivery Method Sepsis Recent Fever Within 48 Hours Sepsis New/Unexplained Change in Mental Status Sepsis Action Taken by Nursing 11/04/22 15:10 11/04/22 15:20 11/04/22 15:30 Temperature Temperature Source Pulse Rate 79 79 Pulse Rate [Right Finger] Pulse Rate from SpO2 Sensor 79 79 Pulse Rhythm [Right Finger] Pulse Strength [Right Finger] Respiratory Rate 21 19 Respiratory Effort / Characteristics Respiratory Depth Respiratory Pattern Blood Pressure 96/65 L Blood Pressure [Left Arm] Blood Pressure Mean 75 Blood Pressure Mean [Left Arm] Blood Pressure Position Blood Pressure Position [Left Arm] Pulse Oximetry 94 95 Oxygen Delivery Method Sepsis Recent Fever Within 48 Hours Sepsis New/Unexplained Change in Mental Status Sepsis Action Taken by Nursing 11/04/22 15:30 11/04/22 15:40 11/04/22 15:50 Temperature Temperature Source Pulse Rate 78 76 76 Pulse Rate [Right Finger] Pulse Rate from SpO2 Sensor 78 76 76 Pulse Rhythm [Right Finger] Pulse Strength [Right Finger] Respiratory Rate 15 20 19 Respiratory Effort / Characteristics Respiratory Depth Respiratory Pattern Blood Pressure Blood Pressure [Left Arm] Blood Pressure Mean Blood Pressure Mean [Left Arm] Blood Pressure Position Blood Pressure Position [Left Arm] Pulse Oximetry 93 94 94 Oxygen Delivery Method Sepsis Recent Fever Within 48 Hours Sepsis New/Unexplained Change in Mental Status Sepsis Action Taken by Nursing 11/04/22 15:58 11/04/22 15:58 11/04/22 16:00 Temperature Temperature Source Pulse Rate 97 H Pulse Rate [Right Finger] Pulse Rate from SpO2 Sensor 76 Pulse Rhythm [Right Finger] Pulse Strength [Right Finger] Respiratory Rate 13 Respiratory Effort / Characteristics Respiratory Depth Respiratory Pattern Blood Pressure 102/71 112/72 Blood Pressure [Left Arm] Blood Pressure Mean 81 85 Blood Pressure Mean [Left Arm] Blood Pressure Position Blood Pressure Position [Left Arm] Pulse Oximetry 96 Oxygen Delivery Method Sepsis Recent Fever Within 48 Hours Sepsis New/Unexplained Change in Mental Status Sepsis Action Taken by Nursing 11/04/22 16:00 11/04/22 16:10 11/04/22 18:43 Temperature Temperature Source Pulse Rate 76 76 75 Pulse Rate [Right Finger] Pulse Rate from SpO2 Sensor 75 76 Pulse Rhythm [Right Finger] Pulse Strength [Right Finger] Respiratory Rate 18 20 Respiratory Effort / Characteristics Respiratory Depth Respiratory Pattern Blood Pressure Blood Pressure [Left Arm] Blood Pressure Mean Blood Pressure Mean [Left Arm] Blood Pressure Position Blood Pressure Position [Left Arm] Pulse Oximetry 97 98 Oxygen Delivery Method Sepsis Recent Fever Within 48 Hours Sepsis New/Unexplained Change in Mental Status Sepsis Action Taken by Nursing 11/04/22 16:20 11/04/22 16:30 11/04/22 16:30 Temperature Temperature Source Pulse Rate 75 72 Pulse Rate [Right Finger] Pulse Rate from SpO2 Sensor 76 73 Pulse Rhythm [Right Finger] Pulse Strength [Right Finger] Respiratory Rate 19 16 Respiratory Effort / Characteristics Respiratory Depth Respiratory Pattern Blood Pressure 95/63 L Blood Pressure [Left Arm] Blood Pressure Mean 73 Blood Pressure Mean [Left Arm] Blood Pressure Position Blood Pressure Position [Left Arm] Pulse Oximetry 95 96 Oxygen Delivery Method Sepsis Recent Fever Within 48 Hours Sepsis New/Unexplained Change in Mental Status Sepsis Action Taken by Nursing 11/04/22 16:40 11/04/22 16:50 11/04/22 17:00 Temperature Temperature Source Pulse Rate 76 75 Pulse Rate [Right Finger] Pulse Rate from SpO2 Sensor 76 74 Pulse Rhythm [Right Finger] Pulse Strength [Right Finger] Respiratory Rate 15 18 Respiratory Effort / Characteristics Respiratory Depth Respiratory Pattern Blood Pressure 95/63 L Blood Pressure [Left Arm] Blood Pressure Mean 73 Blood Pressure Mean [Left Arm] Blood Pressure Position Blood Pressure Position [Left Arm] Pulse Oximetry 95 95 Oxygen Delivery Method Sepsis Recent Fever Within 48 Hours Sepsis New/Unexplained Change in Mental Status Sepsis Action Taken by Nursing 11/04/22 17:00 11/04/22 17:10 11/04/22 17:20 Temperature Temperature Source Pulse Rate 71 74 69 Pulse Rate [Right Finger] Pulse Rate from SpO2 Sensor 72 74 70 Pulse Rhythm [Right Finger] Pulse Strength [Right Finger] Respiratory Rate 17 15 14 Respiratory Effort / Characteristics Respiratory Depth Respiratory Pattern Blood Pressure Blood Pressure [Left Arm] Blood Pressure Mean Blood Pressure Mean [Left Arm] Blood Pressure Position Blood Pressure Position [Left Arm] Pulse Oximetry 95 96 96 Oxygen Delivery Method Sepsis Recent Fever Within 48 Hours Sepsis New/Unexplained Change in Mental Status Sepsis Action Taken by Nursing 11/04/22 17:30 11/04/22 17:30 11/04/22 17:40 Temperature Temperature Source Pulse Rate 73 71 Pulse Rate [Right Finger] Pulse Rate from SpO2 Sensor 74 72 Pulse Rhythm [Right Finger] Pulse Strength [Right Finger] Respiratory Rate 19 16 Respiratory Effort / Characteristics Respiratory Depth Respiratory Pattern Blood Pressure 101/65 Blood Pressure [Left Arm] Blood Pressure Mean 77 Blood Pressure Mean [Left Arm] Blood Pressure Position Blood Pressure Position [Left Arm] Pulse Oximetry 95 99 Oxygen Delivery Method Sepsis Recent Fever Within 48 Hours Sepsis New/Unexplained Change in Mental Status Sepsis Action Taken by Nursing 11/04/22 17:50 11/04/22 18:00 11/04/22 18:00 Temperature Temperature Source Pulse Rate 73 73 Pulse Rate [Right Finger] Pulse Rate from SpO2 Sensor 73 73 Pulse Rhythm [Right Finger] Pulse Strength [Right Finger] Respiratory Rate 18 17 Respiratory Effort / Characteristics Respiratory Depth Respiratory Pattern Blood Pressure 104/69 Blood Pressure [Left Arm] Blood Pressure Mean 80 Blood Pressure Mean [Left Arm] Blood Pressure Position Blood Pressure Position [Left Arm] Pulse Oximetry 99 97 Oxygen Delivery Method Sepsis Recent Fever Within 48 Hours Sepsis New/Unexplained Change in Mental Status Sepsis Action Taken by Nursing 11/04/22 18:10 11/04/22 18:20 11/04/22 18:30 Temperature Temperature Source Pulse Rate 74 74 Pulse Rate [Right Finger] Pulse Rate from SpO2 Sensor 73 73 Pulse Rhythm [Right Finger] Pulse Strength [Right Finger] Respiratory Rate 16 21 Respiratory Effort / Characteristics Respiratory Depth Respiratory Pattern Blood Pressure 97/69 L Blood Pressure [Left Arm] Blood Pressure Mean 78 Blood Pressure Mean [Left Arm] Blood Pressure Position Blood Pressure Position [Left Arm] Pulse Oximetry 97 100 Oxygen Delivery Method Sepsis Recent Fever Within 48 Hours Sepsis New/Unexplained Change in Mental Status Sepsis Action Taken by Nursing 11/04/22 18:30 11/04/22 18:40 11/04/22 18:50 Temperature Temperature Source Pulse Rate 73 73 72 Pulse Rate [Right Finger] Pulse Rate from SpO2 Sensor 73 75 73 Pulse Rhythm [Right Finger] Pulse Strength [Right Finger] Respiratory Rate 19 19 17 Respiratory Effort / Characteristics Respiratory Depth Respiratory Pattern Blood Pressure Blood Pressure [Left Arm] Blood Pressure Mean Blood Pressure Mean [Left Arm] Blood Pressure Position Blood Pressure Position [Left Arm] Pulse Oximetry 96 97 97 Oxygen Delivery Method Sepsis Recent Fever Within 48 Hours Sepsis New/Unexplained Change in Mental Status Sepsis Action Taken by Nursing 11/04/22 19:00 11/04/22 19:00 11/04/22 19:10 Temperature Temperature Source Pulse Rate 74 72 Pulse Rate [Right Finger] Pulse Rate from SpO2 Sensor 72 73 Pulse Rhythm [Right Finger] Pulse Strength [Right Finger] Respiratory Rate 16 18 Respiratory Effort / Characteristics Respiratory Depth Respiratory Pattern Blood Pressure 107/68 Blood Pressure [Left Arm] Blood Pressure Mean 81 Blood Pressure Mean [Left Arm] Blood Pressure Position Blood Pressure Position [Left Arm] Pulse Oximetry 97 98 Oxygen Delivery Method Sepsis Recent Fever Within 48 Hours Sepsis New/Unexplained Change in Mental Status Sepsis Action Taken by Nursing 11/04/22 19:20 11/04/22 19:30 11/04/22 19:30 Temperature Temperature Source Pulse Rate 71 74 Pulse Rate [Right Finger] Pulse Rate from SpO2 Sensor 72 74 Pulse Rhythm [Right Finger] Pulse Strength [Right Finger] Respiratory Rate 17 17 Respiratory Effort / Characteristics Respiratory Depth Respiratory Pattern Blood Pressure 103/68 Blood Pressure [Left Arm] Blood Pressure Mean 79 Blood Pressure Mean [Left Arm] Blood Pressure Position Blood Pressure Position [Left Arm] Pulse Oximetry 97 96 Oxygen Delivery Method Sepsis Recent Fever Within 48 Hours Sepsis New/Unexplained Change in Mental Status Sepsis Action Taken by Nursing 11/04/22 19:40 Temperature Temperature Source Pulse Rate 72 Pulse Rate [Right Finger] Pulse Rate from SpO2 Sensor 72 Pulse Rhythm [Right Finger] Pulse Strength [Right Finger] Respiratory Rate 19 Respiratory Effort / Characteristics Respiratory Depth Respiratory Pattern Blood Pressure Blood Pressure [Left Arm] Blood Pressure Mean Blood Pressure Mean [Left Arm] Blood Pressure Position Blood Pressure Position [Left Arm] Pulse Oximetry 96 Oxygen Delivery Method Sepsis Recent Fever Within 48 Hours Sepsis New/Unexplained Change in Mental Status Sepsis Action Taken by [facility] Medications Current Medication List: was personally reviewed by me Laboratory Data Attestation: I reviewed the patient's lab results. 11/04/22 14:39 11/04/22 14:39 Lab Results 11/04/22 11/04/22 11/04/22 Range/Units 14:39 14:39 14:39 WBC 8.11 (4.8-10.8) K/ul RBC 4.72 (4.70-6.10) M/uL Hgb 14.7 (14.0-18.0) g/dl Hct 43.7 (42.0-52.0) % MCV 92.6 (80.0-100.0) fL MCH 31.1 (25.0-34.0) pg MCHC 33.6 (32.0-36.0) g/dL RDW Std Deviation 44.0 (36.4-46.3) fL RDW Coeff of Uriel 13.1 (11.5-14.5) % Plt Count 392 (130-400) K/uL MPV 9.0 L (9.4-12.4) fL Immature Gran % (Auto) 0.2 % Neut % (Auto) 68.5 % Lymph % (Auto) 22.6 % Routt % (Auto) 7.2 % Eos % (Auto) 0.6 % Baso % (Auto) 0.9 % Neut # (Auto) 5.56 (1.40-6.50) K/uL Lymph # (Auto) 1.83 (1.2-3.4) K/uL Routt # (Auto) 0.58 (0.11-0.59) K/uL Eos # (Auto) 0.05 (0-0.50) K/uL Baso # (Auto) 0.07 (0-0.2) K/uL Immature Gran # (Auto) 0.02 (0.01-0.20) K/uL PT 11.8 (9.0-12.0) Seconds INR 1.1 (0.9-1.1) APTT 26.4 (21.0-31.0) Seconds PTT Ratio 1.0 Sodium 138 (136-145) mmol/L Potassium 4.1 (3.5-5.1) mmol/L Chloride 103 (98-107) mmol/L Carbon Dioxide 27 (21-32) mmol/L Anion Gap 8 (3-11) BUN 27 H (6-23) mg/dl Creatinine 1.02 (0.6-1.4) mg/dl Est Cr Clr Drug Dosing 67.1 ml/min Est GFR ( Amer) 87.1 ml/min Est GFR (Non-Af Amer) 75.2 ml/min BUN/Creatinine Ratio 26.5 H (10-20) Glucose 98 (70-99(Fasting)) mg/dl Calcium 9.4 (8.6-10.3) mg/dl Total Bilirubin 0.8 (0.2-1.0) mg/dl AST 25 (13-39) U/L ALT 54 H (7-52) U/L Alkaline Phosphatase 136 H (34-104) U/L Total Creatine Kinase 33 (30-223) U/L Troponin I High Sens 31.8 H (0-20) pg/ml Total Protein 7.7 (6.0-8.3) gm/dl Albumin 3.8 (3.4-5.0) gm/dl Globulin 3.9 (2.5-4.0) gm/dl Albumin/Globulin Ratio 1.0 (0.9-2) SARS-CoV-2, RNA, NAAT (NEGATIVE) 11/04/22 Range/Units Unknown WBC (4.8-10.8) K/ul RBC (4.70-6.10) M/uL Hgb (14.0-18.0) g/dl Hct (42.0-52.0) % MCV (80.0-100.0) fL MCH (25.0-34.0) pg MCHC (32.0-36.0) g/dL RDW Std Deviation (36.4-46.3) fL RDW Coeff of Uriel (11.5-14.5) % Plt Count (130-400) K/uL MPV (9.4-12.4) fL Immature Gran % (Auto) % Neut % (Auto) % Lymph % (Auto) % Routt % (Auto) % Eos % (Auto) % Baso % (Auto) % Neut # (Auto) (1.40-6.50) K/uL Lymph # (Auto) (1.2-3.4) K/uL Routt # (Auto) (0.11-0.59) K/uL Eos # (Auto) (0-0.50) K/uL Baso # (Auto) (0-0.2) K/uL Immature Gran # (Auto) (0.01-0.20) K/uL PT (9.0-12.0) Seconds INR (0.9-1.1) APTT (21.0-31.0) Seconds PTT Ratio Sodium (136-145) mmol/L Potassium (3.5-5.1) mmol/L Chloride (98-107) mmol/L Carbon Dioxide (21-32) mmol/L Anion Gap (3-11) BUN (6-23) mg/dl Creatinine (0.6-1.4) mg/dl Est Cr Clr Drug Dosing ml/min Est GFR ( Amer) ml/min Est GFR (Non-Af Amer) ml/min BUN/Creatinine Ratio (10-20) Glucose (70-99(Fasting)) mg/dl Calcium (8.6-10.3) mg/dl Total Bilirubin (0.2-1.0) mg/dl AST (13-39) U/L ALT (7-52) U/L Alkaline Phosphatase (34-104) U/L Total Creatine Kinase (30-223) U/L Troponin I High Sens (0-20) pg/ml Total Protein (6.0-8.3) gm/dl Albumin (3.4-5.0) gm/dl Globulin (2.5-4.0) gm/dl Albumin/Globulin Ratio (0.9-2) SARS-CoV-2, RNA, NAAT NEGATIVE (NEGATIVE) Administered Medications Discontinued Medications Aspirin (Aspirin Chew 324 Mg) 324 mg PO NOW STA Stop: 11/04/22 14:36 Last Admin: 11/04/22 16:01 Dose: 324 mg Documented By: WASTEWATER ANALYST Imaging Data Attestation: I personally reviewed and interpreted this imaging study as follows: My Impression: 1 view chest x-ray was obtained in the emergency department. My interpretation is no definite infiltrate, no free air, final report below Radiologist's Impression: Chest X-Ray 11/04/22 14:28 SINGLE VIEW CHEST CLINICAL HISTORY: Atypical chest pain FINDINGS: An AP, portable, upright chest radiograph is compared to study dated 10/22/2022 and correlated with chest CT dated 10/21/2022. The heart is enlarged noting atherosclerotic calcification of the thoracic aorta. The pulmonary vasculature is noncongested. Chronic interstitial thickening similar to previous. The lungs and pleural spaces are clear. No pneumothorax is seen. The skeletal structures are osteopenic. The bony thorax is grossly intact. A surgical clip projects over the stomach. IMPRESSION: Cardiomegaly with no acute cardiopulmonary abnormality. ACT 112: Negative or not required by law. Electronically signed by: Kenton Bailon M.D. 11/04/2022 3:45 PM Discharge Plan Visit Data Chief Complaint: Chest Pain Stated Complaint: TINGLY LEFT ARM, CHEST PAINS ED Provider: Scott Smiht Discharge Problem: Chest pain, Abnormal EKG Patient Disposition: Being Evaluated by Hospitalist Forms Stand Alone Forms: My [facility] Prescriptions Prescriptions: No Action multivitamin Tablet 1 tab PO QAM omega 7-mgp-elh-fish oil [Fish Oil] 1,000 mg (120 mg-180 mg) Capsule 1 cap PO QAM Qty: 0 fluorouracil 5 % cream 1 applic TOPICAL BID imiquimod 5 % cream in packet 1 applic TOPICAL DAILY omeprazole 20 mg capsule,delayed release(DR/EC) 20 mg PO BID niacinamide 100 mg Tablet 100 mg PO BID PreserVision AREDS 2,148 mcg-113 mg-45 mg-17.4mg Tablet 1 tab PO QAM clopidogrel 75 mg Tablet 75 mg PO QAM Qty: 30 0RF losartan 25 mg Tablet 25 mg PO QAM Qty: 30 0RF metoprolol succinate 25 mg Tablet Extended Release 24 Hr 25 mg PO BID Qty: 60 0RF furosemide 20 mg Tablet 20 mg PO QAM Qty: 30 0RF phenazopyridine [Pyridium] 100 mg Tablet 100 mg PO TID PRN (Reason: bladder pain) Qty: 30 0RF cefdinir 300 mg capsule 300 mg PO BID 10 Days Qty: 20 0RF atorvastatin [Lipitor] 80 mg tablet 80 mg PO QAM spironolactone 25 mg tablet 25 mg PO QAM Eliquis 5 mg tablet 5 mg PO BID Rx Instructions: Take 10mg (2 tabs) twice daily x 7 days, then cont with 5mg (1 tab) twice daily. Referrals Referrals: Kobe Denton MD [Primary Care Provider] -
[2022-11-04 15:08] LABS: Basophils # (auto) 0.07 K/uL (0-0.2); Basophils % (auto) 0.9 %; Eosinophils # (auto) 0.05 K/uL (0-0.50); Eosinophils % (auto) 0.6 %; Hematocrit (blood only) 43.7 % (42.0-52.0); Hemoglobin 14.7 g/dl (14.0-18.0); Immature Granulocytes # (auto) 0.02 K/uL (0.01-0.20); Immature Granulocytes % (auto) 0.2 %; Lymphocytes # (auto) 1.83 K/uL (1.2-3.4); Lymphocytes % (auto) 22.6 %; Mean Corpuscular Hemoglobin 31.1 pg (25.0-34.0); Mean Corpuscular Hgb Conc 33.6 g/dL (32.0-36.0); Mean Corpuscular Volume 92.6 fL (80.0-100.0); Monocytes # (auto) 0.58 K/uL (0.11-0.59); Monocytes % (auto) 7.2 %; Neutrophils # (auto) 5.56 K/uL (1.40-6.50); Neutrophils % (auto) 68.5 %; Platelet Count 392 K/uL (130-400); RDW Coefficient of Variation 13.1 % (11.5-14.5); Red Blood Count 4.72 M/uL (4.70-6.10); White Blood Count 8.11 K/ul (4.8-10.8)
[2022-11-04 15:18] LABS: Albumin Level 3.8 gm/dl (3.4-5.0); BUN Creatinine Ratio 26.5 (10-20); Bilirubin,Total 0.8 mg/dl (0.2-1.0); Calcium 9.4 mg/dl (8.6-10.3); Creatinine Clr Calc Pharmacy 67.1 ml/min; Est GFR (African American) 87.1 ml/min; Est GFR (Non-African American) 75.2 ml/min; Globulin 3.9 gm/dl (2.5-4.0); Potassium 4.1 mmol/L (3.5-5.1); Total Protein 7.7 gm/dl (6.0-8.3)
[2022-11-04 15:27] LABS: Troponin I High Sensitivity 31.8 pg/ml (0-20)
[2022-11-04 15:39] LABS: INR 1.1 (0.9-1.1); Partial Thromboplastin Time 26.4 Seconds (21.0-31.0); Prothrombin Time 11.8 Seconds (9.0-12.0)
--- NOTE | 2022-11-04 15:46 | XRay Report ---
SINGLE VIEW CHEST CLINICAL HISTORY: Atypical chest pain FINDINGS: An AP, portable, upright chest radiograph is compared to study dated 10/22/2022 and correlat ed with chest CT dated 10/21/2022. The heart is enlarged noting atherosclerotic calcification of the t horacic aorta. The pulmonary vasculature is noncongested. Chronic interstitial thickening similar to previous. The lungs and pleural spaces are clear. No pneumothorax is seen. The skeletal structures ar e osteopenic. The bony thorax is grossly intact. A surgical clip projects over the stomach. IMPRESSION: Cardiomegaly with no acute cardiopulmonary abnormality. ACT 112: Negative or not required by law. Electronically signed by: Kenton Bailon M.D. 11/04/2022 3:45 PM
--- NOTE | 2022-11-04 21:18 | History and Physical Report ---
DATE OF ADMISSION: 11/04/2022. CHIEF COMPLAINT: Chest pain. HISTORY OF PRESENT ILLNESS: This is a 66-year-old male with past medical history significant for hyperlipidemia, prediabetes, GERD, basal cell carcinoma, status post multiple Mohs procedures who was recently in the hospital and was discharged on 10/26/2022 and during the hospitalization, he was admitted for severe sepsis with E. coli bacteremia, hydronephrosis with status post right ureteral stent and was discharged on Omnicef to finish a 10-day course, which should be done by tomorrow. The hospitalization was also complicated by non-ST elevated CO, acute CHF. Echo showing moderate size apical thrombosis and ef 30- 35%, status post cardiac cath and successful single drug-eluting stent to the mid LAD and also moderate diffuse calcified left main disease was found. The patient was discharged on cardiac medications to have a close followup with cardiology. The patient was seen by cardiology a couple of days ago He was advised to slowly increase his daily activities and the patient is also planing to do cardiac rehab.Patient today comes because since yesterday, he has on and off chest pains, mild to moderate in nature and some numbness in the left hand. In the ER, after he took aspirin, his chest pain resolved, but still has some numbness in the hand. The ER also spoke to cardiology on-call and advised to observe him in the hospital. His troponin is 31. Currently, resting comfortably and hemodynamically stable. Denies any headache. No blurred visions, no earache, no runny nose, no sore throat, no cough, no fevers, no nausea, no abdominal pain. Normal bowel and bladder movements. Denies any blood in the stools or black stools, no hematuria. Says he is not ambulating much, he is just walking and getting around the house, but not going outside since discharge. ALLERGIES: No known drug allergies. PAST MEDICAL HISTORY: As mentioned above. PAST SURGICAL HISTORY: Colonoscopy, EGDs, right knee arthroscopy, laparoscopic inguinal hernia repair, Mohs surgery, left Achilles tendon repair, tympanostomy tubes, vasectomy. MEDICATIONS: The patient is on Eliquis 5 mg p.o. b.i.d., Lipitor 80 mg p.o. a.m., cefdinir 300 mg p.o. b.i.d., Plavix 75 mg p.o. a.m., Lasix 20 mg p.o. a.m., losartan 25 mg p.o. a.m., metoprolol succinate 25 mg p.o. b.i.d., multivitamin 1 tablet p.o. daily, niacinamide 100 mg p.o. b.i.d., omega fish oil 1 capsule a.m., PreserVision Areds 1 tablet p.o. daily, spironolactone 25 mg p.o. a.m. FAMILY HISTORY: Significant for brother has diabetes; father has pulmonary embolus, diabetes; mother has eye problems, mother had bypass surgery. SOCIAL HISTORY: . No smoking, no alcohol, no drug use. REVIEW OF SYSTEMS: As per HPI. Rest of the review of systems is negative. PHYSICAL EXAMINATION: GENERAL: The patient is of moderate build, not in acute distress. VITAL SIGNS: Temperature 36.7, pulse 75, respiratory rate 20, blood pressure 112/72, oxygen 98% on room air. HEENT: Pupils equal, round and reactive to light. Oral mucosa moist. NECK: No JVD, no neck masses. CARDIOVASCULAR: S1 and S2 heard. Regular rate and rhythm. No murmur, no gallop. RESPIRATORY SYSTEM: Normal AP diameter. No accessory muscle use. No wheezing, no crackles. ABDOMEN: Soft, bowel sounds present, nontender, no distention. CENTRAL NERVOUS SYSTEM: Cranial nerves II-XII grossly intact, nonfocal. EXTREMITIES: No edema, no erythema. LABORATORY DATA: WBC 8.1, hemoglobin 14.7, hematocrit 43.7, platelets 392. PT 11.8, INR 1.1, APTT 26.4. Sodium 138, potassium 4.1, chloride 103, bicarbonate 27, BUN 27, creatinine 1.02, serum glucose 98, calcium 9.4, total bilirubin 0.8, AST 25, ALT 54, alkaline phosphatase 136. Total creatine kinase 33. Troponin I high sensitivity 31.8. IMAGING: Chest x-ray: No acute findings. ELECTROCARDIOGRAM: Normal sinus rhythm at a rate of 80, Q-waves in anterior leads. Poor R-wave progression. ASSESSMENT AND PLAN: This is a 66-year-old male who recently had a cardiac catheterization and stent placement, presents with chest pain. 1. Chest pain. Currently, pain is almost resolved with aspirin. Still has some numbness in the left hand. His troponin is 31, it looks like on EKG, some nonspecific ST changes. Cardiology was notified by the Emergency Room. We will admit to observe in the hospital with serial cardiac enzymes. N.p.o. after midnight. Consult cardiology in the a.m. Further recommendations as per Cardiology. If the patient gets worse or any changes, we will notify cardiology. 2. History of coronary artery disease, status post stent to mid left anterior descending and also has moderate left main disease: Continue on aspirin, Plavix, high-dose statin and beta tashi. 3. History of chronic systolic congestive heart failure. Continue his metoprolol succinate, losartan and Lasix. We will monitor for any volume overload. 4. Apical mural thrombus, on Eliquis. 5. Hypertension, on metoprolol, Lasix, spironolactone. We will monitor the blood pressure. 6. Hyperlipidemia, on statin. 7. Recent urinary tract infection, status post right ureteral stent placed.h Escherichia coli, on Omnicef, to complete the 10-day course tomorrow. 8. Deep venous thrombosis prophylaxis, on Eliquis. DISPOSITION: Closely monitor in the tele floor. Level 1, full code. PT/OT prior to discharge. Social service to help with discharge planning. Job ID: [id number] MTDD
[2022-11-04] MEDS ORDERED: NITROGLYCERIN SL 0.4 MG/TAB TAB SL PRN (22:03)
[2022-11-04] MEDS ORDERED: POLYETHYLENE (MIRALAX) 17 GM PACK PO PRN (22:03)
[2022-11-04] MEDS ORDERED: ACETAMINOPHEN 325 MG TAB PO PRN (22:03)
[2022-11-04] MEDS: APIXABAN 5 MG TABLET PO SCH (22:50)
[2022-11-04] MEDS: CEFDINIR 300 MG CAP PO SCH (22:51)
[2022-11-04] MEDS: METOPROLOL SUCC 25MG EXT REL TAB PO SCH (22:51)
[2022-11-05 05:56] LABS: Basophils # (auto) 0.07 K/uL (0-0.2); Basophils % (auto) 0.9 %; Eosinophils % (auto) 1.2 %; Hematocrit (blood only) 39.8 % (42.0-52.0); Hemoglobin 13.4 g/dl (14.0-18.0); Immature Granulocytes # (auto) 0.03 K/uL (0.01-0.20); Immature Granulocytes % (auto) 0.4 %; Lymphocytes # (auto) 1.69 K/uL (1.2-3.4); Mean Corpuscular Hemoglobin 31.2 pg (25.0-34.0); Mean Corpuscular Hgb Conc 33.7 g/dL (32.0-36.0); Mean Corpuscular Volume 92.6 fL (80.0-100.0); Mean Platelet Volume 8.9 fL (9.4-12.4); Monocytes # (auto) 0.69 K/uL (0.11-0.59); Monocytes % (auto) 8.6 %; Neutrophils # (auto) 5.46 K/uL (1.40-6.50); Neutrophils % (auto) 67.9 %; Platelet Count 324 K/uL (130-400); RDW Coefficient of Variation 13.2 % (11.5-14.5); RDW Standard Deviation 44.5 fL (36.4-46.3); White Blood Count 8.04 K/ul (4.8-10.8)
[2022-11-05 06:08] LABS: BUN Creatinine Ratio 22.9 (10-20); Calcium 9.1 mg/dl (8.6-10.3); Creatinine Clr Calc Pharmacy 65.1 ml/min; Est GFR (African American) 84.1 ml/min; Est GFR (Non-African American) 72.6 ml/min; Magnesium 1.9 mg/dl (1.7-2.4); Potassium 4.1 mmol/L (3.5-5.1)
[2022-11-05 06:15] LABS: Troponin I High Sensitivity 28.7 pg/ml (0-20)
[2022-11-05] MEDS ORDERED: LOSARTAN POTASSIUM 25 MG TAB PO SCH (09:00)
[2022-11-05] MEDS ORDERED: CLOPIDOGREL BISULFATE 75 MG TAB PO SCH (09:00)
[2022-11-05] MEDS ORDERED: CEROVITE ADV FORMULA TAB PO SCH (09:00)
[2022-11-05] MEDS ORDERED: ATORVASTATIN 40 MG TAB PO SCH (09:00)
[2022-11-05] MEDS ORDERED: NON-FORMULARY MEDICATION (Multivitamin Tablet) PO SCH (09:00)
[2022-11-05] MEDS ORDERED: FUROSEMIDE 20 MG TAB PO SCH (09:00)
[2022-11-05] MEDS ORDERED: SPIRONOLACTONE 25 MG TAB PO SCH (09:00)
--- NOTE | 2022-11-05 11:43 | Electrocardiogram Report ---
Test Reason : Blood Pressure : / mmHG Vent. Rate : 065 BPM Atrial Rate : 065 BPM P-R Int : 160 ms QRS Dur : 106 ms QT Int : 424 ms P-R-T Axes : 064 019 058 degrees QTc Int : 440 ms Normal sinus rhythm Anteroseptal infarct (cited on or before 21-OCT-2022) Abnormal ECG When compared with ECG of 04-NOV-2022 14:30, (unconfirmed) No significant change Confirmed by Scott Garcia ([id number]) on 11/05/2022 11:43:26 AM Referred By: Jae Denton Confirmed By:Scott Garcia
--- NOTE | 2022-11-05 11:51 | Electrocardiogram Report ---
Test Reason : Blood Pressure : / mmHG Vent. Rate : 080 BPM Atrial Rate : 080 BPM P-R Int : 150 ms QRS Dur : 102 ms QT Int : 372 ms P-R-T Axes : 000 062 143 degrees QTc Int : 429 ms Normal sinus rhythm Anterolateral infarct (cited on or before 25-OCT-2022) Abnormal ECG When compared with ECG of 25-OCT-2022 10:58, No significant change Confirmed by Scott Garcia ([id number]) on 11/05/2022 11:50:54 AM Referred By: Jae Denton Confirmed By:Scott Garcia
--- NOTE | 2022-11-05 12:43 | Cardiology Consultation ---
Date of Consultation November 05, 2022 Assessment & Plan (1) Chest pain: (2) Left ventricular thrombus: (3) CAD (coronary artery disease): Plan The patient was counseled that his ischemic work-up is unremarkable and there does not appear to be any cardiac source for his symptoms. I do suspect that he is suffering from radiculopathy given his recent cervical fracture. 2D echocardiogram showed slightly improved LV systolic function with a stable apical thrombus. Okay to discharge to home from a cardiac standpoint Continue current outpatient medical regimen Follow-up with cardiology as recommended Patient is currently awaiting a call from cardiac rehab History of Present Illness Reason for Consultation: Chest pain Requesting Physician: [facility] hospital[facility] Attending Physician: Flo Hawk MD History of Present Illness The patient is a 66-year-old male who recently underwent PCI to his LAD 10 days ago. He presented to [facility] on 11/04/2022 with complaints of vague chest discomfort and left arm numbness. He states that the chest discomfort was not similar to any previous complaints and his main concern was that of numbness and tingling in his left arm. Of note, the patient recently had a tree fall on his neck and fractured C7. He states he has been compliant with his dual antiplatelet regimen since discharge. He is also been on Eliquis for LV apical thrombus. Currently, he denies any chest pain at rest but still is tingling in his left arm. Past medical history: 1. ASCVD a. NSTEMI (dx in the setting of urosepsis), 95% proximal LAD stenosis, status post PCI (3.0 x 23 mm Xience KEL), Ostial obtuse marginal branch vessel disease, and left main disease managed medically. 10/25/2022 b. Ischemic cardiomyopathy, LVEF 35-40% c. Left ventricular apical thrombus- on Eliquis (started 10/2022) 2. Hospitalization 10/2022 due to nephrolithiasis septicemia, blood cultures positive for Gram-negative bacilli. S/P cystoscopy, left ureteral stent insertion, retrograde pyelogram by on 10/21/2022 Allergies Allergy/AdvReac Type Severity Reaction Status Date / Time No Known Allergies Allergy Verified 11/03/22 14:36 Home Medications Medication Instructions Recorded Confirmed Type multivitamin 1 tab PO QAM 06/21/18 11/03/22 History omega 9-eoe-glh-fish oil 1,000 mg 1 cap PO QAM ##0 06/24/18 11/03/22 History (120 mg-180 mg) capsule (Fish Oil) fluorouracil 5 % topical cream 1 applic topical BID 03/12/22 11/03/22 History imiquimod 5 % topical cream packet 1 applic topical DAILY 03/12/22 11/03/22 History niacinamide 100 mg tablet 100 mg PO BID 10/21/22 11/03/22 History omeprazole 20 mg capsule,delayed 20 mg PO BID 10/21/22 11/03/22 History release vitamins A,C,Z-mcra-vhoctl 2,148 1 tab PO QAM 10/21/22 11/03/22 History mcg-113 mg-45 mg-17.4 mg tablet (PreserVision AREDS) cefdinir 300 mg capsule 300 mg PO BID 10 days #20 caps 10/26/22 11/03/22 Rx clopidogrel 75 mg tablet 75 mg PO QAM #30 tabs 10/26/22 11/03/22 Rx furosemide 20 mg tablet 20 mg PO QAM #30 tabs 10/26/22 11/03/22 Rx losartan 25 mg tablet 25 mg PO QAM #30 tabs 10/26/22 11/03/22 Rx metoprolol succinate 25 mg 25 mg PO BID #60 tabs 10/26/22 11/03/22 Rx tablet,extended release 24 hr phenazopyridine 100 mg tablet 100 mg PO TID PRN bladder pain #30 10/26/22 11/03/22 Rx (Pyridium) tabs apixaban 5 mg tablet (Eliquis) 5 mg PO BID 11/03/22 11/03/22 History atorvastatin 80 mg tablet (Lipitor) 80 mg PO QAM 11/03/22 11/03/22 History spironolactone 25 mg tablet 25 mg PO QAM 11/03/22 11/03/22 History Patient History Medical History (Updated 11/05/22 @ 15:07 by Kilo Self DO) CAD (coronary artery disease) KEL to mid LAD 10/25/22 Ostial obtuse marginal branch vessel disease, and left main disease managed medically per cardio records GERD (gastroesophageal reflux disease) Hx of skin cancer, basal cell S/P SEVERAL MOH'S PROCEDURES Hyperlipidemia Hypertension Ischemic cardiomyopathy EF 35-40% per 10/2022 ECHO Kidney stones Left ventricular thrombosis 10/2022- put on Eliquis during recent hospitalization Nausea and vomiting after administration of anesthetic agent Non-STEMI (non-ST elevated myocardial infarction) During recent hospitalization [facility] 10/2022 NSTEMI (dx in the setting of urosepsis) Poor circulation of extremity bilat feet per pt Prediabetes Sepsis Admitted to [facility] 10/21/22-10/26/22 - due to nephrolithiasis septicemia, blood cultures positive for Gram-negative bacilli. S/P cystoscopy, left ureteral stent insertion, retrograde pyelogram by on 10/21/2022 UTI (urinary tract infection) being treated for at present Surgical History History of adenoidectomy History of arthroscopic knee surgery R X 2 History of cardiac cath 10/25/22 [facility] > with drug-eluting stent History of colonoscopy History of cystoscopy Cystoscopy, left ureteral stent insertion, retrograde pyelogram History of esophagogastroduodenoscopy (EGD) History of heart artery stent 10/25/22 [facility] > drug-eluting stent History of inguinal hernia repair History of tonsillectomy History of vasectomy Family History Father FHx: diabetes mellitus Mother FHx: heart disease Social History Smoking Status: Never smoker Second Hand Exposure: No; Do You Dip or Chew Tobacco: No; Hx Alcohol Use: No Hx Substance Use: No Preferred Language: Montenegrin Communication Ability: Effective [employer] Operator Required: No Beliefs That Will Affect Care: None Current Living Situation: Spouse Other Information That Helps Us Care for You: No Feels Safe at Home: Yes Safety Concerns: Feels Safe At This Time Assistive Devices: None Review of Systems Review of Systems: All systems reviewed & are unremarkable except as noted in HPI & below Physical Exam Physical Exam: General: Awake, alert and oriented x 3. No acute distress. HEENT: Normocephalic, atraumatic. Pupils equal, round and reactive to light and accommodation. Extraocular muscles are intact. Anicteric sclera. Moist mucous membranes. Neck: Deferred, soft neck brace in place. Cardiovascular: Regular. Positive S-4. Normal S-1 and S-2. No S-3. No murmurs or rubs. Pulmonary: Clear to auscultation B/L. No rales, rhonchi or wheezing Abdomen: Bowel sounds x 4, soft. No rebound, guarding or tenderness. No organomegaly. Extremities: No clubbing, cyanosis or edema. +2 pedal pulses bilaterally. Skin: Warm and dry. Results & Data Vital Signs (Past 12 Hours) Vital Signs Temp Pulse Pulse Resp BP Pulse Ox O2 Del Method 11/05/22 11:20 36.9 C 73 18 102/66 96 Room Air 11/05/22 07:48 36.8 C 68 16 112/69 96 Room Air 11/05/22 04:14 36.9 C 69 14 101/65 96 Room Air
[2022-11-05] MEDS: APIXABAN 5 MG TABLET PO SCH (13:37)
[2022-11-05] MEDS: METOPROLOL SUCC 25MG EXT REL TAB PO SCH (13:37)
[2022-11-05] MEDS: CEFDINIR 300 MG CAP PO SCH (13:37)
--- NOTE | 2022-11-05 13:58 | Hospitalist Progress Note ---
Date of Service November 05, 2022 Assessment & Plan (1) Chest pain: Plan: Patient is a 66 yr male who recently had a cardiac catheterization and stent placement, presents with chest pain. Chest Pain --H/O NSTEMI S/P Stent to mid LAD with KEL on 10/25/22 --ECHO from 10/22/22:Moderate size apical thrombus. Left ventricle systolic function is moderately reduced. EF 35 to 40%. Diffuse moderate hypokinesis with severe hypokinesis to akinesis of the apex. Mild mitral regurgitation. --CXR:Cardiomegaly with no acute cardiopulmonary abnormality. -Troponin: mild elevation Continue Plavix, Lipitor, metoprolol Also on Eliquis for apical thrombus Update echo Cardiology consulted H/O Chronic systolic congestive heart failure No signs of volume overload Continue Lasix, Aldactone, losartan,BB Monitor volume status Apical mural thrombus on Eliquis Hypertension on metoprolol Hyperlipidemia on statin Recent E.Coli Bacteremia S/P Right ureteral stent placement for obstructive uropathy We will complete antibiotic course with Omnicef DVT Px: Eliquis Code Status Full Code Admission and Anticipated Discharge Date Admission Date: November 04, 2022 Subjective Patient is seen and examined at bedside States having left arm numbness Chest pain resolved Denies any nausea, abd pain, dizziness Offers no other complaints Review of Systems Review of Systems: All systems reviewed & are unremarkable except as noted in Subjective Physical Exam Physical Exam: Physical Exam: Vitals signs as noted above General Appearance:Moderately built and nourished, no apparent distress Head: normocephalic, Atraumatic, + neck collar Eyes: normal inspection, EOMI Neck: supple, Trachea midline Respiratory/Chest: Normal breath sounds, basal rales, No accessory muscle use Cardiovascular: S1, S2, No murmur Abdomen/GI:Soft, Non tender, Bowel sounds present Extremities/Musculoskeletal:normal inspection, no edema Neurologic/Psych:AAOX3, grossly no focal neurological deficits Skin: normal color, warm Results & Data Results & Data Vital Signs (Past 12 Hours) Vital Signs Temp Pulse Pulse Resp BP Pulse Ox O2 Del Method 11/05/22 11:20 36.9 C 73 18 102/66 96 Room Air 11/05/22 07:48 36.8 C 68 16 112/69 96 Room Air 11/05/22 04:14 36.9 C 69 14 101/65 96 Room Air Laboratory Results Short CBC 11/04/22 11/05/22 Range/Units 14:39 05:24 WBC 8.11 8.04 (4.8-10.8) K/ul Hgb 14.7 13.4 L (14.0-18.0) g/dl Hct 43.7 39.8 L (42.0-52.0) % Plt Count 392 324 (130-400) K/uL BMP 11/04/22 11/05/22 14:39 05:24 Sodium 138 138 Potassium 4.1 4.1 Chloride 103 104 Carbon Dioxide 27 28 BUN 27 H 24 H Creatinine 1.02 1.05 Glucose 98 105 H Calcium 9.4 9.1 Cardiac Enzymes 11/04/22 Range/Units 14:39 Total Creatine Kinase 33 (30-223) U/L Liver Function 11/04/22 Range/Units 14:39 Total Bilirubin 0.8 (0.2-1.0) mg/dl AST 25 (13-39) U/L ALT 54 H (7-52) U/L Alkaline Phosphatase 136 H (34-104) U/L Albumin 3.8 (3.4-5.0) gm/dl
--- NOTE | 2022-11-05 16:24 | CT Scan Report ---
CT cervical spine wo con CLINICAL HISTORY: Left arm Numbness TECHNIQUE: Multidetector row helical CT of the cervical spine was performed without administration of intravenous contrast. Coronal and sagittal reformations were obtained. Automated dose lowering techn iques and/or adjustment according to patient size were utilized for this exam. Comparison: None available at the time of this dictation. FINDINGS: No acute fractures or subluxations are identified. Degenerative changes are seen in the visualized sp ine. The alignment is normal. Soft tissues are unremarkable. IMPRESSION: Degenerative changes without evidence of acute bony injury. ACT 112: Negative or not required by law. Electronically signed by: Moise Thayer M.D. 11/05/2022 4:22 PM
--- NOTE | 2022-11-05 16:24 | CT Scan Report ---
CT head/brain wo con CLINICAL HISTORY: Left arm Numbness Technique: Contiguous axial CT images of the head were acquired from the base of the skull to the keyshawn melissa without intravenous contrast administration. Images were viewed in brain, subdural and bone [facility]. Automated dose lowering techniques and/or adjustment according to patient size were utilized for this exam. Comparison: Comparison is made to CT head 03/18/2020 Findings: Areas of decreased attenuation are present in the periventricular and subcortical white matter bilate rally consistent with small vessel ischemic disease. Generalized cerebral atrophy with commensurate e nlargement of the ventricles, sulci, and cisterns is also present. There is no acute intracranial hem orrhage or evidence of acute territorial infarction. No shift of the midline structures, mass effect, or extra-axial abnormalities are shown. Atherosclerotic calcifications are present in the intracran ial segments of the internal carotid arteries. Imaged portions of the paranasal sinuses and mastoid air cells are clear. The orbits appear normal. There are no acute fractures of the calvaria or scalp swelling. Impression: No acute intracranial hemorrhage, no evidence of acute territorial infarction or other acute intracra nial disease process. ACT 112: Negative or not required by law. Electronically signed by: Moise Thayer M.D. 11/05/2022 4:23 PM
--- NOTE | 2022-11-05 16:41 | Discharge Summary ---
Date of Service November 05, 2022 Admission HPI Per Admitting Provider CHIEF COMPLAINT: Chest pain. HISTORY OF PRESENT ILLNESS: This is a 66-year-old male with past medical history significant for hyperlipidemia, prediabetes, GERD, basal cell carcinoma, status post multiple Mohs procedures who was recently in the hospital and was discharged on 10/26/2022 and during the hospitalization, he was admitted for severe sepsis with E. coli bacteremia, hydronephrosis with status post right ur eteral stent and was discharged on Omnicef to finish a 10-day course, which should be done by tomorrow. The hospitalization was also complicated by non-ST elevated SD, acute CHF. Echo showing moderate size apical thrombosis and ef 30- 35%, status post cardiac cath and successful single drug-eluting stent to the mid LAD and also moderate diffuse calcified left main disease was found. The patient was discharged on cardiac medications to have a close followup with cardiology. The patient was seen by cardiology a couple of days ago He was advised to slowly increase his daily activities and the patient is also planing to do cardiac rehab.Patient today comes because since yesterday, he has on and off chest pains, mild to moderate in nature and some numbness in the left hand. In the ER, after he took aspirin, his chest pain resolved, but still has some numbness in the hand. The ER also spoke to cardiology on-call and advised to observe him in the hospital. His troponin is 31. Currently, resting comfortably and hemodynamically stable. Denies any headache. No blurred visions, no earache, no runny nose, no sore throat, no cough, no fevers, no nausea, no abdominal pain. Normal bowel and bladder movements. Denies any blood in the stools or black stools, no hematuria. Says he is not ambulating much, he is just walking and getting around the house, but not going outside since discharge. Admission Exam Per Admitting Provider PHYSICAL EXAMINATION: GENERAL: The patient is of moderate build, not in acute distress. VITAL SIGNS: Temperature 36.7, pulse 75, respiratory rate 20, blood pressure 112/72, oxygen 98% on room air. HEENT: Pupils equal, round and reactive to light. Oral mucosa moist. NECK: No JVD, no neck masses. CARDIOVASCULAR: S1 and S2 heard. Regular rate and rhythm. No murmur, no gallop. RESPIRATORY SYSTEM: Normal AP diameter. No accessory muscle use. No wheezing, no crackles. ABDOMEN: Soft, bowel sounds present, nontender, no distention. CENTRAL NERVOUS SYSTEM: Cranial nerves II-XII grossly intact, nonfocal. EXTREMITIES: No edema, no erythema. Principal Diagnosis Chest Pain Suspected cervical radiculopathy Discharge Data Allergies Allergy/AdvReac Type Severity Reaction Status Date / Time No Known Allergies Allergy Verified 11/03/22 14:36 Consultations 11/04/22 17:26 ED Decision to Admit Stat 11/05/22 08:00 Consult Cardiology Routine Procedures Performed Laboratory Results WBC 8.04 K/ul (4.8-10.8) 11/05/22 05:24 RBC 4.30 M/uL (4.70-6.10) L 11/05/22 05:24 Hgb 13.4 g/dl (14.0-18.0) L 11/05/22 05:24 Hct 39.8 % (42.0-52.0) L 11/05/22 05:24 MCV 92.6 fL (80.0-100.0) 11/05/22 05:24 MCH 31.2 pg (25.0-34.0) 11/05/22 05:24 MCHC 33.7 g/dL (32.0-36.0) 11/05/22 05:24 RDW Std Deviation 44.5 fL (36.4-46.3) 11/05/22 05:24 RDW Coeff of Uriel 13.2 % (11.5-14.5) 11/05/22 05:24 Plt Count 324 K/uL (130-400) 11/05/22 05:24 MPV 8.9 fL (9.4-12.4) L 11/05/22 05:24 Immature Gran % (Auto) 0.4 % 11/05/22 05:24 Neut % (Auto) 67.9 % 11/05/22 05:24 Lymph % (Auto) 21.0 % 11/05/22 05:24 [place] % (Auto) 8.6 % 11/05/22 05:24 Eos % (Auto) 1.2 % 11/05/22 05:24 Baso % (Auto) 0.9 % 11/05/22 05:24 Neut # (Auto) 5.46 K/uL (1.40-6.50) 11/05/22 05:24 Lymph # (Auto) 1.69 K/uL (1.2-3.4) 11/05/22 05:24 [place] # (Auto) 0.69 K/uL (0.11-0.59) H 11/05/22 05:24 Eos # (Auto) 0.10 K/uL (0-0.50) 11/05/22 05:24 Baso # (Auto) 0.07 K/uL (0-0.2) 11/05/22 05:24 Immature Gran # (Auto) 0.03 K/uL (0.01-0.20) 11/05/22 05:24 PT 11.8 Seconds (9.0-12.0) 11/04/22 14:39 INR 1.1 (0.9-1.1) 11/04/22 14:39 APTT 26.4 Seconds (21.0-31.0) 11/04/22 14:39 PTT Ratio 1.0 11/04/22 14:39 Sodium 138 mmol/L (136-145) 11/05/22 05:24 Potassium 4.1 mmol/L (3.5-5.1) 11/05/22 05:24 Chloride 104 mmol/L (98-107) 11/05/22 05:24 Carbon Dioxide 28 mmol/L (21-32) 11/05/22 05:24 Anion Gap 6 (3-11) 11/05/22 05:24 BUN 24 mg/dl (6-23) H 11/05/22 05:24 Creatinine 1.05 mg/dl (0.6-1.4) 11/05/22 05:24 Est Cr Clr Drug Dosing 65.1 ml/min 11/05/22 05:24 Est GFR ( Amer) 84.1 ml/min 11/05/22 05:24 Est GFR (Non-Af Amer) 72.6 ml/min 11/05/22 05:24 BUN/Creatinine Ratio 22.9 (10-20) H 11/05/22 05:24 Glucose 105 mg/dl (70-99(Fasting)) H 11/05/22 05:24 Calcium 9.1 mg/dl (8.6-10.3) 11/05/22 05:24 Magnesium 1.9 mg/dl (1.7-2.4) 11/05/22 05:24 Total Bilirubin 0.8 mg/dl (0.2-1.0) 11/04/22 14:39 AST 25 U/L (13-39) 11/04/22 14:39 ALT 54 U/L (7-52) H 11/04/22 14:39 Alkaline Phosphatase 136 U/L (34-104) H 11/04/22 14:39 Total Creatine Kinase 33 U/L (30-223) 11/04/22 14:39 Troponin I High Sens 32.6 pg/ml (0-20) H 11/05/22 09:58 Total Protein 7.7 gm/dl (6.0-8.3) 11/04/22 14:39 Albumin 3.8 gm/dl (3.4-5.0) 11/04/22 14:39 Globulin 3.9 gm/dl (2.5-4.0) 11/04/22 14:39 Albumin/Globulin Ratio 1.0 (0.9-2) 11/04/22 14:39 SARS-CoV-2, RNA, NAAT NEGATIVE (NEGATIVE) 11/04/22 Unknown Impressions Chest X-Ray 11/04/22 14:28 SINGLE VIEW CHEST CLINICAL HISTORY: Atypical chest pain FINDINGS: An AP, portable, upright chest radiograph is compared to study dated 10/22/2022 and correlated with chest CT dated 10/21/2022. The heart is enlarged noting atherosclerotic calcification of the thoracic aorta. The pulmonary vasculature is noncongested. Chronic interstitial thickening similar to previous. The lungs and pleural spaces are clear. No pneumothorax is seen. The skeletal structures are osteopenic. The bony thorax is grossly intact. A surgi eugene clip projects over the stomach. IMPRESSION: Cardiomegaly with no acute cardiopulmonary abnormality. ACT 112: Negative or not required by law. Electronically signed by: Kenton Bailon M.D. 11/04/2022 3:[address] 11/05/22 15:01 CT head/brain wo con CLINICAL HISTORY: Left arm Numbness Technique: Contiguous axial CT images of the head were acquired from the base of the skull to the vertex without intravenous contrast administration. Images were viewed in brain, subdural and bone windows. Automated dose lowering techniques and/or adjustment according to patient size were utilized for this exam. Comparison: Comparison is made to CT head 03/18/2020 Findings: Areas of decreased attenuation are present in the periventricular and subcort ical white matter bilaterally consistent with small vessel ischemic disease. Generalized cerebral atrophy with commensurate enlargement of the ventricles, sulci, and cisterns is also present. There is no acute intracranial hemorrhage or evidence of acute territorial infarction. No shift of the midline structures, mass effect, or extra-axial abnormalities are shown. Atherosclerotic calcifications are present in the intracranial segments of the internal carotid arteries. Imaged portions of the paranasal sinuses and mastoid air cells are clear. The orbits appear normal. There are no acute fractures of the calvaria or scalp swelling. Impression: No acute intracranial hemorrhage, no evidence of acute territorial infarction or other acute intracranial disease process. ACT 112: Negative or not required by law. Electronically signed by: Moise Thayer M.D. 11/05/2022 4:[address] 11/05/22 15:11 CT cervical spine wo con CLINICAL HISTORY: Left arm Numbness TECHNIQUE: Multidetector row helical CT of the cervical spine was performed without administration of intravenous contrast. Coronal and sagittal reformations were obtained. Automated dose lowering techniques and/or adjustment according to patient size were utilized for this exam. Comparison: None available at the time of this dictation. FINDINGS: No acute fractures or subluxations are identified. Degenerative changes are seen in the visualized spine. The alignment is normal. Soft tissues are unremarkable. IMPRESSION: Degenerative changes without evidence of acute bony injury. ACT 112: Negative or not required by law. Electronically signed by: Moise Thayer M.D. 11/05/2022 4:22 PM Ordered Studies 11/05/22 15:01 CT head/brain wo con Urgent 11/05/22 15:11 CT cervical spine wo con Urgent Hospital Course (1) Chest pain: Patient is a 66 yr male who recently had a cardiac catheterization and stent placement, presents with chest pain. Chest Pain --H/O NSTEMI S/P Stent to mid LAD with KEL on 10/25/22 --ECHO from 10/22/22:Moderate size apical thrombus. Left ventricle systolic function is moderately reduced. EF 35 to 40%. Diffuse moderate hypokinesis with severe hypokinesis to akinesis of the apex. Mild mitral regurgitation. --CXR:Cardiomegaly with no acute cardiopulmonary abnormality. -Troponin: mild elevation Continue Plavix, Lipitor, metoprolol Also on Eliquis for apical thrombus Updated echo: Compared to prior study, LV systolic function slightly improved. Normal LV chamber size and wall thickness. Moderate hypokinesis of the anterior septal, anteroseptal and apical soni, EF 45 to 50%, moderate sized LV apical thrombus unchanged. Appreciate Cardiology Input Suspected cervical radiculopathy Head CT:No acute intracranial hemorrhage, no evidence of acute territorial infa rction or other acute intracranial disease process. Neck CT:Degenerative changes without evidence of acute bony injury. 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 Hypertension on metoprolol Hyperlipidemia on statin Recent E.Coli Bacteremia S/P Right ureteral stent placement for obstructive uropathy We will complete antibiotic course with Omnicef DVT Px: Eliquis Code Status Full Code Total Time Total Time Spent Total Time Spent (In Minutes): 67 minutes Discharge Plan Discharge Items Patient Disposition: Home - Self-Care Reason For Visit: TINGLY LEFT ARM, CHEST PAINS Discharge Diagnosis: Chest Pain Suspected cervical radiculopathy Activity: Per Instructions section Exercise/Sports: Wait until after follow-up appointment Non-emergency contact: Primary Care Provider, Surgeon and District Representative Call non-emergency contact if: you have any medication questions, your symptoms worsen, your pain is concerning for you and you have a fever Follow-up/Referrals: Jae Denton MD [Primary Care Provider] - Diet: Heart Healthy Addtl Attending Provider Instructions: Follow-up with your primary care physician in 1 week Follow up with your woodwork teacher as advised Follow-up with your orthopedic spine surgeon for further evaluation of left arm numbness as advised for possible EMG as outpatient Seek immediate medical attention if your symptoms reoccur or worsen Please take all medications as instructed on discharge list below. Please call if you have any questions or problems. You can reach a [facility] hospitalist on duty at [facility] 24 hours a day by calling [phone] Pending Studies at Discharge: No Stand-Alone Forms: My [facility], Smoking Cessation Medications and DC Order Prescriptions: Continued multivitamin Tablet 1 tab PO QAM omega 4-[id number]-fish oil [Fish Oil] 1,000 mg (120 mg-180 mg) Capsule 1 cap PO QAM Qty: 0 fluorouracil 5 % cream 1 applic TOPICAL BID imiquimod 5 % cream in packet 1 applic TOPICAL DAILY omeprazole 20 mg capsule,delayed release(DR/EC) 20 mg PO BID niacinamide 100 mg Tablet 100 mg PO BID PreserVision AREDS 2,148 mcg-113 mg-45 mg-17.4mg Tablet 1 tab PO QAM clopidogrel 75 mg Tablet 75 mg PO QAM Qty: 30 0RF losartan 25 mg Tablet 25 mg PO QAM Qty: 30 0RF metoprolol succinate 25 mg Tablet Extended Release 24 Hr 25 mg PO BID Qty: 60 0RF furosemide 20 mg Tablet 20 mg PO QAM Qty: 30 0RF phenazopyridine [Pyridium] 100 mg Tablet 100 mg PO TID PRN (Reason: bladder pain) Qty: 30 0RF cefdinir 300 mg capsule 300 mg PO BID 10 Days Qty: 20 0RF atorvastatin [Lipitor] 80 mg tablet 80 mg PO QAM spironolactone 25 mg tablet 25 mg PO QAM Eliquis 5 mg tablet 5 mg PO BID Rx Instructions: Take 10mg (2 tabs) twice daily x 7 days, then cont with 5mg (1 tab) twice daily. Discharge Orders: Discharge Order (Routine); Ordered 11/05/22 Ordered By: Flo Hawk Admission Data Admit Date/Time: 11/04/22 18:47 Attending Provider: Flo Hawk Admit Provider: Dante Terrell Primary Care Provider: Jae Denton Other Providers: Dante Terrell ; Asuncion Gomze ; Kilo Self ; Power Riley ; Alf Morse ; Mo Milton ; Isidro Junior ; Alex Fernandez ; Katya Leos ; Joceline Mina ; Asuncion Wolff ; Sky Guido ; Nancy Molina
== END 2022-11-05 18:02 | disposition home or self-care (01) | DRG 73 ==
LOC: ED 14:06 → 2S 18:47 → INTOOBSV 18:47 → SUATTDRO 18:47 → 2S 21:35

== ENCOUNTER 2022-11-14 07:35 | Observation (INO) ==
[2022-11-14] MEDS ORDERED: SODIUM CHLORIDE 0.9% 1000ML 1,000 ML IV ONE (07:44)
[2022-11-14] MEDS ORDERED: MECLIZINE HCL 25 MG TAB PO STA (07:46)
--- NOTE | 2022-11-14 07:46 | Emergency Department Note ---
Impression & Plan Dizziness, Weakness ED Provider Note NAME: KOBE KEYES AGE: 66 SEX: M : 1955 ARRIVES VIA: Walk-In INFORMANT: Patient ED PROVIDER(S): Bear Johnson DO CHIEF COMPLAINT: dizzy HPI: Patient is a 66-year-old male with a recent admission for septicemia secondary to infected kidney stone who was found to have an NSTEMI who had multiple stents placed and then later had a cardiac thrombus. He presents to the ER today as he was in the PACU and became dizzy. He has been having dizzy episodes for the past 48 hours. Worse with movement of his head. Denies any focal weakness or numbness in the arms or legs. Vision does feel little blurry bilaterally. Denies any chest pain or pressure. No shortness of breath. Does admit to some nausea and vomiting. Denies any dysuria, urgency, or frequency currently. PAST MEDICAL HISTORY:See Below PAST SURGICAL HISTORY:See Below FAMILY HISTORY:See Below SOCIAL HISTORY:See Below HOME MEDICATIONS:See Below ALLERGIES:See Below VITALS:See Below PHYSICAL EXAMINATION: GENERAL: Sitting up in bed, alert, well appearing, well nourished, no distress, non-toxic EYE EXAM: normal conjunctiva. OROPHARYNX: no exudate, no erythema, lips, buccal mucosa, and tongue normal and mucous membranes are moist NECK: supple, no nuchal rigidity, no adenopathy, non-tender LUNGS: Clear to auscultation. Normal chest wall mechanics HEART: no murmurs, S1 normal and S2 normal ABDOMEN: abdomen soft, non-tender, normo-active bowel sounds, no masses, no rebound or guarding. UPPER EXTREMITIES: upper extremities are grossly normal. LOWER EXTREMITIES: No pitting edema. NEURO EXAM: Normal sensorium, cranial nerves II-XII intact, normal speech, no weakness of arms, no weakness of legs. No drift. Finger to nose intact. Gross sensation intact. MEDICAL DECISION MAKING: Patient is a 66-year-old male who presents ER with above-stated complaint he was brought in from PACU. IV was established blood work was obtained. Neurologic intact. External records reviewed. Labs show no significant leukocytosis or anemia. BMP on LFTs bilirubin and lipase is unremarkable. COVID was negative. CT angios of the head and neck were negative. With his known thrombus and vertiginous symptoms and recent cardiac thrombus did favor additional work-up from the hospital service. With this I discussed with the hospitalist for further evaluation by and monitoring although I do favor that this peripheral vertigo but cannot be certain and he has extensive risk factors. Discussed with Pt concerning signs and symptoms to watch out for. Pt was instructed to follow up with their PCP and discussed with the patient their option to return to the ED at anytime for persistent or worsening symptoms. The appropriate anticipatory guidance and out-patient management, including indications for return to the emergency department, were explained at length to the patient and understood. Triage Nursing notes reviewed. Limited review of prior medical records performed Vital Signs: reviewed and remarkable for HTN Differential diagnosis: Differential diagnosis includes etiologies such as benign positional vertigo, dehydration, hypovolemia, anemia, tumor, infection, hypoglycemia, electrolyte abnormalities, cardiac sources, intracerebral event, toxicologic, neurological, as well as others were entertained. ER treatment provided: See below Diagnostics interpreted by me include EKG and cardiac monitoring as listed below: -Cardiac Monitoring: An order was placed for continuous cardiac monitoring. The monitor shows a rate of 70 with sinus rhythm. -ECG: Sinus rhythm rate of 71 Poor baseline Normal axis T wave inversion in aVL Septal Q waves QTc 445 -Laboratory studies:Interpreted by me as stated above in MDM and shown below. Imaging studies: Xrays: As interpreted by me: Portable AP upright 1 view of the chest shows no pneumonia CTs show: CT images of the head and neck were unremarkable. Consultation(s): Discussed with hospitalist for further evaluation management and treatment Procedures:none Critical Care: None Past Med/Surg History Medical History (Updated 11/14/22 @ 12:41 by Bear Johnson DO) CAD (coronary artery disease) KEL to mid LAD 10/25/22 Ostial obtuse marginal branch vessel disease, and left main disease managed medically per cardio records GERD (gastroesophageal reflux disease) Hx of skin cancer, basal cell S/P SEVERAL MOH'S PROCEDURES Hyperlipidemia Hypertension Ischemic cardiomyopathy EF 35-40% per 10/22/2022 ECHO EF mildly improved to 45-50% on 11/05/22 ECHO Kidney stones 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 S/P cystoscopy, left ureteral stent insertion, retrograde pyelogram by on 10/21/2022 UTI (urinary tract infection) being treated for at present Surgical History History of adenoidectomy History of arthroscopic knee surgery R X 2 History of cardiac cath 10/25/22 [facility] > with drug-eluting stent History of colonoscopy History of cystoscopy Cystoscopy, left ureteral stent insertion, retrograde pyelogram History of esophagogastroduodenoscopy (EGD) History of heart artery stent 10/25/22 [facility] > drug-eluting stent History of inguinal hernia repair History of tonsillectomy History of vasectomy Family History Father FHx: diabetes mellitus Mother FHx: heart disease Social History Smoking Status: Never smoker Second Hand Exposure: No; Hx Alcohol Use: No Hx Substance Use: No Preferred Language: Mongolian Communication Ability: Effective [employer] Required: No Beliefs That Will Affect Care: None Current Living Situation: Spouse Feels Safe at Home: Yes Assistive Devices: None Allergies Allergies Allergy/AdvReac Type Severity Reaction Status Date / Time No Known Allergies Allergy Verified 11/14/22 06:58 Home Meds Home Medications Medication Instructions Recorded Confirmed multivitamin 1 tab PO QAM 06/21/18 11/14/22 omega 8-lcg-[id number]-fish oil 1,000 mg 1 cap PO QAM ##0 06/24/18 11/14/22 (120 mg-180 mg) capsule (Fish Oil) imiquimod 5 % topical cream packet 1 applic topical DAILY 03/12/22 11/14/22 niacinamide 100 mg tablet 100 mg PO BID 10/21/22 11/14/22 omeprazole 20 mg capsule,delayed 20 mg PO BID 10/21/22 11/14/22 release vitamins A,C,C-lqpb-dsagfm 2,148 1 tab PO QAM 10/21/22 11/14/22 mcg-113 mg-45 mg-17.4 mg tablet (PreserVision AREDS) apixaban 5 mg tablet (Eliquis) 5 mg PO BID 11/03/22 11/14/22 atorvastatin 80 mg tablet (Lipitor) 80 mg PO QAM 11/03/22 11/14/22 spironolactone 25 mg tablet 12.5 mg PO QAM 11/03/22 11/14/22 Previous Rx's Medication Instructions Recorded clopidogrel 75 mg tablet 75 mg PO QAM #30 tabs 10/26/22 furosemide 20 mg tablet 20 mg PO QAM #30 tabs 10/26/22 losartan 25 mg tablet 25 mg PO QAM #30 tabs 10/26/22 metoprolol succinate 25 mg 25 mg PO BID #60 tabs 10/26/22 tablet,extended release 24 hr Results & Data (ED) Vital Signs Vital Signs - 24 hr 11/14/22 07:41 11/14/22 07:32 11/14/22 07:32 Temperature 36.5 C Temperature Source Oral Pulse Rate 72 66 Pulse Rate [Apical] 66 Respiratory Rate 16 Blood Pressure 136/91 Blood Pressure [Left Arm] Blood Pressure Mean 106 Blood Pressure Mean [Left Arm] Pulse Oximetry 99 Oxygen Delivery Method Oxygen Flow Rate Sepsis Recent Fever Within 48 Hours No Sepsis New/Unexplained Change in Mental Status N/A Sepsis Action Taken by Nursing No Action Required 11/14/22 07:44 11/14/22 08:32 11/14/22 08:52 Temperature Temperature Source Pulse Rate Pulse Rate [Apical] 81 63 Respiratory Rate 16 16 Blood Pressure Blood Pressure [Left Arm] 122/59 L 118/71 Blood Pressure Mean Blood Pressure Mean [Left Arm] 80 86 Pulse Oximetry 98 96 98 Oxygen Delivery Method Oxymask Oxygen Flow Rate 4 Sepsis Recent Fever Within 48 Hours Sepsis New/Unexplained Change in Mental Status Sepsis Action Taken by Nursing 11/14/22 09:50 Temperature Temperature Source Pulse Rate Pulse Rate [Apical] 67 Respiratory Rate 18 Blood Pressure Blood Pressure [Left Arm] 140/81 Blood Pressure Mean Blood Pressure Mean [Left Arm] 100 Pulse Oximetry 99 Oxygen Delivery Method Oxygen Flow Rate Sepsis Recent Fever Within 48 Hours Sepsis New/Unexplained Change in Mental Status Sepsis Action Taken by Nursing Laboratory Data 11/14/22 07:44 11/14/22 07:44 Lab Results 11/14/22 11/14/22 11/14/22 Range/Units 07:44 07:44 07:50 WBC 9.14 (4.8-10.8) K/ul RBC 4.48 L (4.70-6.10) M/uL Hgb 14.1 (14.0-18.0) g/dl Hct 40.0 L (42.0-52.0) % MCV 89.3 (80.0-100.0) fL MCH 31.5 (25.0-34.0) pg MCHC 35.3 (32.0-36.0) g/dL RDW Std Deviation 42.9 (36.4-46.3) fL RDW Coeff of Uriel 13.2 (11.5-14.5) % Plt Count 195 (130-400) K/uL MPV 9.5 (9.4-12.4) fL Immature Gran % (Auto) 0.2 % Neut % (Auto) 70.7 % Lymph % (Auto) 19.8 % [place] % (Auto) 7.3 % Eos % (Auto) 1.6 % Baso % (Auto) 0.4 % Neut # (Auto) 6.45 (1.40-6.50) K/uL Lymph # (Auto) 1.81 (1.2-3.4) K/uL Charlotte # (Auto) 0.67 H (0.11-0.59) K/uL Eos # (Auto) 0.15 (0-0.50) K/uL Baso # (Auto) 0.04 (0-0.2) K/uL Immature Gran # (Auto) 0.02 (0.01-0.20) K/uL Sodium 141 (136-145) mmol/L Potassium 4.0 (3.5-5.1) mmol/L Chloride 106 (98-107) mmol/L Carbon Dioxide 26 (21-32) mmol/L Anion Gap 9 (3-11) BUN 21 (6-23) mg/dl Creatinine 0.92 (0.6-1.4) mg/dl Est Cr Clr Drug Dosing 74.3 ml/min Est GFR ( Amer) 98.7 ml/min Est GFR (Non-Af Amer) 85.2 ml/min BUN/Creatinine Ratio 22.8 H (10-20) Glucose 116 H (70-99(Fasting)) mg/dl Calcium 9.3 (8.6-10.3) mg/dl Total Bilirubin 0.7 (0.2-1.0) mg/dl AST 26 (13-39) U/L ALT 55 H (7-52) U/L Alkaline Phosphatase 92 (34-104) U/L Troponin I High Sens 15.1 (0-20) pg/ml Total Protein 7.2 (6.0-8.3) gm/dl Albumin 3.8 (3.4-5.0) gm/dl Globulin 3.4 (2.5-4.0) gm/dl Albumin/Globulin Ratio 1.1 (0.9-2) Lipase 66 (11-82) U/L SARS-CoV-2, RNA, NAAT NEGATIVE (NEGATIVE) Administered Medications Discontinued Medications Sodium Chloride (Nss 1000ml) 1,000 mls @ 999 mls/hr IV .Q1H1M ONE Stop: 11/14/22 08:44 Last Infusion: 11/14/22 09:50 Dose: 0 mls/hr Documented By: Admin: 11/14/22 07:52 Dose: 999 mls/hr Documented By: EDWARD Ioversol (Optiray 320 500ml) 112 ml IV ONCE ONE Stop: 11/14/22 09:21 Last Admin: 11/14/22 09:08 Dose: 112 ml Documented By: SARANYA Meclizine HCl (Meclizine Hcl 25 Mg Tab) 25 mg PO NOW STA Stop: 11/14/22 07:47 Last Admin: 11/14/22 07:51 Dose: 25 mg Documented By: EDWARD Imaging Data Radiologist's Impression: Chest X-Ray 11/14/22 07:44 XR chest 1V portable CLINICAL HISTORY: Chest pain, nonspecific COMPARISON STUDY: Chest radiograph November 04, 2022. Chest CT October 21, 2022. FINDINGS: Lungs are clear. There is no pneumothorax or pleural effusion. Cardiac size is stable. Mediastinal contours are normal. There is no evidence for pulmonary edema. IMPRESSION: No acute cardiopulmonary findings. ACT 112: Negative or not required by law. Electronically signed by: Servando Bolaños M.D. 11/14/2022 8:[address] 11/14/22 07:44 CT angio head w con, CT angio neck with con, CT head/brain wo con CLINICAL HISTORY: 66 years-old Male with ?tia. Acute strokelike symptoms COMPARISON STUDY: Head CT 11/05/2022 TECHNIQUE: Unenhanced axial CT scan of the brain is performed. Subsequently, following the IV administration of 112 cc of Optiray, CT angiogram of the head and neck was performed from the aortic arch to the skull apex. Images are reviewed in the axial, sagittal, and coronal planes. 3-D MIPS images are created and assessed. IV contrast was administered without complication. All measurements were obtained according to NASCET criteria. A dose lowering technique was utilized adhering to the principles of ALARA. FINDINGS: CT BRAIN: There is no acute intracranial hemorrhage, midline shift, hydrocephalus, intracranial mass, territorial ischemia or abnormal extra-axial collections. No abnormal intra-axial or extra-axial enhancement. Mastoid air cells and middle ear cavities are clear. No calvarial fracture. Paranasal sinuses are clear. CT ANGIOGRAM OF THE HEAD AND NECK: Three-vessel morphology of the thoracic aortic arch. There is patency of innominate and imaged subclavian arteries. The common carotid arteries are widely patent. There is atherosclerotic plaque of the right greater left carotid bulbs and proximal cervical segments of the internal carotid arteries. The left internal carotid artery is widely patent. There is stenosis measuring up to 50% within the proximal cervical segment right ICA. The bilateral anterior and mi ddle cerebral arteries are also patent. The right A1 segment is developmentally diminutive. The vertebrobasilar system and posterior cerebral arteries are widely patent. origin of the right posterior cerebral artery. There is no aneurysm, high-grade stenosis, or proximal branch occlusion identified. Dural sinuses appear patent. Lung apices are clear. There is no pneumothorax identified. Unremarkable soft tissues. There is no acute fracture identified. Degenerative changes of the cervical spine. IMPRESSION: 1. No acute intracranial abnormality. 2. Atherosclerotic plaque of the right carotid bulb results in approximately 50% stenosis of the proximal cervical segment right ICA. 3. Otherwise unremarkable CTA of the head and neck. ACT 112: Negative or not required by law. The above report was generated using voice recognition software. It may contain grammatical, syntax or spelling errors. Electronically signed by: Jesus James M.D. 11/14/2022 9:28 AM Head CTA 11/14/22 07:46 CT angio head w con, CT angio neck with con, CT head/brain wo con CLINICAL HISTORY: 66 years-old Male with ?tia. Acute strokelike symptoms COMPARISON STUDY: Head CT 11/05/2022 TECHNIQUE: Unenhanced axial CT scan of the brain is performed. Subsequently, following the IV administration of 112 cc of Optiray, CT angiogram of the head and neck was performed from the aortic arch to the skull apex. Images are reviewed in the axial, sagittal, and coronal planes. 3-D MIPS images are created and assessed. IV contrast was administered without complication. All measurements were obtained according to NASCET criteria. A dose lowering technique was utilized adhering to the principles of ALARA. FINDINGS: CT BRAIN: There is no acute intracranial hemorrhage, midline shift, hydrocephalus, intracranial mass, territorial ischemia or abnormal extra-axial collections. No abnormal intra-axial or extra-axial enhancement. Mastoid air cells and middle ear cavities are clear. No calvarial fracture. Paranasal sinuses are clear. CT ANGIOGRAM OF THE HEAD AND NECK: Three-vessel morphology of the thoracic aortic arch. There is patency of innominate and imaged subclavian arteries. The common carotid arteries are wi mickey patent. There is atherosclerotic plaque of the right greater left carotid bulbs and proximal cervical segments of the internal carotid arteries. The left internal carotid artery is widely patent. There is stenosis measuring up to 50% within the proximal cervical segment right ICA. The bilateral anterior and middle cerebral arteries are also patent. The right A1 segment is developmentally diminutive. The vertebrobasilar system and posterior cerebral arteries are widely patent. origin of the right posterior cerebral artery. There is no aneurysm, high-grade stenosis, or proximal branch occlusion identified. Dural sinuses appear patent. Lung apices are clear. There is no pneumothorax identified. Unremarkable soft tissues. There is no acute fracture identified. Degenerative changes of the cervical spine. IMPRESSION: 1. No acute intracranial abnormality. 2. Atherosclerotic plaque of the right carotid bulb results in approximately 50% stenosis of the proximal cervical segment right ICA. 3. Otherwise unremarkable CTA of the head and neck. ACT 112: Negative or not required by law. The above report was generated using voice recognition software. It may contain grammatical, syntax or spelling errors. Electronically signed by: Jesus James M.D. 11/14/2022 9:28 AM Neck CTA 11/14/22 07:46 CT angio head w con, CT angio neck with con, CT head/brain wo con CLINICAL HISTORY: 66 years-old Male with ?tia. Acute strokelike symptoms COMPARISON STUDY: Head CT 11/05/2022 TECHNIQUE: Unenhanced axial CT scan of the brain is performed. Subsequently, following the IV administration of 112 cc of Optiray, CT angiogram of the head and neck was performed from the aortic arch to the skull apex. Images are reviewed in the axial, sagittal, and coronal planes. 3-D MIPS images are created and assessed. IV contrast was administered without complication. All measurements were obtained according to NASCET criteria. A dose lowering technique was utilized adhering to the principles of ALARA. FINDINGS: CT BRAIN: There is no acute intracranial hemorrhage, midline shift, hydrocephalus, intracranial mass, territorial ischemia or abnormal extra-axial collections. No abnormal intra-axial or extra-axial enhancement. Mastoid air cells and middle ear cavities are clear. No calvarial fracture. Paranasal sinuses are clear. CT ANGIOGRAM OF THE HEAD AND NECK: Three-vessel morphology of the thoracic aortic arch. There is patency of innominate and imaged subclavian arteries. The common carotid arteries are widely patent. There is atherosclerotic plaque of the right greater left carotid bulbs and proximal cervical segments of the internal carotid arteries. The left internal carotid artery is widely patent. There is stenosis measuring up to 50% within the proximal cervical segment right ICA. The bilateral anterior and middle cerebral arteries are also patent. The right A1 segment is deve lopmentally diminutive. The vertebrobasilar system and posterior cerebral arteries are widely patent. origin of the right posterior cerebral artery. There is no aneurysm, high-grade stenosis, or proximal branch occlusion identified. Dural sinuses appear patent. Lung apices are clear. There is no pneumothorax identified. Unremarkable soft tissues. There is no acute fracture identified. Degenerative changes of the cervical spine. IMPRESSION: 1. No acute intracranial abnormality. 2. Atherosclerotic plaque of the right carotid bulb results in approximately 50% stenosis of the proximal cervical segment right ICA. 3. Otherwise unremarkable CTA of the head and neck. ACT 112: Negative or not required by law. The above report was generated using voice recognition software. It may contain grammatical, syntax or spelling errors. Electronically signed by: Jesus James M.D. 11/14/2022 9:28 AM Discharge Plan Visit Data Chief Complaint: Chest Pain Stated Complaint: CHEST PAIN, DIZZINESS ED Provider: Bear Johnson Discharge Problem: Dizziness, Weakness Discharge Instructions Interventions: ED Discharge Assessment Last Done: 11/14/22 11:26
[2022-11-14 08:01] LABS: Basophils # (auto) 0.04 K/uL (0-0.2); Basophils % (auto) 0.4 %; Eosinophils # (auto) 0.15 K/uL (0-0.50); Eosinophils % (auto) 1.6 %; Hemoglobin 14.1 g/dl (14.0-18.0); Immature Granulocytes # (auto) 0.02 K/uL (0.01-0.20); Immature Granulocytes % (auto) 0.2 %; Lymphocytes # (auto) 1.81 K/uL (1.2-3.4); Lymphocytes % (auto) 19.8 %; Mean Corpuscular Hemoglobin 31.5 pg (25.0-34.0); Mean Corpuscular Hgb Conc 35.3 g/dL (32.0-36.0); Mean Corpuscular Volume 89.3 fL (80.0-100.0); Mean Platelet Volume 9.5 fL (9.4-12.4); Monocytes # (auto) 0.67 K/uL (0.11-0.59); Monocytes % (auto) 7.3 %; Neutrophils # (auto) 6.45 K/uL (1.40-6.50); Neutrophils % (auto) 70.7 %; Platelet Count 195 K/uL (130-400); RDW Coefficient of Variation 13.2 % (11.5-14.5); RDW Standard Deviation 42.9 fL (36.4-46.3); Red Blood Count 4.48 M/uL (4.70-6.10); White Blood Count 9.14 K/ul (4.8-10.8)
[2022-11-14 08:18] LABS: Albumin Globulin Ratio 1.1 (0.9-2); Albumin Level 3.8 gm/dl (3.4-5.0); BUN Creatinine Ratio 22.8 (10-20); Bilirubin,Total 0.7 mg/dl (0.2-1.0); Calcium 9.3 mg/dl (8.6-10.3); Creatinine Clr Calc Pharmacy 74.3 ml/min; Est GFR (African American) 98.7 ml/min; Est GFR (Non-African American) 85.2 ml/min; Globulin 3.4 gm/dl (2.5-4.0); Total Protein 7.2 gm/dl (6.0-8.3)
[2022-11-14 08:23] LABS: Troponin I High Sensitivity 15.1 pg/ml (0-20)
--- NOTE | 2022-11-14 08:24 | XRay Report ---
XR chest 1V portable CLINICAL HISTORY: Chest pain, nonspecific COMPARISON STUDY: Chest radiograph November 04, 2022. Chest CT October 21, 2022. FINDINGS: Lungs are clear. There is no pneumothorax or pleural effusion. Cardiac size is stable. Medi astinal contours are normal. There is no evidence for pulmonary edema. IMPRESSION: No acute cardiopulmonary findings. ACT 112: Negative or not required by law. Electronically signed by: Servando Bolaños M.D. 11/14/2022 8:23 AM
--- NOTE | 2022-11-14 08:46 | History & Physical Report ---
Date of Service November 14, 2022 Assessment & Plan (1) Dizziness: Plan: - Admit to tele for observation - CT head reviewed and is negative - MRI brain wo contrast ordered - Possible that this is stemming from cervical spine? Pt is wearing soft collar. 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 Consult ortho spine. - Pt is already anticoagulated due to previous cardiac stent with eliquis 5 mg BID and plavix - Pt did not take all his routine morning medications due to being here for cystoscopy with Dr. Mckee this morning - Neurology consulted for dizziness - PT/OT consults placed - Check orthostatics, pt states good po intake, consider gentle fluids if positive (2) CAD (coronary artery disease): (3) Hyperlipidemia: Plan: - Hx of such, s/p cath, can consider cardiology consultation pending course Status post NSTEMI in the setting of urosepsis, 95% proximal LAD stenosis s/p PCI - Cont cardiac medications - Inital CXR and trop negative - Last echo from 11/05/2022 showing EF of 45 to 50%, moderately sized LV apical thrombus unchanged - EKG reviewed (4) Hydronephrosis with renal calculous obstruction: Plan: -Right ureteral stent insertion on 10/21/[address] Mckee -Ureteral calculus removal, cystoscopy, laser lithotripsy/stone treatment and right stent exchange was due to happen this morning however was canceled secondary to the above - Will need follow up on discharge for such (5) GERD (gastroesophageal reflux disease): Plan: -Continue omeprazole DVT PPx: - teds, scds CODE: Full code Dispo: From home, likely to remain in the hospital x 1-2 days A total of 78 minutes were spent with greater than 50% of that time face to face with the patient, personally reviewing all current laboratories, imaging studies, past medication reconciliation, outpatient chart review, and discussion with specialists to collaborate care for the patient with attending. Please see attending documentation for corrections and/or additions. History of Present Illness Primary Care Provider: Jae Denton MD This is a 66 yo M with PMhx of NSTEMI s/p cardiac stent, and ureteral stent and kidney stone and bacteremia who was admitted last month for such. He reports developing dizziness 2 nights ago night when he got up to go to the bathroom. he was able to go back to bed a little, but it was still there this morning. He vomited x 1 and felt diaphoretic, however his temperature was normal. Pt had a good rest of the day, ate normally and did ADLs. He again last night got up to the bathroom last night around 3 am, and again got dizzy. Last Sunday night he was seen here for left sided chest pain and numbness tingling into his L arm but the ER workup was negative and sent home. 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 Patient presented this morning to have routine cystoscopy done for kidney stone extraction with Dr. Mckee. Prior to having the procedure done he started to feel ill again with worsening dizziness, nausea and vomited in the preop area. Surgery was cancelled. Currently still has some nausea and dizziness. He admits to double vision and blurred vision when he goes from a sitting to standing position. he also notices this whenever he moves his head. Pt also notices worsening vision in the past 1-2 months specifically. He also notes numbness and tingling in his feel since all his other recent medical issues in the past 1-2 months. Allergies Allergy/AdvReac Type Severity Reaction Status Date / Time No Known Allergies Allergy Verified 11/14/22 06:58 Home Medications Medication Instructions Recorded Confirmed Type multivitamin 1 tab PO QAM 06/21/18 11/14/22 History omega 9-brl-gel-fish oil 1,000 mg 1 cap PO QAM ##0 06/24/18 11/14/22 History (120 mg-180 mg) capsule (Fish Oil) imiquimod 5 % topical cream packet 1 applic topical DAILY 03/12/22 11/14/22 History niacinamide 100 mg tablet 100 mg PO BID 10/21/22 11/14/22 History omeprazole 20 mg capsule,delayed 20 mg PO BID 10/21/22 11/14/22 History release vitamins A,C,T-zfoy-hglfzq 2,148 1 tab PO QAM 10/21/22 11/14/22 History mcg-113 mg-45 mg-17.4 mg tablet (PreserVision AREDS) clopidogrel 75 mg tablet 75 mg PO QAM #30 tabs 10/26/22 11/14/22 Rx furosemide 20 mg tablet 20 mg PO QAM #30 tabs 10/26/22 11/14/22 Rx losartan 25 mg tablet 25 mg PO QAM #30 tabs 10/26/22 11/14/22 Rx metoprolol succinate 25 mg 25 mg PO BID #60 tabs 10/26/22 11/14/22 Rx tablet,extended release 24 hr apixaban 5 mg tablet (Eliquis) 5 mg PO BID 11/03/22 11/14/22 History atorvastatin 80 mg tablet (Lipitor) 80 mg PO QAM 11/03/22 11/14/22 History spironolactone 25 mg tablet 12.5 mg PO QAM 11/03/22 11/14/22 History Past Med/Surg History Medical History (Updated 11/14/22 @ 12:41 by Bear Johnson DO) CAD (coronary artery disease) KEL to mid LAD 10/25/22 Ostial obtuse marginal branch vessel disease, and left main disease managed medically per cardio records GERD (gastroesophageal reflux disease) Hx of skin cancer, basal cell S/P SEVERAL MOH'S PROCEDURES Hyperlipidemia Hypertension Ischemic cardiomyopathy EF 35-40% per 10/22/2022 ECHO EF mildly improved to 45-50% on 11/05/22 ECHO Kidney stones 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 S/P cystoscopy, left ureteral stent insertion, retrograde pyelogram by on 10/21/2022 UTI (urinary tract infection) being treated for at present Surgical History History of adenoidectomy History of arthroscopic knee surgery R X 2 History of cardiac cath 10/25/22 [facility] > with drug-eluting stent History of colonoscopy History of cystoscopy Cystoscopy, left ureteral stent insertion, retrograde pyelogram History of esophagogastroduodenoscopy (EGD) History of heart artery stent 10/25/22 [facility] > drug-eluting stent History of inguinal hernia repair History of tonsillectomy History of vasectomy Family History Father FHx: diabetes mellitus Mother FHx: heart disease Social History Smoking Status: Never smoker Second Hand Exposure: No; Hx Alcohol Use: No Hx Substance Use: No Preferred Language: Turkish Communication Ability: Effective [employer] Required: No Beliefs That Will Affect Care: None Current Living Situation: Spouse Feels Safe at Home: Yes Assistive Devices: None Review of Systems Review of Systems: Constitutional:As per HPI, No fever, sweats or chills other than per HPI. Eyes: No diplopia, no worsening or blurred vision ENT: normal hearing, no trouble swallowing Respiratory: No cough, sputum, dyspnea at rest or on exertion Cardiovascular: No chest pain, tightness or palpitations Abdomen: No pain, + nausea, +vomiting, overall adequate diet, no diarrhea or constipation Musculoskeletal: No joint pain, calf pain, swelling Neurologic: No weakness, chronic Left arm numbness/tingling s/p injury as per HPI, no balance problems Psychiatric: No anxiety or depression Skin: No rash or itch Physical Exam Physical Exam: General: awake, alert, no apparent distress Head: Normocephalic, atraumatic ENT: PERRL, EOMI, no pharyngeal exudate, mucous membranes moist Neck: wearing soft collar around neck Chest: Clear to auscultation, on 2 L via NC, no adventitious breath sounds Cardiac: Regular rate and rhythm, no murmur, no JVD, normal peripheral pulses, good capillary refill Abdominal: NABS x 4 quadrants, soft, nondistended, nontender to palpation, no rebound or guarding Extremities: Normal inspection, no peripheral edema or erythema, calfs nontender to palpation Psych: Normal mood and affect Neuro: AAO x 3, strength intact bilaterally and rated 5/5, no motor deficits, speech is clear, no peripheral sensory deficits Results & Data Results & Data Vital Signs (Past 12 Hours) Vital Signs Temp Pulse Pulse Resp BP Pulse Ox 11/14/22 07:44 98 11/14/22 07:32 66 11/14/22 07:32 36.5 C 66 16 136/91 99 11/14/22 07:41 72 Laboratory Results 11/14/22 11/14/22 11/14/22 07:50 07:44 07:44 WBC 9.14 RBC 4.48 L Hgb 14.1 Hct 40.0 L MCV 89.3 MCH 31.5 MCHC 35.3 RDW Std Deviation 42.9 RDW Coeff of Uriel 13.2 Plt Count 195 MPV 9.5 Immature Gran % (Auto) 0.2 Neut % (Auto) 70.7 Lymph % (Auto) 19.8 Gaston % (Auto) 7.3 Eos % (Auto) 1.6 Baso % (Auto) 0.4 Neut # (Auto) 6.45 Lymph # (Auto) 1.81 Gaston # (Auto) 0.67 H Eos # (Auto) 0.15 Baso # (Auto) 0.04 Immature Gran # (Auto) 0.02 Sodium 141 Potassium 4.0 Chloride 106 Carbon Dioxide 26 Anion Gap 9 BUN 21 Creatinine 0.92 Est Cr Clr Drug Dosing 74.3 Est GFR ( Amer) 98.7 Est GFR (Non-Af Amer) 85.2 BUN/Creatinine Ratio 22.8 H Glucose 116 H Calcium 9.3 Total Bilirubin 0.7 AST 26 ALT 55 H Alkaline Phosphatase 92 Troponin I High Sens 15.1 Total Protein 7.2 Albumin 3.8 Globulin 3.4 Albumin/Globulin Ratio 1.1 Lipase 66 SARS-CoV-2, RNA, NAAT NEGATIVE Diagnostic Findings Chest X-Ray 11/14/22 07:44 XR chest 1V portable CLINICAL HISTORY: Chest pain, nonspecific COMPARISON STUDY: Chest radiograph November 04, 2022. Chest CT October 21, 2022. FINDINGS: Lungs are clear. There is no pneumothorax or pleural effusion. Cardiac size is stable. Mediastinal contours are normal. There is no evidence for pulmonary edema. IMPRESSION: No acute cardiopulmonary findings. ACT 112: Negative or not required by law. Electronically signed by: Servando Bolaños M.D. 11/14/2022 8:[address] 11/14/22 07:44 CT angio head w con, CT angio neck with con, CT head/brain wo con CLINICAL HISTORY: 66 years-old Male with ?tia. Acute strokelike symptoms COMPARISON STUDY: Head CT 11/05/2022 TECHNIQUE: Unenhanced axial CT scan of the brain is performed. Subsequently, following the IV administration of 112 cc of Optiray, CT angiogram of the head and neck was performed from the aortic arch to the skull apex. Images are reviewed in the axial, sagittal, and coronal planes. 3-D MIPS images are created and assessed. IV contrast was administered without complication. All measurements were obtained according to NASCET criteria. A dose lowering technique was utilized adhering to the principles of ALARA. FINDINGS: CT BRAIN: There is no acute intracranial hemorrhage, midline shift, hydrocephalus, intracranial mass, territorial ischemia or abnormal extra-axial collections. No abnormal intra-axial or extra-axial enhancement. Mastoid air cells and middle ear cavities are clear. No calvarial fracture. Paranasal sinuses are clear. CT ANGIOGRAM OF THE HEAD AND NECK: Three-vessel morphology of the thoracic aortic arch. There is patency of innominate and imaged subclavian arteries. The common carotid arteries are widely patent. There is atherosclerotic plaque of the right greater left carotid bulbs and proximal cervical segments of the internal carotid arteries. The left internal carotid artery is widely patent. There is stenosis measuring up to 50% within the proximal cervical segment right ICA. The bilateral anterior and middle cerebral arteries are also patent. The right A1 segment is developmentally diminutive. The vertebrobasilar system and posterior cerebral arteries are widely patent. origin of the right posterior cerebral artery. There is no aneurysm, high-grade stenosis, or proximal branch occlusion identified. Dural sinuses appear patent. Lung apices are clear. There is no pneumothorax identified. Unremarkable soft tissues. There is no acute fracture identified. Degenerative changes of the cervical spine. IMPRESSION: 1. No acute intracranial abnormality. 2. Atherosclerotic plaque of the right carotid bulb results in approximately 50% stenosis of the proximal cervical segment right ICA. 3. Otherwise unremarkable CTA of the head and neck. ACT 112: Negative or not required by law. The above report was generated using voice recognition software. It may contain grammatical, syntax or spelling errors. Electronically signed by: Jesus James M.D. 11/14/2022 9:28 AM Head CTA 11/14/22 07:46 CT angio head w con, CT angio neck with con, CT head/brain wo con CLINICAL HISTORY: 66 years-old Male with ?tia. Acute strokelike symptoms COMPARISON STUDY: Head CT 11/05/2022 TECHNIQUE: Unenhanced axial CT scan of the brain is performed. Subsequently, following the IV administration of 112 cc of Optiray, CT angiogram of the head and neck was performed from the aortic arch to the skull apex. Images are reviewed in the axial, sagittal, and coronal planes. 3-D MIPS images are created and assessed. IV contrast was administered without complication. All measurements were obtained according to NASCET criteria. A dose lowering technique was utilized adhering to the principles of ALARA. FINDINGS: CT BRAIN: There is no acute intracranial hemorrhage, midline shift, hydrocephalus, intracranial mass, territorial ischemia or abnormal extra-axial collections. No abnormal intra-axial or extra-axial enhancement. Mastoid air cells and middle ear cavities are clear. No calvarial fracture. Paranasal sinuses are clear. CT ANGIOGRAM OF THE HEAD AND NECK: Three-vessel morphology of the thoracic aortic arch. There is patency of innom inate and imaged subclavian arteries. The common carotid arteries are widely patent. There is atherosclerotic plaque of the right greater left carotid bulbs and proximal cervical segments of the internal carotid arteries. The left internal carotid artery is widely patent. There is stenosis measuring up to 50% within the proximal cervical segment right ICA. The bilateral anterior and middle cerebral arteries are also patent. The right A1 segment is developmentally diminutive. The vertebrobasilar system and posterior cerebral arteries are widely patent. origin of the right posterior cerebral artery. There is no aneurysm, high-grade stenosis, or proximal branch occlusion identified. Dural sinuses appear patent. Lung apices are clear. There is no pneumothorax identified. Unremarkable soft tissues. There is no acute fracture identified. Degenerative changes of the cervical spine. IMPRESSION: 1. No acute intracranial abnormality. 2. Atherosclerotic plaque of the right carotid bulb results in approximately 50% stenosis of the proximal cervical segment right ICA. 3. Otherwise unremarkable CTA of the head and neck. ACT 112: Negative or not required by law. The above report was generated using voice recognition software. It may contain grammatical, syntax or spelling errors. Electronically signed by: Jesus James M.D. 11/14/2022 9:28 AM Neck CTA 11/14/22 07:46 CT angio head w con, CT angio neck with con, CT head/brain wo con CLINICAL HISTORY: 66 years-old Male with ?tia. Acute strokelike symptoms COMPARISON STUDY: Head CT 11/05/2022 TECHNIQUE: Unenhanced axial CT scan of the brain is performed. Subsequently, following the IV administration of 112 cc of Optiray, CT angiogram of the head and neck was performed from the aortic arch to the skull apex. Images are reviewed in the axial, sagittal, and coronal planes. 3-D MIPS images are created and assessed. IV contrast was administered without complication. All measurements were obtained according to NASCET criteria. A dose lowering technique was utilized adhering to the principles of ALARA. FINDINGS: CT BRAIN: There is no acute intracranial hemorrhage, midline shift, hydrocephalus, intracranial mass, territorial ischemia or abnormal extra-axial collections. No abnormal intra-axial or extra-axial enhancement. Mastoid air cells and middle ear cavities are clear. No calvarial fracture. Paranasal sinuses are clear. CT ANGIOGRAM OF THE HEAD AND NECK: Three-vessel morphology of the thoracic aortic arch. There is patency of innominate and imaged subclavian arteries. The common carotid arteries are widely patent. There is atherosclerotic plaque of the right greater left carotid bulbs and proximal cervical segments of the internal carotid arteries. The left internal carotid artery is widely patent. There is stenosis measuring up to 50% within the proximal cervical segment right ICA. The bilateral anterior and middle cerebral arteries are also patent. The right A1 segment is developmentally diminutive. The vertebrobasilar system and posterior cerebral arteries are widely patent. origin of the right posterior cerebral artery. There is no aneurysm, high-grade stenosis, or proximal branch occlusion identified. Dural sinuses appear patent. Lung apices are clear. There is no pneumothorax identified. Unremarkable soft tissues. There is no acute fracture identified. Degenerative changes of the cervical spine. IMPRESSION: 1. No acute intracranial abnormality. 2. Atherosclerotic plaque of the right carotid bulb results in approximately 50% stenosis of the proximal cervical segment right ICA. 3. Otherwise unremarkable CTA of the head and neck. ACT 112: Negative or not required by law. The above report was generated using voice recognition software. It may contain grammatical, syntax or spelling errors. Electronically signed by: Jesus James M.D. 11/14/2022 9:28 AM ECG Additional Comments: 14-NOV-2022 07:40:43 [facility]-EDSTAT ROUTINE RETRIEVAL Normal sinus rhythm Anteroseptal infarct (cited on or before 21-OCT-2022) Abnormal ECG When compared with ECG of 05-NOV-2022 04:25, Serial changes of Anteroseptal infarct Present 25mm/s10mm/[id number]: [id number] by: REFERRED SELF Unconfirmed Vent. rate 71 BPM TX interval 152 ms QRS duration 98 ms QT/QTc 410/445 ms Code Status & VTE Plan Code Status Full code - discussed with the patient at bedside Supervising Physician Co-Signing Physician Notes 66 yo M w/ PMH of HLD, prediabetes (A1C 5.9 on 10/23/22), GERD, BCC s/p multiple Mohs procedure, cervical radiculopathy w/ number and tingling to arms, recently treated for severe sepsis with E coli bacteremia/hydronephrosis s/p Rt ureteral stent/NSTEMI s/p stent x 1 to mid LAD /Acute CHF sent from Urology office after he felt room spinning while getting ready for Rx for nephrolithiasis. Pt reports having dizziness and blurring vision after waking up middle of the night 2 nights before for going to pass urine, then he went back to sleep, woke up yesterday AM w/ soaked in sweat but temp was normal, was dizzy/room spinning/vomiting x 1 (bile). Then felt fine whole day. Again was dizzy w/ blurring vision during midnight last night when waking up for the restroom, was still somewhat dizzy when he woke up today AM but feeling better but states that he started having dizziness/room spinning as he was getting ready for stone removal in urology office. He reports dizziness with any turning of the head and any change in position, it was not observed during the bedside exam though. Labs fairly WNL. CXR w/ no new acute findings. CTA Head and Neck/CT Head w/ Atherosclerotic plaque of the right carotid bulb results in approximately 50% stenosis of the proximal cervical segment right ICA. Ortho vitals. Neurology consult. Gentle ivf if ortho vitals positive. No s/s of infection during exam. For h/o cervical radiculopathy w/ ongoing numbness/tingling and possible dizziness from this hx. Will consult orthospine. Uro f/u on DC. On Exam: GENERAL: Alert and oriented x3. NAD, on RA. HEENT: No pallor, no icterus. Pupils equal, round and reactive to light. Oral mucosa moist. NECK: No JVD, no neck masses. C-collar in place No dizziness/vertigo w/ change in head, change in position from lying to sitting up. HEART: S1 and S2 heard. Regular rate and rhythm. No murmur, no gallop. RESPIRATORY SYSTEM: Normal AP diameter. No accessory muscle use. No wheezing, no crackles. ABDOMEN: Soft, bowel sounds present, nontender, no distention. CENTRAL NERVOUS SYSTEM: No facial droop. Speech is clear. Obeys simple commands. Moves extremities. EXTREMITIES: No edema, no erythema seen. I have seen and examined the patient and have discussed the case with the provider above. I agree with the assessment and plan as stated.
[2022-11-14] MEDS ORDERED: OPTIRAY 320 500ml IV ONE (09:20)
--- NOTE | 2022-11-14 09:29 | CT Scan Report ---
CT angio head w con, CT angio neck with con, CT head/brain wo con CLINICAL HISTORY: 66 years-old Male with ?tia. Acute strokelike symptoms COMPARISON STUDY: Head CT 11/05/2022 TECHNIQUE: Unenhanced axial CT scan of the brain is performed. Subsequently, following the IV adminis tration of 112 cc of Optiray, CT angiogram of the head and neck was performed from the aortic arch to the skull apex. Images are reviewed in the axial, sagittal, and coronal planes. 3-D MIPS images are created and assessed. IV contrast was administered without complication. All measurements were obtain ed according to NASCET criteria. A dose lowering technique was utilized adhering to the principles of ALARA. FINDINGS: CT BRAIN: There is no acute intracranial hemorrhage, midline shift, hydrocephalus, intracranial mass, territori al ischemia or abnormal extra-axial collections. No abnormal intra-axial or extra-axial enhancement. Mastoid air cells and middle ear cavities are clear. No calvarial fracture. Paranasal sinuses are cl ear. CT ANGIOGRAM OF THE HEAD AND NECK: Three-vessel morphology of the thoracic aortic arch. There is patency of innominate and imaged subcla vian arteries. The common carotid arteries are widely patent. There is atherosclerotic plaque of the right greater left carotid bulbs and proximal cervical segments of the internal carotid arteries. The left internal carotid artery is widely patent. There is stenosis measuring up to 50% within the prox imal cervical segment right ICA. The bilateral anterior and middle cerebral arteries are also patent. The right A1 segment is developmentally diminutive. The vertebrobasilar system and posterior cerebra l arteries are widely patent. origin of the right posterior cerebral artery. There is no aneury sm, high-grade stenosis, or proximal branch occlusion identified. Dural sinuses appear patent. Lung apices are clear. There is no pneumothorax identified. Unremarkable soft tissues. There is no ac capitan grande band fracture identified. Degenerative changes of the cervical spine. IMPRESSION: 1. No acute intracranial abnormality. 2. Atherosclerotic plaque of the right carotid bulb results in approximately 50% stenosis of the prox imal cervical segment right ICA. 3. Otherwise unremarkable CTA of the head and neck. ACT 112: Negative or not required by law. The above report was generated using voice recognition software. It may contain grammatical, syntax o r spelling errors. Electronically signed by: Jesus James M.D. 11/14/2022 9:28 AM
[2022-11-14] MEDS ORDERED: ACETAMINOPHEN 325 MG TAB PO PRN (11:25)
[2022-11-14] MEDS ORDERED: ONDANSETRON INJ 2 MG/ML 2 ML VIAL IV PRN (11:25)
--- NOTE | 2022-11-14 12:15 | Electrocardiogram Report ---
Test Reason : Blood Pressure : / mmHG Vent. Rate : 071 BPM Atrial Rate : 071 BPM P-R Int : 152 ms QRS Dur : 098 ms QT Int : 410 ms P-R-T Axes : 068 042 075 degrees QTc Int : 445 ms Normal sinus rhythm Old Anteroseptal infarct (cited on or before 21-OCT-2022) Abnormal ECG When compared with ECG of 05-NOV-2022 04:25, No significant change Confirmed by Amadeo Boateng ([id number]) on 11/14/2022 12:15:21 PM Referred By: REFERRED SELF Confirmed By:Amadeo Boateng
--- NOTE | 2022-11-14 12:33 | Magnetic Resonance Report ---
MRI OF THE BRAIN WITHOUT CONTRAST CLINICAL HISTORY: Dizziness, visual changes. COMPARISON STUDY: Head CT and CTA of the head November 14, 2022. TECHNIQUE: Utilizing a 1.5 Mely magnet and dedicated coil, multiplanar, multiecho imaging of the bra in was performed without IV contrast. FINDINGS: There are no foci of restricted diffusion to suggest acute infarct. No acute intracranial h emorrhage, midline shift or mass effect is present. Ventricular system is unremarkable. Basal cistern s are patent. There are no extra-axial collections. Flow-voids for the major intracranial vessels are present. There is a small 4 mm T2 hyperintense focus within the left posterior aspect of the geovany on axial T2-weighted sequence image 7 of 24. This is slightly hypointense on the gradient echo sequence . This does not have associated restricted diffusion. Calvarial signal is normal. No evidence for sin usitis. IMPRESSION: 1. No acute intracranial findings. 2. Subtle 4 mm T2 hyperintense focus within the geovany, as described above. This is nonspecific but of questionable significance. This finding is not acute. A follow-up MRI of the brain could be obtained in 6 months to ensure stability. ACT 112: Negative or not required by law. Electronically signed by: Servando Bolaños M.D. 11/14/2022 12:31 PM
[2022-11-14] MEDS: CEROVITE ADV FORMULA TAB PO SCH (12:47)
[2022-11-14] MEDS: CLOPIDOGREL BISULFATE 75 MG TAB PO SCH (12:47)
[2022-11-14] MEDS: ATORVASTATIN 40 MG TAB PO SCH (12:50)
[2022-11-14] MEDS: FUROSEMIDE 20 MG TAB PO SCH (12:50)
[2022-11-14] MEDS: METOPROLOL SUCC 25MG EXT REL TAB PO SCH ×2 (12:50→20:26)
[2022-11-14] MEDS: SPIRONOLACTONE 12.5 MG TAB PO SCH (12:51)
[2022-11-14] MEDS: APIXABAN 5 MG TABLET PO SCH ×2 (12:51→20:26)
--- NOTE | 2022-11-14 18:50 | Neurology Consultation ---
Date of Consultation November 14, 2022 Assessment & Plan (1) BPPV (benign paroxysmal positional vertigo): Impression: The patient has been having position change induced vertigo with associated nausea, vomiting, unsteady gait, blurring of vision, for last few days. Rachael-Hallpike maneuver is positive with left benign paroxysmal positional vertigo. Brain MRI did not show pathology to explain the patient's symptoms. There was no acute cerebrovascular accident. Recommendations/plan: We will pursue with Juan Manuel's canalith repositioning maneuver. After this, the patient will avoid neck flexion, hyperextension, bending over, turning in the bed side to side, and will sleep in supine, with head raise up to 30 degrees for 2 days and nights. Repeat repositioning maneuver as needed if he stays symptomatic after few days. (2) Abnormal brain MRI: Impression: Brain MRI showed 4 mm T4 hyperintense lesion in the mid to low geovany with uncertain clinical significance. There was no diffusion restriction to suggest acute ischemic pathology. This is likely due to small vasculopathic old ischemic lesion, however, old traumatic injury, sudden electrolyte changes, capillary angioma are all in differential. Recommendations/plan: There is no indication for further work-up at this time. Follow-up brain MRI with and without contrast in 6 months. The patient is neurologically stable and can be discharged home. Follow-up with neurology clinic. I will contact with [facility] neurology to set up an appointment. Plan As seen above. Thank you for the consultation. History of Present Illness Reason for Consultation: Vertigo Requesting Physician: Carly Whyte PA-C Attending Physician: Odin Wilkins MD History of Present Illness The patient is a 66-year-old gentleman, who was referred to emergency department, after he reported vertiginous episodes, which started 3 days ago. After the patient woke up, stood up to go to the bathroom. In seconds, he felt spinning sensation. He describes this feeling as room spinning, some lightheadedness, blurring of vision. He was able to go to the bathroom while holding on soni. When he returned back, after staying still, spinning sensa tion improved. The same symptoms occurred following day, after standing up in the morning. The third episode happened while the patient was in hospital, in preop area, but this time there was no obvious head position change. The patient does not turn in the bed much and not sure whether turning in the bed was triggering any similar symptoms. Patient denies having any vertiginous symptoms in the past. He denies having associated ringing, hearing loss, fullness in the ears. He also denies having any additional neurological symptoms including weakness, numbness, or other cranial nerve symptoms. The patient was recently hospitalized, for dizziness, kidney stones, and ureteral stent placement. Patient has history of coronary artery disease status postcardiac stent placement. Apparently, the patient presented this morning to have routine cystoscopy for kidney stone extraction. Due to reported vertigo with nausea and vomiting operation area, surgery was canceled. Since admission, the patient had a brain MRI, which was negative for acute pathology. This study showed T2 hyperintense small lesion in geovany, with uncertain clinical significance. CT angiogram of head and neck did not show significant stenotic lesion but mild, right internal carotid artery stenosis. I have reviewed the patient's chart including imaging studies and visualized them personally. I have discussed the case with the patient and answered his questions in detail. Allergies Allergy/AdvReac Type Severity Reaction Status Date / Time No Known Allergies Allergy Verified 11/14/22 06:58 Home Medications Medication Instructions Recorded Confirmed Type multivitamin 1 tab PO QAM 06/21/18 11/14/22 History omega 3-vqu-quj-fish oil 1,000 mg 1 cap PO QAM ##0 06/24/18 11/14/22 History (120 mg-180 mg) capsule (Fish Oil) imiquimod 5 % topical cream packet 1 applic topical DAILY 03/12/22 11/14/22 History niacinamide 100 mg tablet 100 mg PO BID 10/21/22 11/14/22 History omeprazole 20 mg capsule,delayed 20 mg PO BID 10/21/22 11/14/22 History release vitamins A,C,G-eawn-demgpn 2,148 1 tab PO QAM 10/21/22 11/14/22 History mcg-113 mg-45 mg-17.4 mg tablet (PreserVision AREDS) clopidogrel 75 mg tablet 75 mg PO QAM #30 tabs 10/26/22 11/14/22 Rx furosemide 20 mg tablet 20 mg PO QAM #30 tabs 10/26/22 11/14/22 Rx losartan 25 mg tablet 25 mg PO QAM #30 tabs 10/26/22 11/14/22 Rx metoprolol succinate 25 mg 25 mg PO BID #60 tabs 10/26/22 11/14/22 Rx tablet,extended release 24 hr apixaban 5 mg tablet (Eliquis) 5 mg PO BID 11/03/22 11/14/22 History atorvastatin 80 mg tablet (Lipitor) 80 mg PO QAM 11/03/22 11/14/22 History spironolactone 25 mg tablet 12.5 mg PO QAM 11/03/22 11/14/22 History Patient History Medical History CAD (coronary artery disease) KEL to mid LAD 10/25/22 Ostial obtuse marginal branch vessel disease, and left main disease managed medically per cardio records GERD (gastroesophageal reflux disease) Hx of skin cancer, basal cell S/P SEVERAL MOH'S PROCEDURES Hyperlipidemia Hypertension Ischemic cardiomyopathy EF 35-40% per 10/22/2022 ECHO EF mildly improved to 45-50% on 11/05/22 ECHO Kidney stones 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 S/P cystoscopy, left ureteral stent insertion, retrograde pyelogram by on 10/21/2022 UTI (urinary tract infection) being treated for at present Surgical History History of adenoidectomy History of arthroscopic knee surgery R X 2 History of cardiac cath 10/25/22 [facility] > with drug-eluting stent History of colonoscopy History of cystoscopy Cystoscopy, left ureteral stent insertion, retrograde pyelogram History of esophagogastroduodenoscopy (EGD) History of heart artery stent 10/25/22 [facility] > drug-eluting stent History of inguinal hernia repair History of tonsillectomy History of vasectomy Family History Father FHx: diabetes mellitus Mother FHx: heart disease Social History Smoking Status: Never smoker Second Hand Exposure: No; Hx Alcohol Use: No Hx Substance Use: No Preferred Language: Frisian Communication Ability: Effective Mandarin Teacher Required: No Beliefs That Will Affect Care: None Current Living Situation: Spouse Other Information That Helps Us Care for You: No Feels Safe at Home: Yes Safety Concerns: Feels Safe At This Time Assistive Devices: Glasses Review of Systems Review of Systems: All systems reviewed & are unremarkable except as noted in HPI & below Physical Exam Physical Exam: General Examination: Constitutional: Well developed person in no acute distress. HENT: Normal exam with inspection. CV: Hearth rhythm is regular. Neck: Supple, no carotid bruits. Lungs: Non-labored and comfortable breathing. Abdomen: Soft, non-tender, non-distended. Skin: No rash or ecchymosis. Extremities: No edema or cyanosis NEUROLOGICAL EXAMINATION: Mental Status: Alert and oriented to place, person and time. Cranial Nerves: II-XII are intact. No nystagmus. Funduscopy: Normal looking optic discs. Motor: 5/5 in all extremities without asymmetry. Tone: Normal without spasticity or rigidity. Sensory: Intact to all sensory modalities. Coordination: No dysmetria with FTN testing. Speech: Fluent. Comprehension is intact. Gait: Normal. No ataxia or abnormal walking pattern. Musculoskeletal: Normal muscle bulk, no atrophy. DTRs: 2- all. No Babinsky Rachael-Hallpike maneuver: During the left ear down position, the patient developed spinning sensation with right beating horizontal nystagmus with slight rotatory component. This activity lasted for 1-1/2 minutes and subsided. Right ear down position did not induce similar nystagmus and symptoms. The patient reported similar spinning sensation during this maneuver, as he was experiencing before. Results & Data Vital Signs (Past 12 Hours) Vital Signs Temp Pulse Pulse Resp BP BP Pulse Ox 11/14/22 18:21 68 11/14/22 17:05 36.7 C 73 18 118/77 98 11/14/22 12:43 68 16 137/77 66 L 11/14/22 09:50 67 18 140/81 99 11/14/22 08:52 63 16 118/71 98 11/14/22 08:32 81 16 122/59 L 96 11/14/22 07:44 98 11/14/22 07:32 66 11/14/22 07:32 36.5 C 66 16 136/91 99 11/14/22 07:41 72 O2 Del Method O2 Flow Rate 11/14/22 18:21 11/14/22 17:05 Room Air 11/14/22 12:43 Room Air 11/14/22 09:50 11/14/22 08:52 11/14/22 08:32 Oxymask 4 11/14/22 07:44 11/14/22 07:32 11/14/22 07:32 11/14/22 07:41 Laboratory Results Laboratory Results - last 24 hr 11/14/22 11/14/22 11/14/22 07:44 07:44 07:50 WBC 9.14 RBC 4.48 L Hgb 14.1 Hct 40.0 L MCV 89.3 MCH 31.5 MCHC 35.3 RDW Std Deviation 42.9 RDW Coeff of Uriel 13.2 Plt Count 195 MPV 9.5 Immature Gran % (Auto) 0.2 Neut % (Auto) 70.7 Lymph % (Auto) 19.8 Dubois % (Auto) 7.3 Eos % (Auto) 1.6 Baso % (Auto) 0.4 Neut # (Auto) 6.45 Lymph # (Auto) 1.81 Dubois # (Auto) 0.67 H Eos # (Auto) 0.15 Baso # (Auto) 0.04 Immature Gran # (Auto) 0.02 Sodium 141 Potassium 4.0 Chloride 106 Carbon Dioxide 26 Anion Gap 9 BUN 21 Creatinine 0.92 Est Cr Clr Drug Dosing 74.3 Est GFR ( Amer) 98.7 Est GFR (Non-Af Amer) 85.2 BUN/Creatinine Ratio 22.8 H Glucose 116 H Calcium 9.3 Total Bilirubin 0.7 AST 26 ALT 55 H Alkaline Phosphatase 92 Troponin I High Sens 15.1 Total Protein 7.2 Albumin 3.8 Globulin 3.4 Albumin/Globulin Ratio 1.1 Lipase 66 SARS-CoV-2, RNA, NAAT NEGATIVE Diagnostic Findings Chest X-Ray 11/14/22 07:44 XR chest 1V portable CLINICAL HISTORY: Chest pain, nonspecific COMPARISON STUDY: Chest radiograph November 04, 2022. Chest CT October 21, 2022. FINDINGS: Lungs are clear. There is no pneumothorax or pleural effusion. Cardiac size is stable. Mediastinal contours are normal. There is no evidence for pulmonary edema. IMPRESSION: No acute cardiopulmonary findings. ACT 112: Negative or not required by law. Electronically signed by: Servando Bolaños M.D. 11/14/2022 8:[address] 11/14/22 07:44 CT angio head w con, CT angio neck with con, CT head/brain wo con CLINICAL HISTORY: 66 years-old Male with ?tia. Acute strokelike symptoms COMPARISON STUDY: Head CT 11/05/2022 TECHNIQUE: Unenhanced axial CT scan of the brain is performed. Subsequently, following the IV administration of 112 cc of Optiray, CT angiogram of the head and neck was performed from the aortic arch to the skull apex. Images are reviewed in the axial, sagittal, and coronal planes. 3-D MIPS images are created and assessed. IV contrast was administered without complication. All measurements were obtained according to NASCET criteria. A dose lowering technique was utilized adhering to the principles of ALARA. FINDINGS: CT BRAIN: There is no acute intracranial hemorrhage, midline shift, hydrocephalus, intracranial mass, territorial ischemia or abnormal extra-axial collections. No abnormal intra-axial or extra-axial enhancement. Mastoid air cells and middle ear cavities are clear. No calvarial fracture. Paranasal sinuses are clear. CT ANGIOGRAM OF THE HEAD AND NECK: Three-vessel morphology of the thoracic aortic arch. There is patency of innominate and imaged subclavian arteries. The common carotid arteries are widely patent. There is atherosclerotic plaque of the right greater left carotid bulbs and proximal cervical segments of the internal carotid arteries. The left internal carotid artery is widely patent. There is stenosis measuring up to 50% within the proximal cervical segment right ICA. The bilateral anterior and middle cerebral arteries are also patent. The right A1 segment is developmentally diminutive. The vertebrobasilar system and posterior cerebral arteries are widely patent. origin of the right posterior cerebral artery. There is no aneurysm, high-grade stenosis, or proximal branch occlusion identified. Dural sinuses appear patent. Lung apices are clear. There is no pneumothorax identified. Unremarkable soft tissues. There is no acute fracture identified. Degenerative changes of the cervical spine. IMPRESSION: 1. No acute intracranial abnormality. 2. Atherosclerotic plaque of the right carotid bulb results in approximately 50% stenosis of the proximal cervical segment right ICA. 3. Otherwise unremarkable CTA of the head and neck. ACT 112: Negative or not required by law. The above report was generated using voice recognition software. It may contain grammatical, syntax or spelling errors. Electronically signed by: Jesus James M.D. 11/14/2022 9:28 AM Head CTA 11/14/22 07:46 CT angio head w con, CT angio neck with con, CT head/brain wo con CLINICAL HISTORY: 66 years-old Male with ?tia. Acute strokelike symptoms COMPARISON STUDY: Head CT 11/05/2022 TECHNIQUE: Unenhanced axial CT scan of the brain is performed. Subsequently, following the IV administration of 112 cc of Optiray, CT angiogram of the head and neck was performed from the aortic arch to the skull apex. Images are reviewed in the axial, sagittal, and coronal planes. 3-D MIPS images are created and assessed. IV contrast was administered without complication. All measurements were obtained according to NASCET criteria. A dose lowering techniq ue was utilized adhering to the principles of ALARA. FINDINGS: CT BRAIN: There is no acute intracranial hemorrhage, midline shift, hydrocephalus, intracranial mass, territorial ischemia or abnormal extra-axial collections. No abnormal intra-axial or extra-axial enhancement. Mastoid air cells and middle ear cavities are clear. No calvarial fracture. Paranasal sinuses are clear. CT ANGIOGRAM OF THE HEAD AND NECK: Three-vessel morphology of the thoracic aortic arch. There is patency of innominate and imaged subclavian arteries. The common carotid arteries are widely patent. There is atherosclerotic plaque of the right greater left carotid bulbs and proximal cervical segments of the internal carotid arteries. The left internal carotid artery is widely patent. There is stenosis measuring up to 50% within the proximal cervical segment right ICA. The bilateral anterior and middle cerebral arteries are also patent. The right A1 segment is developmentally diminutive. The vertebrobasilar system and posterior cerebral arteries are widely patent. origin of the right posterior cerebral artery. There is no aneurysm, high-grade stenosis, or proximal branch occlusion identified. Dural sinuses appear patent. Lung apices are clear. There is no pneumothorax identified. Unremarkable soft tissues. There is no acute fracture identified. Degenerative changes of the cervical spine. IMPRESSION: 1. No acute intracranial abnormality. 2. Atherosclerotic plaque of the right carotid bulb results in approximately 50% stenosis of the proximal cervical segment right ICA. 3. Otherwise unremarkable CTA of the head and neck. ACT 112: Negative or not required by law. The above report was generated using voice recognition software. It may contain grammatical, syntax or spelling errors. Electronically signed by: Jesus James M.D. 11/14/2022 9:28 AM Neck CTA 11/14/22 07:46 CT angio head w con, CT angio neck with con, CT head/brain wo con CLINICAL HISTORY: 66 years-old Male with ?tia. Acute strokelike symptoms COMPARISON STUDY: Head CT 11/05/2022 TECHNIQUE: Unenhanced axial CT scan of the brain is performed. Subsequently, following the IV administration of 112 cc of Optiray, CT angiogram of the head and neck was performed from the aortic arch to the skull apex. Images are reviewed in the axial, sagittal, and coronal planes. 3-D MIPS images are created and assessed. IV contrast was administered without complication. All measurements were obtained according to NASCET criteria. A dose lowering technique was utilized adhering to the principles of ALARA. FINDINGS: CT BRAIN: There is no acute intracranial hemorrhage, midline shift, hydrocephalus, intracranial mass, territorial ischemia or abnormal extra-axial collections. No abnormal intra-axial or extra-axial enhancement. Mastoid air cells and middle ear cavities are clear. No calvarial fracture. Paranasal sinuses are clear. CT ANGIOGRAM OF THE HEAD AND NECK: Three-vessel morphology of the thoracic aortic arch. There is patency of innominate and imaged subclavian arteries. The common carotid arteries are widely patent. There is atherosclerotic plaque of the right greater left carotid bulbs and proximal cervical segments of the internal carotid arteries. The left internal carotid artery is widely patent. There is stenosis measuring up to 50% within the proximal cervical segment right ICA. The bilateral anterior and middle cerebral arteries are also patent. The right A1 segment is developmentally diminutive. The vertebrobasilar system and posterior cerebral arteries are widely patent. origin of the right posterior cerebral artery. There is no aneurysm, high-grade stenosis, or proximal branch occlusion identified. Dural sinuses appear patent. Lung apices are clear. There is no pneumothorax identified. Unremarkable soft tissues. There is no acute fracture identified. Degenerative changes of the cervical spine. IMPRESSION: 1. No acute intracranial abnormality. 2. Atherosclerotic plaque of the right carotid bulb results in approximately 50% stenosis of the proximal cervical segment right ICA. 3. Otherwise unremarkable CTA of the head and neck. ACT 112: Negative or not required by law. The above report was generated using voice recognition software. It may contain grammatical, syntax or spelling errors. Electronically signed by: Jesus James M.D. 11/14/2022 9:28 AM Brain MRI 11/14/22 11:03 MRI OF THE BRAIN WITHOUT CONTRAST CLINICAL HISTORY: Dizziness, visual changes. COMPARISON STUDY: Head CT and CTA of the head November 14, 2022. TECHNIQUE: Utilizing a 1.5 Mely magnet and dedicated coil, multiplanar, multiecho imaging of the brain was performed without IV contrast. FINDINGS: There are no foci of restricted diffusion to suggest acute infarct. No acute intracranial hemorrhage, midline shift or mass effect is present. Ventricular system is unremarkable. Basal cisterns are patent. There are no extra-axial collections. Flow-voids for the major intracranial vessels are present. There is a small 4 mm T2 hyperintense focus within the left posterior aspect of the geovany on axial T2-weighted sequence image 7 of 24. This is slightly hypointense on the gradient echo sequence. This does not have associated restricted diffusion. Calvarial signal is normal. No evidence for sinusitis. IMPRESSION: 1. No acute intracranial findings. 2. Subtle 4 mm T2 hyperintense focus within the geovany, as described above. This is nonspecific but of questionable significance. This finding is not acute. A follow-up MRI of the brain could be obtained in 6 months to ensure stability. ACT 112: Negative or not required by law. Electronically signed by: Servando Bolaños M.D. 11/14/2022 12:31 PM
[2022-11-14] MEDS: PANTOprazole 40 MG TAB PO SCH (20:26)
[2022-11-15 06:50] LABS: Hematocrit (blood only) 39.3 % (42.0-52.0); Hemoglobin 13.4 g/dl (14.0-18.0); Mean Corpuscular Hemoglobin 30.9 pg (25.0-34.0); Mean Corpuscular Hgb Conc 34.1 g/dL (32.0-36.0); Mean Corpuscular Volume 90.6 fL (80.0-100.0); Mean Platelet Volume 9.5 fL (9.4-12.4); Platelet Count 177 K/uL (130-400); RDW Coefficient of Variation 13.2 % (11.5-14.5); RDW Standard Deviation 43.8 fL (36.4-46.3); Red Blood Count 4.34 M/uL (4.70-6.10); White Blood Count 7.75 K/ul (4.8-10.8)
[2022-11-15 07:26] LABS: BUN Creatinine Ratio 17.3 (10-20); Creatinine Clr Calc Pharmacy 69.8 ml/min; Est GFR (African American) 91.4 ml/min; Est GFR (Non-African American) 78.9 ml/min; Potassium 3.8 mmol/L (3.5-5.1)
[2022-11-15] MEDS ORDERED: LOSARTAN POTASSIUM 25 MG TAB PO SCH (09:00)
[2022-11-15 10:19] LABS: Appearance Urine Clear (Clear); Bacteria Urine Automated Negative (Negative); Bilirubin Urine Negative (Negative); Blood Urine 3+ (Negative); Color Urine Yellow; Epithelial Cell Urine Auto >30 /lpf (0-5); Glucose Urine UA Negative (Negative); Ketones Urine Negative (Negative); Leukocyte Esterase Urine 1+ (Negative); Nitrite Urine Negative (Negative); Protein Urine Trace (Negative); RBC Urine Automated >30 /hpf (0-4); Specific Gravity Urine 1.014 (1.000-1.030); Urobilinogen Urine Negative (Negative); pH Urine 5.5 (4.5-7.5)
[2022-11-15] MEDS: ATORVASTATIN 40 MG TAB PO SCH (10:31)
[2022-11-15] MEDS: APIXABAN 5 MG TABLET PO SCH (10:33)
[2022-11-15] MEDS: FUROSEMIDE 20 MG TAB PO SCH (10:34)
[2022-11-15] MEDS: METOPROLOL SUCC 25MG EXT REL TAB PO SCH (10:35)
[2022-11-15] MEDS: CEROVITE ADV FORMULA TAB PO SCH (10:36)
[2022-11-15] MEDS: PANTOprazole 40 MG TAB PO SCH (10:36)
[2022-11-15] MEDS: SPIRONOLACTONE 12.5 MG TAB PO SCH (10:37)
[2022-11-15 10:38] LABS: Renal Epithelial Cells Urine 0-5 /lpf (0-5)
[2022-11-15] MEDS: CLOPIDOGREL BISULFATE 75 MG TAB PO SCH (11:10)
--- NOTE | 2022-11-15 12:02 | Consultation ---
Date of Consultation November 15, 2022 Assessment & Plan (1) Cervical radicular pain: I have ordered a cervical MRI without contrast which was completed this morning. Upon review of this, there is moderate to severe left-sided C4-5 foraminal stenosis. There is no evidence of cord changes or myelomalacia. No evidence of central canal stenosis. Spinous process fracture appears to be well-healed. At this point time is left upper extremity paresthesias can be managed as an outpatient. I do not believe his dizziness is related to any cervical spine pathology. Patient is anxious for discharge. He has an established spine team at [facility] which he can certainly follow-up with this issue. Th ere is no need for urgent surgical intervention. History of Present Illness Reason for Consultation: Cervical radiculopathy Attending Physician: Lamonte Lawrence MD History of Present Illness 66 yo M w/ PMH of HLD, prediabetes (A1C 5.9 on 10/23/22), GERD, BCC s/p multiple Mohs procedure, cervical radiculopathy w/ number and tingling to arms, recently treated for severe sepsis with E coli bacteremia/hydronephrosis s/p Rt ureteral stent/NSTEMI s/p stent x 1 to mid LAD /Acute CHF sent from Urology office after he felt room spinning while getting ready for Rx for nephrolithiasis. Patient presented on November 14 under the care of Dr. Mckee for removal of his stent and stones. At that point in time he was having dizziness, double vision, nausea and chest pain. Procedure was canceled with Dr. Mckee and he was admitted to the hospitalist service for further cardiac and neuro work-up. Neurology and cardiology hais also been involved during his care during this admission. Kobe reports that 9 weeks ago he was trimming tree branches and one fell and hit him on the back of the lower neck. This appears to have resulted in a C7 spinous process fracture. He reports follow-up at [facility] facil pao but with with an unknown provider. He was treated in a [place] J collar for 8 weeks. He had a follow-up about week and a half ago and at that point time was placed in a cervical soft collar which he is still wearing. He reports his next follow-up in December with them. He states he has really very little neck pain. He started with episodes of left upper extremity paresthesia about a week and a h intermediate ago. No specific accident, trauma, fall that precipitated it. He states his symptoms are no specific pattern. He is right-hand dominant. Right upper extremity is asymptomatic. Nothing really seems to exacerbate or alleviate his pain. It resolves on its own. No associated weakness. No associated pain with it. Allergies Allergy/AdvReac Type Severity Reaction Status Date / Time No Known Allergies Allergy Verified 11/14/22 06:58 Home Medications Medication Instructions Recorded Confirmed Type multivitamin 1 tab PO QAM 06/21/18 11/14/22 History omega 2-zaj-jte-fish oil 1,000 mg 1 cap PO QAM ##0 06/24/18 11/14/22 History (120 mg-180 mg) capsule (Fish Oil) imiquimod 5 % topical cream packet 1 applic topical DAILY 03/12/22 11/14/22 History niacinamide 100 mg tablet 100 mg PO BID 10/21/22 11/14/22 History omeprazole 20 mg capsule,delayed 20 mg PO BID 10/21/22 11/14/22 History release vitamins A,C,A-ceqk-rsjgnb 2,148 1 tab PO QAM 10/21/22 11/14/22 History mcg-113 mg-45 mg-17.4 mg tablet (PreserVision AREDS) clopidogrel 75 mg tablet 75 mg PO QAM #30 tabs 10/26/22 11/14/22 Rx furosemide 20 mg tablet 20 mg PO QAM #30 tabs 10/26/22 11/14/22 Rx losartan 25 mg tablet 25 mg PO QAM #30 tabs 10/26/22 11/14/22 Rx metoprolol succinate 25 mg 25 mg PO BID #60 tabs 10/26/22 11/14/22 Rx tablet,extended release 24 hr apixaban 5 mg tablet (Eliquis) 5 mg PO BID 11/03/22 11/14/22 History atorvastatin 80 mg tablet (Lipitor) 80 mg PO QAM 11/03/22 11/14/22 History spironolactone 25 mg tablet 12.5 mg PO QAM 11/03/22 11/14/22 History Patient History Medical History CAD (coronary artery disease) KEL to mid LAD 10/25/22 Ostial obtuse marginal branch vessel disease, and left main disease managed medically per cardio records GERD (gastroesophageal reflux disease) Hx of skin cancer, basal cell S/P SEVERAL MOH'S PROCEDURES Hyperlipidemia Hypertension Ischemic cardiomyopathy EF 35-40% per 10/22/2022 ECHO EF mildly improved to 45-50% on 11/05/22 ECHO Kidney stones 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 S/P cystoscopy, left ureteral stent insertion, retrograde pyelogram by on 10/21/2022 UTI (urinary tract infection) being treated for at present Surgical History History of adenoidectomy History of arthroscopic knee surgery R X 2 History of cardiac cath 10/25/22 [facility] > with drug-eluting stent History of colonoscopy History of cystoscopy Cystoscopy, left ureteral stent insertion, retrograde pyelogram History of esophagogastroduodenoscopy (EGD) History of heart artery stent 10/25/22 [facility] > drug-eluting stent History of inguinal hernia repair History of tonsillectomy History of vasectomy Family History Father FHx: diabetes mellitus Mother FHx: heart disease Social History Smoking Status: Never smoker Second Hand Exposure: No; Hx Alcohol Use: No Hx Substance Use: No Preferred Language: Irish Communication Ability: Effective Clerical Assistant Required: No Beliefs That Will Affect Care: None Current Living Situation: Spouse Other Information That Helps Us Care for You: No Feels Safe at Home: Yes Safety Concerns: Feels Safe At This Time Assistive Devices: None Review of Systems Review of Systems: All systems reviewed & are unremarkable except as noted in HPI & below Physical Exam Physical Exam: He is lying in bed in no acute distress Soft cervical collar is intact Nontender to patient of the midline posterior cervical spine No upper motor neuron signs Motor testing is 5/5 bilateral finger intrinsics, finger extensors, wrist flexors, wrist extensors, biceps, triceps, deltoid No evidence of ankle clonus bilaterally Modestly positive cubital tunnel sign on the left Constitutional: + thin Eyes: normal visual riley by confrontation ENMT: external ear and nose normal, oropharynx normal Neck: normal visual inspection Respiratory: normal respiratory effort Cardiovascular: Extremities: normal capillary refill Gastrointestinal (Abdomen): Inspection/Auscultation: abdomen normal to inspection Musculoskeletal: Head/Neck/Chest: + limited ROM of neck Extremities: extremities normal to inspection and strength 5/5 throughout Skin: no rashes, warm and dry Neurologic: normal touch/pain/proprioception and moves all extremities Psychiatric: A+Ox3, euthymic affect Eye Contact: good eye contact Results & Data Vital Signs (Past 12 Hours) Vital Signs Temp Pulse Resp BP Pulse Ox O2 Del Method 11/15/22 07:08 37.0 C 64 17 106/72 97 Room Air 11/15/22 02:21 37 C 65 18 103/74 96 Room Air Diagnostic Findings [place], [place] [phone] CT Scan Report Patient:KOBE KEYES Admit Date:11/04/22 MR#:[id number] Address1:[address] [place] [address] Acct ID:[id number] Address2: Date:1955 [facility] Zip:[place] [address] Age:66 Location:2S Sex:M Room/Bed:[facility] Att Phy:Flo Hawk MD Diagnosis:TINGLY LEFT ARM, CHEST PAINS Lindsey Phy:Kobe Denton III, MD Service Date:11/05/22 Fam Phy: Interpreting Phy:Moise Leung Phy:Dante Terrell MD Ordering Phy:Flo Hawk MD cc: ~ CT cervical spine wo con CLINICAL HISTORY: Left arm Numbness TECHNIQUE: Multidetector row helical CT of the cervical spine was performed without administration of intravenous contrast. Coronal and sagittal reformations were obtained. Automated dose lowering techniques and/or adjustment according to patient size were utilized for this exam. Comparison: None available at the time of this dictation. FINDINGS: No acute fractures or subluxations are identified. Degenerative changes are seen in the visualized spine. The alignment is normal. Soft tissues are unremarkable. IMPRESSION: Degenerative changes without evidence of acute bony injury. ACT 112: Negative or not required by law. Electronically signed by: Moise Thayer M.D. 11/05/2022 4:22 PM Dictated:11/05/22 1619 Transcribed: 11/05/22 1619
--- NOTE | 2022-11-15 13:48 | Magnetic Resonance Report ---
MR cervical spine wo con HISTORY: 66 years-old Male LUE paresthesia; trauma 9 weeks ago c spine Chronic neck pain. COMPARISON: Brain MRI 11/14/2022, CT cervical spine 11/05/2022. TECHNIQUE: Multiplanar and multisequence MRI of the cervical spine was obtained without the use of IV contrast. FINDINGS: Rn Radiology localizer images demonstrate no gross extraspinal abnormality. Four mm T2 hyperintense focus wi thin the central geovany is again noted, better seen on the brain MRI of same day. A 1.5 cm T1 and 1.8 c m T3 vertebral body hemangiomata. No acute fracture, subluxation, endplate erosion or marrow replacin g process. Normal signal within the cervical and imaged upper thoracic spinal cord. Degenerative henley ges as described below. The study is limited secondary to nondiagnostic sagittal and oblique images. C2-C3: Mild intervertebral disc space narrowing. Uncovertebral hypertrophy with ivlh-dz-beqcyfzu face t arthrosis. No central canal or neuroforaminal narrowing. C3-C4: Mild intervertebral disc space narrowing. Uncovertebral hypertrophy with tiny posterior annula r disc bulge and copo-im-pveckkay facet arthrosis. Mild left with moderate right neuroforaminal narro wing. C4-C5: Mild intervertebral disc space narrowing. Small posterior disc osteophyte complex with mild-to -moderate facet arthrosis. The central canal is patent. Mild right with moderate left neural foramina l narrowing. C5-C6: Mild intervertebral disc space narrowing. Uncovertebral hypertrophy with nfst-wr-fatickak face t arthrosis. The central canal is patent. Mild right with usvv-qk-kgecmzct left neuroforaminal narrow ing. C6-C7: Moderate intervertebral disc space narrowing. Tiny posterior disc osteophyte complex with mild -to-moderate facet arthrosis. The central canal is patent. Mild right with yhos-cb-olsvohqh left neur oforaminal narrowing. C7-T1: Uncovertebral hypertrophy with hqho-df-srbftxxx facet arthrosis. No significant central canal or neuroforaminal narrowing. IMPRESSION: 1. Hayr-gj-jwwznhot discogenic degeneration and facet arthrosis as above resulting in multilevel neur al foraminal narrowing. 2. No significant central canal stenosis. 3. Normal signal of the cervical spinal cord. 4. Subcentimeter T2 hyperintense focus within the geovany is better characterized on the brain MRI of e same day. ACT 112: Negative or not required by law. The above report was generated using voice recognition software. It may contain grammatical, syntax o r spelling errors. Dictated: 11/15/2022 12:35 PM Transcribed: 11/15/2022 1:46 PM Marty [id number] [email or web address] Electronically signed by: Jesus James M.D. 11/15/2022 1:47 PM
--- NOTE | 2022-11-15 18:41 | Hospitalist Progress Note ---
Date of Service November 15, 2022 Assessment & Plan (1) BPPV (benign paroxysmal positional vertigo): Plan: Brain MRI: 1. No acute intracranial findings. 2. Subtle 4 mm T2 hyperintense focus within the geovany, as described above. This is nonspecific but of questionable significance. This finding is not acute. A follow-up MRI of the brain could be obtained in 6 months to ensure stability. Evaluated by neurology service Positive Rachael-Hallpike test which confirms diagnosis of benign paroxysmal positional vertigo Juan Manuel's maneuver performed Dizziness resolved on discharge day Patient declines as needed meclizine No further work-up at this time per neurology service Follow-up brain MRI with and without contrast in 6 months. (2) Cervical radicular pain: Plan: Chronic symptom per patient Cervical spine MRI: 1. Iufg-sj-blyqqxgn discogenic degeneration and facet arthrosis as above resulting in multilevel neural foraminal narrowing. 2. No significant central canal stenosis. 3. Normal signal of the cervical spinal cord. 4. Subcentimeter T2 hyperintense focus within the geovany is better characterized on the brain MRI of the same day. ACT 112: Negative or not required by law. Evaluated by orthospine service No further work-up at this point Follow-up as an outpatient with [facility] lighting specialist (3) CAD (coronary artery disease): (4) Hyperlipidemia: Plan: Status post NSTEMI in the setting of urosepsis, 95% proximal LAD stenosis s/p PCI No cardiac symptoms Continue present medication regimen Patient requesting to wean off diuretics if possible Previously prescribed for cardiomyopathy Please reevaluate during PCP follow-up visit (5) Hydronephrosis with renal calculous obstruction: Plan: -Right ureteral stent insertion on 10/21/[address] Mckee -Ureteral calculus removal, cystoscopy, laser lithotripsy/stone treatment and right stent exchange canceled on the day of admission secondary to dizziness Follow-up with urology clinic (6) GERD (gastroesophageal reflux disease): Plan: -Continue omeprazole DVT PPx: - teds, scds CODE: Full code Dispo: Discharge to home Follow-up with PCP in 1 week Follow-up with urologist as scheduled Admission and Anticipated Discharge Date Admission Date: November 14, 2022 Subjective Follow-up for dizziness secondary to benign paroxysmal positional vertigo, etc. Seen sitting up in bed, comfortable, not in distress, in good spirits States he feels much better Dizziness resolved Able to ambulate in the hallways, climbs up steps with physical therapist with no issues no chest pain, dyspnea, palpitations, dizziness Has chronic left arm paresthesias No other new symptoms States he is ready and and would like to be discharged today Review of Systems Review of Systems: all noted and negative except for above Physical Exam Physical Exam: General- oriented x 3, not in distress, speaks in sentences with no effort or accessory muscle use Eyes- anicteric Neck- no JVD Lungs- clear breath sounds bilaterally, no crackles or wheezing Heart- normal rate, regular rhythm; no murmurs Abdomen- normal bowel sounds, nondistended, soft, nontender Extremities- no pretibial edema, no calf tenderness Neuro- alert, oriented x 3; no gross focal neurologic deficits Skin- warm & dry Results & Data Results & Data Vital Signs (Past 12 Hours) Vital Signs Temp Pulse Pulse Resp BP Pulse Ox O2 Del Method 11/15/22 14:43 37.0 C 70 18 110/72 97 11/15/22 12:39 37.0 C 70 18 110/72 97 Room Air 11/15/22 12:25 64 11/15/22 07:08 37.0 C 64 17 106/72 97 Room Air all noted and reviewed including below
--- NOTE | 2022-11-15 18:47 | Discharge Summary ---
Discharge Summary Date of Service November 15, 2022 Notes For Next Care Provider Repeat brain MRI with and without contrast in 6 months to reevaluate hyperintense lesion mid to lower geovany seen on MRI during admission Follow-up right ICA 50% stenosis Medication Changes From Visit None Admission HPI Per Admitting Provider This is a 66 yo M with PMhx of NSTEMI s/p cardiac stent, and ureteral stent and kidney stone and bacteremia who was admitted last month for such. He reports developing dizziness 2 nights ago night when he got up to go to the bathroom. he was able to go back to bed a little, but it was still there this morning. He vomited x 1 and felt diaphoretic, however his temperature was normal. Pt had a good rest of the day, ate normally and did ADLs. He again last night got up to the bathroom last night around 3 am, and again got dizzy. Last Sunday night he was seen here for left sided chest pain and numbness tingling into his L arm but the ER workup was negative and sent home. 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 Patient presented this morning to have routine cystoscopy done for kidney stone extraction with Dr. Mckee. Prior to having the procedure done he started to feel ill again with worsening dizziness, nausea and vomited in the preop area. Surgery was cancelled. Currently still has some nausea and dizziness. He admits to double vision and blurred vision when he goes from a sitting to standing position. he also notices this whenever he moves his head. Pt also notices worsening vision in the past 1-2 months specifically. He also notes numbness and tingling in his feel since all his other recent medical issues in the past 1-2 months. Admission Exam Per Admitting Provider GENERAL: The patient is of moderate build, not in acute distress. VITAL SIGNS: Temperature 36.7, pulse 75, respiratory rate 20, blood pressure 112/72, oxygen 98% on room air. HEENT: Pupils equal, round and reactive to light. Oral mucosa moist. NECK: No JVD, no neck masses. CARDIOVASCULAR: S1 and S2 heard. Regular rate and rhythm. No murmur, no gallop. RESPIRATORY SYSTEM: Normal AP diameter. No accessory muscle use. No wheezing, no crackles. ABDOMEN: Soft, bowel sounds present, nontender, no distention. CENTRAL NERVOUS SYSTEM: Cranial nerves II-XII grossly intact, nonfocal. EXTREMITIES: No edema, no erythema. Principal Dx & Hospital Course #1 = Principal Diagnosis (1) BPPV (benign paroxysmal positional vertigo): Presented to the ER for experiencing severe dizziness prior to urologic procedure Brain MRI: 1. No acute intracranial findings. 2. Subtle 4 mm T2 hyperintense focus within the geovany, as described above. This is nonspecific but of questionable significance. This finding is not acute. A follow-up MRI of the brain could be obtained in 6 months to ensure stability. CT angiogram head and neck: IMPRESSION: 1. No acute intracranial abnormality. 2. Atherosclerotic plaque of the right carotid bulb results in approximately 50% stenosis of the proximal cervical segment right ICA. 3. Otherwise unremarkable CTA of the head and neck. Evaluated by neurology service Positive Rachael-Hallpike test which confirms diagnosis of benign paroxysmal positional vertigo Juan Manuel's maneuver performed Dizziness resolved on discharge day Patient declines as needed meclizine No further work-up at this time per neurology service Follow-up brain MRI with and without contrast in 6 months. Follow-up right ICA 50% stenosis (2) Cervical radicular pain: Chronic symptom per patient Cervical spine MRI: 1. Yjac-ga-cqazaiob discogenic degeneration and facet arthrosis as above resulting in multilevel neural foraminal narrowing. 2. No significant central canal stenosis. 3. Normal signal of the cervical spinal cord. 4. Subcentimeter T2 hyperintense focus within the geovany is better characterized on the brain MRI of the same day. ACT 112: Negative or not required by law. Evaluated by orthospine service No further work-up at this point Follow-up as an outpatient with [facility] customer sales specialist (3) CAD (coronary artery disease): (4) Hyperlipidemia: Status post NSTEMI in the setting of urosepsis, 95% proximal LAD stenosis s/p PCI No cardiac symptoms Continue present medication regimen Patient requesting to wean off diuretics if possible Previously prescribed for cardiomyopathy Please reevaluate during PCP follow-up visit (5) Hydronephrosis with renal calculous obstruction: -Right ureteral stent insertion on 10/21/[address] Mckee -Ureteral calculus removal, cystoscopy, laser lithotripsy/stone treatment and right stent exchange canceled on the day of admission secondary to dizziness Follow-up with urology clinic (6) GERD (gastroesophageal reflux disease): -Continue omeprazole DVT PPx: - teds, scds CODE: Full code Dispo: Discharge to home Follow-up with PCP in 1 week Follow-up with urologist as scheduled Discharge Exam General- oriented x 3, not in distress, speaks in sentences with no effort or accessory muscle use Eyes- anicteric Neck- no JVD Lungs- clear breath sounds bilaterally, no crackles or wheezing Heart- normal rate, regular rhythm; no murmurs Abdomen- normal bowel sounds, nondistended, soft, nontender Extremities- no pretibial edema, no calf tenderness Neuro- alert, oriented x 3; no gross focal neurologic deficits Skin- warm & dry Updated Medication List Medication Instructions Recorded Confirmed Type multivitamin 1 tab PO QAM 06/21/18 11/14/22 History omega 4-hjv-rhi-fish oil 1,000 mg 1 cap PO QAM ##0 06/24/18 11/14/22 History (120 mg-180 mg) capsule (Fish Oil) imiquimod 5 % topical cream packet 1 applic topical DAILY 03/12/22 11/14/22 History niacinamide 100 mg tablet 100 mg PO BID 10/21/22 11/14/22 History omeprazole 20 mg capsule,delayed 20 mg PO BID 10/21/22 11/14/22 History release vitamins A,C,W-jgcg-lmwsqb 2,148 1 tab PO QAM 10/21/22 11/14/22 History mcg-113 mg-45 mg-17.4 mg tablet (PreserVision AREDS) clopidogrel 75 mg tablet 75 mg PO QAM #30 tabs 10/26/22 11/14/22 Rx furosemide 20 mg tablet 20 mg PO QAM #30 tabs 10/26/22 11/14/22 Rx losartan 25 mg tablet 25 mg PO QAM #30 tabs 10/26/22 11/14/22 Rx metoprolol succinate 25 mg 25 mg PO BID #60 tabs 10/26/22 11/14/22 Rx tablet,extended release 24 hr apixaban 5 mg tablet (Eliquis) 5 mg PO BID 11/03/22 11/14/22 History atorvastatin 80 mg tablet (Lipitor) 80 mg PO QAM 11/03/22 11/14/22 History spironolactone 25 mg tablet 12.5 mg PO QAM 11/03/22 11/14/22 History Hospital Stay Data Consultations 11/14/22 09:52 ED Decision to Admit Stat 11/14/22 10:52 Consult Neurology Routine 11/14/22 12:20 Consult Orthopedic Surgery Routine Diagnostic Imagining Performed 11/14/22 07:44 CT head/brain wo con Stat 11/14/22 07:46 CT angio head w con Stat CT angio neck with con Stat CT BRAIN: There is no acute intracranial hemorrhage, midline shift, hydrocephalus, intracranial mass, territorial ischemia or abnormal extra-axial collections. No abnormal intra-axial or extra-axial enhancement. Mastoid air cells and middle ear cavities are clear. No calvarial fracture. Paranasal sinuses are clear. CT ANGIOGRAM OF THE HEAD AND NECK: Three-vessel morphology of the thoracic aortic arch. There is patency of innominate and imaged subclavian arteries. The common carotid arteries are widely patent. There is atherosclerotic plaque of the right greater left carotid bulbs and proximal cervical segments of the internal carotid arteries. The left internal carotid artery is widely patent. There is stenosis measuring up to 50% within the proximal cervical segment right ICA. The bilateral anterior and middle cerebral arteries are also patent. The right A1 segment is developmentally diminutive. The vertebrobasilar system and posterior cerebral arteries are widely patent. origin of the right posterior cerebral artery. There is no aneurysm, high-grade stenosis, or proximal branch occlusion identified. Dural sinuses appear patent. Lung apices are clear. There is no pneumothorax identified. Unremarkable soft tissues. There is no acute fracture identified. Degenerative changes of the cervical spine. IMPRESSION: 1. No acute intracranial abnormality. 2. Atherosclerotic plaque of the right carotid bulb results in approximately 50% stenosis of the proximal cervical segment right ICA. 3. Otherwise unremarkable CTA of the head and neck. ACT 112: Negative or not required by law. The above report was generated using voice recognition software. It may contain grammatical, syntax or spelling errors. 11/14/22 11:03 MRI Brain [MR brain wo con] Stat IMPRESSION: 1. No acute intracranial findings. 2. Subtle 4 mm T2 hyperintense focus within the geovany, as described above. This is nonspecific but of questionable significance. This finding is not acute. A follow-up MRI of the brain could be obtained in 6 months to ensure stability. 11/15/22 10:25 MR cervical spine w/o con Routine IMPRESSION: 1. Pmoa-ds-qljsnczv discogenic degeneration and facet arthrosis as above resulting in multilevel neural foraminal narrowing. 2. No significant central canal stenosis. 3. Normal signal of the cervical spinal cord. 4. Subcentimeter T2 hyperintense focus within the geovany is better characterized on the brain MRI of the same day. Pending Results Patient Have Any Pending Studies at Discharge: No Discharge Instructions Given to Patient (Per Discharging Provider) Avoid neck flexion, hyperextension, bending over, turning in the bed side to side, and will sleep in supine, with head raise up to 30 degrees for 2 days and nights. PLEASE CALL YOUR PRIMARY CARE PHYSICIAN OR RETURN TO THE ER IF WITH WORSENING OF SYMPTOMS, INCLUDING Dizziness, nausea/vomiting, left arm tingling/weakness, etc. FOLLOW UP WITH PRIMARY CARE PHYSICIAN OUTLINED ABOVE. FOLLOW-UP WITH UROLOGIST SCHEDULED. FOLLOW-UP WITH [facility] ECG TECHNICIAN 2 to 3 weeks. Total Time Total Time Spent Total Time Spent (In Minutes): >30 minutes
== END 2022-11-15 15:43 | disposition home or self-care (01) ==
LOC: ED 07:35 → EDINP 07:35 → SUATTDRO 10:51 → 2E 11:26

== ENCOUNTER 2022-11-18 23:23 | Inpatient (IN) ==
--- NOTE | 2022-11-18 23:56 | Emergency Department Note ---
History of Present Illness General Chief complaint: Fever Stated complaint: FEVER Time Seen by Provider: 11/18/22 23:45 History of Present Illness This 66-year-old male patient presents to the emergency department for evaluation of a fever 100.8 F that started early this morning. He took 500 mg of Tylenol approximately 1.5 hours ago without improvement of the fever. Has had decreased appetite, chills and vomiting today as well. The patient has been admitted October 21 to October 26 as well as November 14 to 2022 due to sepsis secondary to E. coli bacteremia secondary to a complicated UTI. The patient had a ureteral stent placed and was found to have an NSTEMI during admission. He was then taken to the [facility] and had cardiac stents placed. The patient was to have an outpatient cystoscopy and stent removal, but he developed dizziness and the procedure was canceled. The vertigo/dizziness symptoms resolved after Juan Manuel maneuver. This morning he felt lightheaded again with the fever and became concerned. Denies chest pain, SOB, cough, or abdominal pain. He has urinary frequency from his diuretics, but denies burning with urination. No problems with his BMs. No known ill contacts. He is on Eliquis. Home Medications Medication Instructions Recorded Confirmed Type multivitamin 1 tab PO QAM 06/21/18 11/19/22 History omega 9-etp-ncj-fish oil 1,000 mg 1 cap PO QAM ##0 06/24/18 11/19/22 History (120 mg-180 mg) capsule (Fish Oil) imiquimod 5 % topical cream packet 1 applic topical DIRECTED 03/12/22 3 History niacinamide 100 mg tablet 100 mg PO BID 10/21/22 11/19/22 History omeprazole 20 mg capsule,delayed 20 mg PO BID 10/21/22 11/19/22 History release vitamins A,C,U-bahq-kwvdeu 2,148 1 tab PO QAM 10/21/22 11/19/22 History mcg-113 mg-45 mg-17.4 mg tablet (PreserVision AREDS) clopidogrel 75 mg tablet 75 mg PO QAM #30 tabs 10/26/22 11/19/22 Rx furosemide 20 mg tablet 20 mg PO QAM #30 tabs 10/26/22 11/19/22 Rx losartan 25 mg tablet 25 mg PO QAM #30 tabs 10/26/22 11/19/22 Rx metoprolol succinate 25 mg 25 mg PO BID #60 tabs 10/26/22 11/19/22 Rx tablet,extended release 24 hr apixaban 5 mg tablet (Eliquis) 5 mg PO BID 11/03/22 11/19/22 History atorvastatin 80 mg tablet (Lipitor) 80 mg PO QAM 11/03/22 11/19/22 History spironolactone 25 mg tablet 12.5 mg PO QAM 11/03/22 11/19/22 History Allergies Allergy/AdvReac Type Severity Reaction Status Date / Time No Known Allergies Allergy Verified 11/19/22 02:01 Past Med/Surg History Medical History CAD (coronary artery disease) KEL to mid LAD 10/25/22 Ostial obtuse marginal branch vessel disease, and left main disease managed medically per cardio records GERD (gastroesophageal reflux disease) Hx of skin cancer, basal cell S/P SEVERAL MOH'S PROCEDURES Hyperlipidemia Hypertension Ischemic cardiomyopathy EF 35-40% per 10/22/2022 ECHO EF mildly improved to 45-50% on 11/05/22 ECHO Kidney stones 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 S/P cystoscopy, left ureteral stent insertion, retrograde pyelogram by on 10/21/2022 UTI (urinary tract infection) being treated for at present Surgical History History of adenoidectomy History of arthroscopic knee surgery R X 2 History of cardiac cath 10/25/22 [facility] > with drug-eluting stent History of colonoscopy History of cystoscopy Cystoscopy, left ureteral stent insertion, retrograde pyelogram History of esophagogastroduodenoscopy (EGD) History of heart artery stent 10/25/22 [facility] > drug-eluting stent History of inguinal hernia repair History of tonsillectomy History of vasectomy Family History Father FHx: diabetes mellitus Mother FHx: heart disease Social History Smoking Status: Never smoker Second Hand Exposure: No; Hx Alcohol Use: No Hx Substance Use: No Preferred Language: Comoran Communication Ability: Effective Metal Miner Required: No Beliefs That Will Affect Care: None Current Living Situation: Spouse and Family Other Information That Helps Us Care for You: No Feels Safe at Home: Yes Safety Concerns: Feels Safe At This Time Assistive Devices: None Assistive Devices Comment: neck brace Review of Systems See HPI for pertinent positives & negatives. Physical Exam Vital Signs Vital Signs - 24 hr 11/18/22 23:26 11/18/22 23:45 11/18/22 23:51 Temperature 37.5 C Temperature Source Temporal Artery Scan Pulse Rate 95 H 94 H 90 Pulse Rate from SpO2 Sensor 90 Respiratory Rate 20 14 Respiratory Effort / Characteristics Non-Labored Spontaneous Respiratory Depth Normal Blood Pressure 101/70 108/65 Blood Pressure Mean 80 79 Pulse Oximetry 95 96 Oxygen Delivery Method Room Air Room Air Sepsis Recent Fever Within 48 Hours Yes Sepsis New/Unexplained Change in Mental Status No Sepsis Action Taken by Nursing No Action Required 11/19/22 00:00 11/19/22 00:30 11/19/22 01:00 Temperature Temperature Source Pulse Rate 88 88 81 Pulse Rate from SpO2 Sensor 89 88 81 Respiratory Rate 15 18 20 Respiratory Effort / Characteristics Respiratory Depth Blood Pressure 106/66 115/69 111/65 Blood Pressure Mean 79 84 80 Pulse Oximetry 93 93 95 Oxygen Delivery Method Room Air Room Air Room Air Sepsis Recent Fever Within 48 Hours Sepsis New/Unexplained Change in Mental Status Sepsis Action Taken by Nursing 11/19/22 01:30 11/19/22 02:00 11/19/22 02:30 Temperature Temperature Source Pulse Rate 80 84 83 Pulse Rate from SpO2 Sensor 80 83 83 Respiratory Rate 17 22 20 Respiratory Effort / Characteristics Respiratory Depth Blood Pressure 114/66 112/69 122/69 Blood Pressure Mean 82 83 86 Pulse Oximetry 95 95 96 Oxygen Delivery Method Room Air Room Air Room Air Sepsis Recent Fever Within 48 Hours Sepsis New/Unexplained Change in Mental Status Sepsis Action Taken by Nursing 11/19/22 03:05 Temperature Temperature Source Pulse Rate 85 Pulse Rate from SpO2 Sensor 90 Respiratory Rate 24 Respiratory Effort / Characteristics Respiratory Depth Blood Pressure 112/68 Blood Pressure Mean 82 Pulse Oximetry 95 Oxygen Delivery Method Room Air Sepsis Recent Fever Within 48 Hours Sepsis New/Unexplained Change in Mental Status Sepsis Action Taken by Nursing Vital Signs: Vitals are noted on the nurse's note and reviewed by myself. GENERAL: Non toxic in appearance and in no acute distress. SKIN: Capillary reflex less than 2 seconds. HEAD: Normocephalic, atraumatic. EARS: External auditory canals clear, tympanic membrane pearly villa without erythema or effusion. No tragus tenderness. No mastoid tenderness. EYES: Pupils equal round and reactive to light and accommodation. Conjunctivae without injection, sclerae without icterus. Extraocular movements intact. NOSE: Patent, turbinates inflamed with no discharge. No sinus tenderness. MOUTH: Mucous membranes moist. Airway patent, uvula midline. Tonsils are not enlarged and not erythematous without exudate. Pharynx without postnasal drip. No evidence for peritonsillar abscess. NECK: Supple without nuchal rigidity. No lymphadenopathy. The patient is wearing a soft cervical collar for comfort from a previous cervical spine fracture. HEART: Regular rate and rhythm without murmurs gallops or rubs. LUNGS: Clear to auscultation bilaterally without wheezes, rales or rhonchi. No accessory muscle use or retractions. ABDOMEN: Positive bowel sounds x 4. Normal tympanic percussion. Soft, nontender, without masses or organomegaly. NEURO: Patient was alert and oriented to person place and time. Course Administered Medications Acetaminophen (Acetaminophen 325 Mg Tab) 650 mg PO Q4H PRN PRN Reason: Pain or Fever Stop: 12/19/22 04:36 Last Admin: 11/19/22 15:46 Dose: 650 mg Documented By: Admin: 11/19/22 11:31 Dose: 650 mg Documented By: DAMARIS Apixaban (Apixaban 5 Mg Tablet) 5 mg PO BID [facility] Stop: 12/19/22 08:59 Last Admin: 11/19/22 20:07 Dose: 5 mg Documented By: Admin: 11/19/22 08:31 Dose: 5 mg Documented By: DAMARIS Atorvastatin Calcium (Atorvastatin 40 Mg Tab) 80 mg PO QAM [facility] Stop: 12/19/22 08:59 Last Admin: 11/19/22 08:32 Dose: 80 mg Documented By: DAMARIS Clopidogrel Bisulfate (Clopidogrel Bisulfate 75 Mg Tab) 75 mg PO [facility] Stop: 12/19/22 08:59 Last Admin: 11/19/22 08:31 Dose: 75 mg Documented By: DAMARIS Promethazine HCl 6.25 mg/ (Sodium Chloride) 50.25 mls @ 201 mls/hr IV Q6H PRN PRN Reason: Nausea And Vomiting Stop: 12/19/22 04:36 Last Infusion: 11/19/22 18:09 Dose: 0 mls/hr Documented By: Admin: 11/19/22 17:56 Dose: 201 mls/hr Documented By: CODY Ertapenem 1,000 mg/ Syringe 10 mls @ 2 mls/min IV Q24H [facility] Stop: 11/29/22 16:59 Last Admin: 11/19/22 17:05 Dose: 2 mls/min Documented By: CODY Ciprofloxacin (Cipro / D5w) 400 mg in 200 mls @ 100 mls/hr IV Q12H [facility]; Protocol Stop: 11/29/22 15:59 Last Infusion: 11/19/22 19:15 Dose: 0 mls/hr Documented By: Admin: 11/19/22 17:04 Dose: 100 mls/hr Documented By: CODY Losartan Potassium (Losartan Potassium 25 Mg Tab) 25 mg PO [facility] Stop: 12/20/22 08:59 Last Admin: 11/19/22 08:31 Dose: 25 mg Documented By: DAMARIS Metoprolol Succinate (Metoprolol Succ 25mg Ext Rel Tab) 25 mg PO DAILY [facility] Stop: 12/19/22 08:59 Last Admin: 11/19/22 08:29 Dose: 25 mg Documented By: DAMARIS Multivitamins (Multivitamin Tab) 1 tab PO [facility] Stop: 12/19/22 08:59 Last Admin: 11/19/22 08:31 Dose: 1 tab Documented By: DAMARIS Pantoprazole Sodium (Pantoprazole 40 Mg Tab) 40 mg PO BID [facility] Stop: 12/19/22 08:59 Last Admin: 11/19/22 20:07 Dose: 40 mg Documented By: Admin: 11/19/22 08:30 Dose: 40 mg Documented By: DAMARIS Discontinued Medications Sodium Chloride (Nss) 500 mls @ 999 mls/hr IV .Q31M STA Stop: 11/19/22 00:47 Last Infusion: 11/19/22 01:19 Dose: 0 mls/hr Documented By: Admin: 11/19/22 00:32 Dose: 999 mls/hr Documented By: PORTIA Ceftriaxone Sodium 1,000 mg/ (Dextrose) 50 mls @ 100 mls/hr IV NOW STA Stop: 11/19/22 02:59 Last Infusion: 11/19/22 03:14 Dose: 0 mls/hr Documented By: Admin: 11/19/22 02:44 Dose: 100 mls/hr Documented By: PORTIA Potassium Chloride/Sodium Chloride (Normal Saline W/20 Meq Kcl) 20 meq in 1,000 mls @ 80 mls/hr IV .[id number] STA; Protocol Stop: 11/19/22 15:29 Last Infusion: 11/19/22 15:40 Dose: 0 mls/hr Documented By: Infusion: 11/19/22 15:40 Dose: 0 mls/hr Documented By: Admin: 11/19/22 03:33 Dose: 60 mls/hr Documented By: PORTIA Cefepime HCl (Maxipime) 2,000 mg in 20 mls @ 5 mls/min IV NOW STA; Protocol Stop: 11/19/22 03:31 Last Admin: 11/19/22 04:06 Dose: 5 mls/min Documented By: PORTIA Magnesium Sulfate/Dextrose (Magnesium Sulfate / D5w) 1 gm in 100 mls @ 50 mls/hr IV ONE STA Stop: 11/19/22 05:38 Last Infusion: 11/19/22 08:38 Dose: 0 mls/hr Documented By: Admin: 11/19/22 05:14 Dose: 50 mls/hr Documented By: SAGE Promethazine HCl (Phenergan) 6.25 mg in 50.25 mls @ 201 mls/hr IV NOW STA Stop: 11/19/22 04:02 Last Infusion: 11/19/22 04:21 Dose: 0 mls/hr Documented By: Admin: 11/19/22 04:06 Dose: 201 mls/hr Documented By: PORTIA Cefepime HCl 2,000 mg/ Syringe 20 mls @ 5 mls/min IV Q8H [facility]; Protocol Stop: 11/29/22 11:59 Last Admin: 11/19/22 11:45 Dose: 5 mls/min Documented By: DAMARIS Acetaminophen (Ofirmev) 1,000 mg in 100 mls @ 400 mls/hr IV NOW STA Stop: 11/19/22 05:59 Last Infusion: 11/19/22 06:11 Dose: 0 mls/hr Documented By: Admin: 11/19/22 05:56 Dose: 400 mls/hr Documented By: SAGE Potassium Chloride (Potassium Chloride Pwd 20 Meq Pack) 40 meq PO NOW STA Stop: 11/19/22 02:52 Last Admin: 11/19/22 03:34 Dose: 40 meq Documented By: PORTIA Medical Decision Making Differential Diagnosis Differential diagnosis includes Influenza, RSV, COVID, viral syndrome, otitis media, otitis externa, pharyngitis, strep throat, pneumonia, meningitis, urinary tract infection, cellulitis, abscess, sepsis, bacteremia, as well as other pathologies. Laboratory Data Attestation: I reviewed the patient's lab results. 11/18/22 23:45 11/18/22 23:45 Lab Results 11/18/22 11/18/22 11/18/22 Range/Units 23:45 23:45 23:45 WBC 17.56 H (4.8-10.8) K/ul RBC 4.69 L (4.70-6.10) M/uL Hgb 14.6 (14.0-18.0) g/dl Hct 42.2 (42.0-52.0) % MCV 90.0 (80.0-100.0) fL MCH 31.1 (25.0-34.0) pg MCHC 34.6 (32.0-36.0) g/dL RDW Std Deviation 43.8 (36.4-46.3) fL RDW Coeff of Uriel 13.4 (11.5-14.5) % Plt Count 175 (130-400) K/uL MPV 9.4 (9.4-12.4) fL Immature Gran % (Auto) 0.4 % Neut % (Auto) 86.0 % Lymph % (Auto) 4.9 % [place] % (Auto) 8.4 % Eos % (Auto) 0.1 % Baso % (Auto) 0.2 % Neut # (Auto) 15.10 H (1.40-6.50) K/uL Lymph # (Auto) 0.86 L (1.2-3.4) K/uL [place] # (Auto) 1.47 H (0.11-0.59) K/uL Eos # (Auto) 0.02 (0-0.50) K/uL Baso # (Auto) 0.04 (0-0.2) K/uL Immature Gran # (Auto) 0.07 (0.01-0.20) K/uL PT 11.9 (9.0-12.0) Seconds INR 1.1 (0.9-1.1) APTT 29.5 (21.0-31.0) Seconds PTT Ratio 1.1 Sodium 134 L (136-145) mmol/L Potassium 3.4 L (3.5-5.1) mmol/L Chloride 97 L (98-107) mmol/L Carbon Dioxide 26 (21-32) mmol/L Anion Gap 11 (3-11) BUN 21 (6-23) mg/dl Creatinine 0.98 (0.6-1.4) mg/dl Est Cr Clr Drug Dosing 59.6 ml/min Est GFR ( Amer) 91.4 ml/min Est GFR (Non-Af Amer) 78.9 ml/min BUN/Creatinine Ratio 21.4 H (10-20) Glucose 113 H (70-99(Fasting)) mg/dl Lactate (0.4-2.0) mmol/L Calcium 8.9 (8.6-10.3) mg/dl Magnesium 1.6 L (1.7-2.4) mg/dl Total Bilirubin 1.2 H (0.2-1.0) mg/dl AST 23 (13-39) U/L ALT 48 (7-52) U/L Alkaline Phosphatase 110 H (34-104) U/L Troponin I High Sens 18.9 (0-20) pg/ml Total Protein 7.2 (6.0-8.3) gm/dl Albumin 3.9 (3.4-5.0) gm/dl Globulin 3.3 (2.5-4.0) gm/dl Albumin/Globulin Ratio 1.2 (0.9-2) Procalcitonin (0-0.5) ng/ml Urine Color Urine Appearance (Clear) Urine pH (4.5-7.5) Ur Specific [place] (1.000-1.030) Urine Protein (Negative) Urine Glucose (UA) (Negative) Urine Ketones (Negative) Urine Blood (Negative) Urine Nitrite (Negative) Urine Bilirubin (Negative) Urine Urobilinogen (Negative) Ur Leukocyte Esterase (Negative) Urine WBC (Auto) (0-5) /hpf Urine RBC (Auto) (0-4) /hpf U Hyaline Cast (Auto) (0-5) /lpf U Epithel Cells (Auto) (0-5) /lpf Urine Bacteria (Auto) (Negative) Adenovirus (PCR) (NotDetected) B. pertussis DNA (PCR) (NotDetected) B.parapertussis DNA PCR (NotDetected) C. pneumoniae DNA (PCR) (NotDetected) Coronavirus OC43 (PCR) (NotDetected) Coronavirus HKU1 (PCR) (NotDetected) Coronavirus 229E (PCR) (NotDetected) SARS-CoV-2 (PCR) (NotDetected) Coronavirus NL63 (PCR) (NotDetected) Human Metapneumovir PCR (NotDetected) Influenza Type A (PCR) (NotDetected) Influenza Type B (PCR) (NotDetected) M. pneumoniae (PCR) (NotDetected) Parainfluenza 1 (PCR) (NotDetected) Parainfluenza 2 (PCR) (NotDetected) Parainfluenza 3 (PCR) (NotDetected) Parainfluenza 4 (PCR) (NotDetected) RSV (PCR) (NotDetected) Entero/Rhino (PCR) (NotDetected) 11/18/22 11/18/22 11/19/22 Range/Units 23:45 23:50 00:25 WBC (4.8-10.8) K/ul RBC (4.70-6.10) M/uL Hgb (14.0-18.0) g/dl Hct (42.0-52.0) % MCV (80.0-100.0) fL MCH (25.0-34.0) pg MCHC (32.0-36.0) g/dL RDW Std Deviation (36.4-46.3) fL RDW Coeff of Uriel (11.5-14.5) % Plt Count (130-400) K/uL MPV (9.4-12.4) fL Immature Gran % (Auto) % Neut % (Auto) % Lymph % (Auto) % [place] % (Auto) % Eos % (Auto) % Baso % (Auto) % Neut # (Auto) (1.40-6.50) K/uL Lymph # (Auto) (1.2-3.4) K/uL [place] # (Auto) (0.11-0.59) K/uL Eos # (Auto) (0-0.50) K/uL Baso # (Auto) (0-0.2) K/uL Immature Gran # (Auto) (0.01-0.20) K/uL PT (9.0-12.0) Seconds INR (0.9-1.1) APTT (21.0-31.0) Seconds PTT Ratio Sodium (136-145) mmol/L Potassium (3.5-5.1) mmol/L Chloride (98-107) mmol/L Carbon Dioxide (21-32) mmol/L Anion Gap (3-11) BUN (6-23) mg/dl Creatinine (0.6-1.4) mg/dl Est Cr Clr Drug Dosing ml/min Est GFR ( Amer) ml/min Est GFR (Non-Af Amer) ml/min BUN/Creatinine Ratio (10-20) Glucose (70-99(Fasting)) mg/dl Lactate (0.4-2.0) mmol/L Calcium (8.6-10.3) mg/dl Magnesium (1.7-2.4) mg/dl Total Bilirubin (0.2-1.0) mg/dl AST (13-39) U/L ALT (7-52) U/L Alkaline Phosphatase (34-104) U/L Troponin I High Sens (0-20) pg/ml Total Protein (6.0-8.3) gm/dl Albumin (3.4-5.0) gm/dl Globulin (2.5-4.0) gm/dl Albumin/Globulin Ratio (0.9-2) Procalcitonin 0.12 (0-0.5) ng/ml Urine Color Yellow Urine Appearance Turbid A (Clear) Urine pH 5.5 (4.5-7.5) Ur Specific [place] 1.021 (1.000-1.030) Urine Protein 2+ H (Negative) Urine Glucose (UA) Negative (Negative) Urine Ketones Trace H (Negative) Urine Blood 2+ H (Negative) Urine Nitrite Positive A (Negative) Urine Bilirubin Negative (Negative) Urine Urobilinogen Negative (Negative) Ur Leukocyte Esterase 3+ H (Negative) Urine WBC (Auto) >30 H (0-5) /hpf Urine RBC (Auto) 10-30 H (0-4) /hpf U Hyaline Cast (Auto) 1-5 (0-5) /lpf U Epithel Cells (Auto) 10-20 H (0-5) /lpf Urine Bacteria (Auto) 4+ H (Negative) Adenovirus (PCR) Not Detected (NotDetected) B. pertussis DNA (PCR) Not Detected (NotDetected) B.parapertussis DNA PCR Not Detected (NotDetected) C. pneumoniae DNA (PCR) Not Detected (NotDetected) Coronavirus OC43 (PCR) Not Detected (NotDetected) Coronavirus HKU1 (PCR) Not Detected (NotDetected) Coronavirus 229E (PCR) Not Detected (NotDetected) SARS-CoV-2 (PCR) Not Detected (NotDetected) Coronavirus NL63 (PCR) Not Detected (NotDetected) Human Metapneumovir PCR Not Detected (NotDetected) Influenza Type A (PCR) Not Detected (NotDetected) Influenza Type B (PCR) Not Detected (NotDetected) M. pneumoniae (PCR) Not Detected (NotDetected) Parainfluenza 1 (PCR) Not Detected (NotDetected) Parainfluenza 2 (PCR) Not Detected (NotDetected) Parainfluenza 3 (PCR) Not Detected (NotDetected) Parainfluenza 4 (PCR) Not Detected (NotDetected) RSV (PCR) Not Detected (NotDetected) Entero/Rhino (PCR) Not Detected (NotDetected) 04/09/23 Range/Units 00:46 WBC (4.8-10.8) K/ul RBC (4.70-6.10) M/uL Hgb (14.0-18.0) g/dl Hct (42.0-52.0) % MCV (80.0-100.0) fL MCH (25.0-34.0) pg MCHC (32.0-36.0) g/dL RDW Std Deviation (36.4-46.3) fL RDW Coeff of Uriel (11.5-14.5) % Plt Count (130-400) K/uL MPV (9.4-12.4) fL Immature Gran % (Auto) % Neut % (Auto) % Lymph % (Auto) % [place] % (Auto) % Eos % (Auto) % Baso % (Auto) % Neut # (Auto) (1.40-6.50) K/uL Lymph # (Auto) (1.2-3.4) K/uL [place] # (Auto) (0.11-0.59) K/uL Eos # (Auto) (0-0.50) K/uL Baso # (Auto) (0-0.2) K/uL Immature Gran # (Auto) (0.01-0.20) K/uL PT (9.0-12.0) Seconds INR (0.9-1.1) APTT (21.0-31.0) Seconds PTT Ratio Sodium (136-145) mmol/L Potassium (3.5-5.1) mmol/L Chloride (98-107) mmol/L Carbon Dioxide (21-32) mmol/L Anion Gap (3-11) BUN (6-23) mg/dl Creatinine (0.6-1.4) mg/dl Est Cr Clr Drug Dosing ml/min Est GFR ( Amer) ml/min Est GFR (Non-Af Amer) ml/min BUN/Creatinine Ratio (10-20) Glucose (70-99(Fasting)) mg/dl Lactate 1.2 (0.4-2.0) mmol/L Calcium (8.6-10.3) mg/dl Magnesium (1.7-2.4) mg/dl Total Bilirubin (0.2-1.0) mg/dl AST (13-39) U/L ALT (7-52) U/L Alkaline Phosphatase (34-104) U/L Troponin I High Sens (0-20) pg/ml Total Protein (6.0-8.3) gm/dl Albumin (3.4-5.0) gm/dl Globulin (2.5-4.0) gm/dl Albumin/Globulin Ratio (0.9-2) Procalcitonin (0-0.5) ng/ml Urine Color Urine Appearance (Clear) Urine pH (4.5-7.5) Ur Specific [place] (1.000-1.030) Urine Protein (Negative) Urine Glucose (UA) (Negative) Urine Ketones (Negative) Urine Blood (Negative) Urine Nitrite (Negative) Urine Bilirubin (Negative) Urine Urobilinogen (Negative) Ur Leukocyte Esterase (Negative) Urine WBC (Auto) (0-5) /hpf Urine RBC (Auto) (0-4) /hpf U Hyaline Cast (Auto) (0-5) /lpf U Epithel Cells (Auto) (0-5) /lpf Urine Bacteria (Auto) (Negative) Adenovirus (PCR) (NotDetected) B. pertussis DNA (PCR) (NotDetected) B.parapertussis DNA PCR (NotDetected) C. pneumoniae DNA (PCR) (NotDetected) Coronavirus OC43 (PCR) (NotDetected) Coronavirus HKU1 (PCR) (NotDetected) Coronavirus 229E (PCR) (NotDetected) SARS-CoV-2 (PCR) (NotDetected) Coronavirus NL63 (PCR) (NotDetected) Human Metapneumovir PCR (NotDetected) Influenza Type A (PCR) (NotDetected) Influenza Type B (PCR) (NotDetected) M. pneumoniae (PCR) (NotDetected) Parainfluenza 1 (PCR) (NotDetected) Parainfluenza 2 (PCR) (NotDetected) Parainfluenza 3 (PCR) (NotDetected) Parainfluenza 4 (PCR) (NotDetected) RSV (PCR) (NotDetected) Entero/Rhino (PCR) (NotDetected) MDM Narrative I examined the patient. An IV lock was placed and labs were drawn. He was given 500 mL normal saline solution bolus. EKG was interpreted by myself and shows normal sinus rhythm at 71 bpm with no acute ST or T wave changes and no significant change from his previous EKG. Chest x-ray was interpreted by myself and Dr. Barnett and showed likely atelectasis but no obvious pneumonia. Radiology report still pending. White blood cell count elevated at 17.56. Previous white blood cell count on 11/15/2022 was 7.75. Blood cultures were drawn and are pending. Hemoglobin normal at 14.6. Coags were normal. Sodium low at 134, potassium low at 3.4, glucose 113, total bilirubin 1.2, and alk phos 110. CMP otherwise normal. Magnesium low at 1.6. Troponin normal. Procalcitonin normal. Lactate normal. Bio fire respiratory panel was normal. Urinalysis significant for UTI and was significantly worse from his urinalysis on 11/15/2022. Urine culture is pending. The patient was given Rocephin 2 g IV. I had a meaningful discussion about this patient with Dr. Barnett who agrees with my assessment and the treatment plan. Due to the patient's new fever, significantly elevated white blood cell count compared to his previous labs, and UTI with ureteral stent in place we feel the patient requires admission for further evaluation and treatment. I spoke with the on-call hospitalist who agrees to admit the patient for further treatment. Please refer to their dictation for further details. The patient was admitted in stable condition. Impression & Plan UTI (urinary tract infection), Fever, Leukocytosis Discharge Plan Visit Data Chief Complaint: Fever Stated Complaint: FEVER ED Provider: Kilo Barnett ED Midlevel Provider: Maggi Ruiz Discharge Problem: UTI (urinary tract infection), Fever, Leukocytosis Patient Disposition: Admitted As Inpatient Condition: Good Discharge Instructions Interventions: ED Discharge Assessment Last Done: 11/19/22 04:10
[2022-11-19] MEDS ORDERED: SODIUM CHLORIDE 0.9% 500 ML IV STA (00:17)
[2022-11-19 00:33] LABS: Appearance Urine Turbid (Clear); Bacteria Urine Automated 4+ (Negative); Bilirubin Urine Negative (Negative); Blood Urine 2+ (Negative); Color Urine Yellow; Glucose Urine UA Negative (Negative); Ketones Urine Trace (Negative); Leukocyte Esterase Urine 3+ (Negative); Nitrite Urine Positive (Negative); Protein Urine 2+ (Negative); Specific Gravity Urine 1.021 (1.000-1.030); Urobilinogen Urine Negative (Negative); WBC Urine Automated >30 /hpf (0-5); pH Urine 5.5 (4.5-7.5)
[2022-11-19 00:35] LABS: Basophils # (auto) 0.04 K/uL (0-0.2); Basophils % (auto) 0.2 %; Eosinophils # (auto) 0.02 K/uL (0-0.50); Eosinophils % (auto) 0.1 %; Hematocrit (blood only) 42.2 % (42.0-52.0); Hemoglobin 14.6 g/dl (14.0-18.0); Immature Granulocytes # (auto) 0.07 K/uL (0.01-0.20); Immature Granulocytes % (auto) 0.4 %; Lymphocytes # (auto) 0.86 K/uL (1.2-3.4); Lymphocytes % (auto) 4.9 %; Mean Corpuscular Hemoglobin 31.1 pg (25.0-34.0); Mean Corpuscular Hgb Conc 34.6 g/dL (32.0-36.0); Mean Platelet Volume 9.4 fL (9.4-12.4); Monocytes # (auto) 1.47 K/uL (0.11-0.59); Monocytes % (auto) 8.4 %; Platelet Count 175 K/uL (130-400); RDW Coefficient of Variation 13.4 % (11.5-14.5); RDW Standard Deviation 43.8 fL (36.4-46.3); Red Blood Count 4.69 M/uL (4.70-6.10); White Blood Count 17.56 K/ul (4.8-10.8)
[2022-11-19 00:54] LABS: Albumin Globulin Ratio 1.2 (0.9-2); Albumin Level 3.9 gm/dl (3.4-5.0); BUN Creatinine Ratio 21.4 (10-20); Bilirubin,Total 1.2 mg/dl (0.2-1.0); Calcium 8.9 mg/dl (8.6-10.3); Creatinine Clr Calc Pharmacy 59.6 ml/min; Est GFR (African American) 91.4 ml/min; Est GFR (Non-African American) 78.9 ml/min; Globulin 3.3 gm/dl (2.5-4.0); Potassium 3.4 mmol/L (3.5-5.1); Total Protein 7.2 gm/dl (6.0-8.3)
[2022-11-19 01:00] LABS: Troponin I High Sensitivity 18.9 pg/ml (0-20)
[2022-11-19 01:05] LABS: INR 1.1 (0.9-1.1); Partial Thromboplastin Ratio 1.1; Partial Thromboplastin Time 29.5 Seconds (21.0-31.0); Prothrombin Time 11.9 Seconds (9.0-12.0)
[2022-11-19 01:27] LABS: Adenovirus PCR Not Detected (NotDetected); Bordetella parapertussis PCR Not Detected (NotDetected); Bordetella pertussis PCR Not Detected (NotDetected); Chlamydia pneumoniae PCR Not Detected (NotDetected); Coronavirus 229E PCR Not Detected (NotDetected); Coronavirus CoV-2 (COVID19)PCR Not Detected (NotDetected); Coronavirus HKU1 PCR Not Detected (NotDetected); Coronavirus NL63 PCR Not Detected (NotDetected); Coronavirus OC43PCR Not Detected (NotDetected); Human Metapneumovirus PCR Not Detected (NotDetected); Influenza A PCR Not Detected (NotDetected); Influenza B PCR Not Detected (NotDetected); Mycoplasma pneumoniae PCR Not Detected (NotDetected); Parainfluenza Virus 1 PCR Not Detected (NotDetected); Parainfluenza Virus 2 PCR Not Detected (NotDetected); Parainfluenza Virus 3 PCR Not Detected (NotDetected); Parainfluenza Virus 4 PCR Not Detected (NotDetected); Respiratory Syncytial VirusPCR Not Detected (NotDetected); Rhinovirus/Enterovirus PCR Not Detected (NotDetected)
[2022-11-19] MEDS ORDERED: cefTRIAXone SODIUM 1,000 MG in DEXTROSE 5% AD-VAN 50 ML IV STA (02:30)
[2022-11-19] MEDS ORDERED: POTASSIUM CHLORIDE PWD 20 MEQ PACK PO STA (02:51)
[2022-11-19] MEDS ORDERED: NSS + 20MEQ KCL 20 MEQ/1,000 ML BAG IV STA (03:00)
[2022-11-19 03:10] LABS: Magnesium 1.6 mg/dl (1.7-2.4)
[2022-11-19] MEDS ORDERED: CEFEPIME 2,000 MG/20 ML VIAL IV STA (03:28)
--- NOTE | 2022-11-19 03:28 | History & Physical Report ---
Date of Service November 19, 2022 Assessment & Plan (1) Dizziness: Plan: Secondary to complicated UTI History instrumentation, hx urolithiasis status post ureteral stent placement (10/2022) Possible sepsis Rule out orthostasis chronic systolic heart failure, patient on the dry side hx CAD status post stent (10/2022), PVD cardiac thrombus on Eliquis hypertension, BP on the lower side hyperlipidemia on statin Rx prediabetes, hemoglobin A1c of 5.9 last October 2022 traumatic C7 spinous process fracture (08/2022), currently on cervical collar, patient follows with [facility], evaluated by [facility] orthopedics inpatient during last confinement Hypokalemia secondary to emesis Medical telemetry CS, Cefepime Check orthostatic vitals IVF Urology consult Re: Sepsis, complicated UTI, history obstructive uropathy status post and placement N.p.o. until patient seen by urology in anticipation of procedural intervention. Continue uninterrupted Plavix and Eliquis for patient's recent cardiac issues as per outpatient [facility] preop eval note from last month. Replace potassium DVT prophylaxis. Eliquis Full code Text document was generated using [employer] voice recognition software. It may contain grammatical or spelling errors. Kindly contact undersigned for clarification of any documentation item in question. History of Present Illness Chief Complaint: Fever, weakness, nausea, vomiting Primary Care Provider: Jae Denton MD History obtained from patient and records. Medical history significant for chronic systolic heart failure (EF 45 to 50%, TTE 2022), CAD status post stent, cardiac thrombus on Eliquis, PVD, hypertension, hyperlipidemia, prediabetes, urolithiasis status post ureteral stent placement (10/2022), traumatic C7 spinous process fracture (08/2022). Two confinements since October 2022 at [facility]. Patient confined from October 21 to October 26, 2022 for sepsis secondary to E. coli bacteremia secondary to complicated UTI. Patient underwent stent placement. Patient also noted to have CHF, NSTEMI during confinement. Echocardiogram showed hypokinesis, EF 35 to 40% with apical thrombus. Patient found to have ostial to mid LAD occlusion on diagnostic cardiac catheterization. Subsequent PCI/KEL placement. Patient discharged on antiplatelet Rx and Eliquis. Recent confinement November 14 to 2022 for BPPV. Outpatient cystoscopy deferred due to dizziness symptoms. Right ICA 50% stenosis noted on carotid Dopplers. Patient evaluated by Neurology. Vertigo symptoms improved post Juan Manuel maneuver. Deferred cystoscopy rescheduled to next week. 2 days ago, patient noted weakness and lightheadedness symptoms. No headache, no unusual neck pain, no chest pain, no SOB. Subsequent nausea, emesis symptoms without abdominal pain. No hematuria/black/bloody stools. Increased urinary frequency with fever noted at home. Ceftriaxone administered at the ER. Medical History as above Surgical History : Right knee surgery, hernia repair, skin cancer surgery, tonsillectomy/adenoidectomy, Achilles tendon repair right, eardrum surgery, vas ectomy, urologic procedures Family History : Blood clots, DM, heart disease Personal/Social history : Non-smoker, no EtOH intake, [employer] employee Allergies Allergy/AdvReac Type Severity Reaction Status Date / Time No Known Allergies Allergy Verified 11/19/22 02:01 Home Medications Medication Instructions Recorded Confirmed Type multivitamin 1 tab PO QAM 06/21/18 11/19/22 History omega 5-kiz-tkv-fish oil 1,000 mg 1 cap PO QAM ##0 06/24/18 11/19/22 History (120 mg-180 mg) capsule (Fish Oil) imiquimod 5 % topical cream packet 1 applic topical DIRECTED 03/12/22 11/19/22 History niacinamide 100 mg tablet 100 mg PO BID 10/21/22 11/19/22 History omeprazole 20 mg capsule,delayed 20 mg PO BID 10/21/22 11/19/22 History release vitamins A,C,P-dcjb-hxaeba 2,148 1 tab PO QAM 10/21/22 11/19/22 History mcg-113 mg-45 mg-17.4 mg tablet (PreserVision AREDS) clopidogrel 75 mg tablet 75 mg PO QAM #30 tabs 10/26/22 11/19/22 Rx furosemide 20 mg tablet 20 mg PO QAM #30 tabs 10/26/22 11/19/22 Rx losartan 25 mg tablet 25 mg PO QAM #30 tabs 10/26/22 11/19/22 Rx metoprolol succinate 25 mg 25 mg PO BID #60 tabs 10/26/22 11/19/22 Rx tablet,extended release 24 hr apixaban 5 mg tablet (Eliquis) 5 mg PO BID 11/03/22 11/19/22 History atorvastatin 80 mg tablet (Lipitor) 80 mg PO QAM 11/03/22 11/19/22 History spironolactone 25 mg tablet 12.5 mg PO QAM 11/03/22 11/19/22 History Past Med/Surg History Medical History CAD (coronary artery disease) KEL to mid LAD 10/25/22 Ostial obtuse marginal branch vessel disease, and left main disease managed medically per cardio records GERD (gastroesophageal reflux disease) Hx of skin cancer, basal cell S/P SEVERAL MOH'S PROCEDURES Hyperlipidemia Hypertension Ischemic cardiomyopathy EF 35-40% per 10/22/2022 ECHO EF mildly improved to 45-50% on 11/05/22 ECHO Kidney stones Left ventricular thrombosis 10/2022- put on Eliquis during recent hospitalization Nausea and vomiting after administration of anesthetic agent Non-STEMI (non-ST elevated myocardial infarction) During recent hospitalization [facility] 10/2022 NSTEMI (dx in the setting of urosepsis) Poor circulation of extremity bilat feet per pt Prediabetes Sepsis Admitted to [facility] 10/21/22-10/26/22 - due to nephrolithiasis septicemia, blood cultures positive for Gram-negative bacilli. S/P cystoscopy, left ureteral stent insertion, retrograde pyelogram by on 10/21/2022 UTI (urinary tract infection) being treated for at present Surgical History History of adenoidectomy History of arthroscopic knee surgery R X 2 History of cardiac cath 10/25/22 [facility] > with drug-eluting stent History of colonoscopy History of cystoscopy Cystoscopy, left ureteral stent insertion, retrograde pyelogram History of esophagogastroduodenoscopy (EGD) History of heart artery stent 10/25/22 [facility] > drug-eluting stent History of inguinal hernia repair History of tonsillectomy History of vasectomy Family History Father FHx: diabetes mellitus Mother FHx: heart disease Social History (Reviewed 04/09/23 @ 00:03 by ZACHARIAH Fall Smoking Status: Never smoker Second Hand Exposure: No; Hx Alcohol Use: No Hx Substance Use: No Preferred Language: Georgian Communication Ability: Effective Field Map Editor Required: No Beliefs That Will Affect Care: None Current Living Situation: Spouse and Family Other Information That Helps Us Care for You: No Feels Safe at Home: Yes Safety Concerns: Feels Safe At This Time Assistive Devices: Brace/Splint/Immobilizer and Glasses Assistive Devices Comment: neck brace Review of Systems Review of Systems: As per HPI, all other systems reviewed and negative Physical Exam Physical Exam: GENERAL: Comfortable, pleasant, no respiratory distress SKIN: Normal color, warm HEENT: Bespectacled, [place] [address] palpebral conjunctivae, no ptosis, dry buccal mucosa NECK : Cervical collar in place CHEST : CTA, no tenderness HEART : RRR, no obvious murmurs ABDOMEN: Some distention, nontender EXTREMITIES : No LE swelling/tenderness, no other conspicuous deformities noted NEUROLOGIC : Coherent, no facial asymmetry, no other gross focality Results & Data Results & Data Vital Signs (Past 12 Hours) Vital Signs Temp Pulse Resp BP Pulse Ox O2 Del Method 11/19/22 03:05 85 24 112/68 95 Room Air 11/19/22 02:30 83 20 122/69 96 Room Air 11/19/22 02:00 84 22 112/69 95 Room Air 11/19/22 01:30 80 17 114/66 95 Room Air 11/19/22 01:00 81 20 111/65 95 Room Air 11/19/22 00:30 88 18 115/69 93 Room Air 11/19/22 00:00 88 15 106/66 93 Room Air 11/18/22 23:51 90 14 108/65 96 Room Air 11/18/22 23:45 94 H 11/18/22 23:26 37.5 C 95 H 20 101/70 95 Room Air Laboratory Results Laboratory Results WBC 17.56 K/ul (4.8-10.8) H 11/18/22 23:45 RBC 4.69 M/uL (4.70-6.10) L 11/18/22 23:45 Hgb 14.6 g/dl (14.0-18.0) 11/18/22 23:45 Hct 42.2 % (42.0-52.0) 11/18/22 23:45 MCV 90.0 fL (80.0-100.0) 11/18/22:45 MCH 31.1 pg (25.0-34.0) 11/18/22:45 MCHC 34.6 g/dL (32.0-36.0) 11/18/22:45 RDW Std Deviation 43.8 fL (36.4-46.3) 11/18/22: RDW Coeff of Uriel 13.4 % (11.5-14.5) 11/18/22:45 Plt Count 175 K/uL (130-400) 11/18/22:45 MPV 9.4 fL (9.4-12.4) 11/18/22:45 Immature Gran % (Auto) 0.4 % 11/18/22 23:45 Neut % (Auto) 86.0 % 11/18/22 23:45 Lymph % (Auto) 4.9 % 11/18/22 23:45 [place] % (Auto) 8.4 % 11/18/22 23:45 Eos % (Auto) 0.1 % 11/18/22 23:45 Baso % (Auto) 0.2 % 11/18/22 23:45 Neut # (Auto) 15.10 K/uL (1.40-6.50) H 11/18/22 23:45 Lymph # (Auto) 0.86 K/uL (1.2-3.4) L 11/18/22 23:45 [place] # (Auto) 1.47 K/uL (0.11-0.59) H 11/18/22 23:45 Eos # (Auto) 0.02 K/uL (0-0.50) 11/18/22 23:45 Baso # (Auto) 0.04 K/uL (0-0.2) 11/18/22 23:45 Immature Gran # (Auto) 0.07 K/uL (0.01-0.20) 11/18/22 23:45 PT 11.9 Seconds (9.0-12.0) 11/18/22 23:45 INR 1.1 (0.9-1.1) 11/18/22 23:45 APTT 29.5 Seconds (21.0-31.0) 11/18/22 23:45 PTT Ratio 1.1 11/18/22 23:45 Sodium 134 mmol/L (136-145) L 11/18/22 23:45 Potassium 3.4 mmol/L (3.5-5.1) L 11/18/22 23:45 Chloride 97 mmol/L (98-107) L 11/18/22 23:45 Carbon Dioxide 26 mmol/L (21-32) 11/18/22 23:45 Anion Gap 11 (3-11) 11/18/22 23:45 BUN 21 mg/dl (6-23) 11/18/22 23:45 Creatinine 0.98 mg/dl (0.6-1.4) 11/18/22 23:45 Est Cr Clr Drug Dosing 59.6 ml/min 11/18/22 23:45 Est GFR ( Amer) 91.4 ml/min 11/18/22 23:45 Est GFR (Non-Af Amer) 78.9 ml/min 11/18/22 23:45 BUN/Creatinine Ratio 21.4 (10-20) H 11/18/22 23:45 Glucose 113 mg/dl (70-99(Fasting)) H 11/18/22 23:45 Lactate 1.2 mmol/L (0.4-2.0) 11/19/22 00:46 Calcium 8.9 mg/dl (8.6-10.3) 11/18/22 23:45 Magnesium 1.6 mg/dl (1.7-2.4) L 11/18/22 23:45 Total Bilirubin 1.2 mg/dl (0.2-1.0) H 11/18/22 23:45 AST 23 U/L (13-39) 11/18/22 23:45 ALT 48 U/L (7-52) 11/18/22 23:45 Alkaline Phosphatase 110 U/L (34-104) H 11/18/22 23:45 Troponin I High Sens 18.9 pg/ml (0-20) 11/18/22 23:45 Total Protein 7.2 gm/dl (6.0-8.3) 11/18/22 23:45 Albumin 3.9 gm/dl (3.4-5.0) 11/18/22 23:45 Globulin 3.3 gm/dl (2.5-4.0) 11/18/22 23:45 Albumin/Globulin Ratio 1.2 (0.9-2) 11/18/22 23:45 Procalcitonin 0.12 ng/ml (0-0.5) 11/18/22 23:45 Urine Color Yellow 04 23:50 Urine Appearance Turbid (Clear) A 11/18/22 23:50 Urine pH 5.5 (4.5-7.5) 11/18/22 23:50 Ur Specific [place] 1.021 (1.000-1.030) 11/18/22 23:50 Urine Protein 2+ (Negative) H 11/18/22 23:50 Urine Glucose (UA) Negative (Negative) 11/18/22 23:50 Urine Ketones Trace (Negative) H 11/18/22 23:50 Urine Blood 2+ (Negative) H 11/18/22 23:50 Urine Nitrite Positive (Negative) A 11/18/22 23:50 Urine Bilirubin Negative (Negative) 11/18/22 23:50 Urine Urobilinogen Negative (Negative) 11/18/22 23:50 Ur Leukocyte Esterase 3+ (Negative) H 11/18/22 23:50 Urine WBC (Auto) >30 /hpf (0-5) H 11/18/22 23:50 Urine RBC (Auto) 10-30 /hpf (0-4) H 11/18/22 23:50 U Hyaline Cast (Auto) 1-5 /lpf (0-5) 11/18/22 23:50 U Epithel Cells (Auto) 10-20 /lpf (0-5) H 11/18/22 23:50 Urine Bacteria (Auto) 4+ (Negative) H 11/18/22 23:50 Adenovirus (PCR) Not Detected (NotDetected) 11/19/22 00:25 B. pertussis DNA (PCR) Not Detected (NotDetected) 11/19/22 00:25 B.parapertussis DNA PCR Not Detected (NotDetected) 11/19/22 00:25 C. pneumoniae DNA (PCR) Not Detected (NotDetected) 11/19/22 00:25 Coronavirus OC43 (PCR) Not Detected (NotDetected) 11/19/22 00:25 Coronavirus HKU1 (PCR) Not Detected (NotDetected) 11/19/22 00:25 Coronavirus 229E (PCR) Not Detected (NotDetected) 11/19/22 00:25 SARS-CoV-2 (PCR) Not Detected (NotDetected) 11/19/22 00:25 Coronavirus NL63 (PCR) Not Detected (NotDetected) 11/19/22 00:25 Human Metapneumovir PCR Not Detected (NotDetected) 11/19/22 00:25 Influenza Type A (PCR) Not Detected (NotDetected) 11/19/22 00:25 Influenza Type B (PCR) Not Detected (NotDetected) 11/19/22 00:25 M. pneumoniae (PCR) Not Detected (NotDetected) 11/19/22 00:25 Parainfluenza 1 (PCR) Not Detected (NotDetected) 11/19/22 00:25 Parainfluenza 2 (PCR) Not Detected (NotDetected) 11/19/22 00:25 Parainfluenza 3 (PCR) Not Detected (NotDetected) 11/19/22 00:25 Parainfluenza 4 (PCR) Not Detected (NotDetected) 11/19/22 00:25 RSV (PCR) Not Detected (NotDetected) 11/19/22 00:25 Entero/Rhino (PCR) Not Detected (NotDetected) 11/19/22 00:25 Diagnostic Findings Chest x-ray as per my interpretation atelectasis
[2022-11-19] MEDS ORDERED: MAGNESIUM SULFATE / D5W 1 GM/100 ML BAG IV STA (03:39)
[2022-11-19] MEDS ORDERED: PROMETHAZINE 6.25 MG/50.25 ML BAG IV STA (03:48)
[2022-11-19] MEDS ORDERED: oxyCODONE HCL IR 5 MG TAB (IMMEDIATE RELEASE) PO PRN (04:37)
[2022-11-19] MEDS ORDERED: ACETAMINOPHEN 1,000 MG/100 ML VIAL IV STA (05:45)
--- NOTE | 2022-11-19 06:41 | XRay Report ---
XR chest 1V portable CLINICAL HISTORY: Fever. Pneumonia. COMPARISON STUDY: Chest radiograph November 14, 2022. FINDINGS: Lung volumes are mildly diminished. There is no pneumothorax or pleural effusion. Mild biba silar opacities have developed. These are predominantly linear in configuration. Cardiomediastinal si lhouette is stable. There is no evidence for pulmonary edema. IMPRESSION: Low lung volumes with bibasilar opacities. Atelectasis is favored however pneumonia coul d appear similar. ACT 112: Negative or not required by law. Electronically signed by: Servando Bolaños M.D. 11/19/2022 6:39 AM
[2022-11-19 06:52] LABS: Basophils # (auto) 0.03 K/uL (0-0.2); Basophils % (auto) 0.2 %; Hematocrit (blood only) 36.9 % (42.0-52.0); Immature Granulocytes % (auto) 0.6 %; Lymphocytes # (auto) 0.68 K/uL (1.2-3.4); Lymphocytes % (auto) 3.8 %; Mean Corpuscular Hemoglobin 31.2 pg (25.0-34.0); Mean Corpuscular Hgb Conc 35.2 g/dL (32.0-36.0); Mean Corpuscular Volume 88.5 fL (80.0-100.0); Mean Platelet Volume 9.5 fL (9.4-12.4); Monocytes # (auto) 1.31 K/uL (0.11-0.59); Monocytes % (auto) 7.2 %; Neutrophils # (auto) 15.98 K/uL (1.40-6.50); Neutrophils % (auto) 88.2 %; Platelet Count 135 K/uL (130-400); RDW Coefficient of Variation 13.5 % (11.5-14.5); RDW Standard Deviation 43.4 fL (36.4-46.3); Red Blood Count 4.17 M/uL (4.70-6.10)
[2022-11-19 07:11] LABS: BUN Creatinine Ratio 20.7 (10-20); Calcium 8.4 mg/dl (8.6-10.3); Creatinine Clr Calc Pharmacy 78.6 ml/min; Est GFR (African American) 102.8 ml/min; Est GFR (Non-African American) 88.7 ml/min; Potassium 3.4 mmol/L (3.5-5.1)
[2022-11-19] MEDS: METOPROLOL SUCC 25MG EXT REL TAB PO SCH (08:29)
[2022-11-19] MEDS: PANTOprazole 40 MG TAB PO SCH ×2 (08:30→20:07)
[2022-11-19] MEDS: MULTIVITAMIN TAB PO SCH (08:31)
[2022-11-19] MEDS: CLOPIDOGREL BISULFATE 75 MG TAB PO SCH (08:31)
[2022-11-19] MEDS: APIXABAN 5 MG TABLET PO SCH ×2 (08:31→20:07)
[2022-11-19] MEDS: ATORVASTATIN 40 MG TAB PO SCH (08:32)
[2022-11-19] MEDS ORDERED: LOSARTAN POTASSIUM 25 MG TAB PO SCH (09:00)
[2022-11-19] MEDS ORDERED: METOPROLOL SUCC 25MG EXT REL TAB PO SCH (09:00)
[2022-11-19] MEDS ORDERED: NIACINAMIDE 100 MG PO SCH (09:00)
--- NOTE | 2022-11-19 09:12 | Urology Consultation ---
Date of Consultation November 19, 2022 Assessment & Plan (1) Sepsis: (2) Hydronephrosis with renal calculous obstruction: (3) UTI (urinary tract infection): (4) Elevated troponin: (5) Non-ST elevation (NSTEMI) myocardial infarction: (6) BPPV (benign paroxysmal positional vertigo): (7) Weakness: (8) Dizziness: Plan Patient with stent in place due to obstructing stone. Had plans in order to move forward with procedure however was dealing with worsening vertigo. Patient has a recent non-STEMI. Is being monitored for cardiac issues. Presented acutely ill with mild tachycardia as well as hypotension. Had a temperature at home measuring over 100. Most recent vitals were all reviewed. Current temp is 37.5. Blood pressure 105/64. Patient does have an elevation white count to 18.1. Creatinine is 0.87. Had a COVID test which was negative. Patient has been monitored is planning to undergo eventual treatment of stones. Showed up acutely infected. Plan will be for IV fluids and broad-spectrum antibiotics. Plan will be to continue to monitor closely with supportive care and IV hydration and resuscitation. Did discuss possible need for intervention if patient decompensates or becomes more acutely ill at that point the risks of potential procedures would be o utweighed by the risk of worsening sepsis. Ideally we will try to give time to control infection to allow for a more controlled situation to eventually manage stone disease as well as obstructive issues. Has had multiple images. Imaging had all been reviewed interpreted by myself. We will likely need to reassess with renal ultrasound at some point here in the next 1 to 2 days. Patient already has procedure set up on Sunday. We will likely be able to maintain this at the time if patient continues to improve. Is currently feeling a good deal better. Vertigo has largely improved. He is dealing with a lot less nausea. Overall has been feeling better. Dehydration antibiotics appear to be helping considerably. We will plan for continued supportive care will likely be able to initiate diet as long as okay with hospitalist team. We will plan to continue to monitor with supportive care. Patient's complicated medical and surgical history was reviewed and summarized above all imaging was reviewed interpreted by myself all labs and vitals were reviewed and pertinent values as above. History of Present Illness Attending Physician: Lamonte Lawrence MD History of Present Illness New consultation for patient with UTI/Pyelo, discomfort, and ill feelings. Patient developed sudden onset of pain into flank going down and radiating into groin and back in waves comes and goes. Can be severe at times. Discussed and reviewed patient's family history for any history of issues, infections, and disease. Also, discussed patient's medical/surgery history especially related to any history of urinary issues or stone disease. Patient was admitted and is undergoing observation with broad spectrum IV antibiotics. Allergies Allergy/AdvReac Type Severity Reaction Status Date / Time No Known Allergies Allergy Verified 11/19/22 02:01 Home Medications Medication Instructions Recorded Confirmed Type multivitamin 1 tab PO QAM 06/21/18 11/19/22 History omega 1-lyj-ofi-fish oil 1,000 mg 1 cap PO QAM ##0 06/24/18 11/19/22 History (120 mg-180 mg) capsule (Fish Oil) imiquimod 5 % topical cream packet 1 applic topical DIRECTED 03/12/22 11/19/22 History niacinamide 100 mg tablet 100 mg PO BID 10/21/22 11/19/22 History omeprazole 20 mg capsule,delayed 20 mg PO BID 10/21/22 11/19/22 History release vitamins A,C,Q-fmvq-plihdv 2,148 1 tab PO QAM 10/21/22 11/19/22 History mcg-113 mg-45 mg-17.4 mg tablet (PreserVision AREDS) clopidogrel 75 mg tablet 75 mg PO QAM #30 tabs 10/26/22 11/19/22 Rx furosemide 20 mg tablet 20 mg PO QAM #30 tabs 10/26/22 11/19/22 Rx losartan 25 mg tablet 25 mg PO QAM #30 tabs 10/26/22 11/19/22 Rx metoprolol succinate 25 mg 25 mg PO BID #60 tabs 10/26/22 11/19/22 Rx tablet,extended release 24 hr apixaban 5 mg tablet (Eliquis) 5 mg PO BID 11/03/22 11/19/22 History atorvastatin 80 mg tablet (Lipitor) 80 mg PO QAM 11/03/22 11/19/22 History spironolactone 25 mg tablet 12.5 mg PO QAM 11/03/22 11/19/22 History Patient History Medical History CAD (coronary artery disease) KEL to mid LAD 10/25/22 Ostial obtuse marginal branch vessel disease, and left main disease managed medically per cardio records GERD (gastroesophageal reflux disease) Hx of skin cancer, basal cell S/P SEVERAL MOH'S PROCEDURES Hyperlipidemia Hypertension Ischemic cardiomyopathy EF 35-40% per 10/22/2022 ECHO EF mildly improved to 45-50% on 11/05/22 ECHO Kidney stones Left ventricular thrombosis 10/2022- put on Eliquis during recent hospitalization Nausea and vomiting after administration of anesthetic agent Non-STEMI (non-ST elevated myocardial infarction) During recent hospitalization [facility] 10/2022 NSTEMI (dx in the setting of urosepsis) Poor circulation of extremity bilat feet per pt Prediabetes Sepsis Admitted to [facility] 10/21/22-10/26/22 - due to nephrolithiasis septicemia, blood cultures positive for Gram-negative bacilli. S/P cystoscopy, left ureteral stent insertion, retrograde pyelogram by on 10/21/2022 UTI (urinary tract infection) being treated for at present Surgical History History of adenoidectomy History of arthroscopic knee surgery R X 2 History of cardiac cath 10/25/22 [facility] > with drug-eluting stent History of colonoscopy History of cystoscopy Cystoscopy, left ureteral stent insertion, retrograde pyelogram History of esophagogastroduodenoscopy (EGD) History of heart artery stent 10/25/22 [facility] > drug-eluting stent History of inguinal hernia repair History of tonsillectomy History of vasectomy Family History Father FHx: diabetes mellitus Mother FHx: heart disease Social History Smoking Status: Never smoker Second Hand Exposure: No; Hx Alcohol Use: No Hx Substance Use: No Preferred Language: Frisian Communication Ability: Effective Light Bulb Tester Required: No Beliefs That Will Affect Care: None Current Living Situation: Spouse and Family Other Information That Helps Us Care for You: No Feels Safe at Home: Yes Safety Concerns: Feels Safe At This Time Assistive Devices: Brace/Splint/Immobilizer and Glasses Assistive Devices Comment: neck brace Review of Systems Review of Systems: All systems reviewed & are unremarkable except as noted in HPI & below Physical Exam Physical Exam: General: Alert and oriented x 3 in no acute distress. Ill with UTI HEENT: Normocephalic Atraumatic. Inspection normal. Cranial Nerves 2-12 Grossly intact. Nares are clear. Neck is supple. Normal inspection of face. Normal inspection of neck. Neurologic: No deficits on inspection. Baseline for motor function and sensory. Psychologic: Normal affect. Respiratory: Nonlabored. No use of accessory muscles. No tachypnea or dyspnea. Cardiovascular: No tachycardia Skin: [place] and Dry. No rashes or visible lesions. Extremities: Moving without issues. No motor deficits on inspection Lymphatics: No edema Abdomen: Moderately distended. No rebound or guarding. Results & Data Vital Signs (Past 12 Hours) Vital Signs Temp Pulse Pulse Resp BP BP Pulse Ox 11/19/22 07:35 37.5 C 84 18 105/64 97 11/19/22 04:35 114 H 11/19/22 07:13 101 H 11/19/22 05:00 11/19/22 05:00 37.8 C H 106 H 16 127/79 98 11/19/22 04:00 95 H 20 130/77 98 11/19/22 03:05 85 24 112/68 95 11/19/22 02:30 83 20 122/69 96 11/19/22 02:00 84 22 112/69 95 11/19/22 01:30 80 17 114/66 95 11/19/22 01:00 81 20 111/65 95 11/19/22 00:30 88 18 115/69 93 11/19/22 00:00 88 15 106/66 93 11/18/22 23:51 90 14 108/65 96 11/18/22 23:45 94 H 11/18/22 23:26 37.5 C 95 H 20 101/70 95 O2 Del Method 11/19/22 07:35 Room Air 11/19/22 04:35 11/19/22 07:13 11/19/22 05:00 Room Air 11/19/22 05:00 Room Air 11/19/22 04:00 Room Air 11/19/22 03:05 Room Air 11/19/22 02:30 Room Air 11/19/22 02:00 Room Air 11/19/22 01:30 Room Air 11/19/22 01:00 Room Air 11/19/22 00:30 Room Air 11/19/22 00:00 Room Air 11/18/22 23:51 Room Air 11/18/22 23:45 11/18/22 23:26 Room Air PG Care Time/CCT Total # of Minutes Spent Total Time Spent with Patient: Total time spent is greater than 50% in coordination of care (as documented) at patient's floor/unit and/or counseling patient: Coding Level of Care Code 22669 IN/OBS CONSULT LVL 5,80M Diagnoses Sepsis A41.9 Hydronephrosis with renal calculous obstruction N13.2 UTI (urinary tract infection) N39.0 Elevated troponin R77.8 Non-ST elevation (NSTEMI) myocardial infarction I21.4 BPPV (benign paroxysmal positional vertigo) H81.10 Weakness R53.1 Dizziness R42
[2022-11-19] MEDS: ACETAMINOPHEN 325 MG TAB PO PRN ×2 (11:31→15:46)
[2022-11-19] MEDS ORDERED: CEFEPIME 2,000 MG in SYRINGE 0 ML IV SCH (12:00)
--- NOTE | 2022-11-19 16:19 | Hospitalist Progress Note ---
Date of Service November 19, 2022 Assessment & Plan (1) UTI (urinary tract infection): Plan: Rule out bacteremia Sepsis In the setting of ureteral stent Still febrile Leukocytosis improving Urine culture: Pending Blood cultures: Pending CT abdomen pelvis ordered Change cefepime to ertapenem plus Cipro in light of persistent fevers Continue IV fluids Urology service consulted (2) Dizziness: Plan: Secondary to complicated UTI History instrumentation, hx urolithiasis status post ureteral stent placement (10/2022) Possible sepsis Rule out orthostasis chronic systolic heart failure, patient on the dry side hx CAD status post stent (10/2022), PVD cardiac thrombus on Eliquis hypertension hyperlipidemia on statin Rx prediabetes, hemoglobin A1c of 5.9 last October 2022 traumatic C7 spinous process fracture (08/2022), currently on cervical collar, patient follows with [facility] [place], evaluated by [facility] orthopedics inpatient during last confinement Hypokalemia secondary to emesis DVT prophylaxis. Eliquis Full code plan of care discussed with patient in detail and at length all questions answered he is understanding, agreeable, comfortable with the plan of care Admission and Anticipated Discharge Date Admission Date: November 19, 2022 Subjective Follow-up for sepsis, UTI, ureteral stent, etc. Seen resting in bed, awake and alert Not in distress, States he is still having some chills and nausea today Feels about the same as yesterday No abdominal pain, back pain, flank pain no chest pain, dyspnea, palpitations, dizziness No other new symptoms Review of Systems Review of Systems: all noted and negative except for above Physical Exam Physical Exam: General- oriented x 3, not in distress, speaks in sentences with no effort or accessory muscle use Eyes- anicteric Neck- no JVD Lungs- clear breath sounds bilaterally, no rales/wheezes Heart- normal rate, regular rhythm; no murmurs Abdomen- normal bowel sounds, nondistended, soft, nontender Extremities- no pretibial edema, no calf tenderness Neuro- alert, oriented x 3; no gross focal neurologic deficits Skin- warm & dry Results & Data Results & Data Vital Signs (Past 12 Hours) Vital Signs Temp Pulse Pulse Resp BP Pulse Ox O2 Del Method 11/19/22 15:09 38.9 C H 76 18 122/69 96 Room Air 11/19/22 15:06 95 H 11/19/22 11:20 38.1 C H 72 20 113/70 97 Room Air 11/19/22 07:35 37.5 C 84 18 105/64 97 Room Air 11/19/22 04:35 114 H 11/19/22 07:13 101 H 11/19/22 05:00 Room Air 11/19/22 05:00 37.8 C H 106 H 16 127/79 98 Room Air all noted and reviewed including below
[2022-11-19] MEDS: CIPROFLOXACIN / D5W 400 MG/200 ML BAG IV SCH (17:04)
[2022-11-19] MEDS: ERTAPENEM SODIUM 1,000 MG in SYRINGE 0 ML IV SCH (17:05)
--- NOTE | 2022-11-19 17:49 | CT Scan Report ---
CT OF THE ABDOMEN AND PELVIS WITHOUT CONTRAST CLINICAL HISTORY: Sepsis, uti, s/p stent,r/o pyelonephritis, abscess. COMPARISON STUDY: CT of the abdomen and pelvis October 21, 2022. TECHNIQUE: Axial images of the abdomen and pelvis were obtained without IV contrast. Images were revi ewed in the axial, sagittal, and coronal planes. Automated exposure control was utilized for the john dy. A dose lowering technique was utilized adhering to the principles of ALARA. FINDINGS: A trace right pleural effusion is noted. There is extensive coronary artery calcification. No pneumatosis, free air or portal venous gas is present. A right ureteral stent is in place. There a re no ureteral calculi. There is no hydronephrosis. Several small right renal calculi measure up to 4 mm. Low-attenuation 1.4 cm lesion within the medial cortex of the midpole of the right kidney was pr esent on prior exam. This is suboptimally assessed on this unenhanced exam but favors a cyst. No minesh l fluid collection is identified on unenhanced exam. Right perinephric stranding persists. This is no nspecific. There is no left hydronephrosis. Evaluation of the remainder of the abdomen and pelvis is suboptimal on this unenhanced exam. Liver, spleen, adrenal glands and pancreas are unremarkable. The appendix is normal. There is no evidence for a bowel obstruction. A moderate amount of stool within t he colon is present. There is no lymphadenopathy. No acute fractures are present. Old mild T11 and T1 2 compression deformities are unchanged. IMPRESSION: 1. Right ureteral stent in place. No ureteral calculi or hydronephrosis. Right-sided nephrolithiasis. 2. Right perinephric stranding. This is a nonspecific finding which may be related to the indwelling stent. However, an infectious process such as pyelonephritis could appear similar. No renal fluid col lection is suggest abscess on unenhanced exam. 3. No bowel obstruction. No bowel wall thickening. 4. Trace right pleural effusion. ACT 112: Negative or not required by law. Electronically signed by: Servando Bolaños M.D. 11/19/2022 5:46 PM
[2022-11-19] MEDS: PROMETHAZINE HCL 6.25 MG in SODIUM CHLORIDE 0.9% 50 ML IV PRN (17:56)
[2022-11-20] MEDS: ACETAMINOPHEN 325 MG TAB PO PRN ×2 (00:04→19:10)
[2022-11-20] MEDS: PROMETHAZINE HCL 6.25 MG in SODIUM CHLORIDE 0.9% 50 ML IV PRN (00:19)
[2022-11-20] MEDS ORDERED: NSS + 20MEQ KCL 20 MEQ/1,000 ML BAG IV ONE (01:30)
[2022-11-20] MEDS: CIPROFLOXACIN / D5W 400 MG/200 ML BAG IV SCH ×2 (03:54→16:16)
[2022-11-20] MEDS: PANTOprazole 40 MG TAB PO SCH ×2 (08:21→21:28)
[2022-11-20] MEDS: APIXABAN 5 MG TABLET PO SCH ×2 (08:21→21:28)
[2022-11-20] MEDS: CLOPIDOGREL BISULFATE 75 MG TAB PO SCH (08:22)
[2022-11-20] MEDS: MULTIVITAMIN TAB PO SCH (08:22)
[2022-11-20] MEDS: METOPROLOL SUCC 25MG EXT REL TAB PO SCH (08:22)
[2022-11-20] MEDS: ATORVASTATIN 40 MG TAB PO SCH (08:22)
[2022-11-20] MEDS ORDERED: LOSARTAN POTASSIUM 25 MG TAB PO SCH (09:00)
[2022-11-20 10:27] LABS: Basophils # (auto) 0.04 K/uL (0-0.2); Basophils % (auto) 0.3 %; Eosinophils # (auto) 0.01 K/uL (0-0.50); Eosinophils % (auto) 0.1 %; Hematocrit (blood only) 34.6 % (42.0-52.0); Hemoglobin 11.9 g/dl (14.0-18.0); Immature Granulocytes # (auto) 0.05 K/uL (0.01-0.20); Immature Granulocytes % (auto) 0.3 %; Lymphocytes % (auto) 4.8 %; Mean Corpuscular Hgb Conc 34.4 g/dL (32.0-36.0); Mean Corpuscular Volume 90.1 fL (80.0-100.0); Mean Platelet Volume 9.5 fL (9.4-12.4); Monocytes # (auto) 1.04 K/uL (0.11-0.59); Monocytes % (auto) 7.2 %; Neutrophils % (auto) 87.3 %; Platelet Count 126 K/uL (130-400); RDW Coefficient of Variation 13.8 % (11.5-14.5); RDW Standard Deviation 45.6 fL (36.4-46.3); Red Blood Count 3.84 M/uL (4.70-6.10); White Blood Count 14.44 K/ul (4.8-10.8)
[2022-11-20 10:46] LABS: BUN Creatinine Ratio 14.6 (10-20); Calcium 8.3 mg/dl (8.6-10.3); Creatinine Clr Calc Pharmacy 71.3 ml/min; Est GFR (African American) 93.8 ml/min; Est GFR (Non-African American) 80.9 ml/min; Potassium 3.6 mmol/L (3.5-5.1)
--- NOTE | 2022-11-20 12:09 | Urology Progress Note ---
Date of Service November 20, 2022 Assessment & Plan (1) Fever: (2) Ureterolithiasis: (3) S/P ureteral stent placement: Plan Follow-up of ureterolithiasis s/p stent placement, fever, UTI. Patient with stent in place due to obstructing stone. Had plans to move forward with procedure however it was cancelled due to worsening vertigo. Patient also had a recent NSTEMI. Patient afebrile overnight, Tmax 38.9 on 11/19 at 1500. Labs reviewedcreatinine 0.96, WBC downtrending (14.44). UC 11/18 prelim showing gram-negative bacilli. Blood cultures no growth x24 hours. Currently on ertapenem and ciprofloxacin. Follow cultures and narrow per sensitivity data when available. Right ureteral stent appears in good position on imaging. No acute intervention at this time. Ideally we will try to give time to control infection prior to /stone intervention. He is set up for outpatient surgery on Sunday. We may be able to maintain this pending clinical course. Continue supportive care, antibiotics and medical management per primary team. will follow peripherally. Admission and Anticipated Discharge Date Admission Date: November 19, 2022 Subjective Patient seen at bedside this morning, he is resting in bed. Reports intermittent fever/chills yesterday. Feeling better this morning. Reports nausea and vomiting yesterday. Improved today. He is voiding spontaneously, no dysuria or hematuria. No flank or abdominal pain. Review of Systems Constitutional: as per Subjective / HPI Gastrointestinal: as per Subjective / HPI Genitourinary: + as per Subjective / HPI Physical Exam Constitutional: well developed and well nourished; no acute distress Respiratory: normal respiratory effort; no respiratory distress and no labored breathing Cardiovascular: Extremities: no pedal edema Gastrointestinal (Abdomen): Inspection/Auscultation: abdomen normal to inspection; abdomen not distended Neurologic: moves all extremities and awake Psychiatric: Orientation: alert and oriented x 3 Results & Data Vital Signs (Past 12 Hours) Vital Signs Temp Pulse Pulse Resp BP Pulse Ox O2 Del Method 11/20/22 08:26 Room Air 11/20/22 08:01 37.2 C 75 18 111/70 93 Room Air 11/20/22 06:45 73 11/20/22 03:03 37.1 C 74 18 107/65 94 Room Air 11/20/22 00:56 84 11/19/22 23:06 37.7 C H 88 18 108/65 94 Room Air PG Care Time/CCT Total # of Minutes Spent Total Time Spent with Patient: Total time spent is greater than 50% in coordination of care (as documented) at patient's floor/unit and/or counseling patient: Coding Level of Care Code 43421 SUB INP/OBS CARE /25MIN Diagnoses Fever R50.9 Encounter type: initial encounter Ureterolithiasis N20.1 S/P ureteral stent placement Z96.0 (1) Fever Encounter type: initial encounter
[2022-11-20] MEDS: ERTAPENEM SODIUM 1,000 MG in SYRINGE 0 ML IV SCH (16:21)
--- NOTE | 2022-11-20 17:56 | Hospitalist Progress Note ---
Date of Service November 20, 2022 Assessment & Plan (1) UTI (urinary tract infection): Plan: Rule out bacteremia Sepsis In the setting of ureteral stent Fever curve improving Leukocytosis improving Urine culture: Negative bacilli Blood cultures: Pending CT abdomen pelvis: 1. Right ureteral stent in place. No ureteral calculi or hydronephrosis. Right- sided nephrolithiasis. 2. Right perinephric stranding. This is a nonspecific finding which may be relat ed to the indwelling stent. However, an infectious process such as pyelonephritis could appear similar. No renal fluid collection is suggest abscess on unenhanced exam. 3. No bowel obstruction. No bowel wall thickening. 4. Trace right pleural effusion. Continue cefepime plus ertapenem IV day #2 Continue IV fluids Urology service consulted-plan for stent removal this coming Sunday (2) Dizziness: Plan: Secondary to complicated UTI History instrumentation, hx urolithiasis status post ureteral stent placement (10/2022) chronic systolic heart failure, patient on the dry side hx CAD status post stent (10/2022), PVD cardiac thrombus on Eliquis hypertension hyperlipidemia on statin Rx prediabetes, hemoglobin A1c of 5.9 last October 2022 traumatic C7 spinous process fracture (08/2022), currently on cervical collar, patient follows with [facility] [place] Orth[facility]ics, evaluated by [facility] orthopedics inpatient [facility] last confinement DVT prophylaxis. Eliquis Full code Disposition Anticipate discharge to home when medically stable plan of care discussed with patient in detail and at length all questions answered he is understanding, agreeable, comfortable with the plan of care Admission and Anticipated Discharge Date Admission Date: November 19, 2022 Subjective Follow-up for sepsis, UTI, ureteral stent, etc. Seen resting in bed, comfortable, not in distress States he feels somewhat improved today compared to yesterday Less nausea, chills, able to tolerate some food today Denies abdominal pain, shortness of breath, chest pain, difficulty with urination No other symptoms Review of Systems Review of Systems: all noted and negative except for above Physical Exam Physical Exam: General- oriented x 3, not in distress, speaks in sentences with no effort or accessory muscle use Eyes- anicteric Neck- no JVD Lungs- clear breath sounds bilaterally, no crackles or wheezing Heart- normal rate, regular rhythm; no murmurs Abdomen- normal bowel sounds, nondistended, soft, no tenderness No CVA tenderness Extremities- no pretibial edema, no calf tenderness Neuro- alert, oriented x 3; no gross focal neurologic deficits Skin- warm & dry Results & Data Results & Data Vital Signs (Past 12 Hours) Vital Signs Temp Pulse Pulse Resp BP Pulse Ox O2 Del Method 11/20/22 15:37 37.3 C 90 18 108/68 92 Room Air 11/20/22 14:19 98 H 11/20/22 12:00 37.9 C H 85 18 103/65 95 Room Air 11/20/22 08:26 Room Air 11/20/22 08:01 37.2 C 75 18 111/70 93 Room Air 11/20/22 06:45 73 all noted and reviewed including below
[2022-11-21] MEDS: CIPROFLOXACIN / D5W 400 MG/200 ML BAG IV SCH (05:22)
[2022-11-21 06:41] LABS: Basophils # (auto) 0.03 K/uL (0-0.2); Basophils % (auto) 0.3 %; Eosinophils % (auto) 0.9 %; Hematocrit (blood only) 34.8 % (42.0-52.0); Immature Granulocytes # (auto) 0.04 K/uL (0.01-0.20); Immature Granulocytes % (auto) 0.4 %; Lymphocytes # (auto) 1.17 K/uL (1.2-3.4); Lymphocytes % (auto) 10.8 %; Mean Corpuscular Hgb Conc 34.5 g/dL (32.0-36.0); Mean Corpuscular Volume 89.9 fL (80.0-100.0); Mean Platelet Volume 9.2 fL (9.4-12.4); Monocytes # (auto) 1.25 K/uL (0.11-0.59); Monocytes % (auto) 11.6 %; Neutrophils # (auto) 8.22 K/uL (1.40-6.50); Platelet Count 133 K/uL (130-400); RDW Coefficient of Variation 13.5 % (11.5-14.5); RDW Standard Deviation 44.7 fL (36.4-46.3); Red Blood Count 3.87 M/uL (4.70-6.10); White Blood Count 10.81 K/ul (4.8-10.8)
[2022-11-21 07:02] LABS: BUN Creatinine Ratio 12.4 (10-20); Calcium 8.5 mg/dl (8.6-10.3); Creatinine Clr Calc Pharmacy 76.9 ml/min; Est GFR (African American) 101.8 ml/min; Est GFR (Non-African American) 87.9 ml/min; Potassium 3.7 mmol/L (3.5-5.1)
[2022-11-21] MEDS: MULTIVITAMIN TAB PO SCH (08:33)
[2022-11-21] MEDS: ATORVASTATIN 40 MG TAB PO SCH (08:34)
[2022-11-21] MEDS: APIXABAN 5 MG TABLET PO SCH (08:34)
[2022-11-21] MEDS: PANTOprazole 40 MG TAB PO SCH (08:34)
[2022-11-21] MEDS: CLOPIDOGREL BISULFATE 75 MG TAB PO SCH (08:34)
[2022-11-21] MEDS: METOPROLOL SUCC 25MG EXT REL TAB PO SCH (08:34)
[2022-11-21] MEDS ORDERED: LOSARTAN POTASSIUM 25 MG TAB PO SCH (09:00)
--- NOTE | 2022-11-21 11:06 | Urology Progress Note ---
Date of Service November 21, 2022 Assessment & Plan (1) UTI (urinary tract infection): (2) S/P ureteral stent placement: Plan Follow-up of ureterolithiasis s/p stent placement, fever, UTI. Patient with stent in place due to obstructing stone. Had plans to move forward with procedure however it was cancelled due to worsening vertigo. Patient also had a recent NSTEMI. Patient afebrile overnight. Labs reviewedcreatinine 0.89, WBC downtrending (10.81). UC 4/8 E.coli, pansensitive. Blood cultures no growth x48 hours. Treated with ertapenem and ciprofloxacin since admission. Right ureteral stent appears in good position on imaging. Patient continues to improve subjectively and clinically. He is set up for outpatient surgery on Sunday. Will plan to maintain surgery date as scheduled presuming continued improvement. Continue supportive care, antibiotics and medical management per primary team. Hospitalist is planning to discharge patient today with course of Ciprofloxacin - ok from standpoint. will sign off. Admission and Anticipated Discharge Date Admission Date: November 19, 2022 Subjective Patient awake, resting in bed in no apparent distress. Reports he is feeling better today. No fevers or chills overnight. Nausea has resolved. Reports low appetite. Voiding without difficulty. Denies pain. He feels ready to go home. Review of Systems Constitutional: as per Subjective / HPI Gastrointestinal: as per Subjective / HPI Genitourinary: + as per Subjective / HPI Physical Exam Constitutional: well developed and well nourished; no acute distress Respiratory: normal respiratory effort; no respiratory distress and no labored breathing Cardiovascular: Extremities: no pedal edema Gastrointestinal (Abdomen): Inspection/Auscultation: abdomen normal to inspection; abdomen not distended Neurologic: moves all extremities and awake Psychiatric: Orientation: alert and oriented x 3 Results & Data Vital Signs (Past 12 Hours) Vital Signs Temp Pulse Pulse Resp BP Pulse Ox O2 Del Method 11/21/22 08:37 Room Air 11/21/22 06:45 74 11/21/22 07:30 37.1 C 69 18 113/75 94 Room Air 11/21/22 02:50 37 C 65 18 119/74 96 Room Air 11/21/22 00:42 73 11/20/22 23:22 37.1 C 72 18 112/74 95 Room Air PG Care Time/CCT Total # of Minutes Spent Total Time Spent with Patient: Total time spent is greater than 50% in coordination of care (as documented) at patient's floor/unit and/or counseling patient: Coding Level of Care Code 16479 SUB INP/OBS CARE 09/06MIN Diagnoses UTI (urinary tract infection) N39.0 S/P ureteral stent placement Z96.0
--- NOTE | 2022-11-21 18:00 | Hospitalist Progress Note ---
Date of Service November 21, 2022 Assessment & Plan (1) UTI (urinary tract infection): Plan: Sepsis In the setting of ureteral stent CT abdomen pelvis: 1. Right ureteral stent in place. No ureteral calculi or hydronephrosis. Right- sided nephrolithiasis. 2. Right perinephric stranding. This is a nonspecific finding which may be related to the indwelling stent. However, an infectious process such as pyelonephritis could appear similar. No renal fluid collection is suggest abscess on unenhanced exam. 3. No bowel obstruction. No bowel wall thickening. 4. Trace right pleural effusion. Urine culture: E. coli, pansensitive Blood cultures: Negative Given IV cefepime, transitioned to ertapenem and ciprofloxacin Patient clinically improved, fever resolved Cleared for discharge by urology service Discharged on 7 days of ciprofloxacin 5 mg p.o. twice daily Plan for ureteral stent removal this coming Thursday, November 24, 2022 (2) Dizziness: Plan: Secondary to complicated UTI History instrumentation, hx urolithiasis status post ureteral stent placement (10/2022) chronic systolic heart failure, patient on the dry side -- Advised to hold Lasix and spironolactone for 2 to 3 days and resume once oral intake has improved hx CAD status post stent (10/2022), PVD cardiac thrombus on Eliquis hypertension hyperlipidemia on statin Rx prediabetes, hemoglobin A1c of 5.9 last October 2022 traumatic C7 spinous process fracture (08/2022), currently on cervical collar, patient follows with [facility], evaluated by [facility] orthopedics inpatient during last confinement DVT prophylaxis. Eliquis Full code Disposition Discharge to home Ureteral stent removal this coming Thursday, November 24, 2022 PCP follow-up appointment in 1 week plan of care discussed with patient in detail and at length all questions answered he is understanding, agreeable, comfortable with the plan of care Admission and Anticipated Discharge Date Admission Date: November 19, 2022 Subjective Follow-up for UTI, etc. Seen sitting up in bed, comfortable, not in distress States he feels better overall No urinary symptoms No fevers or chills, nausea or abdominal pain Appetite still not great no chest pain, dyspnea, palpitations, dizziness No other new symptoms States he is ready and would like to be discharged today Review of Systems Review of Systems: all noted and negative except for above Physical Exam Physical Exam: General- oriented x 3, not in distress, speaks in sentences with no effort or accessory muscle use Eyes- anicteric Neck- no JVD Lungs- clear BS BL no rales/wheezing Heart- normal rate, regular rhythm; no murmurs Abdomen- normal bowel sounds, nondistended, soft, no tenderness Extremities- no pretibial edema, no calf tenderness Neuro- alert, oriented x 3; no gross focal neurologic deficits Skin- warm & dry Results & Data Results & Data Vital Signs (Past 12 Hours) Vital Signs Temp Pulse Pulse Resp BP Pulse Ox O2 Del Method 11/21/22 11:18 36.8 C 67 18 114/74 96 11/21/22 11:08 36.8 C 67 18 114/74 96 Room Air 11/21/22 08:37 Room Air 11/21/22 06:45 74 11/21/22 07:30 37.1 C 69 18 113/75 94 Room Air all noted and reviewed including below
--- NOTE | 2022-11-21 18:04 | Discharge Summary ---
Discharge Summary Date of Service November 21, 2022 Notes For Next Care Provider Medication Changes From Visit Ciprofloxacin 500 mg twice daily x7 days Patient instructed to hold Lasix and spironolactone for 2 to 3 days, resume when oral intake improves Admission HPI Per Admitting Provider History obtained from patient and records. Medical history significant for chronic systolic heart failure (EF 45 to 50%, TTE 2022), CAD status post stent, cardiac thrombus on Eliquis, PVD, hypertension, hyperlipidemia, prediabetes, urolithiasis status post ureteral stent placement (10/2022), traumatic C7 spinous process fracture (08/2022). Two confinements since October 2022 at [facility]. Patient confined from October 21 to October 26, 2022 for sepsis secondary to E. coli bacteremia secondary to complicated UTI. Patient underwent stent placement. Patient also noted to have CHF, NSTEMI during confinement. Echocardiogram showed hypokinesis, EF 35 to 40% with apical thrombus. Patient found to have ostial to mid LAD occlusion on diagnostic cardiac catheterization. Subsequent PCI/KEL placement. Patient discharged on antiplatelet Rx and Eliquis. Recent confinement November 142022 for BPPV. Outpatient cystoscopy deferred due to dizziness symptoms. Right ICA 50% stenosis noted on carotid Dopplers. Patient evaluated by Neurology. Vertigo symptoms improved post Juan Manuel maneuver. Deferred cystoscopy rescheduled to next week. 2 days ago, patient noted weakness and lightheadedness symptoms. No headache, no unusual neck pain, no chest pain, no SOB. Subsequent nausea, emesis symptoms without abdominal pain. No hematuria/black/bloody stools. Increased urinary frequency with fever noted at home. Ceftriaxone administered at the ER. Medical History as above Surgical History : Right knee surgery, hernia repair, skin cancer surgery, tonsillectomy/adenoidectomy, Achilles tendon repair right, eardrum surgery, vasectomy, urologic procedures Family History : Blood clots, DM, heart disease Personal/Social history : Non-smoker, no EtOH intake, [employer] employee Admission Exam Per Admitting Provider GENERAL: Comfortable, pleasant, no respiratory distress SKIN: Normal color, warm HEENT: Bespectacled, [place] palpebral conjunctivae, no ptosis, dry buccal mucosa NECK : Cervical collar in place CHEST : CTA, no tenderness HEART : RRR, no obvious murmurs ABDOMEN: Some distention, nontender EXTREMITIES : No LE swelling/tenderness, no other conspicuous deformities noted NEUROLOGIC : Coherent, no facial asymmetry, no other gross focality Principal Dx & Hospital Course #1 = Principal Diagnosis (1) UTI (urinary tract infection): Sepsis In the setting of ureteral stent CT abdomen pelvis: 1. Right ureteral stent in place. No ureteral calculi or hydronephrosis. Right- sided nephrolithiasis. 2. Right perinephric stranding. This is a nonspecific finding which may be related to the indwelling stent. However, an infectious process such as pyelonephritis could appear similar. No renal fluid collection is suggest abscess on unenhanced exam. 3. No bowel obstruction. No bowel wall thickening. 4. Trace right pleural effusion. Urine culture: E. coli, pansensitive Blood cultures: Negative Given IV cefepime, transitioned to ertapenem and ciprofloxacin Patient clinically improved, fever resolved Cleared for discharge by urology service Discharged on 7 days of ciprofloxacin 5 mg p.o. twice daily Plan for ureteral stent removal this coming Thursday, November 24, 2022 (2) Dizziness: Secondary to complicated UTI History instrumentation, hx urolithiasis status post ureteral stent placement (10/2022) chronic systolic heart failure, patient on the dry side -- Advised to hold Lasix and spironolactone for 2 to 3 days and resume once oral intake has improved hx CAD status post stent (10/2022), PVD cardiac thrombus on Eliquis hypertension hyperlipidemia on statin Rx prediabetes, hemoglobin A1c of 5.9 last October 2022 traumatic C7 spinous process fracture (08/2022), currently on cervical collar, patient follows with [facility] Orthopedics, evaluated by [facility] orthopedics inpatient during last confinement DVT prophylaxis. Eliquis Full code Disposition Discharge to home Ureteral stent removal this coming Thursday, November 24, 2022 PCP follow-up appointment in 1 week plan of care discussed with patient in detail and at length all questions answered he is understanding, agreeable, comfortable with the plan of care Discharge Exam General- oriented x 3, not in distress, speaks in sentences with no effort or accessory muscle use Eyes- anicteric Neck- no JVD Lungs- clear BS BL no rales/wheezing Heart- normal rate, regular rhythm; no murmurs Abdomen- normal bowel sounds, nondistended, soft, no tenderness Extremities- no pretibial edema, no calf tenderness Neuro- alert, oriented x 3; no gross focal neurologic deficits Skin- warm & dry Updated Medication List Medication Instructions Recorded Confirmed Type multivitamin 1 tab PO QAM 06/21/18 11/19/22 History omega 3-ayk-idg-fish oil 1,000 mg 1 cap PO QAM ##0 06/24/18 11/19/22 History (120 mg-180 mg) capsule (Fish Oil) imiquimod 5 % topical cream packet 1 applic topical DIRECTED 03/12/22 11/19/22 History niacinamide 100 mg tablet 100 mg PO BID 10/21/22 11/19/22 History omeprazole 20 mg capsule,delayed 20 mg PO BID 10/21/22 11/19/22 History release vitamins A,C,P-sacs-mqqklg 2,148 1 tab PO QAM 10/21/22 11/19/22 History mcg-113 mg-45 mg-17.4 mg tablet (PreserVision AREDS) clopidogrel 75 mg tablet 75 mg PO QAM #30 tabs 10/26/22 11/19/22 Rx losartan 25 mg tablet 25 mg PO QAM #30 tabs 10/26/22 11/19/22 Rx metoprolol succinate 25 mg 25 mg PO BID #60 tabs 10/26/22 11/19/22 Rx tablet,extended release 24 hr apixaban 5 mg tablet (Eliquis) 5 mg PO BID 11/03/22 11/19/22 History atorvastatin 80 mg tablet (Lipitor) 80 mg PO QAM 11/03/22 11/19/22 History ciprofloxacin HCl 500 mg tablet 500 mg PO BID 7 days #14 tabs 11/21/22 Rx (Cipro) Hospital Stay Data Consultations 11/19/22 02:48 ED Decision to Admit Stat 11/19/22 04:37 Consult Urology Routine Diagnostic Imagining Performed 11/19/22 15:59 CT Abd and Pelvis [CT abd pelvis wo con] Urgent COMPARISON STUDY: CT of the abdomen and pelvis October 21, 2022. TECHNIQUE: Axial images of the abdomen and pelvis were obtained without IV contrast. Images were reviewed in the axial, sagittal, and coronal planes. Automated exposure control was utilized for the study. A dose lowering technique was utilized adhering to the principles of ALARA. FINDINGS: A trace right pleural effusion is noted. There is extensive coronary artery calcification. No pneumatosis, free air or portal venous gas is present. A right ureteral stent is in place. There are no ureteral calculi. There is no hydronephrosis. Several small right renal calculi measure up to 4 mm. Low- attenuation 1.4 cm lesion within the medial cortex of the midpole of the right kidney was present on prior exam. This is suboptimally assessed on this unenhanced exam but favors a cyst. No renal fluid collection is identified on unenhanced exam. Right perinephric stranding persists. This is nonspecific. There is no left hydronephrosis. Evaluation of the remainder of the abdomen and pelvis is suboptimal on this unenhanced exam. Liver, spleen, adrenal glands and pancreas are unremarkable. The appendix is normal. There is no evidence for a bowel obstruction. A moderate amount of stool within the colon is present. There is no lymphadenopathy. No acute fractures are present. Old mild T11 and T12 compression deformities are unchanged. IMPRESSION: 1. Right ureteral stent in place. No ureteral calculi or hydronephrosis. Right- sided nephrolithiasis. 2. Right perinephric stranding. This is a nonspecific finding which may be related to the indwelling stent. However, an infectious process such as pyelonephritis could appear similar. No renal fluid collection is suggest abscess on unenhanced exam. 3. No bowel obstruction. No bowel wall thickening. 4. Trace right pleural effusion. ACT 112: Negative or not required by law. Electronically signed by: Servando Bolaños M.D. 11/19/2022 5:46 PM Pending Results Patient Have Any Pending Studies at Discharge: No Discharge Instructions Given to Patient (Per Discharging Provider) PLEASE REFER TO YOUR NEW MEDICATION LIST AND FOLLOW INSTRUCTIONS CAREFULLY. YOUR NEW MEDICATIONS INCLUDE: Ciprofloxacin-antibiotic for urinary tract infection Take a probiotic daily x2 weeks. Include yogurt in your daily diet. Drink plenty of water. Hold Lasix and Aldactone for now. Resume in 2 to 3 days once your oral intake further improves. PLEASE CALL YOUR PRIMARY CARE PHYSICIAN OR RETURN TO THE ER IF WITH WORSENING OF SYMPTOMS, INCLUDING Fever/chills, abdominal/flank/back pain, nausea/vomiting, diarrhea, shortness of breath or leg swelling, etc. PLEASE COME TO YOUR APPOINTMENT FOR URETERAL STENT REMOVAL THIS COMING THURSDAY, NOVEMBER 24, 2022. THE UROLOGY CLINIC WILL BE CALLING YOU SOON FOR SPECIFIC DETAILS AND INSTRUCTIONS. FOLLOW UP WITH PRIMARY CARE PHYSICIAN IN 1 WEEK. Total Time Total Time Spent Total Time Spent (In Minutes): >30 minutes
== END 2022-11-21 13:22 | disposition home or self-care (01) | DRG 698 ==
LOC: ED 23:23 → 2N 11-19 03:29